=== PATIENT | female | born 1970 | race American Indian/Alaskan Native ===

== ENCOUNTER 2016-11-16 23:20 | Emergency (ER) | payer MEDICARE ==
[2016-11-17] MEDS ORDERED: TORADOL IM ONE (07:45)
--- NOTE | 2016-11-17 07:53 | Emergency Department Report ---
HPI - General Chief Complaint: Pain General Time Seen by Provider: 11/17/16 07:41 - HPI HPI: 46-year-old female presents to ED complaining of generalized body aching that and on for a couple of years. Patient states she has generalized body aching that started last night. Patient denies any fall trauma or injury recently. Patient states she takes atenolol for high blood pressure. Patient denies allergies to any medication. patient denies fever/chiils/nausea/vomiting/chest pain/abdominal pain/shortness of breath or any other problems ED Past Medical Hx - Past Medical History Previous Medical History?: Yes Hx Hypertension: Yes Hx Arthritis: Yes Hx Asthma: Yes - Surgical History Past Surgical History?: Yes Additional Surgical History: "TUMORS REMOVED IN STOMACH" - Social History Smoking Status: Current Every Day Smoker Substance Use Type: None - Medications Home Medications: Home Medications Medication Instructions Recorded Confirmed Last Taken Type ALBUTEROL Inhaler [ProAir HFA 2 puff IH QID PRN #1 inha 12/03/15 Unknown Rx Inhaler] predniSONE [Deltasone] 50 mg PO QDAY #5 tab 02/22/16 Unknown Rx Cyclobenzaprine HCl [Flexeril 5 MG 5 mg PO TID PRN #10 tab 09/30/16 Unknown Rx TAB] Atenolol [Tenormin] 50 mg PO DAILY #30 tablet 11/17/16 Unknown Rx Cyclobenzaprine [Flexeril 10 MG 10 mg PO TID PRN #12 tablet 11/17/16 Unknown Rx TAB] Ibuprofen [Motrin 800 MG tab] 800 mg PO Q8HR PRN #20 tablet 11/17/16 Unknown Rx ED Review of Systems ROS: Stated complaint: BODYACHES Other details as noted in HPI Constitutional: denies: chills, fever Eyes: denies: eye pain, eye discharge, vision change ENT: denies: ear pain, throat pain, dental pain, hearing loss Respiratory: denies: cough, shortness of breath, wheezing Cardiovascular: denies: chest pain, palpitations Endocrine: no symptoms reported Gastrointestinal: denies: abdominal pain, nausea, vomiting, diarrhea, constipation Genitourinary: denies: urgency, dysuria, frequency, hematuria, discharge Musculoskeletal: denies: back pain, joint swelling, arthralgia Skin: denies: rash, lesions Neurological: denies: headache, weakness, numbness, paresthesias, confusion, abnormal gait Psychiatric: denies: anxiety, depression, suicidal thoughts Hematological/Lymphatic: denies: easy bleeding, easy bruising, swollen glands Physical Exam - Physical Exam Vital Signs: Vital Signs 11/16/16 11/17/16 23:53 07:10 Temperature 97.5 F L Pulse Rate 81 68 Respiratory 12 17 Rate Blood Pressure 158/112 Blood Pressure 175/97 [Left] O2 Sat by Pulse 100 98 Oximetry Physical Exam: GENERAL: Alert and oriented x3, no apparent distress, Normal Gait, atraumatic. HEAD: Head is normocephalic and a-traumatic. EYES: Extra ocular muscles are intact. Pupils are equal, round, and reactive to light and accommodation. NECK: Supple. Non edematous, No carotid bruits. No lymphadenopathy or thyromegaly. LUNGS: Symetrical with respiration, No wheezing, no rales or crackles, CTAB. HEART: S1, S2 present, regular rate and rhythm without murmur, no rubs, no gallops. ABDOMEN: No organomegaly was noted,Positive bowel sounds, soft, and non- distended. . Nontender to palpation on all Quadrants, NO CVA tenderness. EXTREMITIES/MUSCULOSKELETAL: No cyanosis, clubbing, rash, lesions or edema. Full ROM bilaterally. UE/LE Pulses 2+ bilaterally. LE and UE 5+ strength bilaterally NEUROLOGIC: No focal Deficit, Cranial nerves II through XII are grossly intact. No loss of sensation, PSYCHIATRIC: Mood is congruent with affect, denies suicidal or homicidal ideations. SKIN: Warm and dry, No lesions, No ulceration or induration present. ED Course Vital Signs 11/16/16 11/17/16 23:53 07:10 Temperature 97.5 F L Pulse Rate 81 68 Respiratory 12 17 Rate Blood Pressure 158/112 Blood Pressure 175/97 [Left] O2 Sat by Pulse 100 98 Oximetry ED Medical Decision Making - Medical Decision Making 46-year-old female presents with myalgia. ED course: Patient received 60 mg Toradol and 50 mg of atenolol. Discussed with patient to rest for a day or 2. Discussed the patient took medication as prescribed for pain and continue to take blood pressure meds daily. I discussed to follow up with primary care physician. Vital signs are stable, moderately elevated blood pressure due to not taking her dose pressure because she was in the ER therefore blood pressure medication administered in the ED prior to discharge. Patient is in no acute or respiratory distress. Patient is resting comfortably in the bed. Critical care attestation.: If time is entered above; I have spent that time in minutes in the direct care of this critically ill patient, excluding procedure time. ED Disposition Clinical Impression: Myalgia Disposition: DISCHARGED TO HOME OR SELFCARE Is pt being admited?: No Does the pt Need Aspirin: No Condition: Stable Instructions: Musculoskeletal Pain (ED), Trigger Point Pain (ED) Prescriptions: Atenolol [Tenormin] 50 mg PO DAILY #30 tablet Cyclobenzaprine [Flexeril 10 MG TAB] 10 mg PO TID PRN #12 tablet PRN Reason: Muscle Spasm Ibuprofen [Motrin 800 MG tab] 800 mg PO Q8HR PRN #20 tablet PRN Reason: Pain Referrals: PRIMARY CAREMD [Primary Care Provider] - 3-5 Days KAMALJIT BERNARD MD [Referring] - 3-5 Days [facility] [Outside] - 3-5 Days [facility] [Outside] - 3-5 Days [facility] [Outside] - 3-5 Days Forms: Work/School Release Form(ED) Time of Disposition: 08:00
[2016-11-17] MEDS ORDERED: TENORMIN PO ONE (08:01)
[2016-11-17 08:29] VITALS: BP 159/78
== END 2016-11-17 08:39 | disposition home or self-care (01) ==
LOC: ED 23:20
DX: M79.1 Myalgia (principal); I10 Essential (primary) hypertension; J45.909 Unspecified asthma, uncomplicated; F17.200 Nicotine dependence, unspecified, uncomplicated
CPT/HCPCS: 96372; 99282; J1885

== ENCOUNTER 2016-11-26 10:00 | Emergency (ER) | payer MEDICARE ==
[2016-11-26 11:40] LABS: Basophils % (Auto) 0.8 % (0.0-1.8); Eosinophils % (Auto) 3.2 % (0.0-4.3); Hematocrit 35.4 % (30.3-42.9); Hemoglobin 11.4 gm/dl (10.1-14.3); Mean Corpuscular HGB Conc 32 % (30-34); Mean Corpuscular Hemoglobin 28 pg (28-32); Mean Corpuscular Volume 86 fl (79-97); Platelet Count 295 K/mm3 (140-440); Red Blood Count 4.11 M/mm3 (3.65-5.03); Red Cell Distribution Width 15.3 % (13.2-15.2); White Blood Count 5.1 K/mm3 (4.5-11.0)
[2016-11-26 11:54] LABS: Anion Gap 17 mmol/L; BUN/Creatinine Ratio 17.14; Blood Urea Nitrogen 12 mg/dL (7-17); Calcium 8.9 mg/dL (8.4-10.2); Carbon Dioxide 23 mmol/L (22-30); Chloride 102.2 mmol/L (98-107); Glucose 160 mg/dL (65-100); Potassium 3.4 mmol/L (3.6-5.0); Sodium 139 mmol/L (137-145)
[2016-11-26 12:53] LABS: Bilirubin,Urine NEG (Negative); Blood,Urine NEG (Negative); Ketones,Urine NEG (Negative); Leukocyte Esterase,Urine NEG (Negative); Nitrite,Urine NEG (Negative); Protein,Urine <15 mg/dL mg/dL (Negative); Urobilinogen,Urine < 2.0 mg/dL (<2.0); WBC,Urine < 1.0 /HPF (0.0-6.0)
--- NOTE | 2016-11-26 14:37 | XRay Report ---
ROUTINE CHEST, TWO VIEWS: HISTORY: Shortness of breath. The trachea, heart, mediastinal contour, lung doyle and bony thorax are unremarkable. IMPRESSION: Unremarkable chest x-ray.
--- NOTE | 2016-11-26 21:14 | Emergency Department Report ---
ED Shortness of Breath HPI - General Chief Complaint: Dyspnea/Respdistress Stated Complaint: TON Time Seen by Provider: 11/26/16 21:05 Source: patient Mode of arrival: Ambulatory Limitations: No Limitations - History of Present Illness Initial Comments: 46yo female with a past medical history hypertension, asthma, and arthritis presents to the hospital complaining of shortness of breath since last night. Patient was sleeping upon my initial evaluation but was easily arousable. Once aroused patient seems annoyed with questioning and not forthcoming with why she is here today. After answering multiple questions it appears that patient has been short of breath last night. She continuously says she is not quite back to the apartment where she was residing. She thinks this is exacerbating her asthma. Question about her complaint of cough I cough all the time. Question about high blood pressure she admits to not taking any of her meds 1 month. Then patient is agitated stating I'm asking her to many questions. - Related Data Previous Rx's Medication Instructions Recorded Last Taken Type ALBUTEROL Inhaler [ProAir HFA 2 puff IH QID PRN #1 inha 12/03/15 Unknown Rx Inhaler] predniSONE [Deltasone] 50 mg PO QDAY #5 tab 02/22/16 Unknown Rx Cyclobenzaprine HCl [Flexeril 5 MG 5 mg PO TID PRN #10 tab 09/30/16 Unknown Rx TAB] Atenolol [Tenormin] 50 mg PO DAILY #30 tablet 11/17/16 Unknown Rx Cyclobenzaprine [Flexeril 10 MG 10 mg PO TID PRN #12 tablet 11/17/16 Unknown Rx TAB] Ibuprofen [Motrin 800 MG tab] 800 mg PO Q8HR PRN #20 tablet 11/17/16 Unknown Rx Allergies Allergy/AdvReac Type Severity Reaction Status Date / Time No Known Allergies Allergy Verified 09/30/16 12:28 ED Review of Systems ROS: Stated complaint: TON Other details as noted in HPI Comment: Unobtainable due to pts medical conditions (limited due to lack of patient cooperation) ED Past Medical Hx - Past Medical History Hx Hypertension: Yes Hx Arthritis: Yes Hx Asthma: Yes - Surgical History Additional Surgical History: "TUMORS REMOVED IN STOMACH" - Social History Smoking Status: Current Every Day Smoker Substance Use Type: None - Medications Home Medications: Home Medications Medication Instructions Recorded Confirmed Last Taken Type ALBUTEROL Inhaler [ProAir HFA 2 puff IH QID PRN #1 inha 12/03/15 Unknown Rx Inhaler] predniSONE [Deltasone] 50 mg PO QDAY #5 tab 02/22/16 Unknown Rx Cyclobenzaprine HCl [Flexeril 5 MG 5 mg PO TID PRN #10 tab 09/30/16 Unknown Rx TAB] Atenolol [Tenormin] 50 mg PO DAILY #30 tablet 11/17/16 Unknown Rx Cyclobenzaprine [Flexeril 10 MG 10 mg PO TID PRN #12 tablet 11/17/16 Unknown Rx TAB] Ibuprofen [Motrin 800 MG tab] 800 mg PO Q8HR PRN #20 tablet 11/17/16 Unknown Rx ED Physical Exam - General Limitations: No Limitations - Other Other exam information: General: No limitations, patient is alert in no acute distress Head exam: Atraumatic, normocephalic Eyes exam: Normal appearance ENT: Moist mucous membrane Neck exam: Normal inspection, full range of motion, no meningismus nontender Respiratory exam: Clear to auscultation bilateral, no wheezes, rales, crackles Cardiovascular: Normal rate and rhythm, normal heart sounds Abdomen: Soft, nondistended, and nontender, with normal bowel sounds, no rebound, or guarding Extremity: Full range of motion normal inspection no deformity Back: Normal Inspection, full range of motion, no tenderness Neurologic: Alert, oriented x3, cranial nerves intact, no motor or sensory deficit Psychiatric: normal affect, normal mood Skin: Warm, dry, intact ED Course Vital Signs 11/26/16 11/26/16 10:55 21:23 Temperature 97.4 F L Pulse Rate 70 70 Respiratory 20 18 Rate Blood Pressure 180/104 Blood Pressure 189/108 [Left] O2 Sat by Pulse 100 99 Oximetry ED Medical Decision Making - Lab Data Result diagrams: 11/26/16 11:16 11/26/16 11:16 Lab Results 11/26/16 11/26/16 11/26/16 Range/Units 11:07 11:16 11:16 WBC 5.1 (4.5-11.0) K/mm3 RBC 4.11 (3.65-5.03) M/mm3 Hgb 11.4 (10.1-14.3) gm/dl Hct 35.4 (30.3-42.9) % MCV 86 (79-97) fl MCH 28 (28-32) pg MCHC 32 (30-34) % RDW 15.3 H (13.2-15.2) % Plt Count 295 (140-440) K/mm3 Lymph % (Auto) 40.2 H (13.4-35.0) % [place] % (Auto) 4.0 (0.0-7.3) % Eos % (Auto) 3.2 (0.0-4.3) % Baso % (Auto) 0.8 (0.0-1.8) % Lymph # 2.0 (1.2-5.4) K/mm3 [place] # 0.2 (0.0-0.8) K/mm3 Eos # 0.2 (0.0-0.4) K/mm3 Baso # 0.0 (0.0-0.1) K/mm3 Seg Neutrophils % 51.8 (40.0-70.0) % Seg Neutrophils # 2.6 (1.8-7.7) K/mm3 Sodium 139 (137-145) mmol/L Potassium 3.4 L (3.6-5.0) mmol/L Chloride 102.2 (98-107) mmol/L Carbon Dioxide 23 (22-30) mmol/L Anion Gap 17 mmol/L BUN 12 (7-17) mg/dL Creatinine 0.7 (0.7-1.2) mg/dL Estimated GFR > 60 ml/min BUN/Creatinine Ratio 17.14 % Glucose 160 H (65-100) mg/dL Calcium 8.9 (8.4-10.2) mg/dL Troponin T < 0.010 (0.00-0.029) ng/mL Urine Color Yellow (Yellow) Urine Turbidity Clear (Clear) Urine pH 6.0 (5.0-7.0) Ur Specific [place] 1.018 (1.003-1.030) Urine Protein <15 mg/dl (Negative) mg/dL Urine Glucose (UA) Neg (Negative) mg/dL Urine Ketones Neg (Negative) mg/dL Urine Blood Neg (Negative) Urine Nitrite Neg (Negative) Urine Bilirubin Neg (Negative) Urine Urobilinogen < 2.0 (<2.0) mg/dL Ur Leukocyte Esterase Neg (Negative) Urine WBC (Auto) < 1.0 (0.0-6.0) /HPF Urine RBC (Auto) 2.0 (0.0-6.0) /HPF U Epithel Cells (Auto) < 1.0 (0-13.0) /HPF Urine HCG, Qual Negative (Negative) - EKG Data -: EKG Interpreted by Me (nsr 70, nonspec st abnl) - EKG Data When compared to previous EKG there are: previous EKG unavailable - Radiology Data Radiology results: report reviewed (cxr: naf) - Medical Decision Making No signs of wheezing, hypoxia, tachypnea get the ED. Patient is asymptomatic hypertension with normal renal function. She has been noncompliant with her atenolol 1 month. I attempted to ask the patient most requested that she is not forthcoming with information is agitated by my questioning. She'll be discharged home on inhaler, steroids, by mouth potassium for mild hypokalemia and her blood pressure medication. Patient walked out of the department refuses any further care. - Differential Diagnosis asthma, uncontrolled hypertension, medication noncompliance, bronchitis, pn Critical Care Time: No Critical care attestation.: If time is entered above; I have spent that time in minutes in the direct care of this critically ill patient, excluding procedure time. ED Disposition Clinical Impression: Asthma, HTN (hypertension) Disposition: ELOPED Is pt being admited?: No Does the pt Need Aspirin: No Condition: Stable Instructions: Asthma (ED), Hypertension (ED) Referrals: PRIMARY CARE, [Primary Care Provider] - 3-5 Days Time of Disposition: 21:43
[2016-11-26 21:24] VITALS: BP 189/108
== END 2016-11-26 21:37 | disposition left against medical advice (07) ==
LOC: ED 10:00
DX: J45.909 Unspecified asthma, uncomplicated (principal); I10 Essential (primary) hypertension; M19.90 Unspecified osteoarthritis, unspecified site; F17.200 Nicotine dependence, unspecified, uncomplicated
CPT/HCPCS: 36415; 71020; 80048; 81001; 81025; 84484; 85025; 93005; 93010

== ENCOUNTER 2016-11-26 22:09 | Emergency (ER) | payer MEDICARE ==
[2016-11-27 08:37] VITALS: BP 156/104
== END 2016-11-27 15:35 | disposition left against medical advice (07) ==
LOC: ED 22:09
DX: I10 Essential (primary) hypertension (principal); M79.1 Myalgia; J45.909 Unspecified asthma, uncomplicated; M19.90 Unspecified osteoarthritis, unspecified site; F17.200 Nicotine dependence, unspecified, uncomplicated; Z53.21 Procedure and treatment not carried out due to patient leaving prior to being seen by health care provider

== ENCOUNTER 2017-01-06 23:35 | Emergency (ER) | payer MEDICARE ==
[2017-01-07 00:44] LABS: Basophils % (Auto) 1.1 % (0.0-1.8); Eosinophils % (Auto) 2.6 % (0.0-4.3); Hemoglobin 11.6 gm/dl (10.1-14.3); Mean Corpuscular HGB Conc 32 % (30-34); Mean Corpuscular Hemoglobin 28 pg (28-32); Mean Corpuscular Volume 86 fl (79-97); Platelet Count 310 K/mm3 (140-440); Red Blood Count 4.17 M/mm3 (3.65-5.03); Red Cell Distribution Width 15.4 % (13.2-15.2); White Blood Count 6.3 K/mm3 (4.5-11.0)
[2017-01-07 00:59] LABS: Anion Gap 16 mmol/L; BUN/Creatinine Ratio 21.42; Blood Urea Nitrogen 15 mg/dL (7-17); Carbon Dioxide 26 mmol/L (22-30); Chloride 103.6 mmol/L (98-107); Glucose 81 mg/dL (65-100); Potassium 4.3 mmol/L (3.6-5.0); Sodium 141 mmol/L (137-145)
[2017-01-07 01:11] LABS: Urine Drugs of Abuse Note Disclamer
[2017-01-07 01:49] LABS: Bacteria,Urine 1+ /HPF (Negative); Bilirubin,Urine NEG (Negative); Blood,Urine NEG (Negative); Ketones,Urine NEG (Negative); Leukocyte Esterase,Urine NEG (Negative); Nitrite,Urine NEG (Negative); Protein,Urine <15 mg/dL mg/dL (Negative); WBC,Urine < 1.0 /HPF (0.0-6.0)
--- NOTE | 2017-01-07 12:24 | Emergency Department Report ---
ED General Adult HPI - General Chief complaint: Back Pain/Injury Stated complaint: BACK PAIN Time Seen by Provider: 01/07/17 12:14 Source: patient Mode of arrival: Ambulatory Limitations: No Limitations - History of Present Illness Initial comments: According to the triage note "patient uncooperative and cursing staff at triage. Talking to self.". At this time the patient is not talking to herself. She is not responding to any internal stimuli. She is laying in the left lateral decubitus position and trying to sleep in the room. On my encounter she persistently tries to pull sheet over her head. Upon repeated questioning she tells me that she is not homicidal suicidal or hallucinating. I asked her if she ran out of her mental health medicine duran needed me to prescribe her chronic medicines. She did not identify any medicine or answer in the affirmative. She stated that she is here for "lower back pain" which is apparently chronic and not related to any acute injury. He denies any or GI symptoms. She's had no radiating pain no numbness or weakness. She arrived fully ambulatory. It would appear that the pain is not influencing her ability to rest or lay on her side. She is certainly in no distress. -: unknown Location: back Severity scale (0 -10): 8 Quality: aching Consistency: now resolved Improves with: none Worsens with: none Associated Symptoms: denies other symptoms Treatments Prior to Arrival: none - Related Data Previous Rx's Medication Instructions Recorded Last Taken Type ALBUTEROL Inhaler [ProAir HFA 2 puff IH QID PRN #1 inha 12/03/15 Unknown Rx Inhaler] predniSONE [Deltasone] 50 mg PO QDAY #5 tab 02/22/16 Unknown Rx Cyclobenzaprine HCl [Flexeril 5 MG 5 mg PO TID PRN #10 tab 09/30/16 Unknown Rx TAB] Atenolol [Tenormin] 50 mg PO DAILY #30 tablet 11/17/16 Unknown Rx Cyclobenzaprine [Flexeril 10 MG 10 mg PO TID PRN #12 tablet 11/17/16 Unknown Rx TAB] Ibuprofen [Motrin 800 MG tab] 800 mg PO Q8HR PRN #20 tablet 11/17/16 Unknown Rx Naproxen [Naprosyn] 500 mg PO BID #10 tablet 01/07/17 Unknown Rx Allergies Allergy/AdvReac Type Severity Reaction Status Date / Time No Known Allergies Allergy Verified 09/30/16 12:28 ED Review of Systems ROS: Stated complaint: BACK PAIN Other details as noted in HPI Constitutional: denies: chills, fever Eyes: denies: eye pain, eye discharge, vision change ENT: denies: ear pain, throat pain Respiratory: denies: cough, shortness of breath, wheezing Cardiovascular: denies: chest pain, palpitations Endocrine: no symptoms reported Gastrointestinal: denies: abdominal pain, nausea, diarrhea Genitourinary: denies: urgency, dysuria, discharge Musculoskeletal: back pain. denies: joint swelling, arthralgia Skin: denies: rash, lesions Neurological: denies: headache, weakness, paresthesias Psychiatric: denies: anxiety, depression Hematological/Lymphatic: denies: easy bleeding, easy bruising ED Past Medical Hx - Past Medical History Previous Medical History?: Yes Hx Hypertension: Yes Hx Arthritis: Yes Hx Asthma: Yes - Surgical History Past Surgical History?: Yes Additional Surgical History: "TUMORS REMOVED IN STOMACH" - Social History Smoking Status: Current Every Day Smoker Substance Use Type: None - Medications Home Medications: Home Medications Medication Instructions Recorded Confirmed Last Taken Type ALBUTEROL Inhaler [ProAir HFA 2 puff IH QID PRN #1 inha 12/03/15 Unknown Rx Inhaler] predniSONE [Deltasone] 50 mg PO QDAY #5 tab 02/22/16 Unknown Rx Cyclobenzaprine HCl [Flexeril 5 MG 5 mg PO TID PRN #10 tab 09/30/16 Unknown Rx TAB] Atenolol [Tenormin] 50 mg PO DAILY #30 tablet 11/17/16 Unknown Rx Cyclobenzaprine [Flexeril 10 MG 10 mg PO TID PRN #12 tablet 11/17/16 Unknown Rx TAB] Ibuprofen [Motrin 800 MG tab] 800 mg PO Q8HR PRN #20 tablet 11/17/16 Unknown Rx Naproxen [Naprosyn] 500 mg PO BID #10 tablet 01/07/17 Unknown Rx ED Physical Exam - General Limitations: No Limitations General appearance: alert, in no apparent distress, obese - Head Head exam: Present: atraumatic, normocephalic - Eye Eye exam: Present: normal appearance. Absent: scleral icterus - ENT ENT exam: Present: mucous membranes moist - Neck Neck exam: Present: normal inspection. Absent: tenderness, meningismus - Respiratory Respiratory exam: Present: normal lung sounds bilaterally. Absent: respiratory distress - Cardiovascular Cardiovascular Exam: Present: regular rate, normal rhythm. Absent: systolic murmur, diastolic murmur, rubs, gallop - GI/Abdominal GI/Abdominal exam: Present: soft, normal bowel sounds. Absent: distended, tenderness, guarding, rebound, rigid - Extremities Exam Extremities exam: Present: normal inspection - Back Exam Back exam: Present: normal inspection. Absent: CVA tenderness (R), CVA tenderness (L), muscle spasm, paraspinal tenderness, vertebral tenderness - Neurological Exam Neurological exam: Present: alert, oriented X3, CN II-XII intact. Absent: motor sensory deficit - Psychiatric Psychiatric exam: Present: normal affect, normal mood - Skin Skin exam: Present: warm, dry, intact, normal color. Absent: rash ED Course Vital Signs 01/07/17 01/07/17 01/07/17 00:04 05:49 10:50 Temperature 97.4 F L 98.2 F Pulse Rate 91 H 74 85 Respiratory 16 99 H 16 Rate Blood Pressure 148/92 184/109 174/101 O2 Sat by Pulse 98 100 100 Oximetry - Reevaluation(s) Reevaluation #1: I have reviewed the patient's history physical and laboratory workup. I do not identify any emergency medical condition. I do not identify any indication for involuntary confinement. It would appear the patient has chronic back pain and is malingering. It would appear that she has chronic psychiatric disorder but does not need 1013 criteria. Therefore she will be discharged and referred to outpatient services. 01/07/17 12:34 ED Medical Decision Making - Lab Data Result diagrams: 01/07/17 00:29 01/07/17 00:29 Laboratory Results - last 24 hr 01/07/17 01/07/17 01/07/17 00:29 00:29 00:29 WBC 6.3 RBC 4.17 Hgb 11.6 Hct 36.0 MCV 86 MCH 28 MCHC 32 RDW 15.4 H Plt Count 310 Lymph % (Auto) 42.7 H [place] % (Auto) 7.3 Eos % (Auto) 2.6 Baso % (Auto) 1.1 Lymph # 2.7 [place] # 0.5 Eos # 0.2 Baso # 0.1 Seg Neutrophils % 46.3 Seg Neutrophils # 2.9 Sodium 141 Potassium 4.3 Chloride 103.6 Carbon Dioxide 26 Anion Gap 16 BUN 15 Creatinine 0.7 Estimated GFR > 60 BUN/Creatinine Ratio 21.42 Glucose 81 Calcium 9.0 Urine Color Urine Turbidity Urine pH Ur Specific [place] Urine Protein Urine Glucose (UA) Urine Ketones Urine Blood Urine Nitrite Ur Reducing Substances Urine Bilirubin Urine Ictotest Urine Urobilinogen Ur Leukocyte Esterase Urine WBC (Auto) Urine RBC (Auto) U Epithel Cells (Auto) Urine Bacteria (Auto) Urine HCG, Qual Urine Opiates Screen Urine Methadone Screen Ur Barbiturates Screen Ur Phencyclidine Scrn Ur Amphetamines Screen U Benzodiazepines Scrn Urine Cocaine Screen U Marijuana (THC) Screen Drugs of Abuse Note Plasma/Serum Alcohol < 0.01 01/07/17 01/07/17 00:42 00:42 WBC RBC Hgb Hct MCV MCH MCHC RDW Plt Count Lymph % (Auto) [place] % (Auto) Eos % (Auto) Baso % (Auto) Lymph # [place] # Eos # Baso # Seg Neutrophils % Seg Neutrophils # Sodium Potassium Chloride Carbon Dioxide Anion Gap BUN Creatinine Estimated GFR BUN/Creatinine Ratio Glucose Calcium Urine Color Yellow Urine Turbidity Clear Urine pH 7.0 Ur Specific [place] 1.017 Urine Protein <15 mg/dl Urine Glucose (UA) Neg Urine Ketones Neg Urine Blood Neg Urine Nitrite Neg Ur Reducing Substances Not Reportable Urine Bilirubin Neg Urine Ictotest Not Reportable Urine Urobilinogen 2.0 Ur Leukocyte Esterase Neg Urine WBC (Auto) < 1.0 Urine RBC (Auto) 3.0 U Epithel Cells (Auto) 3.0 Urine Bacteria (Auto) 1+ Urine HCG, Qual Negative Urine Opiates Screen Presumptive negative Urine Methadone Screen Presumptive negative Ur Barbiturates Screen Presumptive negative Ur Phencyclidine Scrn Presumptive negative Ur Amphetamines Screen Presumptive negative U Benzodiazepines Scrn Presumptive negative Urine Cocaine Screen Presumptive negative U Marijuana (THC) Screen Presumptive negative Drugs of Abuse Note Disclamer Plasma/Serum Alcohol Critical care attestation.: If time is entered above; I have spent that time in minutes in the direct care of this critically ill patient, excluding procedure time. ED Disposition Clinical Impression: Psychiatric disorder, Malingering Lower back pain Qualifiers: Chronicity: chronic Back pain laterality: unspecified Sciatica presence: without sciatica Qualified Code(s): M54.5 - Low back pain; G89.29 - Other chronic pain Disposition: DISCHARGED TO HOME OR SELFCARE Is pt being admited?: No Does the pt Need Aspirin: No Condition: Stable Instructions: Low Back Strain (ED), Chronic Back Pain (ED), Schizophrenia (ED) Additional Instructions: Follow-up with outpatient referrals. Rx as needed for back discomfort. Prescriptions: Naproxen [Naprosyn] 500 mg PO BID #10 tablet Referrals: PRIMARY CARE, [Primary Care Provider] - 3-5 Days [facility] [Outside] - 3-5 Days [facility] [Provider Group] - 3-5 Days Time of Disposition: 12:36
[2017-01-07 12:48] VITALS: BP 151/71
== END 2017-01-07 12:58 | disposition home or self-care (01) ==
LOC: ED 23:35 → EEVIPCON 23:35 → ED 01-07 12:58
DX: M54.5 Low back pain (principal); G89.29 Other chronic pain; F29 Unspecified psychosis not due to a substance or known physiological condition; Z76.5 Malingerer [conscious simulation]; I10 Essential (primary) hypertension; J45.909 Unspecified asthma, uncomplicated; F17.200 Nicotine dependence, unspecified, uncomplicated
CPT/HCPCS: 36415; 80048; 80307; 81001; 81025; 85025; 99283; G0480; 80320

== ENCOUNTER 2017-03-16 01:48 | Emergency (ER) | payer MEDICARE ==
[2017-03-16 06:40] LABS: Urine Drugs of Abuse Note Disclamer
[2017-03-16 06:52] LABS: Basophils % (Auto) 0.7 % (0.0-1.8); Eosinophils % (Auto) 2.8 % (0.0-4.3); Hematocrit 38.2 % (30.3-42.9); Hemoglobin 12.7 gm/dl (10.1-14.3); Mean Corpuscular HGB Conc 33 % (30-34); Mean Corpuscular Hemoglobin 28 pg (28-32); Mean Corpuscular Volume 85 fl (79-97); Platelet Count 322 K/mm3 (140-440); Red Blood Count 4.49 M/mm3 (3.65-5.03); Red Cell Distribution Width 14.7 % (13.2-15.2); White Blood Count 5.8 K/mm3 (4.5-11.0)
[2017-03-16 07:00] LABS: Bilirubin,Urine NEG (Negative); Blood,Urine NEG (Negative); Ketones,Urine TR mg/dL (Negative); Leukocyte Esterase,Urine NEG (Negative); Mucus,Urine 1+ /HPF; Nitrite,Urine NEG (Negative)
[2017-03-16 07:08] LABS: Anion Gap 14 mmol/L; Blood Urea Nitrogen 16 mg/dL (7-17); Calcium 9.1 mg/dL (8.4-10.2); Carbon Dioxide 29 mmol/L (22-30); Chloride 104.6 mmol/L (98-107); Glucose 81 mg/dL (65-100); Sodium 144 mmol/L (137-145)
--- NOTE | 2017-03-16 10:04 | ED Elopement Review ---
ED Pt Elopement review - Results review Lab results: Laboratory Tests 03/16/17 03/16/17 03/16/17 06:37 06:37 06:37 WBC 5.8 RBC 4.49 Hgb 12.7 Hct 38.2 MCV 85 MCH 28 MCHC 33 RDW 14.7 Plt Count 322 Lymph % (Auto) 48.7 H [place] % (Auto) 8.8 H Eos % (Auto) 2.8 Baso % (Auto) 0.7 Lymph # 2.8 [place] # 0.5 Eos # 0.2 Baso # 0.0 Seg Neutrophils % 39.0 L Seg Neutrophils # 2.2 Sodium 144 Potassium 4.0 Chloride 104.6 Carbon Dioxide 29 Anion Gap 14 BUN 16 Creatinine 0.8 Estimated GFR > 60 BUN/Creatinine Ratio 20.00 Glucose 81 Calcium 9.1 Urine Color Urine Turbidity Urine pH Ur Specific [place] Urine Protein Urine Glucose (UA) Urine Ketones Urine Blood Urine Nitrite Urine Bilirubin Urine Urobilinogen Ur Leukocyte Esterase Urine WBC (Auto) Urine RBC (Auto) U Epithel Cells (Auto) Amorphous Crystals Urine Mucus Urine HCG, Qual Urine Opiates Screen Urine Methadone Screen Ur Barbiturates Screen Ur Phencyclidine Scrn Ur Amphetamines Screen U Benzodiazepines Scrn Urine Cocaine Screen U Marijuana (THC) Screen Drugs of Abuse Note Plasma/Serum Alcohol < 0.01 03/16/17 03/16/17 Unknown Unknown WBC RBC Hgb Hct MCV MCH MCHC RDW Plt Count Lymph % (Auto) [place] % (Auto) Eos % (Auto) Baso % (Auto) Lymph # [place] # Eos # Baso # Seg Neutrophils % Seg Neutrophils # Sodium Potassium Chloride Carbon Dioxide Anion Gap BUN Creatinine Estimated GFR BUN/Creatinine Ratio Glucose Calcium Urine Color Yellow Urine Turbidity Clear Urine pH 6.0 Ur Specific [place] 1.031 H Urine Protein 30 mg/dl Urine Glucose (UA) Neg Urine Ketones Tr Urine Blood Neg Urine Nitrite Neg Urine Bilirubin Neg Urine Urobilinogen 4.0 Ur Leukocyte Esterase Neg Urine WBC (Auto) 1.0 Urine RBC (Auto) 2.0 U Epithel Cells (Auto) 2.0 Amorphous Crystals Few Urine Mucus 1+ Urine HCG, Qual Negative Urine Opiates Screen Presumptive negative Urine Methadone Screen Presumptive negative Ur Barbiturates Screen Presumptive negative Ur Phencyclidine Scrn Presumptive negative Ur Amphetamines Screen Presumptive negative U Benzodiazepines Scrn Presumptive negative Urine Cocaine Screen Presumptive negative U Marijuana (THC) Screen Presumptive negative Drugs of Abuse Note Disclamer Plasma/Serum Alcohol - Call Back decision Pt Call Back Decision: No action required (Labs unremarkable. Vitals stable. Patient did not make any complaints of suicidal or homicidal ideations. Seen eloping and appeared stable while ambulating by ED staff)
[2017-03-16] MEDS ORDERED: DUONEB *Not for PRN Use IH ONE (10:16)
[2017-03-16] MEDS ORDERED: DELTASONE PO ONE (10:17)
--- NOTE | 2017-03-16 10:19 | Emergency Department Report ---
HPI - General Chief Complaint: Psych Time Seen by Provider: 03/16/17 09:58 - HPI HPI: This is a 47-year-old Afro-[place] female presents to the emergency department with complaint of "the inhaler is not enough." The patient has a history of asthma and says that she's been having some shortness of breath and coughing. She believes that the heat is exacerbating her symptoms. The patient is also a tobacco smoker. The patient had briefly eloped when I first got to the hospital to start shift and pick remover her chart but she returned shortly afterwards after she went outside to smoke a cigarette. She denies having a primary care physician. The patient does have some psychiatric history that appears to be consistent with schizophrenia but she denies being on any medications. While she is seen occasionally talking to herself, she is able to hold a conversation currently and she denies any suicidal or homicidal ideations. ED Past Medical Hx - Past Medical History Previous Medical History?: Yes Hx Hypertension: Yes Hx Arthritis: Yes Hx Asthma: Yes - Surgical History Past Surgical History?: Yes Additional Surgical History: "TUMORS REMOVED IN STOMACH" - Social History Smoking Status: Current Every Day Smoker Substance Use Type: None - Medications Home Medications: Home Medications Medication Instructions Recorded Confirmed Last Taken Type Cyclobenzaprine HCl [Flexeril 5 MG 5 mg PO TID PRN #10 tab 09/30/16 Unknown Rx TAB] Atenolol [Tenormin] 50 mg PO DAILY #30 tablet 11/17/16 Unknown Rx Cyclobenzaprine [Flexeril 10 MG 10 mg PO TID PRN #12 tablet 11/17/16 Unknown Rx TAB] Ibuprofen [Motrin 800 MG tab] 800 mg PO Q8HR PRN #20 tablet 11/17/16 Unknown Rx Naproxen [Naprosyn] 500 mg PO BID #10 tablet 01/07/17 Unknown Rx ALBUTEROL Inhaler [ProAir HFA 2 puff IH QID PRN #1 inha 03/16/17 Unknown Rx Inhaler] predniSONE [Deltasone] 50 mg PO QDAY #5 tab 03/16/17 Unknown Rx ED Review of Systems ROS: Stated complaint: UNCOMFORTABLE FROM HEAT Other details as noted in HPI Comment: All other systems reviewed and negative Constitutional: denies: chills, fever Eyes: denies: eye pain, eye discharge, vision change ENT: denies: ear pain, throat pain Respiratory: cough, shortness of breath, wheezing Cardiovascular: denies: chest pain, palpitations Gastrointestinal: denies: abdominal pain, nausea, diarrhea Genitourinary: denies: urgency, dysuria, discharge Musculoskeletal: denies: back pain, joint swelling, arthralgia Skin: denies: rash, lesions Neurological: denies: headache, weakness, paresthesias Physical Exam - Physical Exam Vital Signs: Vital Signs 03/16/17 03/16/17 03/16/17 04:04 06:19 08:19 Temperature 98.2 F 98.2 F 97.5 F L Pulse Rate 64 18 L 55 L Respiratory 18 18 18 Rate Blood Pressure 152/98 180/97 Blood Pressure 152/98 [Right] O2 Sat by Pulse 100 100 100 Oximetry Physical Exam: GENERAL: The patient is well-developed well-nourished. HEENT: Normocephalic. Atraumatic. Extraocular motions are intact. Patient has moist mucous membranes. Pupils equal reactive to light bilaterally. NECK: Supple. Trachea is midline. CHEST/LUNGS: Mild wheezing throughout the chest. No tachypnea or accessory muscle use. No cough heard during examination. There is no respiratory distress noted. HEART/CARDIOVASCULAR: Regular. There is no tachycardia. There is no gallop rub or murmur. ABDOMEN: Abdomen is soft, nontender. Patient has normal bowel sounds. There is no abdominal distention. SKIN: Skin is warm and dry. NEURO: The patient is awake, alert, and oriented. The patient is cooperative. The patient has no focal neurologic deficits. The patient has normal speech and gait. MUSCULOSKELETAL: There is no tenderness or deformity. There is no limitation range of motion. There is no evidence of acute injury. ED Course Vital Signs 03/16/17 03/16/17 03/16/17 04:04 06:19 08:19 Temperature 98.2 F 98.2 F 97.5 F L Pulse Rate 64 18 L 55 L Respiratory 18 18 18 Rate Blood Pressure 152/98 180/97 Blood Pressure 152/98 [Right] O2 Sat by Pulse 100 100 100 Oximetry ED Medical Decision Making - Lab Data Result diagrams: 03/16/17 06:37 03/16/17 06:37 - Radiology Data Radiology results: image reviewed interpreted by me: Chest x-ray did not show any acute process. No effusions. No pneumothorax. No signs of pneumonia seen. - Medical Decision Making 47-year-old female presents with some shortness of breath and bronchospasm-like symptoms with a history of asthma. Labs are unremarkable and do not show any etiology of her symptoms. Chest x-ray does not show any obvious pneumonia, pleural effusions or any acute process. She had some mild wheezing throughout the chest until she had a DuoNeb and then it resolved. She was given a dose of steroids here. From a medical standpoint she appears safe for discharge home and will go home with an inhaler and a 5 day course of steroids. While the patient does appear to have some signs of schizophrenia and occasionally is responding to external stimuli, she is otherwise able to answer questions appropriately and denies any suicidal or homicidal ideations at this time. She does not appear to fit the criteria to be made a 1013. She has been encouraged to follow-up with her primary care physician and her psychiatrist. - Differential Diagnosis asthma, bronchitis, pneumonia, schizophrenia Critical Care Time: No Critical care attestation.: If time is entered above; I have spent that time in minutes in the direct care of this critically ill patient, excluding procedure time. ED Disposition Clinical Impression: Bronchospasm, Tobacco abuse Asthma Qualifiers: Asthma severity: unspecified severity Asthma complication type: with acute exacerbation Qualified Code(s): J45.901 - Unspecified asthma with (acute) exacerbation Disposition: - TO HOME OR SELFCARE Is pt being admited?: No Condition: Stable Instructions: Asthma (ED), Bronchospasm (ED) Additional Instructions: Please follow-up with a primary care physician in the next few days. Return to the emergency department with any worsening of your symptoms or any acute distress. Please try and quit smoking as it will help with your breathing as well as with your elevated blood pressure. Try and stay away from foods that are high in salt and caffeinated products. Keep a blood pressure log. Prescriptions: ALBUTEROL Inhaler [ProAir HFA Inhaler] 2 puff IH QID PRN #1 inha PRN Reason: Shortness Of Breath predniSONE [Deltasone] 50 mg PO QDAY #5 tab Referrals: CHIRAG SAUCEDO MD [Staff Physician] - 3-5 Days [facility] [Outside] - 3-5 Days Time of Disposition: 10:56
--- NOTE | 2017-03-16 10:34 | XRay Report ---
CHEST TWO VIEWS: 03/16/17 01:48:00 CLINICAL: Cough. COMPARISON: 11/26/16 FINDINGS: Cardiomegaly and mild central vascular congestion. The lungs are normally expanded and clear.The bones and soft tissues are unremarkable. IMPRESSION: Cardiomegaly and pulmonary venous hypertension.No pulmonary edema.
[2017-03-16 11:05] VITALS: BP 138/99
== END 2017-03-16 11:16 | disposition home or self-care (01) ==
LOC: ED 01:48
DX: J45.901 Unspecified asthma with (acute) exacerbation (principal); J98.01 Acute bronchospasm; F17.200 Nicotine dependence, unspecified, uncomplicated; I10 Essential (primary) hypertension; M19.90 Unspecified osteoarthritis, unspecified site
CPT/HCPCS: 36415; 71020; 80048; 80307; 81001; 81025; 85025; 94640; 99284; G0480; J7512; 80320

== ENCOUNTER 2017-03-30 22:17 | Emergency (ER) | payer MEDICARE ==
[2017-03-31 03:26] VITALS: BP 142/88
--- NOTE | 2017-03-31 04:54 | Emergency Department Report ---
HPI - General Chief Complaint: Extremity Problem,Nontraumatic Time Seen by Provider: 03/31/17 04:46 - HPI HPI: Patient is a 47-year-old female who presents to ED complaining of arthritis pain in her foot and toes 1 day. Patient states she did a lot of walking recently and is causing her toes to her. She denies any injury, foreign objects of the foot, trauma to the foot. She denies loss of sensation in her foot. Patient states she is able to all without any problems but hasn't some arthralgia from arthritis. She denies fevers/chills/nausea/vomiting or any other problems ED Past Medical Hx - Past Medical History Previous Medical History?: Yes Hx Hypertension: Yes Hx Arthritis: Yes Hx Asthma: Yes - Surgical History Past Surgical History?: Yes Additional Surgical History: "TUMORS REMOVED IN STOMACH" - Social History Smoking Status: Current Some Day Smoker Substance Use Type: None - Medications Home Medications: Home Medications Medication Instructions Recorded Confirmed Last Taken Type Cyclobenzaprine HCl [Flexeril 5 MG 5 mg PO TID PRN #10 tab 09/30/16 Unknown Rx TAB] Atenolol [Tenormin] 50 mg PO DAILY #30 tablet 11/17/16 Unknown Rx Ibuprofen [Motrin 800 MG tab] 800 mg PO Q8HR PRN #20 tablet 11/17/16 Unknown Rx ALBUTEROL Inhaler [ProAir HFA 2 puff IH QID PRN #1 inha 03/16/17 Unknown Rx Inhaler] predniSONE [Deltasone] 50 mg PO QDAY #5 tab 03/16/17 Unknown Rx Cyclobenzaprine [Flexeril 10 MG 10 mg PO TID PRN #12 tablet 03/31/17 Unknown Rx TAB] Naproxen [Naprosyn TAB] 500 mg PO BID #20 tablet 03/31/17 Unknown Rx ED Review of Systems ROS: Stated complaint: BILATERAL FEET PAIN Other details as noted in HPI Constitutional: denies: chills, fever Eyes: denies: eye pain, eye discharge, vision change ENT: denies: ear pain, throat pain Respiratory: denies: cough, shortness of breath, wheezing Cardiovascular: denies: chest pain, palpitations Endocrine: no symptoms reported Gastrointestinal: denies: abdominal pain, nausea, diarrhea Genitourinary: denies: urgency, dysuria, discharge Musculoskeletal: arthralgia. denies: back pain, joint swelling Skin: denies: rash, lesions Neurological: denies: headache, weakness, paresthesias Psychiatric: denies: anxiety, depression Hematological/Lymphatic: denies: easy bleeding, easy bruising Physical Exam - Physical Exam Vital Signs: Vital Signs 03/30/17 03/31/17 22:25 03:26 Temperature 98.5 F 98.6 F Pulse Rate 82 85 Respiratory 18 16 Rate Blood Pressure 156/93 Blood Pressure 142/88 [Right] O2 Sat by Pulse 95 98 Oximetry Physical Exam: GENERAL: Alert and oriented x3, no apparent distress, Normal Gait, atraumatic. LUNGS: Symetrical with respiration, No wheezing, no rales or crackles, CTAB. HEART: S1, S2 present, regular rate and rhythm without murmur, no rubs, no gallops. Non tender to palpation EXTREMITIES/MUSCULOSKELETAL: No cyanosis, clubbing, rash, lesions or edema. Full ROM bilaterally. UE/LE Pulses 2+ bilaterally. LE and UE 5+ strength bilaterally, straight leg raise negative bilaterally. Toe joints are intact. Patient able to wiggle and move toes with active and passive motion. Full range of motion. Normal sensation in the toes. Nontender to palpation. NEUROLOGIC: The patient is cooperative with no focal neurologic deficits. Cranial nerves II through XII are grossly intact. Normal speech. Normal sensation in bilateral upper and lower extremities, No loss of sensation, SKIN: Warm and dry, No lesions, No ulceration or induration present. ED Course Vital Signs 03/30/17 03/31/17 22:25 03:26 Temperature 98.5 F 98.6 F Pulse Rate 82 85 Respiratory 18 16 Rate Blood Pressure 156/93 Blood Pressure 142/88 [Right] O2 Sat by Pulse 95 98 Oximetry ED Medical Decision Making - Medical Decision Making 47-year-old female presents with arthritis and joint pain ED course: Discussed the patient to soak feet in Epsom salts daily. Discussed patient to take medication as prescribed. Discussed not walk as much as for the next couple of days. Discussed to follow up with primary care physician. Vital signs are stable patient is in no acute distress. Critical care attestation.: If time is entered above; I have spent that time in minutes in the direct care of this critically ill patient, excluding procedure time. ED Disposition Clinical Impression: Arthritis Arthralgia Qualifiers: Joint pain location: foot Laterality: bilateral Qualified Code(s): M79.671 - Pain in right foot Disposition: - TO HOME OR SELFCARE Is pt being admited?: No Does the pt Need Aspirin: No Condition: Stable Instructions: Arthralgia (ED) Prescriptions: Cyclobenzaprine [Flexeril 10 MG TAB] 10 mg PO TID PRN #12 tablet PRN Reason: Muscle Spasm Naproxen [Naprosyn TAB] 500 mg PO BID #20 tablet Referrals: PRIMARY CARE, [Primary Care Provider] - 3-5 Days [facility] [Outside] - 3-5 Days [facility] [Outside] - 3-5 Days [facility] [Outside] - 3-5 Days Forms: Work/School Release Form(ED) Time of Disposition: 04:59
== END 2017-03-31 05:38 | disposition home or self-care (01) ==
LOC: ED 22:17
DX: M19.071 Primary osteoarthritis, right ankle and foot (principal); I10 Essential (primary) hypertension; J45.909 Unspecified asthma, uncomplicated; F17.200 Nicotine dependence, unspecified, uncomplicated
CPT/HCPCS: 99282

== ENCOUNTER 2017-04-03 00:10 | Emergency (ER) | payer MEDICARE ==
--- NOTE | 2017-04-03 06:17 | Emergency Department Report ---
- General Chief Complaint: Sore Throat Stated Complaint: COMMON COLD Time Seen by Provider: 04/03/17 06:07 Source: patient Mode of arrival: Ambulatory Limitations: No Limitations - History of Present Illness Initial Comments: 47-year-old female past medical history asthma, smoker presents with complaint of 2 days of cough and sinus congestion and sore throat. Patient is awake alert and oriented 3 not in acute distress. Denies nausea or vomiting. Denies sick contacts. Denies any shortness of breath. Awake alert and oriented 3 sitting comfortably in the examination bed. No audible wheezing or stridor. States that she came in for the dry cough and the sore throat. MD Complaint: cough, sore throat Onset/Timin -: days(s) Severity: moderate Quality: aching Improves With: nothing Worsens With: nothing Associated Symptoms: cough - Related Data Previous Rx's Medication Instructions Recorded Last Taken Type Cyclobenzaprine HCl [Flexeril 5 MG 5 mg PO TID PRN #10 tab 09/30/16 Unknown Rx TAB] Atenolol [Tenormin] 50 mg PO DAILY #30 tablet 11/17/16 Unknown Rx Ibuprofen [Motrin 800 MG tab] 800 mg PO Q8HR PRN #20 tablet 11/17/16 Unknown Rx ALBUTEROL Inhaler [ProAir HFA 2 puff IH QID PRN #1 inha 03/16/17 Unknown Rx Inhaler] predniSONE [Deltasone] 50 mg PO QDAY #5 tab 03/16/17 Unknown Rx Cyclobenzaprine [Flexeril 10 MG 10 mg PO TID PRN #12 tablet 03/31/17 Unknown Rx TAB] Naproxen [Naprosyn TAB] 500 mg PO BID #20 tablet 03/31/17 Unknown Rx ALBUTEROL Inhaler [ProAir HFA 2 puff IH QID PRN #1 inhalation 04/03/17 Unknown Rx Inhaler] Naproxen [Naprosyn TAB] 500 mg PO BID PRN #20 tablet 04/03/17 Unknown Rx Phenylephrine/Dm/Acetaminop/GG 10 ml PO Q4H PRN #1 liquid 04/03/17 Unknown Rx [Mucinex Nydy-Ijf-Ietojyrfju Lq] Prednisone [predniSONE 10 mg 10 mg PO .TAPER #1 tab.ds.pk 04/03/17 Unknown Rx (6-Day Pack, 21 Tabs)] Allergies Allergy/AdvReac Type Severity Reaction Status Date / Time No Known Allergies Allergy Verified 09/30/16 12:28 ED Review of Systems ROS: Stated complaint: COMMON COLD Other details as noted in HPI Constitutional: denies: chills, fever Eyes: denies: eye pain, eye discharge, vision change ENT: denies: ear pain, throat pain Respiratory: denies: cough, shortness of breath, wheezing Cardiovascular: denies: chest pain, palpitations Endocrine: no symptoms reported Gastrointestinal: denies: abdominal pain, nausea, diarrhea Genitourinary: denies: urgency, dysuria, discharge Musculoskeletal: denies: back pain, joint swelling, arthralgia Skin: denies: rash, lesions Neurological: denies: headache, weakness, paresthesias Psychiatric: denies: anxiety, depression Hematological/Lymphatic: denies: easy bleeding, easy bruising ED Past Medical Hx - Past Medical History Previous Medical History?: Yes Hx Hypertension: Yes Hx Arthritis: Yes Hx Asthma: Yes - Surgical History Past Surgical History?: Yes Additional Surgical History: "TUMORS REMOVED IN STOMACH" - Social History Smoking Status: Current Every Day Smoker Substance Use Type: None - Medications Home Medications: Home Medications Medication Instructions Recorded Confirmed Last Taken Type Cyclobenzaprine HCl [Flexeril 5 MG 5 mg PO TID PRN #10 tab 09/30/16 Unknown Rx TAB] Atenolol [Tenormin] 50 mg PO DAILY #30 tablet 11/17/16 Unknown Rx Ibuprofen [Motrin 800 MG tab] 800 mg PO Q8HR PRN #20 tablet 11/17/16 Unknown Rx ALBUTEROL Inhaler [ProAir HFA 2 puff IH QID PRN #1 inha 03/16/17 Unknown Rx Inhaler] predniSONE [Deltasone] 50 mg PO QDAY #5 tab 03/16/17 Unknown Rx Cyclobenzaprine [Flexeril 10 MG 10 mg PO TID PRN #12 tablet 03/31/17 Unknown Rx TAB] Naproxen [Naprosyn TAB] 500 mg PO BID #20 tablet 03/31/17 Unknown Rx ALBUTEROL Inhaler [ProAir HFA 2 puff IH QID PRN #1 inhalation 04/03/17 Unknown Rx Inhaler] Naproxen [Naprosyn TAB] 500 mg PO BID PRN #20 tablet 04/03/17 Unknown Rx Phenylephrine/Dm/Acetaminop/GG 10 ml PO Q4H PRN #1 liquid 04/03/17 Unknown Rx [Mucinex Vjuu-Wnf-Lzxlpnfugl Lq] Prednisone [predniSONE 10 mg 10 mg PO .TAPER #1 tab.ds.pk 04/03/17 Unknown Rx (6-Day Pack, 21 Tabs)] ED Physical Exam - General Limitations: No Limitations General appearance: alert, in no apparent distress - Head Head exam: Present: atraumatic, normocephalic - Eye Eye exam: Present: normal appearance, PERRL, EOMI - ENT ENT exam: Present: mucous membranes moist - Neck Neck exam: Present: normal inspection, full ROM - Respiratory Respiratory exam: Present: normal lung sounds bilaterally. Absent: respiratory distress - Cardiovascular Cardiovascular Exam: Present: regular rate, normal rhythm. Absent: systolic murmur, diastolic murmur, rubs, gallop - GI/Abdominal GI/Abdominal exam: Present: soft, normal bowel sounds - Extremities Exam Extremities exam: Present: normal inspection, full ROM - Back Exam Back exam: Present: normal inspection - Neurological Exam Neurological exam: Present: alert, oriented X3, CN II-XII intact, normal gait - Psychiatric Psychiatric exam: Present: normal affect, normal mood - Skin Skin exam: Present: warm, dry, intact, normal color. Absent: rash ED Course Vital Signs 04/03/17 00:44 Temperature 98.3 F Pulse Rate 81 Respiratory 18 Rate Blood Pressure 163/102 O2 Sat by Pulse 98 Oximetry ED Medical Decision Making - Medical Decision Making A/P: Upper respiratory tract infection 1-albuterol, prednisone, naproxen 2-Bromfed when necessary, Tessalon Perles when necessary 3-follow-up with primary care 4-strep test negative, chest x-ray unremarkable Critical care attestation.: If time is entered above; I have spent that time in minutes in the direct care of this critically ill patient, excluding procedure time. ED Disposition Clinical Impression: Upper respiratory infection Qualifiers: URI type: unspecified viral URI Qualified Code(s): J06.9 - Acute upper respiratory infection, unspecified; B97.89 - Other viral agents as the cause of diseases classified elsewhere Disposition: DC-01 TO HOME OR SELFCARE Is pt being admited?: No Does the pt Need Aspirin: No Condition: Stable Instructions: Upper Respiratory Infection (ED), Cold Symptoms (ED) Prescriptions: ALBUTEROL Inhaler [ProAir HFA Inhaler] 2 puff IH QID PRN #1 inhalation PRN Reason: Shortness Of Breath Naproxen [Naprosyn TAB] 500 mg PO BID PRN #20 tablet PRN Reason: Cough Phenylephrine/Dm/Acetaminop/GG [Mucinex Xwww-Jkt-Voopmjkyqk Lq] 10 ml PO Q4H PRN #1 liquid PRN Reason: Cough Prednisone [predniSONE 10 mg (6-Day Pack, 21 Tabs)] 10 mg PO .TAPER #1 tab.ds.pk Referrals: [facility] [Provider Group] - 3-5 Days [facility] [Outside] - 3-5 Days Forms: Work/School Release Form(ED) Time of Disposition: 06:20
[2017-04-03] MEDS ORDERED: DUONEB *Not for PRN Use IH ONE (06:18)
[2017-04-03 07:06] VITALS: BP 146/92
--- NOTE | 2017-04-03 09:21 | XRay Report ---
ROUTINE CHEST, TWO VIEWS: HISTORY: Cough. Heart size and pulmonary vascularity are borderline which are unchanged since 03/16/17. The lungs are clear. No evidence for pneumonia, pleural effusion or pneumothorax. IMPRESSION: No acute cardiopulmonary process.
== END 2017-04-03 07:25 | disposition home or self-care (01) ==
LOC: ED 00:10
DX: J06.9 Acute upper respiratory infection, unspecified (principal); B97.89 Other viral agents as the cause of diseases classified elsewhere; J45.909 Unspecified asthma, uncomplicated; F17.200 Nicotine dependence, unspecified, uncomplicated
CPT/HCPCS: 71020; 87116; 87430; 94640

== ENCOUNTER 2017-08-26 03:46 | Emergency (ER) | payer MEDICARE ==
--- NOTE | 2017-08-26 06:58 | Emergency Department Report ---
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 Depression/anxiety presents with complaint of one month of persistent body aches. Patient states she may have had slight cough over the last week. Denies nausea vomiting fevers chills dysuria hematuria or increased urinary frequency or foul-smelling urine. Denies nausea or vomiting chest pain palpitations shortness of breath. States she has had mild nonproductive cough. Patient is sleepy but arousable and able to provide a history after waking up. Patient is somewhat irritable and in an irate mood. Patient is ambulatory without assistance. Denies alcohol or drug use. Patient states that she has not seen a primary care doctor for this issue. Has been ongoing for slightly over one month. Patient denies any specific area of pain says that it is diffuse. Denies sore throat earache tender anterior adenopathy denies any lower extremity swelling or calf pain denies any pleuritic chest pain denies any rash. Denies any recent travel. Patient states that she is a smoker. - Related Data Previous Rx's Medication Instructions Recorded Last Taken Type Cyclobenzaprine HCl [Flexeril 5 MG 5 mg PO TID PRN #10 tab 09/30/16 Unknown Rx TAB] Atenolol [Tenormin] 50 mg PO DAILY #30 tablet 11/17/16 Unknown Rx Ibuprofen [Motrin 800 MG tab] 800 mg PO Q8HR PRN #20 tablet 11/17/16 Unknown Rx ALBUTEROL Inhaler [ProAir HFA 2 puff IH QID PRN #1 inha 03/16/17 Unknown Rx Inhaler] predniSONE [Deltasone] 50 mg PO QDAY #5 tab 03/16/17 Unknown Rx Cyclobenzaprine [Flexeril 10 MG 10 mg PO TID PRN #12 tablet 03/31/17 Unknown Rx TAB] Naproxen [Naprosyn TAB] 500 mg PO BID #20 tablet 03/31/17 Unknown Rx ALBUTEROL Inhaler [ProAir HFA 2 puff IH QID PRN #1 inhalation 04/03/17 Unknown Rx Inhaler] Naproxen [Naprosyn TAB] 500 mg PO BID PRN #20 tablet 04/03/17 Unknown Rx Phenylephrine/Dm/Acetaminop/GG 10 ml PO Q4H PRN #1 liquid 04/03/17 Unknown Rx [Mucinex Gfya-Irg-Dzxyzslwsa Lq] Prednisone [predniSONE 10 mg 10 mg PO .TAPER #1 tab.ds.pk 04/03/17 Unknown Rx (6-Day Pack, 21 Tabs)] Ibuprofen [Motrin] 800 mg PO Q8HR PRN #30 tablet 08/26/17 Unknown Rx Allergies Allergy/AdvReac Type Severity Reaction Status Date / Time No Known Allergies Allergy Verified 09/30/16 12:28 ED Review of Systems ROS: Stated complaint: BODYACHES X1MTH Other details as noted in HPI ED Past Medical Hx - Past Medical History Previous Medical History?: Yes Hx Hypertension: Yes Hx Arthritis: Yes Hx Asthma: Yes - Surgical History Past Surgical History?: Yes Additional Surgical History: "TUMORS REMOVED IN STOMACH" - Social History Smoking Status: Current Every Day Smoker - Medications Home Medications: Home Medications Medication Instructions Recorded Confirmed Last Taken Type Cyclobenzaprine HCl [Flexeril 5 MG 5 mg PO TID PRN #10 tab 09/30/16 Unknown Rx TAB] Atenolol [Tenormin] 50 mg PO DAILY #30 tablet 11/17/16 Unknown Rx Ibuprofen [Motrin 800 MG tab] 800 mg PO Q8HR PRN #20 tablet 11/17/16 Unknown Rx ALBUTEROL Inhaler [ProAir HFA 2 puff IH QID PRN #1 inha 03/16/17 Unknown Rx Inhaler] predniSONE [Deltasone] 50 mg PO QDAY #5 tab 03/16/17 Unknown Rx Cyclobenzaprine [Flexeril 10 MG 10 mg PO TID PRN #12 tablet 03/31/17 Unknown Rx TAB] Naproxen [Naprosyn TAB] 500 mg PO BID #20 tablet 03/31/17 Unknown Rx ALBUTEROL Inhaler [ProAir HFA 2 puff IH QID PRN #1 inhalation 04/03/17 Unknown Rx Inhaler] Naproxen [Naprosyn TAB] 500 mg PO BID PRN #20 tablet 04/03/17 Unknown Rx Phenylephrine/Dm/Acetaminop/GG 10 ml PO Q4H PRN #1 liquid 04/03/17 Unknown Rx [Mucinex Bqzq-Uib-Mvrlcojxzl Lq] Prednisone [predniSONE 10 mg 10 mg PO .TAPER #1 tab.ds.pk 04/03/17 Unknown Rx (6-Day Pack, 21 Tabs)] Ibuprofen [Motrin] 800 mg PO Q8HR PRN #30 tablet 08/26/17 Unknown Rx ED Physical Exam - General Limitations: No Limitations General appearance: alert, in no apparent distress - Head Head exam: Present: atraumatic, normocephalic - Eye Eye exam: Present: normal appearance, PERRL, EOMI - ENT ENT exam: Present: mucous membranes moist - Neck Neck exam: Present: normal inspection, full ROM (neck flexion and extension intact on exam) - Respiratory Respiratory exam: Present: normal lung sounds bilaterally (lungs clear to auscultation bilaterally). Absent: respiratory distress - Cardiovascular Cardiovascular Exam: Present: regular rate, normal rhythm. Absent: systolic murmur, diastolic murmur, rubs, gallop - GI/Abdominal GI/Abdominal exam: Present: soft (abdomen obese but nontender on deep palpation 4 quadrants no tenderness at McBurney's point negative iliopsoas and negative Casiano sign), normal bowel sounds - Extremities Exam Extremities exam: Present: normal inspection - Back Exam Back exam: Present: normal inspection - Neurological Exam Neurological exam: Present: alert, oriented X3, CN II-XII intact, normal gait - Expanded Neurological Exam Expanded Patient oriented to: Present: person, place, time Cranial nerves: EOM's Intact: Normal, Facial Sensation: Normal Cerebellar function: Finger to Nose: Normal, Heel to Malhotra: Normal, Romberg: Normal Sensory exam: Upper Extremity Light Touch: Normal, Lower Extremity Light Touch: Normal Motor strength exam: RUE: 5, LUE: 5, RLE: 5, LLE: 5 Best Eye Response (Zaida): (4) open spontaneously Best Motor Response (Zaida): (6) obeys commands Best Verbal Response (Zaida): (5) oriented Zaida Total: 15 - Psychiatric Psychiatric exam: Present: normal affect, normal mood - Skin Skin exam: Present: warm, dry, intact, normal color. Absent: rash ED Course Vital Signs 08/26/17 08/26/17 04:01 10:49 Temperature 97.9 F 98.7 F Pulse Rate 72 80 Respiratory 18 18 Rate Blood Pressure 170/70 Blood Pressure 155/85 [Left] O2 Sat by Pulse 95 100 Oximetry ED Medical Decision Making - Lab Data Result diagrams: 08/26/17 07:40 08/26/17 07:40 - Medical Decision Making A/P: Musculoskeletal pain, body aches, hypertension 1-this patient was slightly sleepy when I first interviewed her I woke her up and obtained a clinical history and physical. Cranial nerves 2, 3, 4, 5, 6, 7 , 8,10, 11, 12 intact on clinical exam, patient is fully lucid awake alert and oriented 3 conversant. Denies any upper or lower extremity paresthesias and has 5/5 strength in bilateral upper and lower extremities on clinical exam. 2-influenza swab strep swab urinalysis BMP drug screen CBC LFTs lactic acid unremarkable. Chest x-ray unremarkable. Creatinine kinase minimally elevated, 245, unremarkable. No overt signs of clinical systemic disease 3-Motrin when necessary, I advised the patient to remain well-hydrated 4-follow-up with primary care doctor 5- patient did not endorse any blurry vision headache chest pain palpitations dyspnea or shortness of breath on clinical history 6-vital signs reasonable for discharge Critical care attestation.: If time is entered above; I have spent that time in minutes in the direct care of this critically ill patient, excluding procedure time. ED Disposition Clinical Impression: Musculoskeletal pain, Asymptomatic hypertension Disposition: TO HOME OR SELFCARE Is pt being admited?: No Does the pt Need Aspirin: No Condition: Stable Instructions: Musculoskeletal Pain (ED), Hypertension (ED) Prescriptions: Ibuprofen [Motrin] 800 mg PO Q8HR PRN #30 tablet PRN Reason: Pain Referrals: [facility]– [place] [Outside] - 3-5 Days [facility] [Outside] - 3-5 Days GRIS LOPEZ MD [Staff Physician] - 3-5 Days Forms: Work/School Release Form(ED) Time of Disposition: 10:58
[2017-08-26] MEDS ORDERED: MOTRIN PO ONE (07:36)
[2017-08-26 07:55] LABS: Bacteria,Urine 1+ /HPF (Negative); Bilirubin,Urine NEG (Negative); Blood,Urine NEG (Negative); Color,Urine Yellow (Yellow); Mucus,Urine FEW /HPF; Nitrite,Urine NEG (Negative); Protein,Urine <15 mg/dL mg/dL (Negative); WBC,Urine < 1.0 /HPF (0.0-6.0)
[2017-08-26 07:59] LABS: Basophils # (Auto) 0.1 K/mm3 (0.0-0.1); Basophils % (Auto) 1.2 % (0.0-1.8); Eosinophils # (Auto) 0.1 K/mm3 (0.0-0.4); Eosinophils % (Auto) 2.7 % (0.0-4.3); Hematocrit 34.7 % (30.3-42.9); Lymphocytes % (Auto) 40.2 % (13.4-35.0); Mean Corpuscular HGB Conc 35 % (30-34); Mean Corpuscular Hemoglobin 29 pg (28-32); Mean Corpuscular Volume 85 fl (79-97); Monocytes # (Auto) 0.3 K/mm3 (0.0-0.8); Monocytes % (Auto) 5.4 % (0.0-7.3); Platelet Count 302 K/mm3 (140-440); Red Blood Count 4.08 M/mm3 (3.65-5.03); Red Cell Distribution Width 14.6 % (13.2-15.2)
[2017-08-26 08:00] LABS: Amphetamine Screen,Urine PRESUMPTIVE NEGATIVE; Benzodiazepines Screen,Urine PRESUMPTIVE NEGATIVE; Cannabinoid Screen,Urine PRESUMPTIVE NEGATIVE; Cocaine Screen,Urine PRESUMPTIVE NEGATIVE; Methadone Screen,Urine PRESUMPTIVE NEGATIVE; Opiate Screen,Urine PRESUMPTIVE NEGATIVE
[2017-08-26 08:04] LABS: HCG Qualitative,Urine Negative (Negative)
[2017-08-26 08:21] LABS: BUN/Creatinine Ratio 20; Blood Urea Nitrogen 10 mg/dL (7-17); Calcium 9.1 mg/dL (8.4-10.2); Hemolysis Index 3
[2017-08-26 08:24] LABS: Alanine Aminotransferase 13 units/L (7-56); Albumin 3.8 g/dL (3.9-5)
[2017-08-26 09:13] LABS: Bilirubin,Direct < 0.2 mg/dL (0-0.2)
--- NOTE | 2017-08-26 09:53 | XRay Report ---
ROUTINE CHEST, TWO VIEWS: HISTORY: Cough, body aches. The trachea, heart, mediastinal contour, lung doyle and bony thorax are unremarkable. IMPRESSION: Unremarkable chest x-ray.
[2017-08-26 10:50] VITALS: BP 155/85
== END 2017-08-26 11:29 | disposition home or self-care (01) ==
LOC: ED 03:46
DX: I10 Essential (primary) hypertension (principal); M19.90 Unspecified osteoarthritis, unspecified site; F17.200 Nicotine dependence, unspecified, uncomplicated
CPT/HCPCS: 36415; 71046; 80048; 80074; 80307; 81001; 81025; 82140; 82550; 85025; 87076; 87086; 87116; 87186; 87400; 87430; 87491; 99284; G0480; 80320

== ENCOUNTER 2017-09-25 23:48 | Emergency (ER) | payer MEDICARE ==
[2017-09-26 00:35] VITALS: BP 163/94
[2017-09-26] MEDS ORDERED: DUONEB *Not for PRN Use IH ONE ×2 (05:11→06:37)
[2017-09-26] MEDS ORDERED: PROVENTIL IH ONE (05:11)
[2017-09-26] MEDS ORDERED: DELTASONE PO ONE (05:11)
--- NOTE | 2017-09-26 06:15 | XRay Report ---
FINAL REPORT PROCEDURE: XR CHEST ROUTINE 2V TECHNIQUE: PA and lateral chest radiographs were obtained. CPT 78815 HISTORY: worsening cough, shrotness of breath COMPARISON: No prior studies are available for comparison. FINDINGS: Heart: The heart is borderline enlarged.. Mediastinum/Vessels: Normal. Lungs/Pleural space: Lungs are clear. There are no infiltrates, effusions or pneumothoraces.. Bony thorax: No acute osseous abnormality. Other: IMPRESSION: The heart is borderline enlarged.. Lungs are clear. There are no infiltrates, effusions or pneumothoraces.. .
--- NOTE | 2017-09-26 06:36 | Emergency Department Report ---
ED Asthma HPI - General Chief Complaint: Dyspnea/Respdistress Stated Complaint: ASTHMA Time Seen by Provider: 09/26/17 05:10 Source: patient Mode of arrival: Ambulatory Limitations: No Limitations - History of Present Illness Initial Comments: 47-year-old female past medical history asthma, hypertension, arthritis presents with complaint of one day of wheezing. Patient denies chest pain. States she has had mild nonproductive cough. Denies body aches fevers or chills. Speaking in full sentences. States she has been using her albuterol inhaler with minimal relief of her wheezing. Denies any pleuritic chest pain denies any control use. Denies any history of DVT or PE. Patient speaking in full sentences no visible respiratory retractions. pt is a smoker MD Complaint: "asthma attack", wheezing -: Last night Asthma History: history of frequent attac, history of prior ED visit Severity: mild Treatments Prior to Arrival: inhaled bronchodilator - Related Data Current Asthma Therapy: inhaled bronchodilator Previous Rx's Medication Instructions Recorded Last Taken Type Cyclobenzaprine HCl [Flexeril 5 MG 5 mg PO TID PRN #10 tab 09/30/16 Unknown Rx TAB] Atenolol [Tenormin] 50 mg PO DAILY #30 tablet 11/17/16 Unknown Rx Ibuprofen [Motrin 800 MG tab] 800 mg PO Q8HR PRN #20 tablet 11/17/16 Unknown Rx ALBUTEROL Inhaler [ProAir HFA 2 puff IH QID PRN #1 inha 03/16/17 Unknown Rx Inhaler] predniSONE [Deltasone] 50 mg PO QDAY #5 tab 03/16/17 Unknown Rx Cyclobenzaprine [Flexeril 10 MG 10 mg PO TID PRN #12 tablet 03/31/17 Unknown Rx TAB] Naproxen [Naprosyn TAB] 500 mg PO BID #20 tablet 03/31/17 Unknown Rx ALBUTEROL Inhaler [ProAir HFA 2 puff IH QID PRN #1 inhalation 04/03/17 Unknown Rx Inhaler] Naproxen [Naprosyn TAB] 500 mg PO BID PRN #20 tablet 04/03/17 Unknown Rx Phenylephrine/Dm/Acetaminop/GG 10 ml PO Q4H PRN #1 liquid 04/03/17 Unknown Rx [Mucinex Ycck-Sbc-Xzlsduxpmn Lq] Prednisone [predniSONE 10 mg 10 mg PO .TAPER #1 tab.ds.pk 04/03/17 Unknown Rx (6-Day Pack, 21 Tabs)] Ibuprofen [Motrin] 800 mg PO Q8HR PRN #30 tablet 08/26/17 Unknown Rx ALBUTEROL NEB's [Proventil 0.083% 1 puff IH Q4H PRN #1 box 09/26/17 Unknown Rx NEBS] Albuterol Sulfate [Ventolin Hfa] 1 puff IH Q4H PRN #1 hfa.aer.ad 09/26/17 Unknown Rx Dextromethorphan Hb/Doxylamine 10 ml PO Q6H PRN #1 liquid 09/26/17 Unknown Rx [Safetussin Pm Liquid] Nebulizer Accessories [Sootheneb 1 each MC Q4H PRN #1 each 09/26/17 Unknown Rx [id number] Adult Mask] Nebulizer [Compact Compressor 1 each MC Q4H PRN #1 each 09/26/17 Unknown Rx Nebulizer] predniSONE [Deltasone] 40 mg PO QDAY #10 tab 09/26/17 Unknown Rx Allergies Allergy/AdvReac Type Severity Reaction Status Date / Time No Known Allergies Allergy Verified 09/30/16 12:28 ED Review of Systems ROS: Stated complaint: ASTHMA Other details as noted in HPI Constitutional: denies: chills, fever Eyes: denies: eye pain, eye discharge, vision change ENT: denies: ear pain, throat pain Respiratory: wheezing. denies: cough, shortness of breath Cardiovascular: denies: chest pain, palpitations Endocrine: no symptoms reported Gastrointestinal: denies: abdominal pain, nausea, diarrhea Genitourinary: denies: urgency, dysuria, discharge Musculoskeletal: denies: back pain, joint swelling, arthralgia Skin: denies: rash, lesions Neurological: denies: headache, weakness, paresthesias Psychiatric: denies: anxiety, depression Hematological/Lymphatic: denies: easy bleeding, easy bruising ED Past Medical Hx - Past Medical History Hx Hypertension: Yes Hx Arthritis: Yes Hx Asthma: Yes - Surgical History Additional Surgical History: "TUMORS REMOVED IN STOMACH" - Social History Smoking Status: Never Smoker Substance Use Type: None - Medications Home Medications: Home Medications Medication Instructions Recorded Confirmed Last Taken Type Cyclobenzaprine HCl [Flexeril 5 MG 5 mg PO TID PRN #10 tab 09/30/16 Unknown Rx TAB] Atenolol [Tenormin] 50 mg PO DAILY #30 tablet 11/17/16 Unknown Rx Ibuprofen [Motrin 800 MG tab] 800 mg PO Q8HR PRN #20 tablet 11/17/16 Unknown Rx ALBUTEROL Inhaler [ProAir HFA 2 puff IH QID PRN #1 inha 03/16/17 Unknown Rx Inhaler] predniSONE [Deltasone] 50 mg PO QDAY #5 tab 03/16/17 Unknown Rx Cyclobenzaprine [Flexeril 10 MG 10 mg PO TID PRN #12 tablet 03/31/17 Unknown Rx TAB] Naproxen [Naprosyn TAB] 500 mg PO BID #20 tablet 03/31/17 Unknown Rx ALBUTEROL Inhaler [ProAir HFA 2 puff IH QID PRN #1 inhalation 04/03/17 Unknown Rx Inhaler] Naproxen [Naprosyn TAB] 500 mg PO BID PRN #20 tablet 04/03/17 Unknown Rx Phenylephrine/Dm/Acetaminop/GG 10 ml PO Q4H PRN #1 liquid 04/03/17 Unknown Rx [Mucinex Umyd-Oun-Nsvgqjtovu Lq] Prednisone [predniSONE 10 mg 10 mg PO .TAPER #1 tab.ds.pk 04/03/17 Unknown Rx (6-Day Pack, 21 Tabs)] Ibuprofen [Motrin] 800 mg PO Q8HR PRN #30 tablet 08/26/17 Unknown Rx ALBUTEROL NEB's [Proventil 0.083% 1 puff IH Q4H PRN #1 box 09/26/17 Unknown Rx NEBS] Albuterol Sulfate [Ventolin Hfa] 1 puff IH Q4H PRN #1 hfa.aer.ad 09/26/17 Unknown Rx Dextromethorphan Hb/Doxylamine 10 ml PO Q6H PRN #1 liquid 09/26/17 Unknown Rx [Safetussin Pm Liquid] Nebulizer Accessories [Sootheneb 1 each MC Q4H PRN #1 each 09/26/17 Unknown Rx [id number] Adult Mask] Nebulizer [Compact Compressor 1 each MC Q4H PRN #1 each 09/26/17 Unknown Rx Nebulizer] predniSONE [Deltasone] 40 mg PO QDAY #10 tab 09/26/17 Unknown Rx ED Physical Exam - General Limitations: No Limitations General appearance: alert, in no apparent distress - Head Head exam: Present: atraumatic, normocephalic - Eye Eye exam: Present: normal appearance, PERRL, EOMI - ENT ENT exam: Present: mucous membranes moist - Neck Neck exam: Present: normal inspection - Respiratory Respiratory exam: Present: normal lung sounds bilaterally, wheezes (some wheezes left lung field on auscultation). Absent: respiratory distress - Cardiovascular Cardiovascular Exam: Present: regular rate, normal rhythm. Absent: systolic murmur, diastolic murmur, rubs, gallop - GI/Abdominal GI/Abdominal exam: Present: soft, normal bowel sounds - Extremities Exam Extremities exam: Present: normal inspection - Back Exam Back exam: Present: normal inspection - Neurological Exam Neurological exam: Present: alert, oriented X3 - Psychiatric Psychiatric exam: Present: normal affect, normal mood - Skin Skin exam: Present: warm, dry, intact, normal color. Absent: rash ED Course Vital Signs 09/26/17 00:30 Temperature 97.7 F Pulse Rate 89 Respiratory 20 Rate Blood Pressure 163/94 [Left] O2 Sat by Pulse 97 Oximetry ED Medical Decision Making - Medical Decision Making A/P: Asthma exacerbation, reactive airway disease 1-refill on albuterol inhaler 2-short course prednisone 3-normal vital signs, patient does not have any audible wheezing or stridor or retractions before discharge. 4- vital signs stable before discharge 5- patient to follow up with primary care doctor Critical care attestation.: If time is entered above; I have spent that time in minutes in the direct care of this critically ill patient, excluding procedure time. ED Disposition Clinical Impression: Asthma Qualifiers: Asthma severity: mild Asthma persistence: intermittent Asthma complication type : with acute exacerbation Qualified Code(s): J45.21 - Mild intermittent asthma with (acute) exacerbation Reactive airway disease Qualifiers: Asthma severity: mild Asthma persistence: intermittent Asthma complication type : with acute exacerbation Qualified Code(s): J45.21 - Mild intermittent asthma with (acute) exacerbation Disposition: DC-01 TO HOME OR SELFCARE Is pt being admited?: No Does the pt Need Aspirin: No Condition: Stable Instructions: Asthma (ED), Reactive Airways Disease (ED) Prescriptions: ALBUTEROL NEB's [Proventil 0.083% NEBS] 1 puff IH Q4H PRN #1 box PRN Reason: Wheezing Albuterol Sulfate [Ventolin Hfa] 1 puff IH Q4H PRN #1 hfa.aer.ad PRN Reason: Wheezing Dextromethorphan Hb/Doxylamine [Safetussin Pm Liquid] 10 ml PO Q6H PRN #1 liquid PRN Reason: Cough Nebulizer [Compact Compressor Nebulizer] 1 each MC Q4H PRN #1 each PRN Reason: Wheezing Nebulizer Accessories [Sootheneb [id number] Adult Mask] 1 each MC Q4H PRN #1 each PRN Reason: Wheezing predniSONE [Deltasone] 40 mg PO QDAY #10 tab Referrals: [facility] [Provider Group] - 3-5 Days [facility] [Outside] - 3-5 Days Forms: Work/School Release Form(ED) Time of Disposition: 06:52
== END 2017-09-26 07:22 | disposition home or self-care (01) ==
LOC: ED 23:48
DX: J45.909 Unspecified asthma, uncomplicated (principal); I10 Essential (primary) hypertension; M19.90 Unspecified osteoarthritis, unspecified site
CPT/HCPCS: 71046; 94640; 99283; J7512

== ENCOUNTER 2018-03-02 00:11 | Emergency (ER) | payer MEDICARE ==
[2018-03-02] MEDS ORDERED: DELTASONE PO ONE (07:42)
[2018-03-02] MEDS ORDERED: TYLENOL PO ONE (07:42)
[2018-03-02] MEDS ORDERED: DUONEB *Not for PRN Use IH ONE (07:42)
[2018-03-02 07:54] VITALS: BP 151/83
--- NOTE | 2018-03-02 08:43 | Emergency Department Report ---
ED Back Pain/Injury HPI - General Chief Complaint: Back Pain/Injury Stated Complaint: BACK PAIN Time Seen by Provider: 03/02/18 07:32 Source: patient Limitations: No Limitations - History of Present Illness Initial Comments: 48-year-old female past medical history arthritis, back pain, asthma, smoking presents with complaint of mild asthma exacerbation and acute on chronic lower back pain. Patient is awake alert and oriented 3. Denies fevers chills nausea vomiting chest pain pleuritic chest pain dysuria or hematuria or increased urinary frequency. Patient primarily states that she is out of her asthma medicine and states that her lower back is aching. And I asked her to characterize pain she describes it as aching and she states that it is consistent with her previous history of back pain. Patient denies any other complaints at this time. MD Complaint: back pain -: year(s) Severity: mild Severity scale (0 -10): 5 Quality: aching Consistency: intermittent Improves With: none Worsens With: none Associated Symptoms: denies other symptoms - Related Data Previous Rx's Medication Instructions Recorded Last Taken Type Cyclobenzaprine HCl [Flexeril 5 MG 5 mg PO TID PRN #10 tab 09/30/16 Unknown Rx TAB] Atenolol [Tenormin] 50 mg PO DAILY #30 tablet 11/17/16 Unknown Rx Ibuprofen [Motrin 800 MG tab] 800 mg PO Q8HR PRN #20 tablet 11/17/16 Unknown Rx ALBUTEROL Inhaler [ProAir HFA 2 puff IH QID PRN #1 inha 03/16/17 Unknown Rx Inhaler] predniSONE [Deltasone] 50 mg PO QDAY #5 tab 03/16/17 Unknown Rx Cyclobenzaprine [Flexeril 10 MG 10 mg PO TID PRN #12 tablet 03/31/17 Unknown Rx TAB] Naproxen [Naprosyn TAB] 500 mg PO BID #20 tablet 03/31/17 Unknown Rx ALBUTEROL Inhaler [ProAir HFA 2 puff IH QID PRN #1 inhalation 04/03/17 Unknown Rx Inhaler] Naproxen [Naprosyn TAB] 500 mg PO BID PRN #20 tablet 04/03/17 Unknown Rx Phenylephrine/Dm/Acetaminop/GG 10 ml PO Q4H PRN #1 liquid 04/03/17 Unknown Rx [Mucinex Brhg-Fow-Dvfbibysiz Lq] Prednisone [predniSONE 10 mg 10 mg PO .TAPER #1 tab.ds.pk 04/03/17 Unknown Rx (6-Day Pack, 21 Tabs)] Ibuprofen [Motrin] 800 mg PO Q8HR PRN #30 tablet 08/26/17 Unknown Rx ALBUTEROL NEB's [Proventil 0.083% 1 puff IH Q4H PRN #1 box 09/26/17 Unknown Rx NEBS] Albuterol Sulfate [Ventolin Hfa] 1 puff IH Q4H PRN #1 hfa.aer.ad 09/26/17 Unknown Rx Dextromethorphan Hb/Doxylamine 10 ml PO Q6H PRN #1 liquid 09/26/17 Unknown Rx [Safetussin Pm Liquid] Nebulizer Accessories [Sootheneb 1 each MC Q4H PRN #1 each 09/26/17 Unknown Rx [id number] Adult Mask] Nebulizer [Compact Compressor 1 each MC Q4H PRN #1 each 09/26/17 Unknown Rx Nebulizer] predniSONE [Deltasone] 40 mg PO QDAY #10 tab 09/26/17 Unknown Rx Acetaminophen [Acetaminophen TAB] 500 mg PO Q6HR PRN #20 tablet 03/02/18 Unknown Rx Albuterol Sulfate [Ventolin Hfa] 1 puff IH Q4H PRN #1 hfa.aer.ad 03/02/18 Unknown Rx Prednisone [predniSONE 10 mg 10 mg PO .TAPER #1 tab.ds.pk 03/02/18 Unknown Rx (6-Day Pack, 21 Tabs)] Allergies Allergy/AdvReac Type Severity Reaction Status Date / Time No Known Allergies Allergy Verified 03/02/18 00:56 ED Review of Systems ROS: Stated complaint: BACK PAIN Other details as noted in HPI Constitutional: denies: chills, fever Eyes: denies: eye pain, eye discharge, vision change ENT: denies: ear pain, throat pain Respiratory: denies: cough, shortness of breath, wheezing Cardiovascular: denies: chest pain, palpitations Endocrine: no symptoms reported Gastrointestinal: denies: abdominal pain, nausea, diarrhea Genitourinary: denies: urgency, dysuria, discharge Musculoskeletal: back pain. denies: joint swelling, arthralgia Skin: denies: rash, lesions Neurological: denies: headache, weakness, paresthesias Psychiatric: denies: anxiety, depression Hematological/Lymphatic: denies: easy bleeding, easy bruising ED Past Medical Hx - Past Medical History Hx Hypertension: Yes Hx Arthritis: Yes Hx Asthma: Yes (bronchitis) Additional medical history: gout - Surgical History Additional Surgical History: "TUMORS REMOVED IN STOMACH" - Social History Smoking Status: Current Every Day Smoker Substance Use Type: Alcohol - Medications Home Medications: Home Medications Medication Instructions Recorded Confirmed Last Taken Type Cyclobenzaprine HCl [Flexeril 5 MG 5 mg PO TID PRN #10 tab 09/30/16 Unknown Rx TAB] Atenolol [Tenormin] 50 mg PO DAILY #30 tablet 11/17/16 Unknown Rx Ibuprofen [Motrin 800 MG tab] 800 mg PO Q8HR PRN #20 tablet 11/17/16 Unknown Rx ALBUTEROL Inhaler [ProAir HFA 2 puff IH QID PRN #1 inha 03/16/17 Unknown Rx Inhaler] predniSONE [Deltasone] 50 mg PO QDAY #5 tab 03/16/17 Unknown Rx Cyclobenzaprine [Flexeril 10 MG 10 mg PO TID PRN #12 tablet 03/31/17 Unknown Rx TAB] Naproxen [Naprosyn TAB] 500 mg PO BID #20 tablet 03/31/17 Unknown Rx ALBUTEROL Inhaler [ProAir HFA 2 puff IH QID PRN #1 inhalation 04/03/17 Unknown Rx Inhaler] Naproxen [Naprosyn TAB] 500 mg PO BID PRN #20 tablet 04/03/17 Unknown Rx Phenylephrine/Dm/Acetaminop/GG 10 ml PO Q4H PRN #1 liquid 04/03/17 Unknown Rx [Mucinex Jrdm-Tky-Vnahkiavaz Lq] Prednisone [predniSONE 10 mg 10 mg PO .TAPER #1 tab.ds.pk 04/03/17 Unknown Rx (6-Day Pack, 21 Tabs)] Ibuprofen [Motrin] 800 mg PO Q8HR PRN #30 tablet 08/26/17 Unknown Rx ALBUTEROL NEB's [Proventil 0.083% 1 puff IH Q4H PRN #1 box 09/26/17 Unknown Rx NEBS] Albuterol Sulfate [Ventolin Hfa] 1 puff IH Q4H PRN #1 hfa.aer.ad 09/26/17 Unknown Rx Dextromethorphan Hb/Doxylamine 10 ml PO Q6H PRN #1 liquid 09/26/17 Unknown Rx [Safetussin Pm Liquid] Nebulizer Accessories [Sootheneb 1 each MC Q4H PRN #1 each 09/26/17 Unknown Rx [id number] Adult Mask] Nebulizer [Compact Compressor 1 each MC Q4H PRN #1 each 09/26/17 Unknown Rx Nebulizer] predniSONE [Deltasone] 40 mg PO QDAY #10 tab 09/26/17 Unknown Rx Acetaminophen [Acetaminophen TAB] 500 mg PO Q6HR PRN #20 tablet 03/02/18 Unknown Rx Albuterol Sulfate [Ventolin Hfa] 1 puff IH Q4H PRN #1 hfa.aer.ad 03/02/18 Unknown Rx Prednisone [predniSONE 10 mg 10 mg PO .TAPER #1 tab.ds.pk 03/02/18 Unknown Rx (6-Day Pack, 21 Tabs)] ED Physical Exam - General Limitations: No Limitations General appearance: alert, in no apparent distress - Head Head exam: Present: atraumatic, normocephalic - Eye Eye exam: Present: normal appearance, PERRL, EOMI Pupils: Present: normal accommodation - ENT ENT exam: Present: mucous membranes moist - Neck Neck exam: Present: normal inspection - Respiratory Respiratory exam: Present: wheezes (slight wheezing lower lung doyle). Absent : respiratory distress - Cardiovascular Cardiovascular Exam: Present: regular rate, normal rhythm. Absent: systolic murmur, diastolic murmur, rubs, gallop - GI/Abdominal GI/Abdominal exam: Present: soft, normal bowel sounds - Extremities Exam Extremities exam: Present: normal inspection - Back Exam Back exam: Present: normal inspection, full ROM (there is no midline tenderness in the cervical thoracic or lumbar spine on exam) - Neurological Exam Neurological exam: Present: alert, oriented X3, CN II-XII intact, normal gait - Expanded Neurological Exam Expanded Patient oriented to: Present: person, place, time Sensory exam: Upper Extremity Light Touch: Normal, Lower Extremity Light Touch: Normal Motor strength exam: RUE: 5, LUE: 5, RLE: 5, LLE: 5 Best Eye Response ([place]): (4) open spontaneously Best Motor Response ([place]): (6) obeys commands Best Verbal Response ([place]): (5) oriented [place] Total: 15 - Psychiatric Psychiatric exam: Present: normal affect, normal mood - Skin Skin exam: Present: warm, dry, intact, normal color. Absent: rash ED Course Vital Signs 03/02/18 03/02/18 00:56 07:53 Temperature 97.8 F 97.5 F L Pulse Rate 71 61 Respiratory 18 18 Rate Blood Pressure 143/88 Blood Pressure 151/83 [Left] O2 Sat by Pulse 95 100 Oximetry ED Medical Decision Making - Medical Decision Making A/P: Asthma exacerbation, chronic lower back pain 1-albuterol, prednisone course 2-Tylenol when necessary 3-I advised patient to follow up with primary care and pain management for chronic back pain 4- patient has no clinical signs of cauda equina. PERC rule negative Critical care attestation.: If time is entered above; I have spent that time in minutes in the direct care of this critically ill patient, excluding procedure time. ED Disposition Clinical Impression: Chronic back pain Qualifiers: Back pain location: low back pain Back pain laterality: unspecified Sciatica presence: without sciatica Qualified Code(s): M54.5 - Low back pain; G89.29 - Other chronic pain Asthma Qualifiers: Asthma severity: mild Asthma persistence: unspecified Asthma complication type : unspecified Qualified Code(s): J45.998 - Other asthma Disposition: TO HOME OR SELFCARE Is pt being admited?: No Does the pt Need Aspirin: No Condition: Stable Instructions: Asthma (ED), Chronic Back Pain (ED) Prescriptions: Acetaminophen [Acetaminophen TAB] 500 mg PO Q6HR PRN #20 tablet PRN Reason: Pain , Severe (7-10) Albuterol Sulfate [Ventolin Hfa] 1 puff IH Q4H PRN #1 hfa.aer.ad PRN Reason: Wheezing Prednisone [predniSONE 10 mg (6-Day Pack, 21 Tabs)] 10 mg PO .TAPER #1 tab.ds.pk Referrals: [facility] [Provider Group] - 3-5 Days CYN GARCIA MD [Referring] - 3-5 Days Time of Disposition: 08:57
== END 2018-03-02 09:17 | disposition home or self-care (01) ==
LOC: ED 00:11
DX: J45.998 Other asthma (principal); G89.29 Other chronic pain; M54.5 Low back pain; I10 Essential (primary) hypertension; M19.90 Unspecified osteoarthritis, unspecified site; F17.200 Nicotine dependence, unspecified, uncomplicated
CPT/HCPCS: 94640; 99283; J7512

== ENCOUNTER 2019-04-23 07:44 | Emergency (ER) | payer MEDICARE ==
[2019-04-23] MEDS ORDERED: CATAPRES PO ONE (08:53)
--- NOTE | 2019-04-23 08:58 | Emergency Department Report ---
ED Neck Pain/Injury HPI - General Chief Complaint: Neck Pain/Injury Stated Complaint: CHRONIC NECK PAIN Time Seen by Provider: 04/23/19 08:50 Mode of arrival: Ambulatory Limitations: No Limitations - History of Present Illness Initial Comments: Patient is 49 years old female with history of hypertension and asthma and chronic neck pain secondary to injury when she was 4 years old. Patient presented to the ER complaining of neck pain for the last few days. Patient denied any new injury. She also denied any fever or chills. Patient also denied any other complaints. Patient found to have a blood pressure of 195/113. Patient stated that she is compliant with her medication but she did not took her medication this morning. MD Complaint: neck pain - Related Data Previous Rx's Medication Instructions Recorded Last Taken Type Cyclobenzaprine HCl [Flexeril 5 MG 5 mg PO TID PRN #10 tab 09/30/16 Unknown Rx TAB] Atenolol [Tenormin] 50 mg PO DAILY #30 tablet 11/17/16 Unknown Rx Ibuprofen [Motrin 800 MG tab] 800 mg PO Q8HR PRN #20 tablet 11/17/16 Unknown Rx ALBUTEROL Inhaler (OR & NICU) 2 puff IH QID PRN #1 inha 03/16/17 Unknown Rx [ProAir HFA Inhaler] predniSONE [Deltasone] 50 mg PO QDAY #5 tab 03/16/17 Unknown Rx Cyclobenzaprine [Flexeril 10 MG 10 mg PO TID PRN #12 tablet 03/31/17 Unknown Rx TAB] Naproxen [Naprosyn TAB] 500 mg PO BID #20 tablet 03/31/17 Unknown Rx ALBUTEROL Inhaler (OR & NICU) 2 puff IH QID PRN #1 inhalation 04/03/17 Unknown Rx [ProAir HFA Inhaler] Naproxen [Naprosyn TAB] 500 mg PO BID PRN #20 tablet 04/03/17 Unknown Rx Phenylephrine/Dm/Acetaminop/GG 10 ml PO Q4H PRN #1 liquid 04/03/17 Unknown Rx [Mucinex Vmmb-Mlu-Omvdfcciyl Lq] Prednisone [predniSONE 10 mg 10 mg PO .TAPER #1 tab.ds.pk 04/03/17 Unknown Rx (6-Day Pack, 21 Tabs)] Ibuprofen [Motrin] 800 mg PO Q8HR PRN #30 tablet 08/26/17 Unknown Rx ALBUTEROL NEB's [Proventil 0.083% 1 puff IH Q4H PRN #1 box 09/26/17 Unknown Rx NEBS] Albuterol Sulfate [Ventolin Hfa] 1 puff IH Q4H PRN #1 hfa.aer.ad 09/26/17 Unknown Rx Dextromethorphan Hb/Doxylamine 10 ml PO Q6H PRN #1 liquid 09/26/17 Unknown Rx [Safetussin Pm Liquid] Nebulizer Accessories [Sootheneb 1 each MC Q4H PRN #1 each 09/26/17 Unknown Rx [id number] Adult Mask] Nebulizer [Compact Compressor 1 each MC Q4H PRN #1 each 09/26/17 Unknown Rx Nebulizer] predniSONE [Deltasone] 40 mg PO QDAY #10 tab 09/26/17 Unknown Rx Acetaminophen [Acetaminophen TAB] 500 mg PO Q6HR PRN #20 tablet 03/02/18 Unknown Rx Albuterol Sulfate [Ventolin Hfa] 1 puff IH Q4H PRN #1 hfa.aer.ad 03/02/18 Unknown Rx Prednisone [predniSONE 10 mg 10 mg PO .TAPER #1 tab.ds.pk 03/02/18 Unknown Rx (6-Day Pack, 21 Tabs)] Allergies Allergy/AdvReac Type Severity Reaction Status Date / Time No Known Allergies Allergy Verified 03/24/19 14:13 ED Review of Systems ROS: Stated complaint: CHRONIC NECK PAIN Other details as noted in HPI Comment: All other systems reviewed and negative Respiratory: denies: cough, shortness of breath, SOB with exertion Cardiovascular: denies: chest pain Gastrointestinal: denies: abdominal pain, nausea, vomiting Musculoskeletal: denies: back pain Neurological: denies: headache, weakness, numbness, paresthesias, confusion, abnormal gait Psychiatric: denies: depression, auditory hallucinations, visual hallucinations, homicidal thoughts, suicidal thoughts ED Past Medical Hx - Past Medical History Previous Medical History?: Yes Hx Hypertension: Yes Hx Arthritis: Yes Hx Asthma: Yes (bronchitis) Additional medical history: gout - Surgical History Past Surgical History?: Yes Additional Surgical History: "TUMORS REMOVED IN STOMACH" - Social History Smoking Status: Never Smoker Substance Use Type: None - Medications Home Medications: Home Medications Medication Instructions Recorded Confirmed Last Taken Type Cyclobenzaprine HCl [Flexeril 5 MG 5 mg PO TID PRN #10 tab 09/30/16 Unknown Rx TAB] Atenolol [Tenormin] 50 mg PO DAILY #30 tablet 11/17/16 Unknown Rx Ibuprofen [Motrin 800 MG tab] 800 mg PO Q8HR PRN #20 tablet 11/17/16 Unknown Rx ALBUTEROL Inhaler (OR & NICU) 2 puff IH QID PRN #1 inha 03/16/17 Unknown Rx [ProAir HFA Inhaler] predniSONE [Deltasone] 50 mg PO QDAY #5 tab 03/16/17 Unknown Rx Cyclobenzaprine [Flexeril 10 MG 10 mg PO TID PRN #12 tablet 03/31/17 Unknown Rx TAB] Naproxen [Naprosyn TAB] 500 mg PO BID #20 tablet 03/31/17 Unknown Rx ALBUTEROL Inhaler (OR & NICU) 2 puff IH QID PRN #1 inhalation 04/03/17 Unknown Rx [ProAir HFA Inhaler] Naproxen [Naprosyn TAB] 500 mg PO BID PRN #20 tablet 04/03/17 Unknown Rx Phenylephrine/Dm/Acetaminop/GG 10 ml PO Q4H PRN #1 liquid 04/03/17 Unknown Rx [Mucinex Omep-Pqc-Xsxaigxtbb Lq] Prednisone [predniSONE 10 mg 10 mg PO .TAPER #1 tab.ds.pk 04/03/17 Unknown Rx (6-Day Pack, 21 Tabs)] Ibuprofen [Motrin] 800 mg PO Q8HR PRN #30 tablet 08/26/17 Unknown Rx ALBUTEROL NEB's [Proventil 0.083% 1 puff IH Q4H PRN #1 box 09/26/17 Unknown Rx NEBS] Albuterol Sulfate [Ventolin Hfa] 1 puff IH Q4H PRN #1 hfa.aer.ad 09/26/17 Unknown Rx Dextromethorphan Hb/Doxylamine 10 ml PO Q6H PRN #1 liquid 09/26/17 Unknown Rx [Safetussin Pm Liquid] Nebulizer Accessories [Sootheneb 1 each MC Q4H PRN #1 each 09/26/17 Unknown Rx [id number] Adult Mask] Nebulizer [Compact Compressor 1 each MC Q4H PRN #1 each 09/26/17 Unknown Rx Nebulizer] predniSONE [Deltasone] 40 mg PO QDAY #10 tab 09/26/17 Unknown Rx Acetaminophen [Acetaminophen TAB] 500 mg PO Q6HR PRN #20 tablet 03/02/18 Unknown Rx Albuterol Sulfate [Ventolin Hfa] 1 puff IH Q4H PRN #1 hfa.aer.ad 03/02/18 Unknown Rx Prednisone [predniSONE 10 mg 10 mg PO .TAPER #1 tab.ds.pk 03/02/18 Unknown Rx (6-Day Pack, 21 Tabs)] ED Physical Exam - General Limitations: No Limitations General appearance: alert, in no apparent distress - Head Head exam: Present: atraumatic, normocephalic, normal inspection - Eye Eye exam: Present: normal appearance, PERRL - ENT ENT exam: Present: normal exam, normal orophraynx, mucous membranes moist - Neck Neck exam: Present: normal inspection, full ROM. Absent: tenderness, meningismus, lymphadenopathy, thyromegaly - Respiratory Respiratory exam: Present: normal lung sounds bilaterally - Cardiovascular Cardiovascular Exam: Present: regular rate, normal rhythm, normal heart sounds - GI/Abdominal GI/Abdominal exam: Present: soft, normal bowel sounds. Absent: distended, tenderness, guarding, rebound, rigid, organomegaly, mass, bruit, pulsatile mass, hernia - Extremities Exam Extremities exam: Present: normal inspection, full ROM, normal capillary refill - Back Exam Back exam: Present: normal inspection, full ROM. Absent: CVA tenderness (R), CVA tenderness (L) - Neurological Exam Neurological exam: Present: alert, oriented X3, CN II-XII intact, normal gait, reflexes normal - Psychiatric Psychiatric exam: Present: normal mood. Absent: manic, homicidal ideation, suicidal ideation - Skin Skin exam: Present: warm, intact, normal color ED Course Vital Signs 04/23/19 04/23/19 04/23/19 07:53 09:06 10:22 Temperature 97.3 F L Pulse Rate 82 91 H 84 Respiratory 16 Rate Blood Pressure 195/113 196/113 Blood Pressure 160/106 [Left] O2 Sat by Pulse 98 Oximetry 04/23/19 12:19 Temperature Pulse Rate 81 Respiratory 16 Rate Blood Pressure Blood Pressure 150/91 [Left] O2 Sat by Pulse 100 Oximetry ED Medical Decision Making - Medical Decision Making Patient is 49 years old female with history of hypertension and asthma and chronic neck pain secondary to injury when she was 4 years old. Patient presented to the ER complaining of neck pain for the last few days. Patient denied any new injury. She also denied any fever or chills. Patient also denied any other complaints. Patient found to have a blood pressure of 195/113. Patient stated that she is compliant with her medication but she did not took her medication this morning. Patient remained stable. Patient received clonidine 0.2 mg by mouth. Patient blood pressure now is 151/90. Patient advised to follow-up with primary care physician in the next 2-3 days and to return to the ER if symptoms are not improved. Critical care attestation.: If time is entered above; I have spent that time in minutes in the direct care of this critically ill patient, excluding procedure time. ED Disposition Clinical Impression: Neck pain, Malignant hypertension Disposition: DC-01 TO HOME OR SELFCARE Is pt being admited?: No Condition: Stable Instructions: Cervical Sprain (ED), Hypertension (ED) Referrals: [facility] [Provider Group] - 3-5 Days
[2019-04-23 12:20] VITALS: BP 150/91
== END 2019-04-23 12:33 | disposition home or self-care (01) ==
LOC: ED 07:44
DX: M54.2 Cervicalgia (principal); I10 Essential (primary) hypertension; G89.29 Other chronic pain; J45.909 Unspecified asthma, uncomplicated; M10.9 Gout, unspecified; Z79.899 Other long term (current) drug therapy; Z79.1 Long term (current) use of non-steroidal anti-inflammatories (NSAID)
CPT/HCPCS: 99282

== ENCOUNTER 2019-05-18 22:13 | Emergency (ER) | payer MEDICARE ==
--- NOTE | 2019-05-18 22:44 | Event Note ---
ED Screening Note ED Screening Note: pt states that she needs medical clearance for a psychiatric facility no SI, HI, hallucinations PMHx depression, HTN, arthritis, schizophrenia states she is on her blood pressure medication states she is not on psychiatric meds has not taken in months +smoker non drinker no drug use This initial assessment/diagnostic orders/clinical plan/treatment(s) is/are subject to change based on patients health status, clinical progression and re- assessment by fellow clinical providers in the ED. Further treatment and workup at subsequent clinical providers discretion. Patient/guardian urged not to elope from the ED as their condition may be serious if not clinically assessed and managed. Initial orders include: medical clearance
[2019-05-18 22:52] VITALS: BP 117/45
[2019-05-18 23:12] LABS: Basophils # (Auto) 0.1 K/mm3 (0.0-0.1); Basophils % (Auto) 2.1 % (0.0-1.8); Eosinophils # (Auto) 0.2 K/mm3 (0.0-0.4); Eosinophils % (Auto) 2.6 % (0.0-4.3); Hematocrit 34.5 % (30.3-42.9); Hemoglobin 11.6 gm/dl (10.1-14.3); Lymphocytes # (Auto) 2.5 K/mm3 (1.2-5.4); Lymphocytes % (Auto) 38.7 % (13.4-35.0); Mean Corpuscular HGB Conc 34 % (30-34); Mean Corpuscular Volume 85 fl (79-97); Monocytes # (Auto) 0.4 K/mm3 (0.0-0.8); Platelet Count 331 K/mm3 (140-440); Red Blood Count 4.05 M/mm3 (3.65-5.03); Red Cell Distribution Width 15.3 % (13.2-15.2)
[2019-05-18 23:35] LABS: Alanine Aminotransferase 13 units/L (7-56); Albumin 4.2 g/dL (3.9-5); BUN/Creatinine Ratio 14; Blood Urea Nitrogen 11 mg/dL (7-17); Hemolysis Index 3
[2019-05-19 01:44] LABS: Bacteria,Urine 1+ /HPF (Negative); Bilirubin,Urine NEG (Negative); Blood,Urine NEG (Negative); Color,Urine Yellow (Yellow); Mucus,Urine 3+ /HPF; Protein,Urine <15 mg/dL mg/dL (Negative)
[2019-05-19 02:05] LABS: Amphetamine Screen,Urine PRESUMPTIVE NEGATIVE; Benzodiazepines Screen,Urine PRESUMPTIVE NEGATIVE; Cannabinoid Screen,Urine PRESUMPTIVE NEGATIVE; Cocaine Screen,Urine PRESUMPTIVE NEGATIVE; Methadone Screen,Urine PRESUMPTIVE NEGATIVE; Opiate Screen,Urine PRESUMPTIVE NEGATIVE
--- NOTE | 2019-05-19 05:06 | Emergency Department Report ---
ED General Adult HPI - General Chief complaint: Medical Clearance Stated complaint: HIGH BP/ARTHRITIS Time Seen by Provider: 05/18/19 22:41 Source: patient Mode of arrival: Ambulatory Limitations: No Limitations - History of Present Illness Initial comments: Patient is a 49-year-old [place] female who states that she is here for medical clearance so that she can go to the [place]. Patient states she has no complaints is not homicidal suicidal. She does not have her blood pressure medicines and states she would like a refill. Patient has a history of schizophrenia and states she just needs clearance. - Related Data Previous Rx's Medication Instructions Recorded Last Taken Type Cyclobenzaprine HCl [Flexeril 5 MG 5 mg PO TID PRN #10 tab 09/30/16 Unknown Rx TAB] Atenolol [Tenormin] 50 mg PO DAILY #30 tablet 11/17/16 Unknown Rx Ibuprofen [Motrin 800 MG tab] 800 mg PO Q8HR PRN #20 tablet 11/17/16 Unknown Rx ALBUTEROL Inhaler (OR & NICU) 2 puff IH QID PRN #1 inha 03/16/17 Unknown Rx [ProAir HFA Inhaler] predniSONE [Deltasone] 50 mg PO QDAY #5 tab 03/16/17 Unknown Rx Cyclobenzaprine [Flexeril 10 MG 10 mg PO TID PRN #12 tablet 03/31/17 Unknown Rx TAB] Naproxen [Naprosyn TAB] 500 mg PO BID #20 tablet 03/31/17 Unknown Rx Naproxen [Naprosyn TAB] 500 mg PO BID PRN #20 tablet 04/03/17 Unknown Rx Phenylephrine/Dm/Acetaminop/GG 10 ml PO Q4H PRN #1 liquid 04/03/17 Unknown Rx [Mucinex Yiyr-Iyt-Xsxaultwgn Lq] Prednisone [predniSONE 10 mg 10 mg PO .TAPER #1 tab.ds.pk 04/03/17 Unknown Rx (6-Day Pack, 21 Tabs)] Ibuprofen [Motrin] 800 mg PO Q8HR PRN #30 tablet 08/26/17 Unknown Rx ALBUTEROL NEB's [Proventil 0.083% 1 puff IH Q4H PRN #1 box 09/26/17 Unknown Rx NEBS] Albuterol Sulfate [Ventolin Hfa] 1 puff IH Q4H PRN #1 hfa.aer.ad 09/26/17 Unknown Rx Dextromethorphan Hb/Doxylamine 10 ml PO Q6H PRN #1 liquid 09/26/17 Unknown Rx [Safetussin Pm Liquid] Nebulizer Accessories [Sootheneb 1 each MC Q4H PRN #1 each 09/26/17 Unknown Rx [id number] Adult Mask] Nebulizer [Compact Compressor 1 each MC Q4H PRN #1 each 09/26/17 Unknown Rx Nebulizer] predniSONE [Deltasone] 40 mg PO QDAY #10 tab 09/26/17 Unknown Rx Acetaminophen [Acetaminophen TAB] 500 mg PO Q6HR PRN #20 tablet 03/02/18 Unknown Rx Albuterol Sulfate [Ventolin Hfa] 1 puff IH Q4H PRN #1 hfa.aer.ad 03/02/18 Unknown Rx Prednisone [predniSONE 10 mg 10 mg PO .TAPER #1 tab.ds.pk 03/02/18 Unknown Rx (6-Day Pack, 21 Tabs)] ALBUTEROL Inhaler (OR & NICU) 2 puff IH QID PRN #1 inhalation 05/19/19 Unknown Rx [ProAir HFA Inhaler] amLODIPine [Norvasc] 5 mg PO DAILY #30 tab 05/19/19 Unknown Rx hydroCHLOROthiazide [HCTZ] 25 mg PO QDAY #30 tablet 05/19/19 Unknown Rx Allergies Allergy/AdvReac Type Severity Reaction Status Date / Time No Known Allergies Allergy Verified 03/24/19 14:13 ED Review of Systems ROS: Stated complaint: HIGH BP/ARTHRITIS Other details as noted in HPI Comment: All other systems reviewed and negative ED Past Medical Hx - Past Medical History Previous Medical History?: Yes Hx Hypertension: Yes Hx Arthritis: Yes Hx Psychiatric Treatment: Yes (Schizophrenia) Hx Asthma: Yes (bronchitis) Additional medical history: gout - Surgical History Past Surgical History?: Yes Additional Surgical History: "TUMORS REMOVED IN STOMACH" - Social History Smoking Status: Current Every Day Smoker Substance Use Type: None - Medications Home Medications: Home Medications Medication Instructions Recorded Confirmed Last Taken Type Cyclobenzaprine HCl [Flexeril 5 MG 5 mg PO TID PRN #10 tab 09/30/16 Unknown Rx TAB] Atenolol [Tenormin] 50 mg PO DAILY #30 tablet 11/17/16 Unknown Rx Ibuprofen [Motrin 800 MG tab] 800 mg PO Q8HR PRN #20 tablet 11/17/16 Unknown Rx ALBUTEROL Inhaler (OR & NICU) 2 puff IH QID PRN #1 inha 03/16/17 Unknown Rx [ProAir HFA Inhaler] predniSONE [Deltasone] 50 mg PO QDAY #5 tab 03/16/17 Unknown Rx Cyclobenzaprine [Flexeril 10 MG 10 mg PO TID PRN #12 tablet 03/31/17 Unknown Rx TAB] Naproxen [Naprosyn TAB] 500 mg PO BID #20 tablet 03/31/17 Unknown Rx Naproxen [Naprosyn TAB] 500 mg PO BID PRN #20 tablet 04/03/17 Unknown Rx Phenylephrine/Dm/Acetaminop/GG 10 ml PO Q4H PRN #1 liquid 04/03/17 Unknown Rx [Mucinex Fwdk-Pvf-Zdqsqymwfk Lq] Prednisone [predniSONE 10 mg 10 mg PO .TAPER #1 tab.ds.pk 04/03/17 Unknown Rx (6-Day Pack, 21 Tabs)] Ibuprofen [Motrin] 800 mg PO Q8HR PRN #30 tablet 08/26/17 Unknown Rx ALBUTEROL NEB's [Proventil 0.083% 1 puff IH Q4H PRN #1 box 09/26/17 Unknown Rx NEBS] Albuterol Sulfate [Ventolin Hfa] 1 puff IH Q4H PRN #1 hfa.aer.ad 09/26/17 Unkn own Rx Dextromethorphan Hb/Doxylamine 10 ml PO Q6H PRN #1 liquid 09/26/17 Unknown Rx [Safetussin Pm Liquid] Nebulizer Accessories [Sootheneb 1 each MC Q4H PRN #1 each 09/26/17 Unknown Rx [id number] Adult Mask] Nebulizer [Compact Compressor 1 each MC Q4H PRN #1 each 09/26/17 Unknown Rx Nebulizer] predniSONE [Deltasone] 40 mg PO QDAY #10 tab 09/26/17 Unknown Rx Acetaminophen [Acetaminophen TAB] 500 mg PO Q6HR PRN #20 tablet 03/02/18 Unknown Rx Albuterol Sulfate [Ventolin Hfa] 1 puff IH Q4H PRN #1 hfa.aer.ad 03/02/18 Unknown Rx Prednisone [predniSONE 10 mg 10 mg PO .TAPER #1 tab.ds.pk 03/02/18 Unknown Rx (6-Day Pack, 21 Tabs)] ALBUTEROL Inhaler (OR & NICU) 2 puff IH QID PRN #1 inhalation 05/19/19 Unknown Rx [ProAir HFA Inhaler] amLODIPine [Norvasc] 5 mg PO DAILY #30 tab 05/19/19 Unknown Rx hydroCHLOROthiazide [HCTZ] 25 mg PO QDAY #30 tablet 05/19/19 Unknown Rx ED Physical Exam - General Limitations: No Limitations General appearance: alert, in no apparent distress - Head Head exam: Present: atraumatic, normocephalic - Eye Eye exam: Present: normal appearance - ENT ENT exam: Present: mucous membranes moist - Neck Neck exam: Present: normal inspection - Respiratory Respiratory exam: Present: normal lung sounds bilaterally. Absent: respiratory distress, wheezes, rales, rhonchi - Cardiovascular Cardiovascular Exam: Present: regular rate, normal rhythm. Absent: systolic murmur, diastolic murmur, rubs, gallop - GI/Abdominal GI/Abdominal exam: Present: soft, normal bowel sounds - Extremities Exam Extremities exam: Present: normal inspection - Back Exam Back exam: Present: normal inspection - Neurological Exam Neurological exam: Present: alert, oriented X3 - Psychiatric Psychiatric exam: Present: normal affect, normal mood - Skin Skin exam: Present: warm, dry, intact, normal color. Absent: rash ED Course Vital Signs 05/18/19 22:49 Temperature 98.3 F Pulse Rate 93 H Respiratory 20 Rate Blood Pressure 117/45 O2 Sat by Pulse 100 Oximetry ED Medical Decision Making - Lab Data Result diagrams: 05/18/19 22:54 05/18/19 22:54 Lab Results 05/18/19 05/18/19 05/18/19 Range/Units 22:54 22:54 22:54 WBC 6.6 (4.5-11.0) K/mm3 RBC 4.05 (3.65-5.03) M/mm3 Hgb 11.6 (10.1-14.3) gm/dl Hct 34.5 (30.3-42.9) % MCV 85 (79-97) fl MCH 29 (28-32) pg MCHC 34 (30-34) % RDW 15.3 H (13.2-15.2) % Plt Count 331 (140-440) K/mm3 Lymph % (Auto) 38.7 H (13.4-35.0) % [place] % (Auto) 6.0 (0.0-7.3) % Eos % (Auto) 2.6 (0.0-4.3) % Baso % (Auto) 2.1 H (0.0-1.8) % Lymph # 2.5 (1.2-5.4) K/mm3 Atkinson # 0.4 (0.0-0.8) K/mm3 Eos # 0.2 (0.0-0.4) K/mm3 Baso # 0.1 (0.0-0.1) K/mm3 Seg Neutrophils % 50.6 (40.0-70.0) % Seg Neutrophils # 3.3 (1.8-7.7) K/mm3 Sodium 141 (137-145) mmol/L Potassium 3.6 (3.6-5.0) mmol/L Chloride 102.1 (98-107) mmol/L Carbon Dioxide 23 (22-30) mmol/L Anion Gap 20 mmol/L BUN 11 (7-17) mg/dL Creatinine 0.8 (0.7-1.2) mg/dL Estimated GFR > 60 ml/min BUN/Creatinine Ratio 14 % Glucose 92 (65-100) mg/dL Calcium 9.0 (8.4-10.2) mg/dL Total Bilirubin 0.20 (0.1-1.2) mg/dL AST 19 (5-40) units/L ALT 13 (7-56) units/L Alkaline Phosphatase 130 H (35-129) units/L Total Protein 7.9 (6.3-8.2) g/dL Albumin 4.2 (3.9-5) g/dL Albumin/Globulin Ratio 1.1 % Urine Color (Yellow) Urine Turbidity (Clear) Urine pH (5.0-7.0) Ur Specific [place] (1.003-1.030) Urine Protein (Negative) mg/dL Urine Glucose (UA) (Negative) mg/dL Urine Ketones (Negative) mg/dL Urine Blood (Negative) Urine Nitrite (Negative) Urine Bilirubin (Negative) Urine Urobilinogen (<2.0) mg/dL Ur Leukocyte Esterase (Negative) Urine WBC (Auto) (0.0-6.0) /HPF Urine RBC (Auto) (0.0-6.0) /HPF U Epithel Cells (Auto) (0-13.0) /HPF Urine Bacteria (Auto) (Negative) /HPF Urine Mucus /HPF Salicylates < 0.3 L (2.8-20.0) mg/dL Urine Opiates Screen Urine Methadone Screen Acetaminophen (10.0-30.0) ug/mL Ur Barbiturates Screen Ur Phencyclidine Scrn Ur Amphetamines Screen U Benzodiazepines Scrn Urine Cocaine Screen U Marijuana (THC) Screen Drugs of Abuse Note Plasma/Serum Alcohol (0-0.07) % 05/18/19 05/18/19 05/19/19 Range/Units 22:54 22:54 01:15 WBC (4.5-11.0) K/mm3 RBC (3.65-5.03) M/mm3 Hgb (10.1-14.3) gm/dl Hct (30.3-42.9) % MCV (79-97) fl MCH (28-32) pg MCHC (30-34) % RDW (13.2-15.2) % Plt Count (140-440) K/mm3 Lymph % (Auto) (13.4-35.0) % Atkinson % (Auto) (0.0-7.3) % Eos % (Auto) (0.0-4.3) % Baso % (Auto) (0.0-1.8) % Lymph # (1.2-5.4) K/mm3 Atkinson # (0.0-0.8) K/mm3 Eos # (0.0-0.4) K/mm3 Baso # (0.0-0.1) K/mm3 Seg Neutrophils % (40.0-70.0) % Seg Neutrophils # (1.8-7.7) K/mm3 Sodium (137-145) mmol/L Potassium (3.6-5.0) mmol/L Chloride (98-107) mmol/L Carbon Dioxide (22-30) mmol/L Anion Gap mmol/L BUN (7-17) mg/dL Creatinine (0.7-1.2) mg/dL Estimated GFR ml/min BUN/Creatinine Ratio % Glucose (65-100) mg/dL Calcium (8.4-10.2) mg/dL Total Bilirubin (0.1-1.2) mg/dL AST (5-40) units/L ALT (7-56) units/L Alkaline Phosphatase (35-129) units/L Total Protein (6.3-8.2) g/dL Albumin (3.9-5) g/dL Albumin/Globulin Ratio % Urine Color Yellow (Yellow) Urine Turbidity Slightly-cloudy (Clear) Urine pH 5.0 (5.0-7.0) Ur Specific [place] 1.030 (1.003-1.030) Urine Protein <15 mg/dl (Negative) mg/dL Urine Glucose (UA) Neg (Negative) mg/dL Urine Ketones Neg (Negative) mg/dL Urine Blood Neg (Negative) Urine Nitrite Neg (Negative) Urine Bilirubin Neg (Negative) Urine Urobilinogen 2.0 (<2.0) mg/dL Ur Leukocyte Esterase Neg (Negative) Urine WBC (Auto) 1.0 (0.0-6.0) /HPF Urine RBC (Auto) 2.0 (0.0-6.0) /HPF U Epithel Cells (Auto) 8.0 (0-13.0) /HPF Urine Bacteria (Auto) 1+ (Negative) /HPF Urine Mucus 3+ /HPF Salicylates (2.8-20.0) mg/dL Urine Opiates Screen Urine Methadone Screen Acetaminophen < 5.0 L (10.0-30.0) ug/mL Ur Barbiturates Screen Ur Phencyclidine Scrn Ur Amphetamines Screen U Benzodiazepines Scrn Urine Cocaine Screen U Marijuana (THC) Screen Drugs of Abuse Note Plasma/Serum Alcohol < 0.01 (0-0.07) % 05/19/19 Range/Units 01:15 WBC (4.5-11.0) K/mm3 RBC (3.65-5.03) M/mm3 Hgb (10.1-14.3) gm/dl Hct (30.3-42.9) % MCV (79-97) fl MCH (28-32) pg MCHC (30-34) % RDW (13.2-15.2) % Plt Count (140-440) K/mm3 Lymph % (Auto) (13.4-35.0) % [place] % (Auto) (0.0-7.3) % Eos % (Auto) (0.0-4.3) % Baso % (Auto) (0.0-1.8) % Lymph # (1.2-5.4) K/mm3 Atkinson # (0.0-0.8) K/mm3 Eos # (0.0-0.4) K/mm3 Baso # (0.0-0.1) K/mm3 Seg Neutrophils % (40.0-70.0) % Seg Neutrophils # (1.8-7.7) K/mm3 Sodium (137-145) mmol/L Potassium (3.6-5.0) mmol/L Chloride (98-107) mmol/L Carbon Dioxide (22-30) mmol/L Anion Gap mmol/L BUN (7-17) mg/dL Creatinine (0.7-1.2) mg/dL Estimated GFR ml/min BUN/Creatinine Ratio % Glucose (65-100) mg/dL Calcium (8.4-10.2) mg/dL Total Bilirubin (0.1-1.2) mg/dL AST (5-40) units/L ALT (7-56) units/L Alkaline Phosphatase (35-129) units/L Total Protein (6.3-8.2) g/dL Albumin (3.9-5) g/dL Albumin/Globulin Ratio % Urine Color (Yellow) Urine Turbidity (Clear) Urine pH (5.0-7.0) Ur Specific [place] (1.003-1.030) Urine Protein (Negative) mg/dL Urine Glucose (UA) (Negative) mg/dL Urine Ketones (Negative) mg/dL Urine Blood (Negative) Urine Nitrite (Negative) Urine Bilirubin (Negative) Urine Urobilinogen (<2.0) mg/dL Ur Leukocyte Esterase (Negative) Urine WBC (Auto) (0.0-6.0) /HPF Urine RBC (Auto) (0.0-6.0) /HPF U Epithel Cells (Auto) (0-13.0) /HPF Urine Bacteria (Auto) (Negative) /HPF Urine Mucus /HPF Salicylates (2.8-20.0) mg/dL Urine Opiates Screen Presumptive negative Urine Methadone Screen Presumptive negative Acetaminophen (10.0-30.0) ug/mL Ur Barbiturates Screen Presumptive negative Ur Phencyclidine Scrn Presumptive negative Ur Amphetamines Screen Presumptive negative U Benzodiazepines Scrn Presumptive negative Urine Cocaine Screen Presumptive negative U Marijuana (THC) Screen Presumptive negative Drugs of Abuse Note Disclamer Plasma/Serum Alcohol (0-0.07) % - Medical Decision Making Patient's been medically cleared at this time. She was given a prescription for Norvasc hydrochlorothiazide and albuterol inhaler. Critical care attestation.: If time is entered above; I have spent that time in minutes in the direct care of this critically ill patient, excluding procedure time. ED Disposition Clinical Impression: Medical clearance for psychiatric admission Disposition: DC- TO HOME OR SELFCARE Is pt being admited?: No Does the pt Need Aspirin: No Condition: Stable Instructions: Medical Clearance for Psychiatric Care (ED) Prescriptions: hydroCHLOROthiazide [HCTZ] 25 mg PO QDAY #30 tablet amLODIPine [Norvasc] 5 mg PO DAILY #30 tab ALBUTEROL Inhaler (OR & NICU) [ProAir HFA Inhaler] 2 puff IH QID PRN #1 inhalation PRN Reason: Shortness Of Breath Referrals: MARGERT DIOR MD [Primary Care Provider] - 3-5 Days Time of Disposition: 05:06
== END 2019-05-19 05:14 | disposition home or self-care (01) ==
LOC: ED 22:13
DX: I10 Essential (primary) hypertension (principal); Z76.0 Encounter for issue of repeat prescription; M19.90 Unspecified osteoarthritis, unspecified site; F20.9 Schizophrenia, unspecified; M10.9 Gout, unspecified; F17.200 Nicotine dependence, unspecified, uncomplicated
CPT/HCPCS: 36415; 80053; 80307; 80320; 81001; 85025; G0480

== ENCOUNTER 2020-04-05 21:38 | Emergency (ER) | payer MEDICARE ==
[2020-04-05 23:58] VITALS: BP 168/94
--- NOTE | 2020-04-06 02:10 | Emergency Department Report ---
Chief Complaint: Neck Pain/Injury Stated Complaint: NECK PAIN Time Seen by Provider: 04/06/20 02:00 - HPI History of Present Illness: 50-year-old -[place] female presents to the emergency room for 1 month history of neck pain. Patient denies any injury no fever no chills no nausea no vomiting. Patient states she has taken nothing for pain. Patient reports that she was seen at [facility] as well as [facility]. Patient has a past medical history of arthritis asthma hypertension schizophrenia. Known drug allergies currently takes no meds. Patient does smoke cigarettes. - Exam Vital Signs: Vital Signs 04/05/20 23:51 Temperature 97.1 F L Pulse Rate 67 Respiratory 18 Rate Blood Pressure 168/94 O2 Sat by Pulse 95 Oximetry Physical Exam: Gen: alert oriented NAD nontoxic in appearance Neck: Full range of motion no trapezius tenderness no cervical tenderness Cardic: regular rate and rhythm no murmurs appreciated Resp: Clear to auscultation bilateral no wheezing no rales or rhonchi. Abdomen: Soft nontender nondistended normal bowel sounds. Ambulatory without difficulties MSE screening note: Focused history and physical exam performed. Due to findings the following was ordered: 50-year-old -[place] female presents to the emergency room for 1 month history of neck pain. Patient denies any injury no fever no chills no nausea no vomiting. Patient states she has taken nothing for pain. Patient reports that she was seen at [facility] as well as [facility]. Patient has a past medical history of arthritis asthma hypertension schizophrenia. Known drug allergies currently takes no meds. Patient does smoke cigarettes. Recommend patient to take [id number] ibuprofen or Tylenol. Patient should follow-up with her primary care provider. ED Disposition for MSE Disposition: Z- MED SCREENING EXAM-LEFT Is pt being admited?: No Does the pt Need Aspirin: No Condition: Stable Instructions: Cervical Sprain (ED) Additional Instructions: Take [id number] Tylenol or ibuprofen or pain management. Follow-up with your primary care provider. Referrals: PRIMARY MD MORIAH [Primary Care Provider] - 3-5 Days [facility] [Provider Group] - 3-5 Days
== END 2020-04-06 02:17 | disposition left against medical advice (07) ==
LOC: ED 21:38
DX: M54.2 Cervicalgia (principal); Z53.21 Procedure and treatment not carried out due to patient leaving prior to being seen by health care provider

== ENCOUNTER 2020-04-08 20:07 | Emergency (ER) | payer MEDICARE ==
--- NOTE | 2020-04-08 20:52 | Emergency Department Report ---
ED General Adult HPI - General Chief complaint: Pain General Stated complaint: HIGH BP Time Seen by Provider: 04/08/20 20:35 Source: patient Mode of arrival: Ambulatory Limitations: No Limitations - History of Present Illness Initial comments: Patient is a 50-year-old -Mosoth[place] female with a history of hypertension, osteoarthritis, and schizophrenia who presents for generalized bodyache, she denies fever, chills, n/v, no dizziness, no lightheadedness, pt denies fall injury or trauma, She denies exacerbating or relieving factors. These symptoms reported for 2 days. This is recurring pain chronic in nature per patient. Onset/Timin -: days(s) Location: back, upper extremity, lower extremity Radiation: non-radiation Severity scale (0 -10): 4 Quality: aching Consistency: constant Improves with: none Worsens with: movement Associated Symptoms: denies: cough, fever/chills, headaches, nausea/vomiting, shortness of breath, weakness Treatments Prior to Arrival: none - Related Data Previous Rx's Medication Instructions Recorded Last Taken Type Cyclobenzaprine HCl [Flexeril 5 MG 5 mg PO TID PRN #10 tab 09/30/16 Unknown Rx TAB] Ibuprofen [Motrin 800 MG tab] 800 mg PO Q8HR PRN #20 tablet 11/17/16 Unknown Rx atenoloL [Tenormin] 50 mg PO DAILY #30 tablet 11/17/16 Unknown Rx Albuterol Mdi (or & Nicu Only) 2 puff IH QID PRN #1 inha 03/16/17 Unknown Rx [ProAir HFA Inhaler] predniSONE [Deltasone] 50 mg PO QDAY #5 tab 03/16/17 Unknown Rx Cyclobenzaprine [Flexeril 10 MG 10 mg PO TID PRN #12 tablet 03/31/17 Unknown Rx TAB] Naproxen [Naprosyn TAB] 500 mg PO BID #20 tablet 03/31/17 Unknown Rx Naproxen [Naprosyn TAB] 500 mg PO BID PRN #20 tablet 04/03/17 Unknown Rx Phenylephrine/Dm/Acetaminop/GG 10 ml PO Q4H PRN #1 liquid 04/03/17 Unknown Rx [Mucinex Flbn-Cqg-Otczmrrtis Lq] Prednisone [predniSONE 10 mg 10 mg PO .TAPER #1 tab.ds.pk 04/03/17 Unknown Rx (6-Day Pack, 21 Tabs)] Ibuprofen [Motrin] 800 mg PO Q8HR PRN #30 tablet 08/26/17 Unknown Rx ALBUTEROL NEB's [Proventil 0.083% 1 puff IH Q4H PRN #1 box 09/26/17 Unknown Rx NEBS] Albuterol Sulfate [Ventolin Hfa] 1 puff IH Q4H PRN #1 hfa.aer.ad 09/26/17 Unknown Rx Dextromethorphan Hb/Doxylamine 10 ml PO Q6H PRN #1 liquid 09/26/17 Unknown Rx [Safetussin Pm Liquid] Nebulizer Accessories [Sootheneb 1 each MC Q4H PRN #1 each 09/26/17 Unknown Rx [id number] Adult Mask] Nebulizer [Compact Compressor 1 each MC Q4H PRN #1 each 09/26/17 Unknown Rx Nebulizer] predniSONE [Deltasone] 40 mg PO QDAY #10 tab 09/26/17 Unknown Rx Acetaminophen [Acetaminophen TAB] 500 mg PO Q6HR PRN #20 tablet 03/02/18 Unknown Rx Albuterol Sulfate [Ventolin Hfa] 1 puff IH Q4H PRN #1 hfa.aer.ad 03/02/18 Unknown Rx Prednisone [predniSONE 10 mg 10 mg PO .TAPER #1 tab.ds.pk 03/02/18 Unknown Rx (6-Day Pack, 21 Tabs)] Albuterol Mdi (or & Nicu Only) 2 puff IH QID PRN #1 inhalation 05/19/19 Unknown Rx [ProAir HFA Inhaler] amLODIPine 5 mg PO DAILY #30 tab 05/19/19 Unknown Rx hydroCHLOROthiazide [HCTZ] 25 mg PO QDAY #30 tablet 05/19/19 Unknown Rx Capsaicin 0.075% [Zostrix Hp 1 applicatio TP TID PRN #1 tube 04/08/20 Unknown Rx 0.075%] Allergies Allergy/AdvReac Type Severity Reaction Status Date / Time No Known Allergies Allergy Verified 03/24/19 14:13 ED Review of Systems ROS: Stated complaint: HIGH BP Other details as noted in HPI Constitutional: no symptoms reported Eyes: denies: eye pain, eye discharge, vision change ENT: denies: ear pain, throat pain Respiratory: denies: cough, shortness of breath, wheezing Cardiovascular: denies: chest pain, palpitations Endocrine: no symptoms reported Gastrointestinal: denies: abdominal pain, nausea, diarrhea Genitourinary: denies: urgency, dysuria, discharge Musculoskeletal: back pain, arthralgia. denies: joint swelling, myalgia Skin: denies: rash, lesions Neurological: denies: headache, weakness, paresthesias Psychiatric: denies: anxiety, depression Hematological/Lymphatic: denies: easy bleeding, easy bruising ED Past Medical Hx - Past Medical History Hx Hypertension: Yes Hx Arthritis: Yes Hx Psychiatric Treatment: Yes (Schizophrenia) Hx Asthma: Yes (bronchitis) Additional medical history: gout - Surgical History Additional Surgical History: "TUMORS REMOVED IN STOMACH" - Social History Smoking Status: Current Every Day Smoker Substance Use Type: None - Medications Home Medications: Home Medications Medication Instructions Recorded Confirmed Last Taken Type Cyclobenzaprine HCl [Flexeril 5 MG 5 mg PO TID PRN #10 tab 09/30/16 Unknown Rx TAB] Ibuprofen [Motrin 800 MG tab] 800 mg PO Q8HR PRN #20 tablet 11/17/16 Unknown Rx atenoloL [Tenormin] 50 mg PO DAILY #30 tablet 11/17/16 Unknown Rx Albuterol Mdi (or & Nicu Only) 2 puff IH QID PRN #1 inha 03/16/17 Unknown Rx [ProAir HFA Inhaler] predniSONE [Deltasone] 50 mg PO QDAY #5 tab 03/16/17 Unknown Rx Cyclobenzaprine [Flexeril 10 MG 10 mg PO TID PRN #12 tablet 03/31/17 Unknown Rx TAB] Naproxen [Naprosyn TAB] 500 mg PO BID #20 tablet 03/31/17 Unknown Rx Naproxen [Naprosyn TAB] 500 mg PO BID PRN #20 tablet 04/03/17 Unknown Rx Phenylephrine/Dm/Acetaminop/GG 10 ml PO Q4H PRN #1 liquid 04/03/17 Unknown Rx [Mucinex Bttc-Jrr-Xeeagfntzp Lq] Prednisone [predniSONE 10 mg 10 mg PO .TAPER #1 tab.ds.pk 04/03/17 Unknown Rx (6-Day Pack, 21 Tabs)] Ibuprofen [Motrin] 800 mg PO Q8HR PRN #30 tablet 08/26/17 Unknown Rx ALBUTEROL NEB's [Proventil 0.083% 1 puff IH Q4H PRN #1 box 09/26/17 Unknown Rx NEBS] Albuterol Sulfate [Ventolin Hfa] 1 puff IH Q4H PRN #1 hfa.aer.ad 09/26/17 Unknown Rx Dextromethorphan Hb/Doxylamine 10 ml PO Q6H PRN #1 liquid 09/26/17 Unknown Rx [Safetussin Pm Liquid] Nebulizer Accessories [Sootheneb 1 each MC Q4H PRN #1 each 09/26/17 Unknown Rx [id number] Adult Mask] Nebulizer [Compact Compressor 1 each MC Q4H PRN #1 each 09/26/17 Unknown Rx Nebulizer] predniSONE [Deltasone] 40 mg PO QDAY #10 tab 09/26/17 Unknown Rx Acetaminophen [Acetaminophen TAB] 500 mg PO Q6HR PRN #20 tablet 03/02/18 Unknown Rx Albuterol Sulfate [Ventolin Hfa] 1 puff IH Q4H PRN #1 hfa.aer.ad 03/02/18 Unknown Rx Prednisone [predniSONE 10 mg 10 mg PO .TAPER #1 tab.ds.pk 03/02/18 Unknown Rx (6-Day Pack, 21 Tabs)] Albuterol Mdi (or & Nicu Only) 2 puff IH QID PRN #1 inhalation 05/19/19 Unknown Rx [ProAir HFA Inhaler] amLODIPine 5 mg PO DAILY #30 tab 05/19/19 Unknown Rx hydroCHLOROthiazide [HCTZ] 25 mg PO QDAY #30 tablet 05/19/19 Unknown Rx Capsaicin 0.075% [Zostrix Hp 1 applicatio TP TID PRN #1 tube 04/08/20 Unknown Rx 0.075%] ED Physical Exam - General Limitations: No Limitations General appearance: alert, in no apparent distress - Head Head exam: Present: atraumatic, normocephalic - Eye Eye exam: Present: normal appearance, EOMI Pupils: Present: normal accommodation - ENT ENT exam: Present: mucous membranes moist - Neck Neck exam: Present: normal inspection, full ROM. Absent: tenderness - Respiratory Respiratory exam: Present: normal lung sounds bilaterally. Absent: respiratory distress, wheezes, stridor, chest wall tenderness - Cardiovascular Cardiovascular Exam: Present: regular rate, normal rhythm, normal heart sounds. Absent: systolic murmur, diastolic murmur, rubs, gallop - GI/Abdominal GI/Abdominal exam: Present: soft, normal bowel sounds. Absent: distended, tenderness - Rectal Rectal exam: Present: deferred - Extremities Exam Extremities exam: Present: normal inspection, full ROM. Absent: tenderness - Back Exam Back exam: Present: normal inspection, full ROM. Absent: tenderness, vertebral tenderness - Neurological Exam Neurological exam: Present: alert, oriented X3, CN II-XII intact, normal gait - Expanded Neurological Exam Expanded Patient oriented to: Present: person, place, time Best Eye Response ([place]): (4) open spontaneously Best Motor Response ([place]): (6) obeys commands Best Verbal Response ([place]): (5) oriented [place] Total: 15 - Psychiatric Psychiatric exam: Present: normal affect, normal mood - Skin Skin exam: Present: warm, dry, intact, normal color. Absent: rash ED Course Vital Signs 04/08/20 04/08/20 20:11 20:15 Temperature 97.4 F L 97.2 F L Pulse Rate 84 84 Respiratory 18 14 Rate Blood Pressure 182/95 O2 Sat by Pulse 100 94 Oximetry ED Medical Decision Making - Medical Decision Making Patient appears well nontoxic well-hydrated well-nourished there is no reproducible pain to exam lung sounds are clear bilaterally patient is alert oriented x3 there is no chest pain or shortness of breath no nausea vomiting no fever or chills. Plan fplh-kut-[id number] NSAIDs as needed for PRN pain follow-up with primary care doctor in 2 to 3 days. Patient verbalizes agreement and understanding with discharge plan. Patient DC'd home in stable condition at this time. Critical care attestation.: If time is entered above; I have spent that time in minutes in the direct care of this critically ill patient, excluding procedure time. ED Disposition Clinical Impression: Musculoskeletal pain Disposition: DC-01 TO HOME OR SELFCARE Is pt being admited?: No Does the pt Need Aspirin: No Condition: Stable Instructions: Arthralgia (ED) Additional Instructions: follow up with your primary care doctor in 2-3 days. return to emergency of symptoms worsen. Prescriptions: Capsaicin 0.075% [Zostrix Hp 0.075%] 1 applicatio TP TID PRN #1 tube PRN Reason: pain Referrals: PRIMARY CAREMD [Primary Care Provider] - 3-5 Days DENI RAMOS MD [Referring] - 3-5 Days Forms: Work/School Release Form(ED) Time of Disposition: 21:00
[2020-04-08] MEDS ORDERED: IBUPROFEN 800 MG TAB PO ONE (20:56)
[2020-04-08 21:04] VITALS: BP 124/91
== END 2020-04-08 21:05 | disposition home or self-care (01) ==
LOC: ED 20:07
DX: M79.18 Myalgia, other site (principal); M13.88 Other specified arthritis, other site; I10 Essential (primary) hypertension; F20.89 Other schizophrenia; J45.909 Unspecified asthma, uncomplicated; M10.9 Gout, unspecified; F17.200 Nicotine dependence, unspecified, uncomplicated; Z79.899 Other long term (current) drug therapy
CPT/HCPCS: 99282

== ENCOUNTER 2020-04-10 17:22 | Emergency (ER) | payer MEDICARE ==
[2020-04-10 18:14] VITALS: BP 211/116
--- NOTE | 2020-04-10 18:14 | Emergency Department Report ---
Blank Doc - Documentation Documentation: 50-year-old female that presents with 211//116 blood pressure with neck pain and headache. Denies any trauma or injuries. This initial assessment/diagnostic orders/clinical plan/treatment(s) is/are subject to change based on patient's health status, clinical progression and re- assessment by fellow clinical providers in the ED. Further treatment and workup at subsequent clinical providers discretion. Patient/guardians urged not to elope from the ED as their condition may be serious if not clinically assessed and managed. Initial orders include: 1- Patient sent to [facility] for further evaluation and treatment 2- labs-r/o HTN emergency 3- CT head
[2020-04-10 20:02] LABS: Basophils # (Auto) 0.1 K/mm3 (0.0-0.1); Eosinophils # (Auto) 0.1 K/mm3 (0.0-0.4); Eosinophils % (Auto) 2.5 % (0.0-4.3); Hematocrit 37.1 % (30.3-42.9); Hemoglobin 12.3 gm/dl (10.1-14.3); Lymphocytes % (Auto) 55.1 % (13.4-35.0); Mean Corpuscular HGB Conc 33 % (30-34); Mean Corpuscular Volume 85 fl (79-97); Monocytes # (Auto) 0.3 K/mm3 (0.0-0.8); Monocytes % (Auto) 5.8 % (0.0-7.3); Platelet Count 294 K/mm3 (140-440); Red Blood Count 4.36 M/mm3 (3.65-5.03); Red Cell Distribution Width 14.5 % (13.2-15.2)
[2020-04-10 20:22] LABS: Blood Urea Nitrogen 12 mg/dL (7-17); Calcium 9.7 mg/dL (8.4-10.2); Hemolysis Index 18
[2020-04-10 20:24] LABS: BUN/Creatinine Ratio 17
[2020-04-10] MEDS ORDERED: IBUPROFEN 800 MG TAB PO ONE (23:40)
--- NOTE | 2020-04-11 00:02 | Emergency Department Report ---
ED Neck Pain/Injury HPI - General Chief Complaint: Neck Pain/Injury Stated Complaint: NECK PAIN Time Seen by Provider: 04/10/20 18:10 Mode of arrival: Ambulatory Limitations: No Limitations - History of Present Illness Initial Comments: Patient is a 50-year-old -Tunisian female who presents for generalized neck pain. This is a recurring problem for this patient for the past 3 months. Patient was seen 2 days ago here for same. Patient states followed by multiple doctors including [facility]. She is currently not taking anything for neck pain. Patient denies fall injury or trauma. She has a history of schizophrenia, Asthma, Arthritis. Pt denies numbness no tingling no headache no fever or chills, no lightheadedness, no dizziness. There is no abrasion , laceration, or bleeding. MD Complaint: neck pain - Related Data Previous Rx's Medication Instructions Recorded Last Taken Type Cyclobenzaprine HCl [Flexeril 5 MG 5 mg PO TID PRN #10 tab 09/30/16 Unknown Rx TAB] Ibuprofen [Motrin 800 MG tab] 800 mg PO Q8HR PRN #20 tablet 11/17/16 Unknown Rx atenoloL [Tenormin] 50 mg PO DAILY #30 tablet 11/17/16 Unknown Rx Albuterol Mdi (or & Nicu Only) 2 puff IH QID PRN #1 inha 03/16/17 Unknown Rx [ProAir HFA Inhaler] predniSONE [Deltasone] 50 mg PO QDAY #5 tab 03/16/17 Unknown Rx Cyclobenzaprine [Flexeril 10 MG 10 mg PO TID PRN #12 tablet 03/31/17 Unknown Rx TAB] Naproxen [Naprosyn TAB] 500 mg PO BID #20 tablet 03/31/17 Unknown Rx Naproxen [Naprosyn TAB] 500 mg PO BID PRN #20 tablet 04/03/17 Unknown Rx Phenylephrine/Dm/Acetaminop/GG 10 ml PO Q4H PRN #1 liquid 04/03/17 Unknown Rx [Mucinex Aace-Ers-Spjhutgoni Lq] Prednisone [predniSONE 10 mg 10 mg PO .TAPER #1 tab.ds.pk 04/03/17 Unknown Rx (6-Day Pack, 21 Tabs)] Ibuprofen [Motrin] 800 mg PO Q8HR PRN #30 tablet 08/26/17 Unknown Rx ALBUTEROL NEB's [Proventil 0.083% 1 puff IH Q4H PRN #1 box 09/26/17 Unknown Rx NEBS] Albuterol Sulfate [Ventolin Hfa] 1 puff IH Q4H PRN #1 hfa.aer.ad 09/26/17 Unknown Rx Dextromethorphan Hb/Doxylamine 10 ml PO Q6H PRN #1 liquid 09/26/17 Unknown Rx [Safetussin Pm Liquid] Nebulizer Accessories [Sootheneb 1 each MC Q4H PRN #1 each 09/26/17 Unknown Rx [id number] Adult Mask] Nebulizer [Compact Compressor 1 each MC Q4H PRN #1 each 09/26/17 Unknown Rx Nebulizer] predniSONE [Deltasone] 40 mg PO QDAY #10 tab 09/26/17 Unknown Rx Acetaminophen [Acetaminophen TAB] 500 mg PO Q6HR PRN #20 tablet 03/02/18 Unknown Rx Albuterol Sulfate [Ventolin Hfa] 1 puff IH Q4H PRN #1 hfa.aer.ad 03/02/18 Unknown Rx Prednisone [predniSONE 10 mg 10 mg PO .TAPER #1 tab.ds.pk 03/02/18 Unknown Rx (6-Day Pack, 21 Tabs)] Albuterol Mdi (or & Nicu Only) 2 puff IH QID PRN #1 inhalation 05/19/19 Unknown Rx [ProAir HFA Inhaler] amLODIPine 5 mg PO DAILY #30 tab 05/19/19 Unknown Rx hydroCHLOROthiazide [HCTZ] 25 mg PO QDAY #30 tablet 05/19/19 Unknown Rx Capsaicin 0.075% [Zostrix Hp 1 applicatio TP TID PRN #1 tube 04/08/20 Unknown Rx 0.075%] Menthol/Camphor [[place] 1 gm PO QID PRN #1 tube 04/11/20 Unknown Rx Ointment] Naproxen [Naprosyn TAB] 500 mg PO BID PRN #30 tablet 04/11/20 Unknown Rx Allergies Allergy/AdvReac Type Severity Reaction Status Date / Time No Known Allergies Allergy Verified 03/24/19 14:13 ED Review of Systems ROS: Stated complaint: NECK PAIN Other details as noted in HPI Constitutional: denies: chills, fever Eyes: denies: eye pain, eye discharge, vision change ENT: denies: ear pain, throat pain, congestion Respiratory: denies: cough, shortness of breath, wheezing Cardiovascular: denies: chest pain, palpitations Endocrine: no symptoms reported Gastrointestinal: as per HPI Genitourinary: denies: urgency, dysuria, discharge Musculoskeletal: denies: back pain, joint swelling, arthralgia Skin: denies: rash, lesions Neurological: denies: headache, weakness, paresthesias Psychiatric: denies: anxiety, depression Hematological/Lymphatic: as per HPI ED Past Medical Hx - Past Medical History Hx Hypertension: Yes Hx Arthritis: Yes Hx Psychiatric Treatment: Yes (Schizophrenia) Hx Asthma: Yes (bronchitis) Additional medical history: gout - Surgical History Additional Surgical History: "TUMORS REMOVED IN STOMACH" - Social History Smoking Status: Never Smoker Substance Use Type: None - Medications Home Medications: Home Medications Medication Instructions Recorded Confirmed Last Taken Type Cyclobenzaprine HCl [Flexeril 5 MG 5 mg PO TID PRN #10 tab 09/30/16 Unknown Rx TAB] Ibuprofen [Motrin 800 MG tab] 800 mg PO Q8HR PRN #20 tablet 11/17/16 Unknown Rx atenoloL [Tenormin] 50 mg PO DAILY #30 tablet 11/17/16 Unknown Rx Albuterol Mdi (or & Nicu Only) 2 puff IH QID PRN #1 inha 03/16/17 Unknown Rx [ProAir HFA Inhaler] predniSONE [Deltasone] 50 mg PO QDAY #5 tab 03/16/17 Unknown Rx Cyclobenzaprine [Flexeril 10 MG 10 mg PO TID PRN #12 tablet 03/31/17 Unknown Rx TAB] Naproxen [Naprosyn TAB] 500 mg PO BID #20 tablet 03/31/17 Unknown Rx Naproxen [Naprosyn TAB] 500 mg PO BID PRN #20 tablet 04/03/17 Unknown Rx Phenylephrine/Dm/Acetaminop/GG 10 ml PO Q4H PRN #1 liquid 04/03/17 Unknown Rx [Mucinex Fbvg-Vir-Ykilukygrh Lq] Prednisone [predniSONE 10 mg 10 mg PO .TAPER #1 tab.ds.pk 04/03/17 Unknown Rx (6-Day Pack, 21 Tabs)] Ibuprofen [Motrin] 800 mg PO Q8HR PRN #30 tablet 08/26/17 Unknown Rx ALBUTEROL NEB's [Proventil 0.083% 1 puff IH Q4H PRN #1 box 09/26/17 Unknown Rx NEBS] Albuterol Sulfate [Ventolin Hfa] 1 puff IH Q4H PRN #1 hfa.aer.ad 09/26/17 Unknown Rx Dextromethorphan Hb/Doxylamine 10 ml PO Q6H PRN #1 liquid 09/26/17 Unknown Rx [Safetussin Pm Liquid] Nebulizer Accessories [Sootheneb 1 each MC Q4H PRN #1 each 09/26/17 Unknown Rx [id number] Adult Mask] Nebulizer [Compact Compressor 1 each MC Q4H PRN #1 each 09/26/17 Unknown Rx Nebulizer] predniSONE [Deltasone] 40 mg PO QDAY #10 tab 09/26/17 Unknown Rx Acetaminophen [Acetaminophen TAB] 500 mg PO Q6HR PRN #20 tablet 03/02/18 Unknown Rx Albuterol Sulfate [Ventolin Hfa] 1 puff IH Q4H PRN #1 hfa.aer.ad 03/02/18 Unknown Rx Prednisone [predniSONE 10 mg 10 mg PO .TAPER #1 tab.ds.pk 03/02/18 Unknown Rx (6-Day Pack, 21 Tabs)] Albuterol Mdi (or & Nicu Only) 2 puff IH QID PRN #1 inhalation 05/19/19 Unknown Rx [ProAir HFA Inhaler] amLODIPine 5 mg PO DAILY #30 tab 05/19/19 Unknown Rx hydroCHLOROthiazide [HCTZ] 25 mg PO QDAY #30 tablet 05/19/19 Unknown Rx Capsaicin 0.075% [Zostrix Hp 1 applicatio TP TID PRN #1 tube 04/08/20 Unknown Rx 0.075%] Menthol/Camphor [[place] 1 gm PO QID PRN #1 tube 04/11/20 Unknown Rx Ointment] Naproxen [Naprosyn TAB] 500 mg PO BID PRN #30 tablet 04/11/20 Unknown Rx ED Physical Exam - General Limitations: No Limitations General appearance: alert, in no apparent distress - Head Head exam: Present: atraumatic, normocephalic, normal inspection - Eye Eye exam: Present: normal appearance, PERRL, EOMI Pupils: Present: normal accommodation - ENT ENT exam: Present: normal exam, mucous membranes moist - Neck Neck exam: Present: normal inspection, full ROM. Absent: tenderness (rom intact and unrestricted, no swelling no crepitus , no posterior vertebral point ), meningismus, lymphadenopathy, thyromegaly - Expanded Neck Exam Expanded Neck exam: Absent: midline deformity, anterior neck swelling, thyroid mass, carotid bruit, tracheal deviation - Respiratory Respiratory exam: Present: normal lung sounds bilaterally. Absent: respiratory distress, wheezes, stridor, chest wall tenderness - Cardiovascular Cardiovascular Exam: Present: regular rate, normal rhythm, normal heart sounds. Absent: systolic murmur, diastolic murmur, rubs, gallop - GI/Abdominal GI/Abdominal exam: Present: soft, normal bowel sounds. Absent: distended, tenderness - Rectal Rectal exam: Absent: deferred - Extremities Exam Extremities exam: Present: normal inspection, full ROM. Absent: tenderness - Back Exam Back exam: Present: normal inspection, full ROM. Absent: tenderness, vertebral tenderness - Neurological Exam Neurological exam: Present: alert, oriented X3, CN II-XII intact, normal gait, reflexes normal. Absent: motor sensory deficit - Psychiatric Psychiatric exam: Present: normal affect, normal mood - Skin Skin exam: Present: warm, dry, intact, normal color. Absent: rash ED Course Vital Signs 04/10/20 18:11 Temperature 98.1 F Pulse Rate 69 Respiratory 16 Rate Blood Pressure 211/116 [Left] O2 Sat by Pulse 99 Oximetry ED Medical Decision Making - Lab Data Result diagrams: 04/10/20 19:08 04/10/20 19:08 Labs 04/10/20 04/10/20 19:08 19:08 WBC 5.5 RBC 4.36 Hgb 12.3 Hct 37.1 MCV 85 MCH 28 MCHC 33 RDW 14.5 Plt Count 294 Lymph % (Auto) 55.1 H [place] % (Auto) 5.8 Eos % (Auto) 2.5 Baso % (Auto) 1.0 Lymph # 3.0 [place] # 0.3 Eos # 0.1 Baso # 0.1 Seg Neutrophils % 35.6 L Seg Neutrophils # 1.9 Sodium 140 Potassium 3.8 Chloride 101.7 Carbon Dioxide 24 Anion Gap 18 BUN 12 Creatinine 0.7 Estimated GFR > 60 BUN/Creatinine Ratio 17 Glucose 79 Calcium 9.7 - Medical Decision Making physical exam is normal, rom intact , no swelling or deformity, no crepitus, no weakness, no headache, no swelling, plan: nsaids, analgesic balm, moist heat therapy , neck exercises. pt for dc to home in stable condition at this time. Critical care attestation.: If time is entered above; I have spent that time in minutes in the direct care of this critically ill patient, excluding procedure time. ED Disposition Clinical Impression: Neck pain, Musculoskeletal pain Disposition: DC-01 TO HOME OR SELFCARE Is pt being admited?: No Does the pt Need Aspirin: No Condition: Stable Instructions: Cervical Spine Strain (ED), Neck Exercises (GEN) Prescriptions: Naproxen [Naprosyn TAB] 500 mg PO BID PRN #30 tablet PRN Reason: pain Menthol/Camphor [[place] Ointment] 1 gm PO QID PRN #1 tube PRN Reason: pain Referrals: [facility] [place] [Provider Group] - 3-5 Days Forms: Work/School Release Form(ED) Time of Disposition: 00:09
== END 2020-04-11 00:20 | disposition home or self-care (01) ==
LOC: ED 17:22
DX: M54.2 Cervicalgia (principal); I10 Essential (primary) hypertension; M19.90 Unspecified osteoarthritis, unspecified site; F20.9 Schizophrenia, unspecified; J45.909 Unspecified asthma, uncomplicated; Z79.899 Other long term (current) drug therapy; Z79.1 Long term (current) use of non-steroidal anti-inflammatories (NSAID); Z79.2 Long term (current) use of antibiotics; Z98.890 Other specified postprocedural states
CPT/HCPCS: 36415; 80048; 85025; 99283

== ENCOUNTER 2020-08-26 14:20 | Emergency (ER) | payer MEDICARE ==
--- NOTE | 2020-08-26 17:53 | Emergency Department Report ---
Chief Complaint: Upper Respiratory Infection Stated Complaint: COUGH/SNEEZING - HPI History of Present Illness: 50-year-old -[place]ren[place] female presents to the emergency room stating she has a cough and shortness of breath and sneezing. Patient states her last Covid test was been a while. Patient refuses to answer when the last time she smokes cigarettes. Patient states her primary care provider is at [place]. States that she wants a flu vaccination. MSE screening note: Focused history and physical exam performed. Due to findings the following was ordered: 50-year-old -Gren[place] female presents to the emergency room stating she has a cough and shortness of breath and sneezing. Patient states her last Covid test was been a while. Patient refuses to answer when the last time she smokes cigarettes. Patient states her primary care provider is at [place]. States that she wants a flu vaccination. ED Disposition for MSE Clinical Impression: Viral syndrome Disposition: TO HOME OR SELFCARE Is pt being admited?: No Does the pt Need Aspirin: No Condition: Stable Additional Instructions: Your symptoms appear most consistent with a nonspecific viral syndrome. However, given this current pandemic, COVID-19 is in the differential of possibilities. Despite your previous negative COVID-19 test, I do recommend repeat outpatient Covid 19 testing. In the meantime, isolate/quarantine yourself and stay away from anyone who is elderly, immunocompromised or chronically ill. You can use ibuprofen every 6-8 hours and Tylenol every 4-8 hours, using the dosing on the back of the bottle, as needed for any fever or body aches. Return to the emergency department with any worsening of your symptoms, development of chest pain or shortness of breath, or with any acute distress. As we discussed, symptoms most likely coming from cold/virus infection. These typically do not get antibiotics. Patient can have ibuprofen every 6 hours, alternated with acetaminophen every 4 hours. Patient may not want to eat as much as normal, and this is expected. Patient should follow-up with her primary mill roller within 3-5 days. Return to the ER right away with lethargy, irritability, change in mental status, projectile vomiting, inability to tolerate liquid feeds. Tylenol ibuprofen Zyrtec's or Claritin. Nasal spray such as Flonase is all [id number]. Follow-up with your primary care provider Referrals: [facility] MD MICHAEL [Primary Care Provider] - 3-5 Days
== END 2020-08-26 18:00 | disposition left against medical advice (07) ==
LOC: ED 14:20
DX: B34.9 Viral infection, unspecified (principal)
CPT/HCPCS: 99282

== ENCOUNTER 2020-12-07 01:43 | Emergency (ER) | payer MEDICARE ==
[2020-12-07 02:15] VITALS: BP 217/101
[2020-12-07] MEDS ORDERED: ASPIRIN 325 MG TAB PO ONE (03:37)
[2020-12-07 04:42] LABS: Basophils # (Auto) 0.1 K/mm3 (0.0-0.1); Eosinophils # (Auto) 0.2 K/mm3 (0.0-0.4); Eosinophils % (Auto) 3.6 % (0.0-4.3); Hematocrit 37.7 % (30.3-42.9); Hemoglobin 12.8 gm/dl (10.1-14.3); Lymphocytes # (Auto) 2.5 K/mm3 (1.2-5.4); Lymphocytes % (Auto) 45.8 % (13.4-35.0); Mean Corpuscular HGB Conc 34 % (30-34); Mean Corpuscular Volume 87 fl (79-97); Monocytes # (Auto) 0.3 K/mm3 (0.0-0.8); Monocytes % (Auto) 6.2 % (0.0-7.3); Platelet Count 281 K/mm3 (140-440); Red Blood Count 4.33 M/mm3 (3.65-5.03); Red Cell Distribution Width 14.7 % (13.2-15.2)
[2020-12-07 04:58] LABS: Alanine Aminotransferase 15 units/L (7-56); Albumin 4.2 g/dL (3.9-5); Blood Urea Nitrogen 14 mg/dL (7-17); Calcium 9.4 mg/dL (8.4-10.2); Hemolysis Index 12
--- NOTE | 2020-12-07 04:59 | Emergency Department Report ---
ED General Adult HPI - General Chief complaint: Pain General Stated complaint: BACK PAIN;FINGER PAIN;ASTHMA Source: patient Mode of arrival: Ambulatory Limitations: No Limitations - History of Present Illness Initial comments: Patient is a 50-year-old -[place] female with a history of paranoid schizophrenia, asthma, hypertension and chronic osteoarthritis who presents to the ED with complaint of persistent diffuse body aches, joint pains for the last 12 months but which has worsened in the last 2 weeks. Patient states that she is currently homeless and was at a homeless halfway where she has been kicked out about 2 hours prior to arrival in the ED. Patient states that she would like to be evaluated by case management for placement at another housing facility. Patient denies dizziness, syncope, chest pain, shortness of breath, abdominal pain, nausea, vomiting, headache, suicidal or homicidal ideations and hallucinations. MD Complaint: Chronic osteaorthritis; diffuse joint pains; wants case management -: Gradual, year(s) (1) Location: upper extremity, lower extremity Radiation: non-radiation Severity scale (0 -10): 3 Quality: aching, sharp Consistency: constant Improves with: none Worsens with: movement Associated Symptoms: denies other symptoms. denies: confusion, chest pain, cough, diaphoresis, fever/chills, headaches, loss of appetite, malaise, nausea/vomiting, seizure, shortness of breath, syncope, weakness, other Treatments Prior to Arrival: none - Related Data Previous Rx's Medication Instructions Recorded Last Taken Type Cyclobenzaprine HCl [Flexeril 5 MG 5 mg PO TID PRN #10 tab 09/30/16 Unknown Rx TAB] Ibuprofen [Motrin 800 MG tab] 800 mg PO Q8HR PRN #20 tablet 11/17/16 Unknown Rx atenoloL [Tenormin] 50 mg PO DAILY #30 tablet 11/17/16 Unknown Rx Albuterol Mdi (or & Nicu Only) 2 puff IH QID PRN #1 inha 03/16/17 Unknown Rx [ProAir HFA Inhaler] predniSONE [Deltasone] 50 mg PO QDAY #5 tab 03/16/17 Unknown Rx Cyclobenzaprine [Flexeril 10 MG 10 mg PO TID PRN #12 tablet 03/31/17 Unknown Rx TAB] Naproxen [Naprosyn TAB] 500 mg PO BID #20 tablet 03/31/17 Unknown Rx Naproxen [Naprosyn TAB] 500 mg PO BID PRN #20 tablet 04/03/17 Unknown Rx Phenylephrine/Dm/Acetaminop/GG 10 ml PO Q4H PRN #1 liquid 04/03/17 Unknown Rx [Mucinex Icfx-Rjp-Qtpjluxxlt Lq] Prednisone [predniSONE 10 mg 10 mg PO .TAPER #1 tab.ds.pk 04/03/17 Unknown Rx (6-Day Pack, 21 Tabs)] Ibuprofen [Motrin] 800 mg PO Q8HR PRN #30 tablet 08/26/17 Unknown Rx ALBUTEROL NEB's [Proventil 0.083% 1 puff IH Q4H PRN #1 box 09/26/17 Unknown Rx NEBS] Albuterol Sulfate [Ventolin Hfa] 1 puff IH Q4H PRN #1 hfa.aer.ad 09/26/17 Unknown Rx Dextromethorphan Hb/Doxylamine 10 ml PO Q6H PRN #1 liquid 09/26/17 Unknown Rx [Safetussin Pm Liquid] Nebulizer Accessories [Sootheneb 1 each MC Q4H PRN #1 each 09/26/17 Unknown Rx [id number] Adult Mask] Nebulizer [Compact Compressor 1 each MC Q4H PRN #1 each 09/26/17 Unknown Rx Nebulizer] predniSONE [Deltasone] 40 mg PO QDAY #10 tab 09/26/17 Unknown Rx Acetaminophen [Acetaminophen TAB] 500 mg PO Q6HR PRN #20 tablet 03/02/18 Unknown Rx Albuterol Sulfate [Ventolin Hfa] 1 puff IH Q4H PRN #1 hfa.aer.ad 03/02/18 Unknown Rx Prednisone [predniSONE 10 mg 10 mg PO .TAPER #1 tab.ds.pk 03/02/18 Unknown Rx (6-Day Pack, 21 Tabs)] Albuterol Mdi (or & Nicu Only) 2 puff IH QID PRN #1 inhalation 05/19/19 Unknown Rx [ProAir HFA Inhaler] amLODIPine 5 mg PO DAILY #30 tab 05/19/19 Unknown Rx hydroCHLOROthiazide [HCTZ] 25 mg PO QDAY #30 tablet 05/19/19 Unknown Rx Capsaicin 0.075% [Zostrix Hp 1 applicatio TP TID PRN #1 tube 04/08/20 Unknown Rx 0.075%] Menthol/Camphor [[place] 1 gm PO QID PRN #1 tube 04/11/20 Unknown Rx Ointment] Naproxen [Naprosyn TAB] 500 mg PO BID PRN #30 tablet 04/11/20 Unknown Rx Allergies Allergy/AdvReac Type Severity Reaction Status Date / Time No Known Allergies Allergy Verified 03/24/19 14:13 ED Review of Systems ROS: Stated complaint: BACK PAIN;FINGER PAIN;ASTHMA Other details as noted in HPI Constitutional: denies: chills, fever Eyes: denies: eye pain, eye discharge, vision change ENT: denies: ear pain, throat pain Respiratory: denies: cough, shortness of breath, wheezing Cardiovascular: denies: chest pain, palpitations Endocrine: no symptoms reported Gastrointestinal: denies: abdominal pain, nausea, vomiting, diarrhea Genitourinary: denies: urgency, dysuria, discharge Musculoskeletal: back pain, arthralgia, myalgia. denies: joint swelling Skin: denies: rash, lesions Neurological: denies: headache, weakness, paresthesias Psychiatric: denies: anxiety, depression Hematological/Lymphatic: denies: easy bleeding, easy bruising ED Past Medical Hx - Past Medical History Previous Medical History?: Yes Hx Hypertension: Yes Hx Arthritis: Yes Hx Psychiatric Treatment: Yes (Schizophrenia) Hx Asthma: Yes (bronchitis) Additional medical history: gout - Surgical History Past Surgical History?: Yes Additional Surgical History: "TUMORS REMOVED IN STOMACH" - Social History Smoking Status: Current Every Day Smoker Substance Use Type: None - Medications Home Medications: Home Medications Medication Instructions Recorded Confirmed Last Taken Type Cyclobenzaprine HCl [Flexeril 5 MG 5 mg PO TID PRN #10 tab 09/30/16 Unknown Rx TAB] Ibuprofen [Motrin 800 MG tab] 800 mg PO Q8HR PRN #20 tablet 11/17/16 Unknown Rx atenoloL [Tenormin] 50 mg PO DAILY #30 tablet 11/17/16 Unknown Rx Albuterol Mdi (or & Nicu Only) 2 puff IH QID PRN #1 inha 03/16/17 Unknown Rx [ProAir HFA Inhaler] predniSONE [Deltasone] 50 mg PO QDAY #5 tab 03/16/17 Unknown Rx Cyclobenzaprine [Flexeril 10 MG 10 mg PO TID PRN #12 tablet 03/31/17 Unknown Rx TAB] Naproxen [Naprosyn TAB] 500 mg PO BID #20 tablet 03/31/17 Unknown Rx Naproxen [Naprosyn TAB] 500 mg PO BID PRN #20 tablet 04/03/17 Unknown Rx Phenylephrine/Dm/Acetaminop/GG 10 ml PO Q4H PRN #1 liquid 04/03/17 Unknown Rx [Mucinex Tejk-Wwr-Bkibinnoil Lq] Prednisone [predniSONE 10 mg 10 mg PO .TAPER #1 tab.ds.pk 04/03/17 Unknown Rx (6-Day Pack, 21 Tabs)] Ibuprofen [Motrin] 800 mg PO Q8HR PRN #30 tablet 08/26/17 Unknown Rx ALBUTEROL NEB's [Proventil 0.083% 1 puff IH Q4H PRN #1 box 09/26/17 Unknown Rx NEBS] Albuterol Sulfate [Ventolin Hfa] 1 puff IH Q4H PRN #1 hfa.aer.ad 09/26/17 Unknown Rx Dextromethorphan Hb/Doxylamine 10 ml PO Q6H PRN #1 liquid 09/26/17 Unknown Rx [Safetussin Pm Liquid] Nebulizer Accessories [Sootheneb 1 each MC Q4H PRN #1 each 09/26/17 Unknown Rx [id number] Adult Mask] Nebulizer [Compact Compressor 1 each MC Q4H PRN #1 each 09/26/17 Unknown Rx Nebulizer] predniSONE [Deltasone] 40 mg PO QDAY #10 tab 09/26/17 Unknown Rx Acetaminophen [Acetaminophen TAB] 500 mg PO Q6HR PRN #20 tablet 03/02/18 Unknown Rx Albuterol Sulfate [Ventolin Hfa] 1 puff IH Q4H PRN #1 hfa.aer.ad 03/02/18 Unknown Rx Prednisone [predniSONE 10 mg 10 mg PO .TAPER #1 tab.ds.pk 03/02/18 Unknown Rx (6-Day Pack, 21 Tabs)] Albuterol Mdi (or & Nicu Only) 2 puff IH QID PRN #1 inhalation 05/19/19 Unknown Rx [ProAir HFA Inhaler] amLODIPine 5 mg PO DAILY #30 tab 05/19/19 Unknown Rx hydroCHLOROthiazide [HCTZ] 25 mg PO QDAY #30 tablet 05/19/19 Unknown Rx Capsaicin 0.075% [Zostrix Hp 1 applicatio TP TID PRN #1 tube 04/08/20 Unknown Rx 0.075%] Menthol/Camphor [[place] 1 gm PO QID PRN #1 tube 04/11/20 Unknown Rx Ointment] Naproxen [Naprosyn TAB] 500 mg PO BID PRN #30 tablet 04/11/20 Unknown Rx ED Physical Exam - General Limitations: No Limitations General appearance: alert, in no apparent distress - Head Head exam: Present: atraumatic, normocephalic, normal inspection - Eye Eye exam: Present: normal appearance, PERRL, EOMI Pupils: Present: normal accommodation - ENT ENT exam: Present: normal exam, normal orophraynx, mucous membranes moist, TM's normal bilaterally, normal external ear exam - Neck Neck exam: Present: normal inspection, full ROM - Respiratory Respiratory exam: Present: normal lung sounds bilaterally. Absent: respiratory distress, wheezes, rhonchi, stridor, chest wall tenderness, accessory muscle use, decreased breath sounds, other - Cardiovascular Cardiovascular Exam: Present: regular rate, normal rhythm, normal heart sounds. Absent: systolic murmur, diastolic murmur, rubs, gallop - GI/Abdominal GI/Abdominal exam: Present: soft, normal bowel sounds. Absent: tenderness, guarding, rebound, hyperactive bowel sounds, hypoactive bowel sounds, organomegaly - Extremities Exam Extremities exam: Present: normal inspection, full ROM, normal capillary refill - Back Exam Back exam: Present: normal inspection, full ROM. Absent: tenderness, CVA tenderness (R), CVA tenderness (L), muscle spasm, paraspinal tenderness, vertebral tenderness - Neurological Exam Neurological exam: Present: alert, oriented X3, CN II-XII intact, normal gait, reflexes normal - Psychiatric Psychiatric exam: Present: normal affect, normal mood - Skin Skin exam: Present: warm, dry, intact, normal color. Absent: rash ED Course Vital Signs 12/07/20 02:08 Temperature 98.2 F Pulse Rate 62 Respiratory 16 Rate Blood Pressure 217/101 [Left] O2 Sat by Pulse 98 Oximetry ED Medical Decision Making - Lab Data Result diagrams: 12/07/20 04:15 - Medical Decision Making This is a 50-year-old -[place] female with a history of paranoid schizophrenia, asthma, hypertension and chronic osteoarthritis who presents to the ED with complaint of persistent diffuse body aches, joint pains for the last 12 months but which has worsened in the last 2 weeks. Patient states that she is currently homeless and was at a homeless halfway where she has been kicked out about 2 hours prior to arrival in the ED. Patient states that she would like to be evaluated by case management for placement at another housing facility. In the ED, patient is alert and oriented x3 and is not in any distress. Basic labs were drawn and case management consult placed. - Differential Diagnosis Chronic pain; chronic osteoarthritis; muscle spasm Critical care attestation.: If time is entered above; I have spent that time in minutes in the direct care of this critically ill patient, excluding procedure time. ED Disposition Clinical Impression: Chronic pain syndrome, Chronic osteoarthritis, Homelessness Disposition: -01 TO HOME OR SELFCARE Is pt being admited?: No Does the pt Need Aspirin: No Condition: Stable Instructions: Arthritis, Lksa-ul-Gtrn Additional Instructions: Follow-up with your primary care physician as needed. Take your regular pain medication with food. Return to the ED immediately if symptoms get worse. Referrals: ALEAH JOSHUA [Other] - 3-5 Days [facility] [Provider Group] - 3-5 Days [facility] [Outside] - 3-5 Days Time of Disposition: 04:59 Print Language: MALAY
[2020-12-07 05:13] LABS: BUN/Creatinine Ratio 23
--- NOTE | 2020-12-08 10:39 | Electrocardiograph Report ---
[facility] Test Date: 2020-12-07 Test Time: 02:35:17 Pat Name: DANO BROWN Department: Room: Gender: F [employer] Tender: GUILLAUME : 1970 Requested By: REAGAN SANTANA Order Number: [id number] Reading MD: Benjamin Alcazar Measurements Intervals [place] Rate: 57 P: 42 ME: 190 QRS: 18 QRSD: 94 T: 43 QT: 425 QTc: 414 Interpretive Statements Sinus bradycardia nonspecific st-t No previous ECG available for comparison Electronically Signed On 12-08-2020 10:39:08 EDT by Benjamin Alcazar
== END 2020-12-07 06:07 | disposition home or self-care (01) ==
LOC: ED 01:43
DX: M19.91 Primary osteoarthritis, unspecified site (principal); Z59.0 Homelessness; I10 Essential (primary) hypertension; F20.9 Schizophrenia, unspecified; J45.909 Unspecified asthma, uncomplicated; F17.200 Nicotine dependence, unspecified, uncomplicated; Z98.890 Other specified postprocedural states; Z79.1 Long term (current) use of non-steroidal anti-inflammatories (NSAID); Z79.899 Other long term (current) drug therapy
CPT/HCPCS: 36415; 80053; 84484; 85025; 93005

== ENCOUNTER 2021-05-06 00:21 | Emergency (ER) | payer MEDICARE ==
[2021-05-06 07:57] VITALS: BP 138/96
--- NOTE | 2021-05-06 07:57 | Emergency Department Report ---
ED Back Pain/Injury HPI - General Stated Complaint: BACK PAIN Time Seen by Provider: 05/06/21 07:52 Source: patient, RN notes reviewed Limitations: No Limitations - History of Present Illness Initial Comments: This is a 51-year-old female nontoxic, well nourished in appearance, no acute signs of distress presents to the ED with c/o of acute on chronic lower back pain x several years. Patient stated that the past 2 days she was moving and developed this pain. Patient denies any radiation of pain. Patient denies any trauma. Denies any bladder or bowel instability. Patient denies any urinary symptoms. Denies any fever, chills, nausea, vomiting, headache, stiff neck, chest pain or shortness of breath. Patient denies any numbness or tingling. Denies any allergies. MD Complaint: back pain -: days(s) Similar Symptoms Previously: Yes Radiation: none Severity: mild Severity scale (0 -10): 3 Quality: aching Consistency: intermittent Improves With: immobilization, sitting upright Worsens With: movement, walking Context: while lifting, turning/twisting Associated Symptoms: denies other symptoms. denies: confusion, weakness, chest pain, numbness, difficulty walking, cough, difficulty urinating, diaphoresis, incontinence, fever/chills, constipation, headaches, abdominal pain, loss of silvino etite, malaise, nausea/vomiting, rash, seizure, shortness of breath, syncope - Related Data Previous Rx's Medication Instructions Recorded Last Taken Type Cyclobenzaprine HCl [Flexeril 5 MG 5 mg PO TID PRN #10 tab 09/30/16 Unknown Rx TAB] Ibuprofen [Motrin 800 MG tab] 800 mg PO Q8HR PRN #20 tablet 11/17/16 Unknown Rx atenoloL [Tenormin] 50 mg PO DAILY #30 tablet 11/17/16 Unknown Rx Albuterol Mdi (or & Nicu Only) 2 puff IH QID PRN #1 inha 03/16/17 Unknown Rx [ProAir HFA Inhaler] predniSONE [Deltasone] 50 mg PO QDAY #5 tab 03/16/17 Unknown Rx Cyclobenzaprine [Flexeril 10 MG 10 mg PO TID PRN #12 tablet 03/31/17 Unknown Rx TAB] Naproxen [Naprosyn TAB] 500 mg PO BID #20 tablet 03/31/17 Unknown Rx Naproxen [Naprosyn TAB] 500 mg PO BID PRN #20 tablet 04/03/17 Unknown Rx Phenylephrine/Dm/Acetaminop/GG 10 ml PO Q4H PRN #1 liquid 04/03/17 Unknown Rx [Mucinex Xrqt-Zzv-Hcdjlpnnqp Lq] Prednisone [predniSONE 10 mg 10 mg PO .TAPER #1 tab.ds.pk 04/03/17 Unknown Rx (6-Day Pack, 21 Tabs)] Ibuprofen [Motrin] 800 mg PO Q8HR PRN #30 tablet 08/26/17 Unknown Rx ALBUTEROL NEB's [Proventil 0.083% 1 puff IH Q4H PRN #1 box 09/26/17 Unknown Rx NEBS] Albuterol Sulfate [Ventolin Hfa] 1 puff IH Q4H PRN #1 hfa.aer.ad 09/26/17 Unknown Rx Dextromethorphan Hb/Doxylamine 10 ml PO Q6H PRN #1 liquid 09/26/17 Unknown Rx [Safetussin Pm Liquid] Nebulizer Accessories [Sootheneb 1 each MC Q4H PRN #1 each 09/26/17 Unknown Rx [id number] Adult Mask] Nebulizer [Compact Compressor 1 each MC Q4H PRN #1 each 09/26/17 Unknown Rx Nebulizer] predniSONE [Deltasone] 40 mg PO QDAY #10 tab 09/26/17 Unknown Rx Acetaminophen [Acetaminophen TAB] 500 mg PO Q6HR PRN #20 tablet 03/02/18 Unknown Rx Albuterol Sulfate [Ventolin Hfa] 1 puff IH Q4H PRN #1 hfa.aer.ad 03/02/18 Unknown Rx Prednisone [predniSONE 10 mg 10 mg PO .TAPER #1 tab.ds.pk 03/02/18 Unknown Rx (6-Day Pack, 21 Tabs)] Albuterol Mdi (or & Nicu Only) 2 puff IH QID PRN #1 inhalation 05/19/19 Unknown Rx [ProAir HFA Inhaler] amLODIPine 5 mg PO DAILY #30 tab 05/19/19 Unknown Rx hydroCHLOROthiazide [HCTZ] 25 mg PO QDAY #30 tablet 05/19/19 Unknown Rx Capsaicin 0.075% [Zostrix Hp 1 applicatio TP TID PRN #1 tube 04/08/20 Unknown Rx 0.075%] Menthol/Camphor [[place] 1 gm PO QID PRN #1 tube 04/11/20 Unknown Rx Ointment] Naproxen [Naprosyn TAB] 500 mg PO BID PRN #30 tablet 04/11/20 Unknown Rx Cyclobenzaprine [Flexeril] 10 mg PO QHS PRN #10 tablet 05/06/21 Unknown Rx Naproxen 500 mg PO Q12H PRN #12 tablet 05/06/21 Unknown Rx Allergies Allergy/AdvReac Type Severity Reaction Status Date / Time No Known Allergies Allergy Verified 03/24/19 14:13 ED Review of Systems ROS: Stated complaint: BACK PAIN Other details as noted in HPI Comment: All other systems reviewed and negative Constitutional: denies: chills, fever Eyes: denies: eye pain, eye discharge, vision change ENT: denies: ear pain, throat pain Respiratory: denies: cough, shortness of breath, wheezing Cardiovascular: denies: chest pain, palpitations Endocrine: no symptoms reported Gastrointestinal: denies: abdominal pain, nausea, diarrhea Genitourinary: denies: urgency, dysuria, discharge Musculoskeletal: back pain. denies: joint swelling, arthralgia Skin: denies: rash, lesions Neurological: denies: headache, weakness, paresthesias Psychiatric: denies: anxiety, depression Hematological/Lymphatic: denies: easy bleeding, easy bruising ED Past Medical Hx - Past Medical History Hx Hypertension: Yes Hx Arthritis: Yes Hx Psychiatric Treatment: Yes (Schizophrenia) Hx Asthma: Yes (bronchitis) Additional medical history: gout - Surgical History Additional Surgical History: "TUMORS REMOVED IN STOMACH" - Social History Smoking Status: Current Every Day Smoker Substance Use Type: None - Medications Home Medications: Home Medications Medication Instructions Recorded Confirmed Last Taken Type Cyclobenzaprine HCl [Flexeril 5 MG 5 mg PO TID PRN #10 tab 09/30/16 Unknown Rx TAB] Ibuprofen [Motrin 800 MG tab] 800 mg PO Q8HR PRN #20 tablet 11/17/16 Unknown Rx atenoloL [Tenormin] 50 mg PO DAILY #30 tablet 11/17/16 Unknown Rx Albuterol Mdi (or & Nicu Only) 2 puff IH QID PRN #1 inha 03/16/17 Unknown Rx [ProAir HFA Inhaler] predniSONE [Deltasone] 50 mg PO QDAY #5 tab 03/16/17 Unknown Rx Cyclobenzaprine [Flexeril 10 MG 10 mg PO TID PRN #12 tablet 03/31/17 Unknown Rx TAB] Naproxen [Naprosyn TAB] 500 mg PO BID #20 tablet 03/31/17 Unknown Rx Naproxen [Naprosyn TAB] 500 mg PO BID PRN #20 tablet 04/03/17 Unknown Rx Phenylephrine/Dm/Acetaminop/GG 10 ml PO Q4H PRN #1 liquid 04/03/17 Unknown Rx [Mucinex Uido-Tqk-Muqdnrcfne Lq] Prednisone [predniSONE 10 mg 10 mg PO .TAPER #1 tab.ds.pk 04/03/17 Unknown Rx (6-Day Pack, 21 Tabs)] Ibuprofen [Motrin] 800 mg PO Q8HR PRN #30 tablet 08/26/17 Unknown Rx ALBUTEROL NEB's [Proventil 0.083% 1 puff IH Q4H PRN #1 box 09/26/17 Unknown Rx NEBS] Albuterol Sulfate [Ventolin Hfa] 1 puff IH Q4H PRN #1 hfa.aer.ad 09/26/17 Unknown Rx Dextromethorphan Hb/Doxylamine 10 ml PO Q6H PRN #1 liquid 09/26/17 Unknown Rx [Safetussin Pm Liquid] Nebulizer Accessories [Sootheneb 1 each MC Q4H PRN #1 each 09/26/17 Unknown Rx [id number] Adult Mask] Nebulizer [Compact Compressor 1 each MC Q4H PRN #1 each 09/26/17 Unknown Rx Nebulizer] predniSONE [Deltasone] 40 mg PO QDAY #10 tab 09/26/17 Unknown Rx Acetaminophen [Acetaminophen TAB] 500 mg PO Q6HR PRN #20 tablet 03/02/18 Unknown Rx Albuterol Sulfate [Ventolin Hfa] 1 puff IH Q4H PRN #1 hfa.aer.ad 03/02/18 Unknown Rx Prednisone [predniSONE 10 mg 10 mg PO .TAPER #1 tab.ds.pk 03/02/18 Unknown Rx (6-Day Pack, 21 Tabs)] Albuterol Mdi (or & Nicu Only) 2 puff IH QID PRN #1 inhalation 05/19/19 Unknown Rx [ProAir HFA Inhaler] amLODIPine 5 mg PO DAILY #30 tab 05/19/19 Unknown Rx hydroCHLOROthiazide [HCTZ] 25 mg PO QDAY #30 tablet 05/19/19 Unknown Rx Capsaicin 0.075% [Zostrix Hp 1 applicatio TP TID PRN #1 tube 04/08/20 Unknown Rx 0.075%] Menthol/Camphor [[place] 1 gm PO QID PRN #1 tube 04/11/20 Unknown Rx Ointment] Naproxen [Naprosyn TAB] 500 mg PO BID PRN #30 tablet 04/11/20 Unknown Rx Cyclobenzaprine [Flexeril] 10 mg PO QHS PRN #10 tablet 05/06/21 Unknown Rx Naproxen 500 mg PO Q12H PRN #12 tablet 05/06/21 Unknown Rx ED Physical Exam - General General appearance: alert, in no apparent distress - Head Head exam: Present: atraumatic, normocephalic - Eye Eye exam: Present: normal appearance - Neck Neck exam: Present: normal inspection, full ROM. Absent: lymphadenopathy - Respiratory Respiratory exam: Present: normal lung sounds bilaterally. Absent: respiratory distress, wheezes, rales, rhonchi, stridor, chest wall tenderness, accessory muscle use, decreased breath sounds, prolonged expiratory - Cardiovascular Cardiovascular Exam: Present: regular rate, normal rhythm, normal heart sounds. Absent: bradycardia, tachycardia, irregular rhythm, systolic murmur, diastolic murmur, rubs, gallop - GI/Abdominal GI/Abdominal exam: Present: soft, normal bowel sounds. Absent: distended, tenderness, guarding, rebound, rigid, diminished bowel sounds - Extremities Exam Extremities exam: Present: normal inspection, full ROM, normal capillary refill. Absent: tenderness - Back Exam Back exam: Present: normal inspection, full ROM, paraspinal tenderness (lumbar paraspinal). Absent: tenderness, CVA tenderness (R), CVA tenderness (L), muscle spasm, vertebral tenderness, rash noted - Expanded Back Exam Expanded Back exam: Absent: saddle anesthesia Back exam: Negative Straight Leg Raising: Left, Right - Neurological Exam Neurological exam: Present: alert, oriented X3, normal gait - Psychiatric Psychiatric exam: Present: normal affect, normal mood - Skin Skin exam: Present: warm, dry, intact, normal color. Absent: rash ED Course Vital Signs 05/06/21 07:53 Temperature 97.7 F Pulse Rate 77 Respiratory 18 Rate Blood Pressure 138/96 [Right] O2 Sat by Pulse 97 Oximetry - Reevaluation(s) Reevaluation #1: 05/06/21 07:55 Patient is speaking in full sentences with no signs of distress noted. ED Medical Decision Making - Medical Decision Making This is a 51-year-old female that presents with low back strain. Patient is stable was examined by me. There is no spinal tenderness. There is no cauda equina syndrome during examination. No bladder or bowel instability. Patient is discharged with muscle relaxant and Naproxen. Patient was instructed not to operate any machinery while taking muscle relaxant as they cause her drowsiness. Patient was referred to Follow-up with a primary care doctor in 3-5 days or if symptoms worsen and continue return to emergency room as soon as possible. At time of discharge, the patient does not seem toxic or ill in appearance. No acute signs of distress noted. Patient agrees to discharge treatment plan of care. No further questions noted by the patient. This chart is dictated with using [employer] Critical care attestation.: If time is entered above; I have spent that time in minutes in the direct care of this critically ill patient, excluding procedure time. ED Disposition Clinical Impression: Chronic back pain Disposition: 01 HOME / SELF CARE / HOMELESS Is pt being admited?: No Does the pt Need Aspirin: No Condition: Stable Instructions: Chronic Back Pain, [id number]-hp-Pevh Additional Instructions: Follow-up with your primary care doctor in 3-5 days or if symptoms worsen such as bladder or bowel stability, chest pain, short of breath, numbness or tingling sensation in extremities, headache, dizziness, visual changes, nausea vomiting, or abdominal pain, return back to emergency room as was possible. Take Naproxen and Flexeril as prescribed. Do not operate heavy machinery while taking Flexeril due to sedation Prescriptions: Cyclobenzaprine [Flexeril] 10 mg PO QHS PRN #10 tablet PRN Reason: Muscle Spasm Naproxen 500 mg PO Q12H PRN #12 tablet PRN Reason: Pain , Severe (7-10) Referrals: PRIMARY CARE, [Primary Care Provider] - 3-5 Days CARBUCCIA,GHULAM, MD [Staff Physician] - 3-5 Days Time of Disposition: 08:01
== END 2021-05-06 08:16 | disposition home or self-care (01) ==
LOC: ED 00:21
DX: M54.5 Low back pain (principal); I10 Essential (primary) hypertension; M19.90 Unspecified osteoarthritis, unspecified site; J45.909 Unspecified asthma, uncomplicated; M10.9 Gout, unspecified; Z98.890 Other specified postprocedural states; F17.200 Nicotine dependence, unspecified, uncomplicated
CPT/HCPCS: 99282

== ENCOUNTER 2021-06-08 00:24 | Emergency (ER) | payer MEDICARE ==
[2021-06-08 01:04] VITALS: BP 189/73
--- NOTE | 2021-06-08 01:17 | Emergency Department Report ---
ED General Adult HPI - General Chief complaint: Pain General Stated complaint: ASTHMA/BODY PAIN Source: patient Mode of arrival: Ambulatory Limitations: No Limitations - History of Present Illness Initial comments: Patient is a 51-year-old -[place] Citizen female with a history of hypertension, asthma, gout, osteoarthritis and schizophrenia presents to the ED for refills on her albuterol inhaler and antihypertensive medication atenolol 50 mg. Patient states that she ran out of these medications about 12 hours ago and would like to get a refill. Patient denies chest pain, shortness of breath, nausea, vomiting, dizziness, syncope, fever and chills, sore throat, abdominal pain, change in vision or seizures, urinary frequency and urgency or dysuria. MD Complaint: Medication refill; chronic osteoarthritis pain; chronic asthma/bronchitis -: Sudden, hour(s) (12) Location: chest, lower extremity Radiation: non-radiation Severity scale (0 -10): 1 Quality: dull Consistency: intermittent Improves with: none Worsens with: none Associated Symptoms: denies other symptoms, cough. denies: confusion, chest pain, diaphoresis, fever/chills, headaches, loss of appetite, malaise, nausea/vomiting, rash, seizure, shortness of breath, syncope, weakness Treatments Prior to Arrival: none - Related Data Previous Rx's Medication Instructions Recorded Last Taken Type Cyclobenzaprine HCl [Flexeril 5 MG 5 mg PO TID PRN #10 tab 09/30/16 Unknown Rx TAB] Ibuprofen [Motrin 800 MG tab] 800 mg PO Q8HR PRN #20 tablet 11/17/16 Unknown Rx atenoloL [Tenormin] 50 mg PO DAILY #30 tablet 11/17/16 Unknown Rx predniSONE [Deltasone] 50 mg PO QDAY #5 tab 03/16/17 Unknown Rx Cyclobenzaprine [Flexeril 10 MG 10 mg PO TID PRN #12 tablet 03/31/17 Unknown Rx TAB] Naproxen [Naprosyn TAB] 500 mg PO BID #20 tablet 03/31/17 Unknown Rx Naproxen [Naprosyn TAB] 500 mg PO BID PRN #20 tablet 04/03/17 Unknown Rx Phenylephrine/Dm/Acetaminop/GG 10 ml PO Q4H PRN #1 liquid 04/03/17 Unknown Rx [Mucinex Fjxx-Xzv-Fiofvuhbbv Lq] Prednisone [predniSONE 10 mg 10 mg PO .TAPER #1 tab.ds.pk 04/03/17 Unknown Rx (6-Day Pack, 21 Tabs)] Ibuprofen [Motrin] 800 mg PO Q8HR PRN #30 tablet 08/26/17 Unknown Rx ALBUTEROL NEB's [Proventil 0.083% 1 puff IH Q4H PRN #1 box 09/26/17 Unknown Rx NEBS] Albuterol Sulfate [Ventolin Hfa] 1 puff IH Q4H PRN #1 hfa.aer.ad 09/26/17 Unknown Rx Dextromethorphan Hb/Doxylamine 10 ml PO Q6H PRN #1 liquid 09/26/17 Unknown Rx [Safetussin Pm Liquid] Nebulizer Accessories [Sootheneb 1 each MC Q4H PRN #1 each 09/26/17 Unknown Rx [id number] Adult Mask] Nebulizer [Compact Compressor 1 each MC Q4H PRN #1 each 09/26/17 Unknown Rx Nebulizer] predniSONE [Deltasone] 40 mg PO QDAY #10 tab 09/26/17 Unknown Rx Acetaminophen [Acetaminophen TAB] 500 mg PO Q6HR PRN #20 tablet 03/02/18 Unknown Rx Albuterol Sulfate [Ventolin Hfa] 1 puff IH Q4H PRN #1 hfa.aer.ad 03/02/18 Unknown Rx Prednisone [predniSONE 10 mg 10 mg PO .TAPER #1 tab.ds.pk 03/02/18 Unknown Rx (6-Day Pack, 21 Tabs)] Albuterol Mdi (or & Nicu Only) 2 puff IH QID PRN #1 inhalation 05/19/19 Unknown Rx [ProAir HFA Inhaler] amLODIPine 5 mg PO DAILY #30 tab 05/19/19 Unknown Rx hydroCHLOROthiazide [HCTZ] 25 mg PO QDAY #30 tablet 05/19/19 Unknown Rx Capsaicin 0.075% [Zostrix Hp 1 applicatio TP TID PRN #1 tube 04/08/20 Unknown Rx 0.075%] Menthol/Camphor [[place] 1 gm PO QID PRN #1 tube 04/11/20 Unknown Rx Ointment] Naproxen [Naprosyn TAB] 500 mg PO BID PRN #30 tablet 04/11/20 Unknown Rx Cyclobenzaprine [Flexeril] 10 mg PO QHS PRN #10 tablet 05/06/21 Unknown Rx Naproxen 500 mg PO Q12H PRN #12 tablet 05/06/21 Unknown Rx Albuterol Sulfate [Proventil Hfa] 2 puff IH Q4HR PRN #1 hfa.aer.ad 05/31/21 Unknown Rx Albuterol Mdi (or & Nicu Only) 2 puff IH QID PRN #1 inha 06/08/21 Unknown Rx [ProAir HFA Inhaler] atenoloL [Tenormin] 50 mg PO DAILY #30 tab 06/08/21 Unknown Rx Allergies Allergy/AdvReac Type Severity Reaction Status Date / Time No Known Allergies Allergy Verified 03/24/19 14:13 ED Review of Systems ROS: Stated complaint: ASTHMA/BODY PAIN Other details as noted in HPI Constitutional: denies: chills, fever Eyes: denies: eye pain, eye discharge, vision change ENT: denies: ear pain, throat pain Respiratory: cough. denies: shortness of breath, wheezing Cardiovascular: denies: chest pain, palpitations Endocrine: no symptoms reported Gastrointestinal: denies: abdominal pain, nausea, diarrhea Genitourinary: denies: urgency, dysuria, discharge Musculoskeletal: arthralgia. denies: back pain, joint swelling Skin: denies: rash, lesions Neurological: denies: headache, weakness, paresthesias Psychiatric: denies: anxiety, depression Hematological/Lymphatic: denies: easy bleeding, easy bruising ED Past Medical Hx - Past Medical History Hx Hypertension: Yes Hx Arthritis: Yes Hx Psychiatric Treatment: Yes (Schizophrenia) Hx Asthma: Yes (bronchitis) Additional medical history: gout - Surgical History Additional Surgical History: "TUMORS REMOVED IN STOMACH" - Social History Smoking Status: Current Every Day Smoker Substance Use Type: None - Medications Home Medications: Home Medications Medication Instructions Recorded Confirmed Last Taken Type Cyclobenzaprine HCl [Flexeril 5 MG 5 mg PO TID PRN #10 tab 09/30/16 Unknown Rx TAB] Ibuprofen [Motrin 800 MG tab] 800 mg PO Q8HR PRN #20 tablet 11/17/16 Unknown Rx atenoloL [Tenormin] 50 mg PO DAILY #30 tablet 11/17/16 Unknown Rx predniSONE [Deltasone] 50 mg PO QDAY #5 tab 03/16/17 Unknown Rx Cyclobenzaprine [Flexeril 10 MG 10 mg PO TID PRN #12 tablet 03/31/17 Unknown Rx TAB] Naproxen [Naprosyn TAB] 500 mg PO BID #20 tablet 03/31/17 Unknown Rx Naproxen [Naprosyn TAB] 500 mg PO BID PRN #20 tablet 04/03/17 Unknown Rx Phenylephrine/Dm/Acetaminop/GG 10 ml PO Q4H PRN #1 liquid 04/03/17 Unknown Rx [Mucinex Aneh-Krq-Zhcoytvkuc Lq] Prednisone [predniSONE 10 mg 10 mg PO .TAPER #1 tab.ds.pk 04/03/17 Unknown Rx (6-Day Pack, 21 Tabs)] Ibuprofen [Motrin] 800 mg PO Q8HR PRN #30 tablet 08/26/17 Unknown Rx ALBUTEROL NEB's [Proventil 0.083% 1 puff IH Q4H PRN #1 box 09/26/17 Unknown Rx NEBS] Albuterol Sulfate [Ventolin Hfa] 1 puff IH Q4H PRN #1 hfa.aer.ad 09/26/17 Unknown Rx Dextromethorphan Hb/Doxylamine 10 ml PO Q6H PRN #1 liquid 09/26/17 Unknown Rx [Safetussin Pm Liquid] Nebulizer Accessories [Sootheneb 1 each MC Q4H PRN #1 each 09/26/17 Unknown Rx [id number] Adult Mask] Nebulizer [Compact Compressor 1 each MC Q4H PRN #1 each 09/26/17 Unknown Rx Nebulizer] predniSONE [Deltasone] 40 mg PO QDAY #10 tab 09/26/17 Unknown Rx Acetaminophen [Acetaminophen TAB] 500 mg PO Q6HR PRN #20 tablet 03/02/18 Unknown Rx Albuterol Sulfate [Ventolin Hfa] 1 puff IH Q4H PRN #1 hfa.aer.ad 03/02/18 Unknown Rx Prednisone [predniSONE 10 mg 10 mg PO .TAPER #1 tab.ds.pk 03/02/18 Unknown Rx (6-Day Pack, 21 Tabs)] Albuterol Mdi (or & Nicu Only) 2 puff IH QID PRN #1 inhalation 05/19/19 Unknown Rx [ProAir HFA Inhaler] amLODIPine 5 mg PO DAILY #30 tab 05/19/19 Unknown Rx hydroCHLOROthiazide [HCTZ] 25 mg PO QDAY #30 tablet 05/19/19 Unknown Rx Capsaicin 0.075% [Zostrix Hp 1 applicatio TP TID PRN #1 tube 04/08/20 Unknown Rx 0.075%] Menthol/Camphor [[place] 1 gm PO QID PRN #1 tube 04/11/20 Unknown Rx Ointment] Naproxen [Naprosyn TAB] 500 mg PO BID PRN #30 tablet 04/11/20 Unknown Rx Cyclobenzaprine [Flexeril] 10 mg PO QHS PRN #10 tablet 05/06/21 Unknown Rx Naproxen 500 mg PO Q12H PRN #12 tablet 05/06/21 Unknown Rx Albuterol Sulfate [Proventil Hfa] 2 puff IH Q4HR PRN #1 hfa.aer.ad 05/31/21 Unknown Rx Albuterol Mdi (or & Nicu Only) 2 puff IH QID PRN #1 inha 06/08/21 Unknown Rx [ProAir HFA Inhaler] atenoloL [Tenormin] 50 mg PO DAILY #30 tab 06/08/21 Unknown Rx ED Physical Exam - General Limitations: No Limitations General appearance: alert, in no apparent distress - Head Head exam: Present: atraumatic, normocephalic, normal inspection - Eye Eye exam: Present: normal appearance, PERRL, EOMI Pupils: Present: normal accommodation - ENT ENT exam: Present: normal exam, normal orophraynx, mucous membranes moist, TM's normal bilaterally, normal external ear exam - Neck Neck exam: Present: normal inspection, full ROM - Respiratory Respiratory exam: Present: normal lung sounds bilaterally. Absent: respiratory distress, wheezes, rales, rhonchi, chest wall tenderness, accessory muscle use, decreased breath sounds, other - Cardiovascular Cardiovascular Exam: Present: regular rate, normal rhythm, tachycardia, normal heart sounds. Absent: systolic murmur, diastolic murmur, rubs, gallop - GI/Abdominal GI/Abdominal exam: Present: soft, normal bowel sounds. Absent: tenderness, guarding, rebound, hyperactive bowel sounds, hypoactive bowel sounds - Extremities Exam Extremities exam: Present: normal inspection, full ROM, normal capillary refill. Absent: tenderness, joint swelling - Back Exam Back exam: Present: normal inspection, full ROM. Absent: tenderness, CVA tenderness (R), CVA tenderness (L), muscle spasm, paraspinal tenderness - Neurological Exam Neurological exam: Present: alert, oriented X3, CN II-XII intact, normal gait, reflexes normal - Psychiatric Psychiatric exam: Present: normal affect, normal mood - Skin Skin exam: Present: warm, dry, intact, normal color. Absent: rash ED Course Vital Signs 06/08/21 01:03 Temperature 98.2 F Pulse Rate 100 H Respiratory 18 Rate Blood Pressure 189/73 [Right] O2 Sat by Pulse 100 Oximetry ED Medical Decision Making - Medical Decision Making This is a 51-year-old -[place] Citizen female with a history of hypertension, asthma, gout, osteoarthritis and schizophrenia presents to the ED for refills on her albuterol inhaler and antihypertensive medication atenolol 50 mg. Patient states that she ran out of these medications about 12 hours ago and would like to get a refill. In the ED, patient is alert and oriented x3 and is not in any distress. Physical exam is unremarkable and patient will discharge home on prescription of atenolol 50 mg to be taken daily and albuterol inhaler. Patient was advised to follow-up with her primary care physician in 3 to 5 days for reevaluation or return to the ED immediately if her symptoms get worse. - Differential Diagnosis Bronchitis; asthma; URI; chronic pain; Critical care attestation.: If time is entered above; I have spent that time in minutes in the direct care of this critically ill patient, excluding procedure time. ED Disposition Clinical Impression: Chronic pain disorder, Encounter for medication refill Chronic bronchitis Qualifiers: Chronic bronchitis type: unspecified Qualified Code(s): J42 - Unspecified chronic bronchitis Disposition: HOME / SELF CARE / HOMELESS Is pt being admited?: No Does the pt Need Aspirin: No Condition: Stable Instructions: Chronic Bronchitis (ED), Chronic Bronchitis, Adult Additional Instructions: Take your regular medications, drink plenty of fluids and follow-up with your primary care physician in 5 to 7 days for reevaluation. Return to the ED immediately if symptoms get worse. Prescriptions: Albuterol Mdi (or & Nicu Only) [ProAir HFA Inhaler] 2 puff IH QID PRN #1 inha PRN Reason: Shortness Of Breath atenoloL [Tenormin] 50 mg PO DAILY #30 tab Referrals: [facility] [Provider Group] - 3-5 Days Time of Disposition: 01:17 Print Language: JAPANESE
== END 2021-06-08 01:49 | disposition home or self-care (01) ==
LOC: ED 00:24
DX: J44.9 Chronic obstructive pulmonary disease, unspecified (principal); G89.4 Chronic pain syndrome; Z76.0 Encounter for issue of repeat prescription; I10 Essential (primary) hypertension; M19.90 Unspecified osteoarthritis, unspecified site; F17.200 Nicotine dependence, unspecified, uncomplicated; F20.9 Schizophrenia, unspecified; Z79.899 Other long term (current) drug therapy
CPT/HCPCS: 99282

== ENCOUNTER 2021-08-02 21:48 | Emergency (ER) | payer MEDICARE ==
[2021-08-03] MEDS ORDERED: IBUPROFEN 600 MG TAB PO ONE (08:15)
--- NOTE | 2021-08-03 08:17 | Emergency Department Report ---
ED Extremity Problem HPI - General Chief complaint: Extremity Injury, Lower Stated complaint: FOOT/KNEE PAIN Time Seen by Provider: 08/03/21 07:56 Source: patient Mode of arrival: Ambulatory Limitations: No Limitations - History of Present Illness Initial comments: 51-year-old female with a past medical history of schizophrenia, hypertension, asthma, gout and OA with multiple ER visits, presents to the ER today with complaints of left knee pain and right plantar foot pain. Patient states that the symptoms started a few days ago. She denies any particular injury. She denies any strenuous activity. She thinks it could be related to arthritis. She has not been taking anything for the pain. She reports increased pain with weightbearing. She reports no apparent bruising, swelling, erythema or any additional symptoms. MD Complaint: extremity pain -: days(s) - Related Data Previous Rx's Medication Instructions Recorded Last Taken Type Ibuprofen [Motrin 800 MG tab] 800 mg PO Q8HR PRN #20 tablet 11/17/16 Unknown Rx atenoloL [Tenormin] 50 mg PO DAILY #30 tablet 11/17/16 Unknown Rx predniSONE [Deltasone] 50 mg PO QDAY #5 tab 03/16/17 Unknown Rx Phenylephrine/Dm/Acetaminop/GG 10 ml PO Q4H PRN #1 liquid 04/03/17 Unknown Rx [Mucinex Uwws-Jwl-Zssmwhpwht Lq] Prednisone [predniSONE 10 mg 10 mg PO .TAPER #1 tab.ds.pk 04/03/17 Unknown Rx (6-Day Pack, 21 Tabs)] Ibuprofen [Motrin] 800 mg PO Q8HR PRN #30 tablet 08/26/17 Unknown Rx ALBUTEROL NEB's [Proventil 0.083% 1 puff IH Q4H PRN #1 box 09/26/17 Unknown Rx NEBS] Albuterol Sulfate [Ventolin Hfa] 1 puff IH Q4H PRN #1 hfa.aer.ad 09/26/17 Unknown Rx Dextromethorphan Hb/Doxylamine 10 ml PO Q6H PRN #1 liquid 09/26/17 Unknown Rx [Safetussin Pm Liquid] Nebulizer Accessories [Sootheneb 1 each MC Q4H PRN #1 each 09/26/17 Unknown Rx [id number] Adult Mask] Nebulizer [Compact Compressor 1 each MC Q4H PRN #1 each 09/26/17 Unknown Rx Nebulizer] predniSONE [Deltasone] 40 mg PO QDAY #10 tab 09/26/17 Unknown Rx Albuterol Sulfate [Ventolin Hfa] 1 puff IH Q4H PRN #1 hfa.aer.ad 03/02/18 Unknown Rx Prednisone [predniSONE 10 mg 10 mg PO .TAPER #1 tab.ds.pk 03/02/18 Unknown Rx (6-Day Pack, 21 Tabs)] Albuterol Mdi (or & Nicu Only) 2 puff IH QID PRN #1 inhalation 05/19/19 Unknown Rx [ProAir HFA Inhaler] amLODIPine 5 mg PO DAILY #30 tab 05/19/19 Unknown Rx hydroCHLOROthiazide [HCTZ] 25 mg PO QDAY #30 tablet 05/19/19 Unknown Rx Capsaicin 0.075% [Zostrix Hp 1 applicatio TP TID PRN #1 tube 04/08/20 Unknown Rx 0.075%] Menthol/Camphor [[place] 1 gm PO QID PRN #1 tube 04/11/20 Unknown Rx Ointment] Albuterol Sulfate [Proventil Hfa] 2 puff IH Q4HR PRN #1 hfa.aer.ad 05/31/21 Unknown Rx Albuterol Mdi (or & Nicu Only) 2 puff IH QID PRN #1 inha 06/08/21 Unknown Rx [ProAir HFA Inhaler] atenoloL [Tenormin] 50 mg PO DAILY #30 tab 06/08/21 Unknown Rx Acetaminophen [Acetaminophen TAB] 500 mg PO Q6HR PRN #20 tablet 08/03/21 Unknown Rx Naproxen [Naprosyn TAB] 500 mg PO BID #20 tablet 08/03/21 Unknown Rx Allergies Allergy/AdvReac Type Severity Reaction Status Date / Time No Known Allergies Allergy Verified 08/02/21 23:20 ED Review of Systems ROS: Stated complaint: FOOT/KNEE PAIN Other details as noted in HPI Comment: All other systems reviewed and negative Respiratory: denies: cough, shortness of breath, wheezing Cardiovascular: denies: chest pain, palpitations Musculoskeletal: joint swelling, arthralgia Neurological: denies: headache, weakness, paresthesias Psychiatric: denies: anxiety, depression Hematological/Lymphatic: denies: easy bleeding, easy bruising ED Past Medical Hx - Past Medical History Hx Hypertension: Yes Hx Arthritis: Yes Hx Psychiatric Treatment: Yes (Schizophrenia) Hx Asthma: Yes (bronchitis) Additional medical history: gout - Surgical History Additional Surgical History: "TUMORS REMOVED IN STOMACH" - Social History Smoking Status: Current Every Day Smoker Substance Use Type: None - Medications Home Medications: Home Medications Medication Instructions Recorded Confirmed Last Taken Type Ibuprofen [Motrin 800 MG tab] 800 mg PO Q8HR PRN #20 tablet 11/17/16 Unknown Rx atenoloL [Tenormin] 50 mg PO DAILY #30 tablet 11/17/16 Unknown Rx predniSONE [Deltasone] 50 mg PO QDAY #5 tab 03/16/17 Unknown Rx Phenylephrine/Dm/Acetaminop/GG 10 ml PO Q4H PRN #1 liquid 04/03/17 Unknown Rx [Mucinex Mtdw-Pvu-Yesdwalcdy Lq] Prednisone [predniSONE 10 mg 10 mg PO .TAPER #1 tab.ds.pk 04/03/17 Unknown Rx (6-Day Pack, 21 Tabs)] Ibuprofen [Motrin] 800 mg PO Q8HR PRN #30 tablet 08/26/17 Unknown Rx ALBUTEROL NEB's [Proventil 0.083% 1 puff IH Q4H PRN #1 box 09/26/17 Unknown Rx NEBS] Albuterol Sulfate [Ventolin Hfa] 1 puff IH Q4H PRN #1 hfa.aer.ad 09/26/17 Unknown Rx Dextromethorphan Hb/Doxylamine 10 ml PO Q6H PRN #1 liquid 09/26/17 Unknown Rx [Safetussin Pm Liquid] Nebulizer Accessories [Sootheneb 1 each MC Q4H PRN #1 each 09/26/17 Unknown Rx [id number] Adult Mask] Nebulizer [Compact Compressor 1 each MC Q4H PRN #1 each 09/26/17 Unknown Rx Nebulizer] predniSONE [Deltasone] 40 mg PO QDAY #10 tab 09/26/17 Unknown Rx Albuterol Sulfate [Ventolin Hfa] 1 puff IH Q4H PRN #1 hfa.aer.ad 03/02/18 Unknown Rx Prednisone [predniSONE 10 mg 10 mg PO .TAPER #1 tab.ds.pk 03/02/18 Unknown Rx (6-Day Pack, 21 Tabs)] Albuterol Mdi (or & Nicu Only) 2 puff IH QID PRN #1 inhalation 05/19/19 Unknown Rx [ProAir HFA Inhaler] amLODIPine 5 mg PO DAILY #30 tab 05/19/19 Unknown Rx hydroCHLOROthiazide [HCTZ] 25 mg PO QDAY #30 tablet 05/19/19 Unknown Rx Capsaicin 0.075% [Zostrix Hp 1 applicatio TP TID PRN #1 tube 04/08/20 Unknown Rx 0.075%] Menthol/Camphor [[place] 1 gm PO QID PRN #1 tube 04/11/20 Unknown Rx Ointment] Albuterol Sulfate [Proventil Hfa] 2 puff IH Q4HR PRN #1 hfa.aer.ad 05/31/21 Unknown Rx Albuterol Mdi (or & Nicu Only) 2 puff IH QID PRN #1 inha 06/08/21 Unknown Rx [ProAir HFA Inhaler] atenoloL [Tenormin] 50 mg PO DAILY #30 tab 06/08/21 Unknown Rx Acetaminophen [Acetaminophen TAB] 500 mg PO Q6HR PRN #20 tablet 08/03/21 Unknown Rx Naproxen [Naprosyn TAB] 500 mg PO BID #20 tablet 08/03/21 Unknown Rx ED Physical Exam - General Limitations: No Limitations General appearance: alert, in no apparent distress, obese, other (Patient disheveled appearing, with suitcase and multiple back with her in the room; overall she is not toxic or ill-appearing.) - Head Head exam: Present: atraumatic, normocephalic, normal inspection - Eye Eye exam: Present: normal appearance, PERRL, EOMI Pupils: Present: normal accommodation - Neck Neck exam: Present: normal inspection, full ROM - Respiratory Respiratory exam: Absent: respiratory distress - Cardiovascular Cardiovascular Exam: Present: regular rate - Expanded Lower Extremity Exam Left Knee exam: Present: normal inspection, full ROM, tenderness (Mild tenderness diffusely about the knee), full knee extension. Absent: swelling, abrasion, ecchymosis, deformity, crepidus, dislocation, erythema, effusion Neuro vascular tendon exam: Present: no vascular compromise. Absent: pulse deficit, abnormal cap refill, motor deficit, sensory deficit, tendon deficit Gait: Positive: observed and normal Right Foot/Toe exam: Present: normal inspection, full ROM, tenderness (Mild tenderness to palpation mainly to the lateral aspect of the right heel. ). Absent: swelling, abrasion, laceration, ecchymosis, deformity, crepidus, dislocation, erythema, amputation, puncture wound, foreign body, calcaneal tenderness, tenderness at base of 5th metatarsal, nail avulsion, subungual hematoma Neuro vascular tendon exam: Present: no vascular compromise. Absent: pulse deficit, abnormal cap refill, motor deficit, sensory deficit, tendon deficit Gait: Positive: observed and normal - Neurological Exam Neurological exam: Present: alert, oriented X3, CN II-XII intact, normal gait - Psychiatric Psychiatric exam: Present: normal affect, normal mood - Skin Skin exam: Present: intact ED Course Vital Signs 08/02/21 08/03/21 23:16 08:27 Temperature 98.2 F 97.5 F L Pulse Rate 88 77 Respiratory 18 16 Rate Blood Pressure 201/112 [Left] Blood Pressure 189/95 [Right] O2 Sat by Pulse 99 95 Oximetry ED Medical Decision Making - Medical Decision Making Examination of left knee and right foot and ankle does not suggest septic joint, acute arterial occlusion, DVT, cellulitis, CHF or any other acute emergent conditions warranting testing or emergent intervention at this time. It also does not appear to be related to an acute gout flareup. This could just be related to her chronic arthritis. Patient blood pressure was noted to be elevated at triage, but no chest pain, shortness of breath, neuro symptoms or any other symptoms related to the blood pressure. Patient will just need to continue taking her blood pressure medications at home. She will be given medication to help with her arthritis pain. Recommend follow-up with her PCP. Patient was stable at time of discharge. Critical care attestation.: If time is entered above; I have spent that time in minutes in the direct care of this critically ill patient, excluding procedure time. ED Disposition Clinical Impression: Left knee pain, Foot pain, Arthritis Disposition: HOME / SELF CARE / HOMELESS Is pt being admited?: No Does the pt Need Aspirin: No Condition: Stable Instructions: Arthritis, Joint Pain, [id number] Additional Instructions: I recommend that you take the naproxen as prescribed. You can alternate with Tylenol to help with your pain. Follow-up with the primary care doctor listed on your discharge instructions. Return to the ER if symptoms worsens or changes in any way. Prescriptions: Acetaminophen [Acetaminophen TAB] 500 mg PO Q6HR PRN #20 tablet PRN Reason: Pain , Severe (7-10) Naproxen [Naprosyn TAB] 500 mg PO BID #20 tablet Referrals: GHULAM WALTON MD [Staff Physician] - 3-5 Days Time of Disposition: 08:15
[2021-08-03 08:32] VITALS: BP 189/95
== END 2021-08-03 08:32 | disposition home or self-care (01) ==
LOC: ED 21:48
DX: M25.562 Pain in left knee (principal); M79.671 Pain in right foot; M13.80 Other specified arthritis, unspecified site; F17.200 Nicotine dependence, unspecified, uncomplicated; I10 Essential (primary) hypertension; J45.909 Unspecified asthma, uncomplicated; F20.9 Schizophrenia, unspecified
CPT/HCPCS: 99282

== ENCOUNTER 2021-08-23 23:00 | Emergency (ER) | payer MEDICARE ==
[2021-08-24 01:20] VITALS: BP 179/81
[2021-08-24] MEDS ORDERED: DICYCLOMINE 20 MG TAB PO ONE (01:21)
[2021-08-24] MEDS ORDERED: FAMOTIDINE 20 MG/2 ML INJ IV ONE (01:21)
[2021-08-24] MEDS ORDERED: ONDANSETRON 4 MG/2 ML INJ IV ONE (01:21)
[2021-08-24] MEDS ORDERED: FAMOTIDINE 20 MG TAB PO ONE (01:33)
--- NOTE | 2021-08-24 01:47 | Emergency Department Report ---
ED Abdominal Pain HPI - General Chief Complaint: Abdominal Pain Stated Complaint: ABD PAIN PUI?: No Source: patient Mode of arrival: Ambulatory Limitations: Language Barrier - History of Present Illness Initial Comments: Patient is a 51-year-old -Serbian female with a history of hypertension, chronic osteoarthritis, chronic gout, asthma, paranoid schizophrenia who presents to the ED with complaint of acute onset persistent mild epigastric pain with nausea and vomiting for the last 24 hours. Patient states that she has had one episode of nausea and vomiting and that the pain is intermittent. Patient denies fever, chills, dizziness, syncope, chest pain or shortness of breath, dysuria, urinary frequency and urgency, diarrhea, cough, sore throat, fever and chills, hematuria, vaginal bleeding, low back pain, traumatic injury, hematemesis or hemoptysis. MD Complaint: abdominal pain (Epigastric), other (Nausea and vomiting) -: Sudden, hour(s) (24) Location: epigastric Radiation: none Migration to: no migration Severity: mild Severity scale (0 -10): 2 Quality: aching, dull Consistency: intermittent Improves With: nothing Worsens With: nothing Associated Symptoms: denies other symptoms, nausea, vomiting, anorexia. denies: diarrhea, fever, chills, constipation, dysuria, hematemesis, hematochezia, melena, hematuria, syncope, other - Related Data Previous Rx's Medication Instructions Recorded Last Taken Type Ibuprofen [Motrin 800 MG tab] 800 mg PO Q8HR PRN #20 tablet 11/17/16 Unknown Rx atenoloL [Tenormin] 50 mg PO DAILY #30 tablet 11/17/16 Unknown Rx predniSONE [Deltasone] 50 mg PO QDAY #5 tab 03/16/17 Unknown Rx Phenylephrine/Dm/Acetaminop/GG 10 ml PO Q4H PRN #1 liquid 04/03/17 Unknown Rx [Mucinex Sjlk-Fpj-Vtatukjlfw Lq] Prednisone [predniSONE 10 mg 10 mg PO .TAPER #1 tab.ds.pk 04/03/17 Unknown Rx (6-Day Pack, 21 Tabs)] Ibuprofen [Motrin] 800 mg PO Q8HR PRN #30 tablet 08/26/17 Unknown Rx ALBUTEROL NEB's [Proventil 0.083% 1 puff IH Q4H PRN #1 box 09/26/17 Unknown Rx NEBS] Albuterol Sulfate [Ventolin Hfa] 1 puff IH Q4H PRN #1 hfa.aer.ad 09/26/17 Unknown Rx Dextromethorphan Hb/Doxylamine 10 ml PO Q6H PRN #1 liquid 09/26/17 Unknown Rx [Safetussin Pm Liquid] Nebulizer Accessories [Sootheneb 1 each MC Q4H PRN #1 each 09/26/17 Unknown Rx [id number] Adult Mask] Nebulizer [Compact Compressor 1 each MC Q4H PRN #1 each 09/26/17 Unknown Rx Nebulizer] predniSONE [Deltasone] 40 mg PO QDAY #10 tab 09/26/17 Unknown Rx Albuterol Sulfate [Ventolin Hfa] 1 puff IH Q4H PRN #1 hfa.aer.ad 03/02/18 Unknown Rx Prednisone [predniSONE 10 mg 10 mg PO .TAPER #1 tab.ds.pk 03/02/18 Unknown Rx (6-Day Pack, 21 Tabs)] Albuterol Mdi (or & Nicu Only) 2 puff IH QID PRN #1 inhalation 05/19/19 Unknown Rx [ProAir HFA Inhaler] amLODIPine 5 mg PO DAILY #30 tab 05/19/19 Unknown Rx hydroCHLOROthiazide [HCTZ] 25 mg PO QDAY #30 tablet 05/19/19 Unknown Rx Capsaicin 0.075% [Zostrix Hp 1 applicatio TP TID PRN #1 tube 04/08/20 Unknown Rx 0.075%] Menthol/Camphor [[place] Gheens 1 gm PO QID PRN #1 tube 04/11/20 Unknown Rx Ointment] Albuterol Sulfate [Proventil Hfa] 2 puff IH Q4HR PRN #1 hfa.aer.ad 05/31/21 Unknown Rx Albuterol Mdi (or & Nicu Only) 2 puff IH QID PRN #1 inha 06/08/21 Unknown Rx [ProAir HFA Inhaler] atenoloL [Tenormin] 50 mg PO DAILY #30 tab 06/08/21 Unknown Rx Acetaminophen [Acetaminophen TAB] 500 mg PO Q6HR PRN #20 tablet 08/03/21 Unknown Rx Naproxen [Naprosyn TAB] 500 mg PO BID #20 tablet 08/03/21 Unknown Rx Allergies Allergy/AdvReac Type Severity Reaction Status Date / Time No Known Allergies Allergy Verified 08/24/21 01:21 ED Review of Systems ROS: Stated complaint: ABD PAIN Other details as noted in HPI Constitutional: denies: chills, fever Eyes: denies: eye pain, eye discharge, vision change ENT: denies: ear pain, throat pain Respiratory: denies: cough, shortness of breath, wheezing Cardiovascular: denies: chest pain, palpitations Endocrine: no symptoms reported Gastrointestinal: abdominal pain (Epigastric), nausea, vomiting. denies: diarrhea Genitourinary: denies: urgency, dysuria, discharge Musculoskeletal: denies: back pain, joint swelling, arthralgia Skin: denies: rash, lesions Neurological: denies: headache, weakness, paresthesias Psychiatric: denies: anxiety, depression Hematological/Lymphatic: denies: easy bleeding, easy bruising ED Past Medical Hx - Past Medical History Hx Hypertension: Yes Hx Arthritis: Yes Hx Psychiatric Treatment: Yes (Schizophrenia) Hx Asthma: Yes (bronchitis) Additional medical history: gout - Surgical History Past Surgical History?: No Additional Surgical History: "TUMORS REMOVED IN STOMACH" - Social History Smoking Status: Current Every Day Smoker Substance Use Type: None - Medications Home Medications: Home Medications Medication Instructions Recorded Confirmed Last Taken Type Ibuprofen [Motrin 800 MG tab] 800 mg PO Q8HR PRN #20 tablet 11/17/16 Unknown Rx atenoloL [Tenormin] 50 mg PO DAILY #30 tablet 11/17/16 Unknown Rx predniSONE [Deltasone] 50 mg PO QDAY #5 tab 03/16/17 Unknown Rx Phenylephrine/Dm/Acetaminop/GG 10 ml PO Q4H PRN #1 liquid 04/03/17 Unknown Rx [Mucinex Hijq-Jlb-Xptaceuypd Lq] Prednisone [predniSONE 10 mg 10 mg PO .TAPER #1 tab.ds.pk 04/03/17 Unknown Rx (6-Day Pack, 21 Tabs)] Ibuprofen [Motrin] 800 mg PO Q8HR PRN #30 tablet 08/26/17 Unknown Rx ALBUTEROL NEB's [Proventil 0.083% 1 puff IH Q4H PRN #1 box 09/26/17 Unknown Rx NEBS] Albuterol Sulfate [Ventolin Hfa] 1 puff IH Q4H PRN #1 hfa.aer.ad 09/26/17 Unknown Rx Dextromethorphan Hb/Doxylamine 10 ml PO Q6H PRN #1 liquid 09/26/17 Unknown Rx [Safetussin Pm Liquid] Nebulizer Accessories [Sootheneb 1 each MC Q4H PRN #1 each 09/26/17 Unknown Rx [id number] Adult Mask] Nebulizer [Compact Compressor 1 each MC Q4H PRN #1 each 09/26/17 Unknown Rx Nebulizer] predniSONE [Deltasone] 40 mg PO QDAY #10 tab 09/26/17 Unknown Rx Albuterol Sulfate [Ventolin Hfa] 1 puff IH Q4H PRN #1 hfa.aer.ad 03/02/18 Unknown Rx Prednisone [predniSONE 10 mg 10 mg PO .TAPER #1 tab.ds.pk 03/02/18 Unknown Rx (6-Day Pack, 21 Tabs)] Albuterol Mdi (or & Nicu Only) 2 puff IH QID PRN #1 inhalation 05/19/19 Unknown Rx [ProAir HFA Inhaler] amLODIPine 5 mg PO DAILY #30 tab 05/19/19 Unknown Rx hydroCHLOROthiazide [HCTZ] 25 mg PO QDAY #30 tablet 05/19/19 Unknown Rx Capsaicin 0.075% [Zostrix Hp 1 applicatio TP TID PRN #1 tube 04/08/20 Unknown Rx 0.075%] Menthol/Camphor [[place] Gheens 1 gm PO QID PRN #1 tube 04/11/20 Unknown Rx Ointment] Albuterol Sulfate [Proventil Hfa] 2 puff IH Q4HR PRN #1 hfa.aer.ad 05/31/21 Unknown Rx Albuterol Mdi (or & Nicu Only) 2 puff IH QID PRN #1 inha 06/08/21 Unknown Rx [ProAir HFA Inhaler] atenoloL [Tenormin] 50 mg PO DAILY #30 tab 06/08/21 Unknown Rx Acetaminophen [Acetaminophen TAB] 500 mg PO Q6HR PRN #20 tablet 08/03/21 Unknown Rx Naproxen [Naprosyn TAB] 500 mg PO BID #20 tablet 08/03/21 Unknown Rx ED Physical Exam - General Limitations: Language Barrier General appearance: alert, in no apparent distress - Head Head exam: Present: atraumatic, normocephalic, normal inspection - Eye Eye exam: Present: normal appearance, PERRL, EOMI Pupils: Present: normal accommodation - ENT ENT exam: Present: normal exam, normal orophraynx, mucous membranes moist, TM's normal bilaterally, normal external ear exam - Neck Neck exam: Present: normal inspection, full ROM - Respiratory Respiratory exam: Present: normal lung sounds bilaterally. Absent: respiratory distress, wheezes, rales, rhonchi, chest wall tenderness, accessory muscle use, decreased breath sounds, prolonged expiratory - Cardiovascular Cardiovascular Exam: Present: regular rate, normal rhythm, normal heart sounds. Absent: systolic murmur, diastolic murmur, rubs, gallop - GI/Abdominal GI/Abdominal exam: Present: soft, normal bowel sounds. Absent: tenderness, guarding, rebound, hyperactive bowel sounds, hypoactive bowel sounds, organomegaly, mass - Extremities Exam Extremities exam: Present: normal inspection, full ROM, normal capillary refill - Back Exam Back exam: Present: normal inspection, full ROM. Absent: tenderness, CVA tenderness (R), CVA tenderness (L), muscle spasm, paraspinal tenderness - Neurological Exam Neurological exam: Present: alert, oriented X3, CN II-XII intact, normal gait, reflexes normal - Psychiatric Psychiatric exam: Present: depressed, flat affect. Absent: homicidal ideation, suicidal ideation - Skin Skin exam: Present: warm, dry, intact, normal color. Absent: rash ED Course Vital Signs 08/24/21 01:19 Temperature 97.8 F Pulse Rate 60 Respiratory 17 Rate Blood Pressure 179/81 [Right] O2 Sat by Pulse 100 Oximetry ED Medical Decision Making - Medical Decision Making This is a 51-year-old -Serbian female with a history of hypertension, chronic osteoarthritis, chronic gout, asthma, paranoid schizophrenia who presents to the ED with complaint of acute onset persistent mild epigastric pain with nausea and vomiting for the last 24 hours. Patient states that she has had one episode of nausea and vomiting and that the pain is intermittent. In the ED, patient is alert and oriented x3 and is not in any distress. Patient declined any tests in the ED but asked for food. On reevaluation, patient does not appear to be in pain, walking around the ED with no difficulty. Patient is not suicidal, homicidal and is not having any active hallucinations. Patient declined any further testing in the ED and was discharged home to follow-up with her primary care physician since you are unable to initiate any test to determine the etiology of her complaints. Patient was advised to follow-up with her primary care physician as needed or return to the ED immediately if symptoms get worse. - Differential Diagnosis GERD; gastritis; constipation; UTI Critical care attestation.: If time is entered above; I have spent that time in minutes in the direct care of this critically ill patient, excluding procedure time. ED Disposition Clinical Impression: Abdominal pain Qualifiers: Abdominal location: upper abdomen, unspecified Qualified Code(s): R10.10 - Upper abdominal pain, unspecified Disposition: HOME / SELF CARE / HOMELESS Is pt being admited?: No Does the pt Need Aspirin: No Condition: Stable Instructions: Abdominal Pain (ED), Abdominal Pain, Adult, [id number] Additional Instructions: Follow-up with your primary care physician for further evaluation. Return to the ED immediately if symptoms get worse. Referrals: [facility] [Provider Group] - 3-5 Days Time of Disposition: 02:08 Print Language: GUINEAN
== END 2021-08-24 03:15 | disposition left against medical advice (07) ==
LOC: ED 23:00
DX: R10.13 Epigastric pain (principal); R11.2 Nausea with vomiting, unspecified; I10 Essential (primary) hypertension; M19.90 Unspecified osteoarthritis, unspecified site; F20.9 Schizophrenia, unspecified; F17.200 Nicotine dependence, unspecified, uncomplicated; Z79.899 Other long term (current) drug therapy
CPT/HCPCS: 99281

== ENCOUNTER 2021-08-28 21:35 | Emergency (ER) | payer MEDICARE ==
[2021-08-29 01:03] VITALS: BP 163/85
== END 2021-08-29 07:24 | disposition left against medical advice (07) ==
LOC: ED 21:35
DX: M25.579 Pain in unspecified ankle and joints of unspecified foot (principal); Z53.21 Procedure and treatment not carried out due to patient leaving prior to being seen by health care provider

== ENCOUNTER 2021-08-30 23:03 | Emergency (ER) | payer MEDICARE ==
[2021-08-30] MEDS ORDERED: ACETAMINOPHEN 500 MG TAB PO ONE (23:41)
[2021-08-30] MEDS ORDERED: IBUPROFEN 600 MG TAB PO ONE (23:41)
--- NOTE | 2021-08-30 23:45 | Emergency Department Report ---
ED Extremity Problem HPI - General Chief complaint: Extremity Injury, Lower Stated complaint: RIGHT ANKLE PAIN Source: patient Mode of arrival: Ambulatory Limitations: No Limitations - History of Present Illness Initial comments: Patient is a 51-year-old -[place]gr[place] female with a history of chronic osteoarthritis, gouty arthropathy, hypertension, asthma and bronchitis as well as paranoid schizophrenia who presents to the ED with complaint of acute onset nontraumatic low back pain and right ankle pain after walking on the street 24 hours ago. Patient states that the pain is especially worse with ambulation. Patient denies fall, traumatic injury, nausea and vomiting, fever, chills, cough, chest pain or shortness of breath or heavy lifting. MD Complaint: extremity pain (right ankle pain), other (low back pain) -: Sudden, hour(s) (24) Location: right (Ankle), lower extremity (Right ankle pain) History of Same: Yes -: Yes arthralgia (Right ankle pain and low back) Severity scale (0 -10): 4 Quality: aching, sharp Consistency: constant Improves with: nothing Worsens with: weight bearing, walking, exertion, palpation Associated Symptoms: denies other symptoms, arthralgias (Right ankle pain). denies: chest pain, shortness of breath, fever, myalgias, rash - Related Data Previous Rx's Medication Instructions Recorded Last Taken Type atenoloL [Tenormin] 50 mg PO DAILY #30 tablet 11/17/16 Unknown Rx predniSONE [Deltasone] 50 mg PO QDAY #5 tab 03/16/17 Unknown Rx Phenylephrine/Dm/Acetaminop/GG 10 ml PO Q4H PRN #1 liquid 04/03/17 Unknown Rx [Mucinex Quun-Lpr-Osfkvnebjo Lq] Prednisone [predniSONE 10 mg 10 mg PO .TAPER #1 tab.ds.pk 04/03/17 Unknown Rx (6-Day Pack, 21 Tabs)] Ibuprofen [Motrin] 800 mg PO Q8HR PRN #30 tablet 08/26/17 Unknown Rx ALBUTEROL NEB's [Proventil 0.083% 1 puff IH Q4H PRN #1 box 09/26/17 Unknown Rx NEBS] Albuterol Sulfate [Ventolin Hfa] 1 puff IH Q4H PRN #1 hfa.aer.ad 09/26/17 Unknown Rx Dextromethorphan Hb/Doxylamine 10 ml PO Q6H PRN #1 liquid 09/26/17 Unknown Rx [Safetussin Pm Liquid] Nebulizer Accessories [Sootheneb 1 each MC Q4H PRN #1 each 09/26/17 Unknown Rx [id number] Adult Mask] Nebulizer [Compact Compressor 1 each MC Q4H PRN #1 each 09/26/17 Unknown Rx Nebulizer] predniSONE [Deltasone] 40 mg PO QDAY #10 tab 09/26/17 Unknown Rx Albuterol Sulfate [Ventolin Hfa] 1 puff IH Q4H PRN #1 hfa.aer.ad 03/02/18 Unknown Rx Prednisone [predniSONE 10 mg 10 mg PO .TAPER #1 tab.ds.pk 03/02/18 Unknown Rx (6-Day Pack, 21 Tabs)] Albuterol Mdi (or & Nicu Only) 2 puff IH QID PRN #1 inhalation 05/19/19 Unknown Rx [ProAir HFA Inhaler] amLODIPine 5 mg PO DAILY #30 tab 05/19/19 Unknown Rx hydroCHLOROthiazide [HCTZ] 25 mg PO QDAY #30 tablet 05/19/19 Unknown Rx Capsaicin 0.075% [Zostrix Hp 1 applicatio TP TID PRN #1 tube 04/08/20 Unknown Rx 0.075%] Menthol/Camphor [Reform [place]se 1 gm PO QID PRN #1 tube 04/11/20 Unknown Rx Ointment] Albuterol Sulfate [Proventil Hfa] 2 puff IH Q4HR PRN #1 hfa.aer.ad 05/31/21 Unknown Rx Albuterol Mdi (or & Nicu Only) 2 puff IH QID PRN #1 inha 06/08/21 Unknown Rx [ProAir HFA Inhaler] atenoloL [Tenormin] 50 mg PO DAILY #30 tab 06/08/21 Unknown Rx Acetaminophen [Acetaminophen TAB] 500 mg PO Q6HR PRN #20 tablet 08/03/21 Unknown Rx Naproxen [Naprosyn TAB] 500 mg PO BID #20 tablet 08/03/21 Unknown Rx Ibuprofen [Motrin 800 MG tab] 800 mg PO Q8HR PRN #20 tablet 08/30/21 Unknown Rx Allergies Allergy/AdvReac Type Severity Reaction Status Date / Time No Known Allergies Allergy Verified 08/24/21 01:21 ED Review of Systems ROS: Stated complaint: RIGHT ANKLE PAIN Other details as noted in HPI Constitutional: denies: chills, fever Eyes: denies: eye pain, eye discharge, vision change ENT: denies: ear pain, throat pain Respiratory: denies: cough, shortness of breath, wheezing Cardiovascular: denies: chest pain, palpitations Endocrine: no symptoms reported Gastrointestinal: denies: abdominal pain, nausea, diarrhea Genitourinary: denies: urgency, dysuria, discharge Musculoskeletal: back pain (Low back pain), arthralgia (Right ankle pain). denies: joint swelling Skin: denies: rash, lesions Neurological: denies: headache, weakness, paresthesias Psychiatric: denies: anxiety, depression Hematological/Lymphatic: denies: easy bleeding, easy bruising ED Past Medical Hx - Past Medical History Previous Medical History?: Yes Hx Hypertension: Yes Hx Arthritis: Yes Hx Psychiatric Treatment: Yes (Schizophrenia) Hx Asthma: Yes (bronchitis) Additional medical history: gout - Surgical History Past Surgical History?: Yes Additional Surgical History: "TUMORS REMOVED IN STOMACH" - Social History Smoking Status: Current Every Day Smoker Substance Use Type: None - Medications Home Medications: Home Medications Medication Instructions Recorded Confirmed Last Taken Type atenoloL [Tenormin] 50 mg PO DAILY #30 tablet 11/17/16 Unknown Rx predniSONE [Deltasone] 50 mg PO QDAY #5 tab 03/16/17 Unknown Rx Phenylephrine/Dm/Acetaminop/GG 10 ml PO Q4H PRN #1 liquid 04/03/17 Unknown Rx [Mucinex Pskx-Xbb-Zvvnzjtlvu Lq] Prednisone [predniSONE 10 mg 10 mg PO .TAPER #1 tab.ds.pk 04/03/17 Unknown Rx (6-Day Pack, 21 Tabs)] Ibuprofen [Motrin] 800 mg PO Q8HR PRN #30 tablet 08/26/17 Unknown Rx ALBUTEROL NEB's [Proventil 0.083% 1 puff IH Q4H PRN #1 box 09/26/17 Unknown Rx NEBS] Albuterol Sulfate [Ventolin Hfa] 1 puff IH Q4H PRN #1 hfa.aer.ad 09/26/17 Unknown Rx Dextromethorphan Hb/Doxylamine 10 ml PO Q6H PRN #1 liquid 09/26/17 Unknown Rx [Safetussin Pm Liquid] Nebulizer Accessories [Sootheneb 1 each MC Q4H PRN #1 each 09/26/17 Unknown Rx [id number] Adult Mask] Nebulizer [Compact Compressor 1 each MC Q4H PRN #1 each 09/26/17 Unknown Rx Nebulizer] predniSONE [Deltasone] 40 mg PO QDAY #10 tab 09/26/17 Unknown Rx Albuterol Sulfate [Ventolin Hfa] 1 puff IH Q4H PRN #1 hfa.aer.ad 03/02/18 Unknown Rx Prednisone [predniSONE 10 mg 10 mg PO .TAPER #1 tab.ds.pk 03/02/18 Unknown Rx (6-Day Pack, 21 Tabs)] Albuterol Mdi (or & Nicu Only) 2 puff IH QID PRN #1 inhalation 05/19/19 Unknown Rx [ProAir HFA Inhaler] amLODIPine 5 mg PO DAILY #30 tab 05/19/19 Unknown Rx hydroCHLOROthiazide [HCTZ] 25 mg PO QDAY #30 tablet 05/19/19 Unknown Rx Capsaicin 0.075% [Zostrix Hp 1 applicatio TP TID PRN #1 tube 04/08/20 Unknown Rx 0.075%] Menthol/Camphor [Reform Kosse 1 gm PO QID PRN #1 tube 04/11/20 Unknown Rx Ointment] Albuterol Sulfate [Proventil Hfa] 2 puff IH Q4HR PRN #1 hfa.aer.ad 05/31/21 Unknown Rx Albuterol Mdi (or & Nicu Only) 2 puff IH QID PRN #1 inha 06/08/21 Unknown Rx [ProAir HFA Inhaler] atenoloL [Tenormin] 50 mg PO DAILY #30 tab 06/08/21 Unknown Rx Acetaminophen [Acetaminophen TAB] 500 mg PO Q6HR PRN #20 tablet 08/03/21 Unknown Rx Naproxen [Naprosyn TAB] 500 mg PO BID #20 tablet 08/03/21 Unknown Rx Ibuprofen [Motrin 800 MG tab] 800 mg PO Q8HR PRN #20 tablet 08/30/21 Unknown Rx ED Physical Exam - General Limitations: No Limitations General appearance: alert, in no apparent distress - Head Head exam: Present: atraumatic, normocephalic, normal inspection - Eye Eye exam: Present: normal appearance, PERRL, EOMI Pupils: Present: normal accommodation - ENT ENT exam: Present: normal exam, mucous membranes moist, TM's normal bilaterally, normal external ear exam - Neck Neck exam: Present: normal inspection, full ROM - Respiratory Respiratory exam: Present: normal lung sounds bilaterally. Absent: respiratory distress, wheezes, rales, rhonchi, chest wall tenderness, accessory muscle use, decreased breath sounds, prolonged expiratory, other - Cardiovascular Cardiovascular Exam: Present: regular rate, normal rhythm, normal heart sounds. Absent: systolic murmur, diastolic murmur, rubs, gallop - GI/Abdominal GI/Abdominal exam: Present: soft, normal bowel sounds. Absent: tenderness, guarding, rebound, hyperactive bowel sounds, hypoactive bowel sounds, mass, bruit - Extremities Exam Extremities exam: Present: normal inspection, full ROM, tenderness (Palpable mild right ankle tenderness), normal capillary refill - Back Exam Back exam: Present: normal inspection, full ROM, tenderness (Palpable lumbosacral paraspinal musculoskeletal tenderness), muscle spasm, paraspinal tenderness - Neurological Exam Neurological exam: Present: alert, oriented X3, CN II-XII intact, normal gait, reflexes normal - Psychiatric Psychiatric exam: Present: normal affect, normal mood - Skin Skin exam: Present: warm, dry, intact, normal color. Absent: rash ED Course Vital Signs 08/30/21 08/30/21 08/30/21 23:12 23:58 23:59 Temperature 98 F Pulse Rate 87 Respiratory 18 16 16 Rate Blood Pressure 176/96 Blood Pressure [Right] O2 Sat by Pulse 100 Oximetry 08/31/21 00:17 Temperature 97.5 F L Pulse Rate 88 Respiratory 14 Rate Blood Pressure Blood Pressure 167/85 [Right] O2 Sat by Pulse 98 Oximetry ED Medical Decision Making - Medical Decision Making This is a 51-year-old -[place] female with a history of chronic osteoarthritis, gouty arthropathy, hypertension, asthma and bronchitis as well as paranoid schizophrenia who presents to the ED with complaint of acute onset nontraumatic low back pain and right ankle pain after walking on the street 24 hours ago. Patient states that the pain is especially worse with ambulation. I n the ED, patient is alert and oriented x3 and is not in any distress. Patient was treated for pain in the ED and on reevaluation, patient's pain is well controlled medication. Patient is not fully ambulatory in the ED with no difficulty, and bilateral distal pulses were palpable. Patient was discharged home on ibuprofen prescription and advised to follow-up with her primary care physician in 7 to 10 days for reevaluation return to the ED immediately if symptoms get worse. - Differential Diagnosis Muscle strain; muscle spasm of back; ankle sprain; gout; osteoarthritis Critical care attestation.: If time is entered above; I have spent that time in minutes in the direct care of this critically ill patient, excluding procedure time. ED Disposition Clinical Impression: Spasm of muscle of lower back Muscle strain of right ankle Qualifiers: Encounter type: initial encounter Qualified Code(s): S96.911A - Strain of unspecified muscle and tendon at ankle and foot level, right foot, initial encounter Acute low back pain without sciatica Qualifiers: Back pain laterality: unspecified Qualified Code(s): M54.50 - Low back pain, unspecified Disposition: 01 HOME / SELF CARE / HOMELESS Is pt being admited?: No Does the pt Need Aspirin: No Condition: Stable Instructions: Muscle Cramps and Spasms, [id number]-[id number], Muscle Strain, [id number]-[id number] Additional Instructions: Take medication with food, drink plenty of fluids and follow-up with your primary care physician in 7 to 10 days for evaluation. Return to the ED immediately if symptoms get worse. Prescriptions: Ibuprofen [Motrin 800 MG tab] 800 mg PO Q8HR PRN #20 tablet PRN Reason: Pain Referrals: [facility] [Provider Group] - 3-5 Days Time of Disposition: 23:43 Print Language: SLOVAK
[2021-08-31 00:19] VITALS: BP 167/85
== END 2021-08-31 00:20 | disposition home or self-care (01) ==
LOC: ED 23:03
DX: M62.830 Muscle spasm of back (principal); S96.911A Strain of unspecified muscle and tendon at ankle and foot level, right foot, initial encounter; M54.50 Low back pain, unspecified; I10 Essential (primary) hypertension; J45.909 Unspecified asthma, uncomplicated; F17.200 Nicotine dependence, unspecified, uncomplicated; X58.XXXA Exposure to other specified factors, initial encounter; Y93.89 Activity, other specified; Y92.89 Other specified places as the place of occurrence of the external cause; Y99.8 Other external cause status
CPT/HCPCS: 99282

== ENCOUNTER 2021-09-18 19:44 | Emergency (ER) | payer MEDICARE ==
[2021-09-18] MEDS ORDERED: ACETAMINOPHEN 500 MG TAB PO ONE (22:18)
--- NOTE | 2021-09-18 22:21 | Emergency Department Report ---
ED Back Pain/Injury HPI - General Chief Complaint: Back Pain/Injury Stated Complaint: BACK & SIDE PAIN Time Seen by Provider: 09/18/21 21:44 Source: patient Limitations: No Limitations - History of Present Illness Initial Comments: back and side pain MD Complaint: back pain -: Gradual, year(s) Similar Symptoms Previously: Yes Place: home Radiation: none Severity: mild Severity scale (0 -10): 2 Quality: dull - Related Data Previous Rx's Medication Instructions Recorded Last Taken Type atenoloL [Tenormin] 50 mg PO DAILY #30 tablet 11/17/16 Unknown Rx predniSONE [Deltasone] 50 mg PO QDAY #5 tab 03/16/17 Unknown Rx Phenylephrine/Dm/Acetaminop/GG 10 ml PO Q4H PRN #1 liquid 04/03/17 Unknown Rx [Mucinex Iict-Yzn-Hhvtjcyute Lq] Prednisone [predniSONE 10 mg 10 mg PO .TAPER #1 tab.ds.pk 04/03/17 Unknown Rx (6-Day Pack, 21 Tabs)] Ibuprofen [Motrin] 800 mg PO Q8HR PRN #30 tablet 08/26/17 Unknown Rx ALBUTEROL NEB's [Proventil 0.083% 1 puff IH Q4H PRN #1 box 09/26/17 Unknown Rx NEBS] Albuterol Sulfate [Ventolin Hfa] 1 puff IH Q4H PRN #1 hfa.aer.ad 09/26/17 Unknown Rx Dextromethorphan Hb/Doxylamine 10 ml PO Q6H PRN #1 liquid 09/26/17 Unknown Rx [Safetussin Pm Liquid] Nebulizer Accessories [Sootheneb 1 each MC Q4H PRN #1 each 09/26/17 Unknown Rx [id number] Adult Mask] Nebulizer [Compact Compressor 1 each MC Q4H PRN #1 each 09/26/17 Unknown Rx Nebulizer] predniSONE [Deltasone] 40 mg PO QDAY #10 tab 09/26/17 Unknown Rx Albuterol Sulfate [Ventolin Hfa] 1 puff IH Q4H PRN #1 hfa.aer.ad 03/02/18 Unknown Rx Prednisone [predniSONE 10 mg 10 mg PO .TAPER #1 tab.ds.pk 03/02/18 Unknown Rx (6-Day Pack, 21 Tabs)] Albuterol Mdi (or & Nicu Only) 2 puff IH QID PRN #1 inhalation 05/19/19 Unknown Rx [ProAir HFA Inhaler] amLODIPine 5 mg PO DAILY #30 tab 05/19/19 Unknown Rx hydroCHLOROthiazide [HCTZ] 25 mg PO QDAY #30 tablet 05/19/19 Unknown Rx Capsaicin 0.075% [Zostrix Hp 1 applicatio TP TID PRN #1 tube 04/08/20 Unknown Rx 0.075%] Menthol/Camphor [[place] 1 gm PO QID PRN #1 tube 04/11/20 Unknown Rx Ointment] Albuterol Sulfate [Proventil Hfa] 2 puff IH Q4HR PRN #1 hfa.aer.ad 05/31/21 Unknown Rx Albuterol Mdi (or & Nicu Only) 2 puff IH QID PRN #1 inha 06/08/21 Unknown Rx [ProAir HFA Inhaler] atenoloL [Tenormin] 50 mg PO DAILY #30 tab 06/08/21 Unknown Rx Acetaminophen [Acetaminophen TAB] 500 mg PO Q6HR PRN #20 tablet 08/03/21 Unknown Rx Naproxen [Naprosyn TAB] 500 mg PO BID #20 tablet 08/03/21 Unknown Rx Ibuprofen [Motrin 800 MG tab] 800 mg PO Q8HR PRN #20 tablet 08/30/21 Unknown Rx Allergies Allergy/AdvReac Type Severity Reaction Status Date / Time No Known Allergies Allergy Verified 08/24/21 01:21 ED Review of Systems ROS: Stated complaint: BACK & SIDE PAIN Other details as noted in HPI Constitutional: denies: chills, fever Eyes: denies: eye pain, eye discharge, vision change ENT: denies: ear pain, throat pain Respiratory: denies: cough, shortness of breath, wheezing Cardiovascular: denies: chest pain, palpitations Endocrine: no symptoms reported Gastrointestinal: denies: abdominal pain, nausea, diarrhea Genitourinary: denies: urgency, dysuria, discharge Musculoskeletal: denies: back pain, joint swelling, arthralgia Skin: denies: rash, lesions Neurological: denies: headache, weakness, paresthesias Psychiatric: denies: anxiety, depression Hematological/Lymphatic: denies: easy bleeding, easy bruising ED Past Medical Hx - Past Medical History Previous Medical History?: Yes Hx Hypertension: Yes Hx Arthritis: Yes Hx Psychiatric Treatment: Yes (Schizophrenia) Hx Asthma: Yes (bronchitis) Additional medical history: gout - Surgical History Additional Surgical History: "TUMORS REMOVED IN STOMACH" - Social History Smoking Status: Current Every Day Smoker Substance Use Type: None - Medications Home Medications: Home Medications Medication Instructions Recorded Confirmed Last Taken Type atenoloL [Tenormin] 50 mg PO DAILY #30 tablet 11/17/16 Unknown Rx predniSONE [Deltasone] 50 mg PO QDAY #5 tab 03/16/17 Unknown Rx Phenylephrine/Dm/Acetaminop/GG 10 ml PO Q4H PRN #1 liquid 04/03/17 Unknown Rx [Mucinex Xldw-Ewp-Ryuhvyklgv Lq] Prednisone [predniSONE 10 mg 10 mg PO .TAPER #1 tab.ds.pk 04/03/17 Unknown Rx (6-Day Pack, 21 Tabs)] Ibuprofen [Motrin] 800 mg PO Q8HR PRN #30 tablet 08/26/17 Unknown Rx ALBUTEROL NEB's [Proventil 0.083% 1 puff IH Q4H PRN #1 box 09/26/17 Unknown Rx NEBS] Albuterol Sulfate [Ventolin Hfa] 1 puff IH Q4H PRN #1 hfa.aer.ad 09/26/17 Unknown Rx Dextromethorphan Hb/Doxylamine 10 ml PO Q6H PRN #1 liquid 09/26/17 Unknown Rx [Safetussin Pm Liquid] Nebulizer Accessories [Sootheneb 1 each MC Q4H PRN #1 each 09/26/17 Unknown Rx [id number] Adult Mask] Nebulizer [Compact Compressor 1 each MC Q4H PRN #1 each 09/26/17 Unknown Rx Nebulizer] predniSONE [Deltasone] 40 mg PO QDAY #10 tab 09/26/17 Unknown Rx Albuterol Sulfate [Ventolin Hfa] 1 puff IH Q4H PRN #1 hfa.aer.ad 03/02/18 Unknown Rx Prednisone [predniSONE 10 mg 10 mg PO .TAPER #1 tab.ds.pk 03/02/18 Unknown Rx (6-Day Pack, 21 Tabs)] Albuterol Mdi (or & Nicu Only) 2 puff IH QID PRN #1 inhalation 05/19/19 Unknown Rx [ProAir HFA Inhaler] amLODIPine 5 mg PO DAILY #30 tab 05/19/19 Unknown Rx hydroCHLOROthiazide [HCTZ] 25 mg PO QDAY #30 tablet 05/19/19 Unknown Rx Capsaicin 0.075% [Zostrix Hp 1 applicatio TP TID PRN #1 tube 04/08/20 Unknown Rx 0.075%] Menthol/Camphor [[place] 1 gm PO QID PRN #1 tube 04/11/20 Unknown Rx Ointment] Albuterol Sulfate [Proventil Hfa] 2 puff IH Q4HR PRN #1 hfa.aer.ad 05/31/21 Unknown Rx Albuterol Mdi (or & Nicu Only) 2 puff IH QID PRN #1 inha 06/08/21 Unknown Rx [ProAir HFA Inhaler] atenoloL [Tenormin] 50 mg PO DAILY #30 tab 06/08/21 Unknown Rx Acetaminophen [Acetaminophen TAB] 500 mg PO Q6HR PRN #20 tablet 08/03/21 Unknown Rx Naproxen [Naprosyn TAB] 500 mg PO BID #20 tablet 08/03/21 Unknown Rx Ibuprofen [Motrin 800 MG tab] 800 mg PO Q8HR PRN #20 tablet 08/30/21 Unknown Rx ED Physical Exam - General Limitations: No Limitations General appearance: alert, in no apparent distress - Head Head exam: Present: atraumatic, normocephalic - Eye Eye exam: Present: normal appearance - ENT ENT exam: Present: mucous membranes moist - Neck Neck exam: Present: normal inspection - Respiratory Respiratory exam: Present: normal lung sounds bilaterally. Absent: respiratory distress - Cardiovascular Cardiovascular Exam: Present: regular rate, normal rhythm. Absent: systolic murmur, diastolic murmur, rubs, gallop - GI/Abdominal GI/Abdominal exam: Present: soft, normal bowel sounds - Extremities Exam Extremities exam: Present: normal inspection - Back Exam Back exam: Present: normal inspection - Neurological Exam Neurological exam: Present: alert, oriented X3 - Psychiatric Psychiatric exam: Present: normal affect, normal mood - Skin Skin exam: Present: warm, dry, intact, normal color. Absent: rash ED Course Vital Signs 09/18/21 21:25 Temperature 98.2 F Pulse Rate 67 Respiratory 18 Rate Blood Pressure 128/76 [Left] O2 Sat by Pulse 98 Oximetry - Reevaluation(s) Reevaluation #1: 09/18/21 22:20 pt is vss , no dsitress eating and drinking realy doesn;t give more answers , wants just tylenol to go home Critical care attestation.: If time is entered above; I have spent that time in minutes in the direct care of this critically ill patient, excluding procedure time. ED Disposition Clinical Impression: Back pain Disposition: 01 HOME / SELF CARE / HOMELESS Is pt being admited?: No Does the pt Need Aspirin: No Condition: Stable Instructions: Chronic Back Pain, [id number]
[2021-09-18 23:29] VITALS: BP 132/77
== END 2021-09-18 22:54 | disposition home or self-care (01) ==
LOC: ED 19:44
DX: M54.9 Dorsalgia, unspecified (principal)
CPT/HCPCS: 99282

== ENCOUNTER 2021-09-20 04:03 | Emergency (ER) | payer MEDICARE ==
[2021-09-20] MEDS ORDERED: ACETAMINOPHEN 500 MG TAB PO ONE (04:09)
--- NOTE | 2021-09-20 04:09 | Emergency Department Report ---
ED Lower Extremity HPI - General Stated Complaint: BILATERAL KNEE PAIN Time Seen by Provider: 09/20/21 04:05 Source: patient, EMS Mode of arrival: Ambulatory Limitations: No Limitations - History of Present Illness Initial Comments: Chief complaint: "I have arthritis. My knees hurt when it is cold." HPI: This is a 51-year-old female with history of arthritis, gout, hypertension, asthma, paranoid schizophrenia who presents with bilateral knee pain. No trauma. She has recurrent knee pain due to arthritis. She denies suicidal homicidal ideation. She denies hallucination. She arrived via EMS. Complaint: other (Bilateral knee pain) -: Gradual, days(s) (Several days) Injury: Knee: Right, Left Type of Injury: other (No injury) Severity: moderate Severity scale (0 -10): 7 Improves With: rest Worsens With: weight bearing Treatments Prior to Arrival: other (EMS transportation) - Related Data Previous Rx's Medication Instructions Recorded Last Taken Type atenoloL [Tenormin] 50 mg PO DAILY #30 tablet 11/17/16 Unknown Rx predniSONE [Deltasone] 50 mg PO QDAY #5 tab 03/16/17 Unknown Rx Phenylephrine/Dm/Acetaminop/GG 10 ml PO Q4H PRN #1 liquid 04/03/17 Unknown Rx [Mucinex Lhgh-Iwq-Nufshbzqrt Lq] Prednisone [predniSONE 10 mg 10 mg PO .TAPER #1 tab.ds.pk 04/03/17 Unknown Rx (6-Day Pack, 21 Tabs)] Ibuprofen [Motrin] 800 mg PO Q8HR PRN #30 tablet 08/26/17 Unknown Rx ALBUTEROL NEB's [Proventil 0.083% 1 puff IH Q4H PRN #1 box 09/26/17 Unknown Rx NEBS] Albuterol Sulfate [Ventolin Hfa] 1 puff IH Q4H PRN #1 hfa.aer.ad 09/26/17 Unknown Rx Dextromethorphan Hb/Doxylamine 10 ml PO Q6H PRN #1 liquid 09/26/17 Unknown Rx [Safetussin Pm Liquid] Nebulizer Accessories [Sootheneb 1 each MC Q4H PRN #1 each 09/26/17 Unknown Rx [id number] Adult Mask] Nebulizer [Compact Compressor 1 each MC Q4H PRN #1 each 09/26/17 Unknown Rx Nebulizer] predniSONE [Deltasone] 40 mg PO QDAY #10 tab 09/26/17 Unknown Rx Albuterol Sulfate [Ventolin Hfa] 1 puff IH Q4H PRN #1 hfa.aer.ad 03/02/18 Unknown Rx Prednisone [predniSONE 10 mg 10 mg PO .TAPER #1 tab.ds.pk 03/02/18 Unknown Rx (6-Day Pack, 21 Tabs)] Albuterol Mdi (or & Nicu Only) 2 puff IH QID PRN #1 inhalation 05/19/19 Unknown Rx [ProAir HFA Inhaler] amLODIPine 5 mg PO DAILY #30 tab 05/19/19 Unknown Rx hydroCHLOROthiazide [HCTZ] 25 mg PO QDAY #30 tablet 05/19/19 Unknown Rx Capsaicin 0.075% [Zostrix Hp 1 applicatio TP TID PRN #1 tube 04/08/20 Unknown Rx 0.075%] Menthol/Camphor [[place] 1 gm PO QID PRN #1 tube 04/11/20 Unknown Rx Ointment] Albuterol Sulfate [Proventil Hfa] 2 puff IH Q4HR PRN #1 hfa.aer.ad 05/31/21 Unknown Rx Albuterol Mdi (or & Nicu Only) 2 puff IH QID PRN #1 inha 06/08/21 Unknown Rx [ProAir HFA Inhaler] atenoloL [Tenormin] 50 mg PO DAILY #30 tab 06/08/21 Unknown Rx Acetaminophen [Acetaminophen TAB] 500 mg PO Q6HR PRN #20 tablet 08/03/21 Unknown Rx Naproxen [Naprosyn TAB] 500 mg PO BID #20 tablet 08/03/21 Unknown Rx Ibuprofen [Motrin 800 MG tab] 800 mg PO Q8HR PRN #20 tablet 08/30/21 Unknown Rx Allergies Allergy/AdvReac Type Severity Reaction Status Date / Time No Known Allergies Allergy Verified 08/24/21 01:21 ED Review of Systems ROS: Stated complaint: BILATERAL KNEE PAIN Other details as noted in HPI Comment: All other systems reviewed and negative Constitutional: denies: chills, fever, malaise Respiratory: denies: cough, shortness of breath Cardiovascular: denies: chest pain Musculoskeletal: arthralgia Neurological: denies: numbness, paresthesias ED Past Medical Hx - Past Medical History Previous Medical History?: Yes Hx Hypertension: Yes Hx Arthritis: Yes Hx Psychiatric Treatment: Yes (Schizophrenia) Hx Asthma: Yes (bronchitis) Additional medical history: gout - Surgical History Additional Surgical History: "TUMORS REMOVED IN STOMACH" - Social History Smoking Status: Current Every Day Smoker Substance Use Type: None - Medications Home Medications: Home Medications Medication Instructions Recorded Confirmed Last Taken Type atenoloL [Tenormin] 50 mg PO DAILY #30 tablet 11/17/16 Unknown Rx predniSONE [Deltasone] 50 mg PO QDAY #5 tab 03/16/17 Unknown Rx Phenylephrine/Dm/Acetaminop/GG 10 ml PO Q4H PRN #1 liquid 04/03/17 Unknown Rx [Mucinex Ieus-Rrq-Mryectjtwj Lq] Prednisone [predniSONE 10 mg 10 mg PO .TAPER #1 tab.ds.pk 04/03/17 Unknown Rx (6-Day Pack, 21 Tabs)] Ibuprofen [Motrin] 800 mg PO Q8HR PRN #30 tablet 08/26/17 Unknown Rx ALBUTEROL NEB's [Proventil 0.083% 1 puff IH Q4H PRN #1 box 09/26/17 Unknown Rx NEBS] Albuterol Sulfate [Ventolin Hfa] 1 puff IH Q4H PRN #1 hfa.aer.ad 09/26/17 Unknown Rx Dextromethorphan Hb/Doxylamine 10 ml PO Q6H PRN #1 liquid 09/26/17 Unknown Rx [Safetussin Pm Liquid] Nebulizer Accessories [Sootheneb 1 each MC Q4H PRN #1 each 09/26/17 Unknown Rx [id number] Adult Mask] Nebulizer [Compact Compressor 1 each MC Q4H PRN #1 each 09/26/17 Unknown Rx Nebulizer] predniSONE [Deltasone] 40 mg PO QDAY #10 tab 09/26/17 Unknown Rx Albuterol Sulfate [Ventolin Hfa] 1 puff IH Q4H PRN #1 hfa.aer.ad 03/02/18 Unknown Rx Prednisone [predniSONE 10 mg 10 mg PO .TAPER #1 tab.ds.pk 03/02/18 Unknown Rx (6-Day Pack, 21 Tabs)] Albuterol Mdi (or & Nicu Only) 2 puff IH QID PRN #1 inhalation 05/19/19 Unknown Rx [ProAir HFA Inhaler] amLODIPine 5 mg PO DAILY #30 tab 05/19/19 Unknown Rx hydroCHLOROthiazide [HCTZ] 25 mg PO QDAY #30 tablet 05/19/19 Unknown Rx Capsaicin 0.075% [Zostrix Hp 1 applicatio TP TID PRN #1 tube 04/08/20 Unknown Rx 0.075%] Menthol/Camphor [[place] 1 gm PO QID PRN #1 tube 04/11/20 Unknown Rx Ointment] Albuterol Sulfate [Proventil Hfa] 2 puff IH Q4HR PRN #1 hfa.aer.ad 05/31/21 Unknown Rx Albuterol Mdi (or & Nicu Only) 2 puff IH QID PRN #1 inha 06/08/21 Unknown Rx [ProAir HFA Inhaler] atenoloL [Tenormin] 50 mg PO DAILY #30 tab 06/08/21 Unknown Rx Acetaminophen [Acetaminophen TAB] 500 mg PO Q6HR PRN #20 tablet 08/03/21 Unknown Rx Naproxen [Naprosyn TAB] 500 mg PO BID #20 tablet 08/03/21 Unknown Rx Ibuprofen [Motrin 800 MG tab] 800 mg PO Q8HR PRN #20 tablet 08/30/21 Unknown Rx ED Physical Exam - General General appearance: alert, in no apparent distress - Head Head exam: Present: atraumatic, normocephalic - Eye Eye exam: Present: normal appearance - ENT ENT exam: Present: mucous membranes moist - Neck Neck exam: Present: normal inspection, full ROM - Respiratory Respiratory exam: Present: normal lung sounds bilaterally. Absent: respiratory distress, wheezes, rales, rhonchi - Cardiovascular Cardiovascular Exam: Present: regular rate, normal rhythm, normal heart sounds. Absent: systolic murmur, diastolic murmur, rubs, gallop - GI/Abdominal GI/Abdominal exam: Present: soft, normal bowel sounds. Absent: distended, guarding - Expanded Lower Extremity Exam Left Knee exam: Present: normal inspection, full ROM. Absent: tenderness, swelling Right Knee exam: Present: normal inspection, full ROM. Absent: tenderness, swelling - Neurological Exam Neurological exam: Present: alert, oriented X3, normal gait - Psychiatric Psychiatric exam: Present: normal affect, normal mood - Skin Skin exam: Present: warm, dry, intact, normal color. Absent: rash ED Lower Extremity MDM - Medical Decision Making Bilateral knee pain, osteoarthritis: Patient received Tylenol in emergency department. Referred to orthopedic surgeon. Referred to internal medicine physician. Critical care attestation.: If time is entered above; I have spent that time in minutes in the direct care of this critically ill patient, excluding procedure time. ED Disposition Clinical Impression: Osteoarthritis of both knees Disposition: 01 HOME / SELF CARE / HOMELESS Is pt being admited?: No Does the pt Need Aspirin: No Condition: Stable Instructions: Osteoarthritis Referrals: JENNIFER HI MD [Staff Physician] - 3-5 Days GHULAM WALTON MD [Staff Physician] - 3-5 Days
[2021-09-20 04:10] VITALS: BP 183/100
== END 2021-09-20 04:43 | disposition home or self-care (01) ==
LOC: ED 04:03
DX: M17.0 Bilateral primary osteoarthritis of knee (principal); I10 Essential (primary) hypertension; J45.909 Unspecified asthma, uncomplicated; F20.9 Schizophrenia, unspecified; F17.200 Nicotine dependence, unspecified, uncomplicated; Z79.899 Other long term (current) drug therapy; Z98.890 Other specified postprocedural states
CPT/HCPCS: 99283

== ENCOUNTER 2021-09-21 00:15 | Emergency (ER) | payer MEDICARE | END 2021-09-21 08:04 | disposition left against medical advice (07) | LOC: ED 00:15 | DX: M25.569 Pain in unspecified knee (principal); J00 Acute nasopharyngitis [common cold]; Z53.21 Procedure and treatment not carried out due to patient leaving prior to being seen by health care provider ==

== ENCOUNTER 2021-09-26 20:50 | Emergency (ER) | payer MEDICARE ==
[2021-09-26] MEDS ORDERED: KETOROLAC 10 MG TAB PO ONE (22:53)
[2021-09-26 22:55] VITALS: BP 149/75
--- NOTE | 2021-09-26 23:21 | XRay Report ---
RIGHT FOOT 3 VIEW(S) INDICATION / CLINICAL INFORMATION: foot pain COMPARISON: None available. FINDINGS: BONES / JOINT(S): No acute fracture or subluxation. Moderate loss of interphalangeal joint space mult iple toes most noticeably the third toe. SOFT TISSUES: No significant abnormality. ADDITIONAL FINDINGS: None. IMPRESSION: 1. No acute osseous findings. Arthritic changes as detailed. Signer Name: Dayton Birmingham II, MD Signed: 09/26/2021 11:17 PM Workstation Name: [id number]
[2021-09-26] MEDS ORDERED: predniSONE 20 MG TAB PO ONE (23:26)
--- NOTE | 2021-09-26 23:31 | Emergency Department Report ---
ED Extremity Problem HPI - General Chief complaint: Extremity Problem,Nontraumatic Stated complaint: PAIN IN FOOT AND LEG Time Seen by Provider: 09/26/21 22:52 Source: patient Mode of arrival: Ambulatory Limitations: No Limitations - History of Present Illness Initial comments: 51-year-old female presents to the emergency department for evaluation of few day history of right foot pain. She denies injury. She states that pain is an achy pain that is 9 out of 10 at its worse. MD Complaint: extremity pain, extremity swelling -: Gradual, days(s) (3-4) Location: right (Foot) History of Same: Yes -: Yes myalgia, No arthralgia, No fever, No associated dyspnea, No associated chest pain Radiation: none Severity scale (0 -10): 9 Quality: aching Consistency: constant Associated Symptoms: denies: chest pain, shortness of breath, fever - Related Data Previous Rx's Medication Instructions Recorded Last Taken Type atenoloL [Tenormin] 50 mg PO DAILY #30 tablet 11/17/16 Unknown Rx predniSONE [Deltasone] 50 mg PO QDAY #5 tab 03/16/17 Unknown Rx Phenylephrine/Dm/Acetaminop/GG 10 ml PO Q4H PRN #1 liquid 04/03/17 Unknown Rx [Mucinex Znnx-Std-Aaoshxrucx Lq] Prednisone [predniSONE 10 mg 10 mg PO .TAPER #1 tab.ds.pk 04/03/17 Unknown Rx (6-Day Pack, 21 Tabs)] Ibuprofen [Motrin] 800 mg PO Q8HR PRN #30 tablet 08/26/17 Unknown Rx ALBUTEROL NEB's [Proventil 0.083% 1 puff IH Q4H PRN #1 box 09/26/17 Unknown Rx NEBS] Albuterol Sulfate [Ventolin Hfa] 1 puff IH Q4H PRN #1 hfa.aer.ad 09/26/17 Unknown Rx Dextromethorphan Hb/Doxylamine 10 ml PO Q6H PRN #1 liquid 09/26/17 Unknown Rx [Safetussin Pm Liquid] Nebulizer Accessories [Sootheneb 1 each MC Q4H PRN #1 each 09/26/17 Unknown Rx [id number] Adult Mask] Nebulizer [Compact Compressor 1 each MC Q4H PRN #1 each 09/26/17 Unknown Rx Nebulizer] predniSONE [Deltasone] 40 mg PO QDAY #10 tab 09/26/17 Unknown Rx Albuterol Sulfate [Ventolin Hfa] 1 puff IH Q4H PRN #1 hfa.aer.ad 03/02/18 Unknown Rx Prednisone [predniSONE 10 mg 10 mg PO .TAPER #1 tab.ds.pk 03/02/18 Unknown Rx (6-Day Pack, 21 Tabs)] Albuterol Mdi (or & Nicu Only) 2 puff IH QID PRN #1 inhalation 05/19/19 Unknown Rx [ProAir HFA Inhaler] amLODIPine 5 mg PO DAILY #30 tab 05/19/19 Unknown Rx hydroCHLOROthiazide [HCTZ] 25 mg PO QDAY #30 tablet 05/19/19 Unknown Rx Capsaicin 0.075% [Zostrix Hp 1 applicatio TP TID PRN #1 tube 04/08/20 Unknown Rx 0.075%] Menthol/Camphor [[place] [employer] 1 gm PO QID PRN #1 tube 04/11/20 Unknown Rx Ointment] Albuterol Sulfate [Proventil Hfa] 2 puff IH Q4HR PRN #1 hfa.aer.ad 05/31/21 Unknown Rx Albuterol Mdi (or & Nicu Only) 2 puff IH QID PRN #1 inha 06/08/21 Unknown Rx [ProAir HFA Inhaler] atenoloL [Tenormin] 50 mg PO DAILY #30 tab 06/08/21 Unknown Rx Acetaminophen [Acetaminophen TAB] 500 mg PO Q6HR PRN #20 tablet 08/03/21 Unknown Rx Naproxen [Naprosyn TAB] 500 mg PO BID #20 tablet 08/03/21 Unknown Rx Ibuprofen [Motrin 800 MG tab] 800 mg PO Q8HR PRN #20 tablet 08/30/21 Unknown Rx methylPREDNISolone [Medrol 4MG 4 mg PO DAILY #1 pack 09/26/21 Unknown Rx DOSEPAK (21 tabs)] Allergies Allergy/AdvReac Type Severity Reaction Status Date / Time No Known Allergies Allergy Verified 08/24/21 01:21 ED Review of Systems ROS: Stated complaint: PAIN IN FOOT AND LEG Other details as noted in HPI Comment: All other systems reviewed and negative Constitutional: no symptoms reported Eyes: denies: eye pain ENT: denies: ear pain Respiratory: denies: cough, shortness of breath Cardiovascular: denies: chest pain, palpitations, dyspnea on exertion Endocrine: no symptoms reported Gastrointestinal: denies: abdominal pain, nausea, vomiting Genitourinary: denies: urgency, dysuria, frequency Musculoskeletal: denies: back pain Skin: denies: rash, lesions Neurological: denies: headache, weakness, numbness, paresthesias ED Past Medical Hx - Past Medical History Hx Hypertension: Yes Hx Arthritis: Yes Hx Psychiatric Treatment: Yes (Schizophrenia) Hx Asthma: Yes (bronchitis) Additional medical history: gout - Surgical History Additional Surgical History: "TUMORS REMOVED IN STOMACH" - Social History Smoking Status: Never Smoker - Medications Home Medications: Home Medications Medication Instructions Recorded Confirmed Last Taken Type atenoloL [Tenormin] 50 mg PO DAILY #30 tablet 11/17/16 Unknown Rx predniSONE [Deltasone] 50 mg PO QDAY #5 tab 03/16/17 Unknown Rx Phenylephrine/Dm/Acetaminop/GG 10 ml PO Q4H PRN #1 liquid 04/03/17 Unknown Rx [Mucinex Lkzk-Wrz-Umzkshivwu Lq] Prednisone [predniSONE 10 mg 10 mg PO .TAPER #1 tab.ds.pk 04/03/17 Unknown Rx (6-Day Pack, 21 Tabs)] Ibuprofen [Motrin] 800 mg PO Q8HR PRN #30 tablet 08/26/17 Unknown Rx ALBUTEROL NEB's [Proventil 0.083% 1 puff IH Q4H PRN #1 box 09/26/17 Unknown Rx NEBS] Albuterol Sulfate [Ventolin Hfa] 1 puff IH Q4H PRN #1 hfa.aer.ad 09/26/17 Unknown Rx Dextromethorphan Hb/Doxylamine 10 ml PO Q6H PRN #1 liquid 09/26/17 Unknown Rx [Safetussin Pm Liquid] Nebulizer Accessories [Sootheneb 1 each MC Q4H PRN #1 each 09/26/17 Unknown Rx [id number] Adult Mask] Nebulizer [Compact Compressor 1 each MC Q4H PRN #1 each 09/26/17 Unknown Rx Nebulizer] predniSONE [Deltasone] 40 mg PO QDAY #10 tab 09/26/17 Unknown Rx Albuterol Sulfate [Ventolin Hfa] 1 puff IH Q4H PRN #1 hfa.aer.ad 03/02/18 Unknown Rx Prednisone [predniSONE 10 mg 10 mg PO .TAPER #1 tab.ds.pk 03/02/18 Unknown Rx (6-Day Pack, 21 Tabs)] Albuterol Mdi (or & Nicu Only) 2 puff IH QID PRN #1 inhalation 05/19/19 Unknown Rx [ProAir HFA Inhaler] amLODIPine 5 mg PO DAILY #30 tab 05/19/19 Unknown Rx hydroCHLOROthiazide [HCTZ] 25 mg PO QDAY #30 tablet 05/19/19 Unknown Rx Capsaicin 0.075% [Zostrix Hp 1 applicatio TP TID PRN #1 tube 04/08/20 Unknown Rx 0.075%] Menthol/Camphor [[place] [employer] 1 gm PO QID PRN #1 tube 04/11/20 Unknown Rx Ointment] Albuterol Sulfate [Proventil Hfa] 2 puff IH Q4HR PRN #1 hfa.aer.ad 05/31/21 Unknown Rx Albuterol Mdi (or & Nicu Only) 2 puff IH QID PRN #1 inha 06/08/21 Unknown Rx [ProAir HFA Inhaler] atenoloL [Tenormin] 50 mg PO DAILY #30 tab 06/08/21 Unknown Rx Acetaminophen [Acetaminophen TAB] 500 mg PO Q6HR PRN #20 tablet 08/03/21 Unknown Rx Naproxen [Naprosyn TAB] 500 mg PO BID #20 tablet 08/03/21 Unknown Rx Ibuprofen [Motrin 800 MG tab] 800 mg PO Q8HR PRN #20 tablet 08/30/21 Unknown Rx methylPREDNISolone [Medrol 4MG 4 mg PO DAILY #1 pack 09/26/21 Unknown Rx DOSEPAK (21 tabs)] ED Physical Exam - General Limitations: No Limitations General appearance: alert, in no apparent distress - Head Head exam: Present: atraumatic, normocephalic - Eye Eye exam: Present: normal appearance. Absent: conjunctival injection - Neck Neck exam: Present: normal inspection - Respiratory Respiratory exam: Absent: respiratory distress - Cardiovascular Cardiovascular Exam: Present: regular rate - GI/Abdominal GI/Abdominal exam: Absent: distended - Expanded Lower Extremity Exam Right Foot/Toe exam: Present: tenderness (To entire foot and ankle), swelling (To ankle only). Absent: full ROM, deformity, dislocation, erythema, calcaneal tenderness, tenderness at base of 5th metatarsal Neuro vascular tendon exam: Absent: no vascular compromise, pulse deficit Gait: Positive: observed and normal - Back Exam Back exam: Present: normal inspection - Neurological Exam Neurological exam: Present: alert, oriented X3 - Psychiatric Psychiatric exam: Present: normal affect, normal mood - Skin Skin exam: Present: warm, dry, normal color ED Course Vital Signs 09/26/21 09/26/21 09/27/21 22:53 22:55 01:30 Temperature 98.4 F 98.4 F Pulse Rate 68 Respiratory 20 20 14 Rate Blood Pressure 149/75 149/75 O2 Sat by Pulse 95 Oximetry ED Medical Decision Making - Radiology Data Radiology results: report reviewed Right foot x-ray without any acute findings. Noted to have arthritis. - Medical Decision Making 51-year-old female presents to the emergency department for evaluation of few day history of right foot pain. She denies injury. She states that pain is an achy pain that is 9 out of 10 at its worse. Right foot x-ray without acute abnormalities, but noted to have arthritis. Patient was treated with one-time dose of steroids and anti-inflammatory in the ER and sent home with a prescription for Medrol Dosepak along with anti- inflammatories to use over the next few days. She was advised to follow-up with her primary care provider if no improvement or worsening symptoms. Critical care attestation.: If time is entered above; I have spent that time in minutes in the direct care of this critically ill patient, excluding procedure time. ED Disposition Clinical Impression: Right foot pain Disposition: HOME / SELF CARE / HOMELESS Is pt being admited?: No Does the pt Need Aspirin: No Condition: Stable Instructions: Arthritis, Pzin-cd-Fxmz, Foot Pain Additional Instructions: Take medications as prescribed follow-up with primary care provider. Prescriptions: methylPREDNISolone [Medrol 4MG DOSEPAK (21 tabs)] 4 mg PO DAILY #1 pack Referrals: PRIMARY CARE, [Primary Care Provider] - 3-5 Days Time of Disposition: 23:31
[2021-09-27] MEDS ORDERED: KETOROLAC 10 MG TAB PO ONE (02:00)
== END 2021-09-27 01:48 | disposition home or self-care (01) ==
LOC: ED 20:50
DX: M79.671 Pain in right foot (principal); I10 Essential (primary) hypertension; M19.90 Unspecified osteoarthritis, unspecified site; F20.9 Schizophrenia, unspecified; J45.909 Unspecified asthma, uncomplicated; Z98.890 Other specified postprocedural states
CPT/HCPCS: 99283

== ENCOUNTER 2021-09-29 00:40 | Emergency (ER) | payer MEDICARE ==
[2021-09-29 04:20] VITALS: BP 183/96
== END 2021-09-30 08:44 | disposition left against medical advice (07) ==
LOC: ED 00:40
DX: Z53.21 Procedure and treatment not carried out due to patient leaving prior to being seen by health care provider (principal)

== ENCOUNTER 2021-09-29 20:59 | Emergency (ER) | payer MEDICARE ==
[2021-09-30 04:20] VITALS: BP 175/86
== END 2021-09-30 08:59 | disposition left against medical advice (07) ==
LOC: ED 20:59
DX: M25.579 Pain in unspecified ankle and joints of unspecified foot (principal); Z53.21 Procedure and treatment not carried out due to patient leaving prior to being seen by health care provider

== ENCOUNTER 2021-09-30 22:10 | Emergency (ER) | payer MEDICARE | END 2021-10-01 05:25 | disposition left against medical advice (07) | LOC: ED 22:10 | DX: M25.571 Pain in right ankle and joints of right foot (principal); M25.572 Pain in left ankle and joints of left foot; Z53.21 Procedure and treatment not carried out due to patient leaving prior to being seen by health care provider ==

== ENCOUNTER 2021-10-01 03:52 | Emergency (ER) | payer MEDICARE | END 2021-10-01 05:05 | disposition left against medical advice (07) | LOC: ED 03:52 | DX: M25.579 Pain in unspecified ankle and joints of unspecified foot (principal); Z53.21 Procedure and treatment not carried out due to patient leaving prior to being seen by health care provider ==

== ENCOUNTER 2021-10-02 01:37 | Emergency (ER) | payer MEDICARE ==
[2021-10-02 04:19] VITALS: BP 162/83
--- NOTE | 2021-10-02 05:13 | Emergency Department Report ---
ED Lower Extremity HPI - General Chief Complaint: Extremity Injury, Lower Stated Complaint: SWOLLEN ANKLE Time Seen by Provider: 10/02/21 04:59 Source: patient Mode of arrival: Ambulatory Limitations: No Limitations - History of Present Illness Initial Comments: Patient 51-year-old female who presents for right foot pain x1 week. Patient denies fall injury or trauma. Patient denies history of gout or other arthritis. There is no fevers no chills no nausea no vomiting. Patient remains amatory to baseline per patient patient advises pain is 4/10 exacerbated by weightbearing. pt seen for same complaint 1 week ago for same, xray noted for arthralgia, tx'd wiht nsaids. pt states nonadherent with medication regimen. MD Complaint: foot injury - Related Data Previous Rx's Medication Instructions Recorded Last Taken Type atenoloL [Tenormin] 50 mg PO DAILY #30 tablet 11/17/16 Unknown Rx predniSONE [Deltasone] 50 mg PO QDAY #5 tab 03/16/17 Unknown Rx Phenylephrine/Dm/Acetaminop/GG 10 ml PO Q4H PRN #1 liquid 04/03/17 Unknown Rx [Mucinex Zkoz-Fdy-Nhnecwoxja Lq] Prednisone [predniSONE 10 mg 10 mg PO .TAPER #1 tab.ds.pk 04/03/17 Unknown Rx (6-Day Pack, 21 Tabs)] Ibuprofen [Motrin] 800 mg PO Q8HR PRN #30 tablet 08/26/17 Unknown Rx ALBUTEROL NEB's [Proventil 0.083% 1 puff IH Q4H PRN #1 box 09/26/17 Unknown Rx NEBS] Albuterol Sulfate [Ventolin Hfa] 1 puff IH Q4H PRN #1 hfa.aer.ad 09/26/17 Unknown Rx Dextromethorphan Hb/Doxylamine 10 ml PO Q6H PRN #1 liquid 09/26/17 Unknown Rx [Safetussin Pm Liquid] Nebulizer Accessories [Sootheneb 1 each MC Q4H PRN #1 each 09/26/17 Unknown Rx [id number] Adult Mask] Nebulizer [Compact Compressor 1 each MC Q4H PRN #1 each 09/26/17 Unknown Rx Nebulizer] predniSONE [Deltasone] 40 mg PO QDAY #10 tab 09/26/17 Unknown Rx Albuterol Sulfate [Ventolin Hfa] 1 puff IH Q4H PRN #1 hfa.aer.ad 03/02/18 Unknown Rx Prednisone [predniSONE 10 mg 10 mg PO .TAPER #1 tab.ds.pk 03/02/18 Unknown Rx (6-Day Pack, 21 Tabs)] Albuterol Mdi (or & Nicu Only) 2 puff IH QID PRN #1 inhalation 05/19/19 Unknown Rx [ProAir HFA Inhaler] amLODIPine 5 mg PO DAILY #30 tab 05/19/19 Unknown Rx hydroCHLOROthiazide [HCTZ] 25 mg PO QDAY #30 tablet 05/19/19 Unknown Rx Capsaicin 0.075% [Zostrix Hp 1 applicatio TP TID PRN #1 tube 04/08/20 Unknown Rx 0.075%] Menthol/Camphor [[place] 1 gm PO QID PRN #1 tube 04/11/20 Unknown Rx Ointment] Albuterol Sulfate [Proventil Hfa] 2 puff IH Q4HR PRN #1 hfa.aer.ad 05/31/21 Unknown Rx Albuterol Mdi (or & Nicu Only) 2 puff IH QID PRN #1 inha 06/08/21 Unknown Rx [ProAir HFA Inhaler] atenoloL [Tenormin] 50 mg PO DAILY #30 tab 06/08/21 Unknown Rx Acetaminophen [Acetaminophen TAB] 500 mg PO Q6HR PRN #20 tablet 08/03/21 Unknown Rx Naproxen [Naprosyn TAB] 500 mg PO BID #20 tablet 08/03/21 Unknown Rx Ibuprofen [Motrin 800 MG tab] 800 mg PO Q8HR PRN #20 tablet 08/30/21 Unknown Rx methylPREDNISolone [Medrol 4MG 4 mg PO DAILY #1 pack 09/26/21 Unknown Rx DOSEPAK (21 tabs)] Naproxen 500 mg PO BID PRN #30 10/02/21 Unknown Rx Allergies Allergy/AdvReac Type Severity Reaction Status Date / Time No Known Allergies Allergy Verified 08/24/21 01:21 ED Review of Systems ROS: Stated complaint: SWOLLEN ANKLE Other details as noted in HPI Constitutional: denies: chills, fever Eyes: denies: eye pain, eye discharge, vision change ENT: denies: ear pain, throat pain Respiratory: denies: cough, shortness of breath, wheezing Cardiovascular: denies: chest pain, palpitations Endocrine: no symptoms reported Gastrointestinal: denies: abdominal pain, nausea, diarrhea Genitourinary: denies: urgency, dysuria, discharge Musculoskeletal: arthralgia, other (Right foot pain) Skin: denies: rash, lesions Neurological: confusion. denies: headache, weakness, numbness, paresthesias Psychiatric: denies: anxiety, depression Hematological/Lymphatic: denies: easy bleeding, easy bruising ED Past Medical Hx - Past Medical History Previous Medical History?: Yes Hx Hypertension: Yes Hx Arthritis: Yes Hx Psychiatric Treatment: Yes (Schizophrenia) Hx Asthma: Yes (bronchitis) Additional medical history: gout - Surgical History Past Surgical History?: Yes Additional Surgical History: "TUMORS REMOVED IN STOMACH" - Social History Smoking Status: Never Smoker - Medications Home Medications: Home Medications Medication Instructions Recorded Confirmed Last Taken Type atenoloL [Tenormin] 50 mg PO DAILY #30 tablet 11/17/16 Unknown Rx predniSONE [Deltasone] 50 mg PO QDAY #5 tab 03/16/17 Unknown Rx Phenylephrine/Dm/Acetaminop/GG 10 ml PO Q4H PRN #1 liquid 04/03/17 Unknown Rx [Mucinex Txzx-Oiy-Fbilmflqjr Lq] Prednisone [predniSONE 10 mg 10 mg PO .TAPER #1 tab.ds.pk 04/03/17 Unknown Rx (6-Day Pack, 21 Tabs)] Ibuprofen [Motrin] 800 mg PO Q8HR PRN #30 tablet 08/26/17 Unknown Rx ALBUTEROL NEB's [Proventil 0.083% 1 puff IH Q4H PRN #1 box 09/26/17 Unknown Rx NEBS] Albuterol Sulfate [Ventolin Hfa] 1 puff IH Q4H PRN #1 hfa.aer.ad 09/26/17 Unknown Rx Dextromethorphan Hb/Doxylamine 10 ml PO Q6H PRN #1 liquid 09/26/17 Unknown Rx [Safetussin Pm Liquid] Nebulizer Accessories [Sootheneb 1 each MC Q4H PRN #1 each 09/26/17 Unknown Rx [id number] Adult Mask] Nebulizer [Compact Compressor 1 each MC Q4H PRN #1 each 09/26/17 Unknown Rx Nebulizer] predniSONE [Deltasone] 40 mg PO QDAY #10 tab 09/26/17 Unknown Rx Albuterol Sulfate [Ventolin Hfa] 1 puff IH Q4H PRN #1 hfa.aer.ad 03/02/18 Unknown Rx Prednisone [predniSONE 10 mg 10 mg PO .TAPER #1 tab.ds.pk 03/02/18 Unknown Rx (6-Day Pack, 21 Tabs)] Albuterol Mdi (or & Nicu Only) 2 puff IH QID PRN #1 inhalation 05/19/19 Unknown Rx [ProAir HFA Inhaler] amLODIPine 5 mg PO DAILY #30 tab 05/19/19 Unknown Rx hydroCHLOROthiazide [HCTZ] 25 mg PO QDAY #30 tablet 05/19/19 Unknown Rx Capsaicin 0.075% [Zostrix Hp 1 applicatio TP TID PRN #1 tube 04/08/20 Unknown Rx 0.075%] Menthol/Camphor [[place] 1 gm PO QID PRN #1 tube 04/11/20 Unknown Rx Ointment] Albuterol Sulfate [Proventil Hfa] 2 puff IH Q4HR PRN #1 hfa.aer.ad 05/31/21 Unknown Rx Albuterol Mdi (or & Nicu Only) 2 puff IH QID PRN #1 inha 06/08/21 Unknown Rx [ProAir HFA Inhaler] atenoloL [Tenormin] 50 mg PO DAILY #30 tab 06/08/21 Unknown Rx Acetaminophen [Acetaminophen TAB] 500 mg PO Q6HR PRN #20 tablet 08/03/21 Unknown Rx Naproxen [Naprosyn TAB] 500 mg PO BID #20 tablet 08/03/21 Unknown Rx Ibuprofen [Motrin 800 MG tab] 800 mg PO Q8HR PRN #20 tablet 08/30/21 Unknown Rx methylPREDNISolone [Medrol 4MG 4 mg PO DAILY #1 pack 09/26/21 Unknown Rx DOSEPAK (21 tabs)] Naproxen 500 mg PO BID PRN #30 10/02/21 Unknown Rx ED Physical Exam - General Limitations: No Limitations General appearance: alert, in no apparent distress - Head Head exam: Present: normocephalic, normal inspection - Eye Eye exam: Present: normal appearance, EOMI Pupils: Present: normal accommodation - ENT ENT exam: Present: mucous membranes moist - Neck Neck exam: Present: normal inspection, full ROM. Absent: tenderness - Respiratory Respiratory exam: Present: normal lung sounds bilaterally. Absent: respiratory distress, wheezes, stridor - Cardiovascular Cardiovascular Exam: Present: regular rate, normal rhythm, normal heart sounds. Absent: systolic murmur, diastolic murmur, rubs, gallop - GI/Abdominal GI/Abdominal exam: Present: soft, normal bowel sounds - Rectal Rectal exam: Present: deferred - Extremities Exam Extremities exam: Present: full ROM, normal capillary refill - Expanded Lower Extremity Exam Right Ankle exam: Present: full ROM. Absent: tenderness, swelling Foot/Toe exam: Present: tenderness. Absent: swelling, abrasion, laceration, ecchymosis, deformity, crepidus, dislocation, erythema, calcaneal tenderness, tenderness at base of 5th metatarsal Neuro vascular tendon exam: Absent: pulse deficit, motor deficit, sensory deficit, tendon deficit Gait: Positive: observed and normal - Back Exam Back exam: Present: normal inspection, full ROM. Absent: tenderness - Neurological Exam Neurological exam: Present: alert, oriented X3, CN II-XII intact, normal gait, reflexes normal. Absent: motor sensory deficit - Expanded Neurological Exam Expanded Patient oriented to: Present: person, place, time Speech: Present: fluid speech Motor strength exam: RLE: 5, LLE: 5 DTR: ankle (R): 1+, ankle (L): 1+ Best Eye Response ([place]): (4) open spontaneously Best Motor Response ([place]): (6) obeys commands Best Verbal Response ([place]): (5) oriented [place] Total: 15 - Psychiatric Psychiatric exam: Present: normal affect, normal mood - Skin Skin exam: Present: warm, dry, intact, normal color. Absent: rash ED Course Vital Signs 10/02/21 04:19 Temperature 98.2 F Pulse Rate 81 Respiratory 20 Rate Blood Pressure 162/83 [Right] O2 Sat by Pulse 98 Oximetry ED Lower Extremity MDM - Radiology Data Radiology results: report reviewed, image reviewed RIGHT FOOT 3 VIEW(S) INDICATION / CLINICAL INFORMATION: foot pain COMPARISON: None available. FINDINGS: BONES / JOINT(S): No acute fracture or subluxation. Moderate loss of interphalangeal joint space multiple toes most noticeably the third toe. SOFT TISSUES: No significant abnormality. ADDITIONAL FINDINGS: None. IMPRESSION: 1. No acute osseous findings. Arthritic changes as detailed. Signer Name: George Birmingham II, MD Signed: 09/26/2021 11:17 PM Workstation Name: [id number] Transcribed By: JAY Dictated By: GEORGE BIRMINGHAM II, MD Electronically Authenticated By: GEORGE BIRMINGHAM II, MD Signed Date/Time: 09/26/212316 DD/ 14 TD/TT: - Medical Decision Making Foot x-ray 1 week ago no fracture no subluxation no dislocation noted degenerative arthritic changes, plan DC home. Take NSAIDs as needed pain. Follow-up with your doctor in 2 to 3 days. Return to emergency department should symptoms worsen. Patient verbalized agreement and understanding with discharge plan. Patient DC'd home in stable condition at this time. Critical care attestation.: If time is entered above; I have spent that time in minutes in the direct care of this critically ill patient, excluding procedure time. ED Disposition Clinical Impression: Foot pain, right, Arthritis Disposition: 01 HOME / SELF CARE / HOMELESS Is pt being admited?: No Does the pt Need Aspirin: No Condition: Stable Instructions: Arthritis, Hzqe-mw-Haqo, Foot Pain Additional Instructions: Take medications as prescribed, follow-up with your doctor in 2 to 3 days. Return to emergency department should symptoms worsen. Prescriptions: Naproxen 500 mg PO BID PRN #30 PRN Reason: Pain Referrals: POLY SALINAS DPM [Staff Physician] - 3-5 Days Forms: Work/School Release Form(ED) Time of Disposition: 05:26
== END 2021-10-02 06:12 | disposition home or self-care (01) ==
LOC: ED 01:37
DX: M19.90 Unspecified osteoarthritis, unspecified site (principal); M79.671 Pain in right foot; I10 Essential (primary) hypertension; F20.9 Schizophrenia, unspecified; J45.909 Unspecified asthma, uncomplicated; Z79.899 Other long term (current) drug therapy
CPT/HCPCS: 99282

== ENCOUNTER 2021-10-02 22:01 | Emergency (ER) | payer MEDICARE | END 2021-10-03 06:46 | disposition left against medical advice (07) | LOC: ED 22:01 | DX: M79.89 Other specified soft tissue disorders (principal); Z53.21 Procedure and treatment not carried out due to patient leaving prior to being seen by health care provider ==

== ENCOUNTER 2021-10-03 07:33 | Emergency (ER) | payer MEDICARE ==
[2021-10-03 08:04] VITALS: BP 150/84
== END 2021-10-03 20:41 | disposition left against medical advice (07) ==
LOC: ED 07:33
DX: R06.02 Shortness of breath (principal); Z53.21 Procedure and treatment not carried out due to patient leaving prior to being seen by health care provider

== ENCOUNTER 2021-10-06 07:19 | Emergency (ER) | payer MEDICARE ==
[2021-10-06 07:59] VITALS: BP 188/86
--- NOTE | 2021-10-06 10:59 | Emergency Department Report ---
ED General Adult HPI - General Chief complaint: Extremity Problem,Nontraumatic Stated complaint: LEFT LEG PAIN Time Seen by Provider: 10/06/21 10:49 Source: patient Mode of arrival: Ambulatory Limitations: No Limitations - History of Present Illness Initial comments: 51-year-old -[place] female patient presents with complaints of right foot pain. Patient was seen here 10/02 and 09/26 for the same complaint. Patient is well-known to this ED and has been evaluated many times for leg and foot pain over the past few months. She denies any new injuries, fever/chills/sweats, skin changes,or numbness/tingling/weakness in her foot. No history of cancer per patient. Patient states the naproxen prescribed at last visit helped some. She states the ankle pain typically occurs when it rains and it swells somewhat. Patient reports her symptoms have been reoccurring for the past 3 to 4 months. She has not follow-up with a artist suspect or patient account specialist - Related Data Previous Rx's Medication Instructions Recorded Last Taken Type atenoloL [Tenormin] 50 mg PO DAILY #30 tablet 11/17/16 Unknown Rx predniSONE [Deltasone] 50 mg PO QDAY #5 tab 03/16/17 Unknown Rx Phenylephrine/Dm/Acetaminop/GG 10 ml PO Q4H PRN #1 liquid 04/03/17 Unknown Rx [Mucinex Klzq-Ojp-Xudfxaoxfc Lq] Prednisone [predniSONE 10 mg 10 mg PO .TAPER #1 tab.ds.pk 04/03/17 Unknown Rx (6-Day Pack, 21 Tabs)] Ibuprofen [Motrin] 800 mg PO Q8HR PRN #30 tablet 08/26/17 Unknown Rx ALBUTEROL NEB's [Proventil 0.083% 1 puff IH Q4H PRN #1 box 09/26/17 Unknown Rx NEBS] Albuterol Sulfate [Ventolin Hfa] 1 puff IH Q4H PRN #1 hfa.aer.ad 09/26/17 Unknown Rx Dextromethorphan Hb/Doxylamine 10 ml PO Q6H PRN #1 liquid 09/26/17 Unknown Rx [Safetussin Pm Liquid] Nebulizer Accessories [Sootheneb 1 each MC Q4H PRN #1 each 09/26/17 Unknown Rx [id number] Adult Mask] Nebulizer [Compact Compressor 1 each MC Q4H PRN #1 each 09/26/17 Unknown Rx Nebulizer] predniSONE [Deltasone] 40 mg PO QDAY #10 tab 09/26/17 Unknown Rx Albuterol Sulfate [Ventolin Hfa] 1 puff IH Q4H PRN #1 hfa.aer.ad 03/02/18 Unknown Rx Prednisone [predniSONE 10 mg 10 mg PO .TAPER #1 tab.ds.pk 03/02/18 Unknown Rx (6-Day Pack, 21 Tabs)] Albuterol Mdi (or & Nicu Only) 2 puff IH QID PRN #1 inhalation 05/19/19 Unknown Rx [ProAir HFA Inhaler] amLODIPine 5 mg PO DAILY #30 tab 05/19/19 Unknown Rx hydroCHLOROthiazide [HCTZ] 25 mg PO QDAY #30 tablet 05/19/19 Unknown Rx Capsaicin 0.075% [Zostrix Hp 1 applicatio TP TID PRN #1 tube 04/08/20 Unknown Rx 0.075%] Menthol/Camphor [Granby Rhodes 1 gm PO QID PRN #1 tube 04/11/20 Unknown Rx Ointment] Albuterol Sulfate [Proventil Hfa] 2 puff IH Q4HR PRN #1 hfa.aer.ad 05/31/21 Unknown Rx Albuterol Mdi (or & Nicu Only) 2 puff IH QID PRN #1 inha 06/08/21 Unknown Rx [ProAir HFA Inhaler] atenoloL [Tenormin] 50 mg PO DAILY #30 tab 06/08/21 Unknown Rx Acetaminophen [Acetaminophen TAB] 500 mg PO Q6HR PRN #20 tablet 08/03/21 Unknown Rx Naproxen [Naprosyn TAB] 500 mg PO BID #20 tablet 08/03/21 Unknown Rx Ibuprofen [Motrin 800 MG tab] 800 mg PO Q8HR PRN #20 tablet 08/30/21 Unknown Rx methylPREDNISolone [Medrol 4MG 4 mg PO DAILY #1 pack 09/26/21 Unknown Rx DOSEPAK (21 tabs)] Naproxen 500 mg PO BID PRN #30 10/02/21 Unknown Rx Meloxicam [Mobic] 15 mg PO QDAY PRN #15 tab 10/06/21 Unknown Rx Allergies Allergy/AdvReac Type Severity Reaction Status Date / Time No Known Allergies Allergy Verified 08/24/21 01:21 ED Review of Systems ROS: Stated complaint: LEFT LEG PAIN Other details as noted in HPI Constitutional: denies: chills, fever, malaise ENT: denies: throat pain Respiratory: denies: cough, shortness of breath Cardiovascular: denies: chest pain Musculoskeletal: joint swelling, arthralgia Neurological: denies: headache, numbness, paresthesias Hematological/Lymphatic: denies: swollen glands ED Past Medical Hx - Past Medical History Hx Hypertension: Yes Hx Arthritis: Yes Hx Psychiatric Treatment: Yes (Schizophrenia) Hx Asthma: Yes (bronchitis) Additional medical history: gout - Surgical History Additional Surgical History: "TUMORS REMOVED IN STOMACH" - Social History Smoking Status: Never Smoker - Medications Home Medications: Home Medications Medication Instructions Recorded Confirmed Last Taken Type atenoloL [Tenormin] 50 mg PO DAILY #30 tablet 11/17/16 Unknown Rx predniSONE [Deltasone] 50 mg PO QDAY #5 tab 03/16/17 Unknown Rx Phenylephrine/Dm/Acetaminop/GG 10 ml PO Q4H PRN #1 liquid 04/03/17 Unknown Rx [Mucinex Pxye-Jdy-Bvtmnfyrnz Lq] Prednisone [predniSONE 10 mg 10 mg PO .TAPER #1 tab.ds.pk 04/03/17 Unknown Rx (6-Day Pack, 21 Tabs)] Ibuprofen [Motrin] 800 mg PO Q8HR PRN #30 tablet 08/26/17 Unknown Rx ALBUTEROL NEB's [Proventil 0.083% 1 puff IH Q4H PRN #1 box 09/26/17 Unknown Rx NEBS] Albuterol Sulfate [Ventolin Hfa] 1 puff IH Q4H PRN #1 hfa.aer.ad 09/26/17 Unknown Rx Dextromethorphan Hb/Doxylamine 10 ml PO Q6H PRN #1 liquid 09/26/17 Unknown Rx [Safetussin Pm Liquid] Nebulizer Accessories [Sootheneb 1 each MC Q4H PRN #1 each 09/26/17 Unknown Rx [id number] Adult Mask] Nebulizer [Compact Compressor 1 each MC Q4H PRN #1 each 09/26/17 Unknown Rx Nebulizer] predniSONE [Deltasone] 40 mg PO QDAY #10 tab 09/26/17 Unknown Rx Albuterol Sulfate [Ventolin Hfa] 1 puff IH Q4H PRN #1 hfa.aer.ad 03/02/18 Unknown Rx Prednisone [predniSONE 10 mg 10 mg PO .TAPER #1 tab.ds.pk 03/02/18 Unknown Rx (6-Day Pack, 21 Tabs)] Albuterol Mdi (or & Nicu Only) 2 puff IH QID PRN #1 inhalation 05/19/19 Unknown Rx [ProAir HFA Inhaler] amLODIPine 5 mg PO DAILY #30 tab 05/19/19 Unknown Rx hydroCHLOROthiazide [HCTZ] 25 mg PO QDAY #30 tablet 05/19/19 Unknown Rx Capsaicin 0.075% [Zostrix Hp 1 applicatio TP TID PRN #1 tube 04/08/20 Unknown Rx 0.075%] Menthol/Camphor [Granby Rhodes 1 gm PO QID PRN #1 tube 04/11/20 Unknown Rx Ointment] Albuterol Sulfate [Proventil Hfa] 2 puff IH Q4HR PRN #1 hfa.aer.ad 05/31/21 Unknown Rx Albuterol Mdi (or & Nicu Only) 2 puff IH QID PRN #1 inha 06/08/21 Unknown Rx [ProAir HFA Inhaler] atenoloL [Tenormin] 50 mg PO DAILY #30 tab 06/08/21 Unknown Rx Acetaminophen [Acetaminophen TAB] 500 mg PO Q6HR PRN #20 tablet 08/03/21 Unknown Rx Naproxen [Naprosyn TAB] 500 mg PO BID #20 tablet 08/03/21 Unknown Rx Ibuprofen [Motrin 800 MG tab] 800 mg PO Q8HR PRN #20 tablet 08/30/21 Unknown Rx methylPREDNISolone [Medrol 4MG 4 mg PO DAILY #1 pack 09/26/21 Unknown Rx DOSEPAK (21 tabs)] Naproxen 500 mg PO BID PRN #30 10/02/21 Unknown Rx Meloxicam [Mobic] 15 mg PO QDAY PRN #15 tab 10/06/21 Unknown Rx ED Physical Exam - General Limitations: No Limitations General appearance: alert, in no apparent distress, obese, other (Patient presents and [facility]/psych scrubs) - Head Head exam: Present: atraumatic, normocephalic - Eye Eye exam: Present: normal appearance. Absent: scleral icterus - Respiratory Respiratory exam: Absent: respiratory distress - Cardiovascular Cardiovascular Exam: Present: regular rate - Extremities Exam Extremities exam: Present: other (Minimal swelling noted to right lateral ankle without erythema, warmth, or bruising noted; pedal pulses normal; mild tenderness to palpation noted; normal sensation and range of motion of the ankle noted) - Neurological Exam Neurological exam: Present: alert, oriented X3 - Psychiatric Psychiatric exam: Present: normal affect, normal mood - Skin Skin exam: Present: warm, dry, intact, normal color. Absent: rash ED Course Vital Signs 10/06/21 07:56 Temperature 98 F Pulse Rate 78 Respiratory 16 Rate Blood Pressure 188/86 [Left] O2 Sat by Pulse 96 Oximetry ED Medical Decision Making - Medical Decision Making 51-year-old -[place] female patient presents with complaints of right foot pain. Patient was seen here 10/02 and 09/26 for the same complaint. Patient is well-known to this ED and has been evaluated many times for leg and foot pain over the past few months. She denies any new injuries, fever/chills/sweats, skin changes,or numbness/tingling/weakness in her foot. No history of cancer per patient. Patient states the naproxen prescribed at last visit helped some. She states the ankle pain typically occurs when it rains and it swells somewhat. Patient reports her symptoms have been reoccurring for the past 3 to 4 months. She has not follow-up with a artist suspect or orthopedic spe cialist X-ray performed on 09/26/2020 is negative for any acute abnormalities. No signs of infection are noted. Heart rate and temp are normal. Recommend patient follows up with patient account specialist for further evaluation and treatment within 1 to 2 weeks. Will treat with rice method for now and NSAIDs. She is well-appearing and stable for discharge home. Discussed plan of care and signs and symptoms that should prompt immediate return to the ED with patient verbalizes understanding Critical care attestation.: If time is entered above; I have spent that time in minutes in the direct care of this critically ill patient, excluding procedure time. ED Disposition Clinical Impression: Right ankle pain Disposition: HOME / SELF CARE / HOMELESS Is pt being admited?: No Condition: Stable Instructions: Arthritis, [id number] Prescriptions: Meloxicam [Mobic] 15 mg PO QDAY PRN #15 tab PRN Reason: pain Referrals: [facility] [Provider Group] - 3-5 Days JENNIFER HI MD [Staff Physician] - 3-5 Days
[2021-10-06] MEDS ORDERED: IBUPROFEN 800 MG TAB PO STA (11:04)
== END 2021-10-06 11:25 | disposition home or self-care (01) ==
LOC: ED 07:19
DX: M79.671 Pain in right foot (principal); I10 Essential (primary) hypertension; M19.90 Unspecified osteoarthritis, unspecified site; F20.9 Schizophrenia, unspecified; J45.909 Unspecified asthma, uncomplicated
CPT/HCPCS: 99282

== ENCOUNTER 2021-10-06 21:23 | Emergency (ER) | payer MEDICARE ==
[2021-10-07 04:36] VITALS: BP 141/79
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
== END 2021-10-07 07:48 | disposition home or self-care (01) ==
LOC: ED 21:23
DX: M54.50 Low back pain, unspecified (principal); G89.29 Other chronic pain; Z59.00 Homelessness unspecified; Z76.5 Malingerer [conscious simulation]
CPT/HCPCS: 99282

== ENCOUNTER 2021-10-08 07:45 | Emergency (ER) | payer MEDICARE ==
[2021-10-08 08:19] VITALS: BP 154/88
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
== END 2021-10-08 20:41 | disposition home or self-care (01) ==
LOC: ED 07:45
DX: G89.29 Other chronic pain (principal); R51.9 Headache, unspecified; Z76.0 Encounter for issue of repeat prescription; I10 Essential (primary) hypertension; J45.909 Unspecified asthma, uncomplicated
CPT/HCPCS: 99282

== ENCOUNTER 2021-10-09 00:19 | Emergency (ER) | payer MEDICARE | END 2021-10-09 04:59 | disposition left against medical advice (07) | LOC: ED 00:19 | DX: Z00.00 Encounter for general adult medical examination without abnormal findings (principal); Z53.21 Procedure and treatment not carried out due to patient leaving prior to being seen by health care provider ==

== ENCOUNTER 2021-10-09 07:41 | Emergency (ER) | payer MEDICARE ==
[2021-10-09 07:47] VITALS: BP 197/91
--- NOTE | 2021-10-09 08:25 | Emergency Department Report ---
ED General Adult HPI - General Chief complaint: Pain General Stated complaint: body aches Time Seen by Provider: 10/09/21 08:17 Source: patient Mode of arrival: Ambulatory Limitations: No Limitations - History of Present Illness Initial comments: Patient presents secondary to pain all over. Patient tells me that she is hurting all over. She states that she is homeless and has to move around too much. She states that she cannot sit still and rest in any 1 place. She cannot stay here and rest. She states that she has tried shoulders. She states that she just needs some place to go. She is complaining of muscle pain everywhere. She states that her arms hurt. Her legs hurt. Her back hurts. She states that she is just sore from moving around too much. She has no fevers or chills. There is no cough or congestion. There is no vomiting. This has been an ongoing and chronic issue for her. Severity scale (0 -10): 0 - Related Data Previous Rx's Medication Instructions Recorded Last Taken Type ALBUTEROL NEB's [Proventil 0.083% 1 puff IH Q4H PRN #1 box 09/26/17 Unknown Rx NEBS] amLODIPine 5 mg PO DAILY #30 tab 05/19/19 Unknown Rx hydroCHLOROthiazide [HCTZ] 25 mg PO QDAY #30 tablet 05/19/19 Unknown Rx Acetaminophen [Acetaminophen TAB] 500 mg PO Q6HR PRN #20 tablet 08/03/21 Unknown Rx Albuterol Mdi (or & Nicu Only) 2 puff IH QID PRN #1 inhalation 10/08/21 Unknown Rx [ProAir HFA Inhaler] Ibuprofen [Motrin 800 MG tab] 800 mg PO Q8HR PRN #30 tablet 10/08/21 Unknown Rx Allergies Allergy/AdvReac Type Severity Reaction Status Date / Time No Known Allergies Allergy Verified 10/09/21 07:47 ED Review of Systems ROS: Stated complaint: body aches Other details as noted in HPI Comment: All other systems reviewed and negative Constitutional: denies: fever Eyes: denies: eye pain ENT: denies: epistaxis Respiratory: denies: cough Endocrine: denies: unexplained weight loss Gastrointestinal: denies: vomiting Genitourinary: denies: dysuria Musculoskeletal: as per HPI Skin: denies: rash Neurological: denies: headache Hematological/Lymphatic: denies: easy bruising ED Past Medical Hx - Past Medical History Hx Hypertension: Yes Hx Arthritis: Yes Hx Psychiatric Treatment: Yes (Schizophrenia) Hx Asthma: Yes (bronchitis) Additional medical history: gout - Surgical History Additional Surgical History: "TUMORS REMOVED IN STOMACH" - Family History Family history: hypertension - Social History Smoking Status: Never Smoker - Medications Home Medications: Home Medications Medication Instructions Recorded Confirmed Last Taken Type ALBUTEROL NEB's [Proventil 0.083% 1 puff IH Q4H PRN #1 box 09/26/17 Unknown Rx NEBS] amLODIPine 5 mg PO DAILY #30 tab 05/19/19 Unknown Rx hydroCHLOROthiazide [HCTZ] 25 mg PO QDAY #30 tablet 05/19/19 Unknown Rx Acetaminophen [Acetaminophen TAB] 500 mg PO Q6HR PRN #20 tablet 08/03/21 Unknown Rx Albuterol Mdi (or & Nicu Only) 2 puff IH QID PRN #1 inhalation 10/08/21 Unknown Rx [ProAir HFA Inhaler] Ibuprofen [Motrin 800 MG tab] 800 mg PO Q8HR PRN #30 tablet 10/08/21 Unknown Rx ED Physical Exam - General Limitations: No Limitations, Other (Pulse ox noted and normal) General appearance: alert, in no apparent distress, obese, other (Disheveled and unkempt) - Head Head exam: Present: atraumatic, normocephalic - Eye Eye exam: Present: normal appearance, PERRL, EOMI. Absent: scleral icterus - ENT ENT exam: Present: normal orophraynx, normal external ear exam - Neck Neck exam: Present: normal inspection. Absent: meningismus - Respiratory Respiratory exam: Absent: respiratory distress - Cardiovascular Cardiovascular Exam: Absent: JVD - GI/Abdominal GI/Abdominal exam: Present: other (Obese) - Extremities Exam Extremities exam: Present: normal capillary refill - Back Exam Back exam: Absent: CVA tenderness (R), CVA tenderness (L) - Neurological Exam Neurological exam: Present: alert, oriented X3, CN II-XII intact, normal gait - Psychiatric Psychiatric exam: Present: normal affect, normal mood - Skin Skin exam: Present: warm, dry ED Course Vital Signs 10/09/21 07:44 Temperature 97.7 F Pulse Rate 98 H Respiratory 16 Rate Blood Pressure 197/91 [Left] O2 Sat by Pulse 99 Oximetry - Reevaluation(s) Reevaluation #1: 10/09/21 08:24 Patient was discharged. ED Medical Decision Making - Medical Decision Making Patient presents secondary to myalgia. She states that this is because she is homeless and has to move around all the time. Patient has no other medical complaint at this time. She is not suicidal or homicidal. There is no evidence of acute delusion. She does not appear to be septic or toxic. She is not hypoxic. Patient was discharged with instructions to use [id number]-[id number] medication for her chronic and ongoing muscle pain. Critical Care Time: No Critical care attestation.: If time is entered above; I have spent that time in minutes in the direct care of this critically ill patient, excluding procedure time. ED Disposition Clinical Impression: Myalgia, Homeless Disposition: 01 HOME / SELF CARE / HOMELESS Is pt being admited?: No Condition: Stable Instructions: Musculoskeletal Pain Additional Instructions: Go to a skilled nursing. Drink water. Use Tylenol or Advil [id number] for pain. Referrals: [facility]IMARY [facility] [Referring] - 3-5 Days VAISHALI CRAIG MD [Staff Physician] - 3-5 Days
== END 2021-10-09 08:39 | disposition home or self-care (01) ==
LOC: ED 07:41
DX: M79.18 Myalgia, other site (principal); Z59.00 Homelessness unspecified; I10 Essential (primary) hypertension; F20.9 Schizophrenia, unspecified; M19.90 Unspecified osteoarthritis, unspecified site; J45.909 Unspecified asthma, uncomplicated; Z79.899 Other long term (current) drug therapy
CPT/HCPCS: 99282

== ENCOUNTER 2021-10-11 01:39 | Emergency (ER) | payer MEDICARE | END 2021-10-11 02:30 | disposition left against medical advice (07) | LOC: ED 01:39 | DX: R07.9 Chest pain, unspecified (principal); Z53.21 Procedure and treatment not carried out due to patient leaving prior to being seen by health care provider ==

== ENCOUNTER 2021-10-14 21:01 | Emergency (ER) | payer MEDICARE ==
[2021-10-15 03:41] VITALS: BP 153/100
--- NOTE | 2021-10-15 04:01 | Emergency Department Report ---
ED General Adult HPI - General Chief complaint: Chest Pain Stated complaint: leave me along Time Seen by Provider: 10/15/21 03:42 Source: patient, RN notes reviewed, old records reviewed Mode of arrival: Ambulatory Limitations: No Limitations - History of Present Illness Initial comments: During the history and physical examination I am chaperoned by nurse Joann Newby The patient is a 51-year-old female. The patient has presented to this emergency department multiple times with multiple complaints. Recently, the patient has been sitting in our waiting room, with multiple bags of belongings in no acute distress. She presented to the waiting room registration window, and endorsed a complaint of chest wall pain. The patient denies additional complaints. When asked if she was presenting because she was homeless and undomiciled, the patient stated "just leave me alone." -: This evening Location: chest Severity scale (0 -10): 8 - Related Data Previous Rx's Medication Instructions Recorded Last Taken Type ALBUTEROL NEB's [Proventil 0.083% 1 puff IH Q4H PRN #1 box 09/26/17 Unknown Rx NEBS] amLODIPine 5 mg PO DAILY #30 tab 05/19/19 Unknown Rx hydroCHLOROthiazide [HCTZ] 25 mg PO QDAY #30 tablet 05/19/19 Unknown Rx Acetaminophen [Acetaminophen TAB] 500 mg PO Q6HR PRN #20 tablet 08/03/21 Unknown Rx Albuterol Mdi (or & Nicu Only) 2 puff IH QID PRN #1 inhalation 10/08/21 Unknown Rx [ProAir HFA Inhaler] Ibuprofen [Motrin 800 MG tab] 800 mg PO Q8HR PRN #30 tablet 10/08/21 Unknown Rx Aspirin [Aspirin BABY CHEW TAB] 81 mg PO QDAY #30 tab.chew 10/15/21 Unknown Rx Allergies Allergy/AdvReac Type Severity Reaction Status Date / Time No Known Allergies Allergy Verified 10/09/21 07:47 ED Review of Systems ROS: Stated complaint: CHEST PAIN Other details as noted in HPI ED Past Medical Hx - Past Medical History Previous Medical History?: Yes Hx Hypertension: Yes Hx Arthritis: Yes Hx Psychiatric Treatment: Yes (Schizophrenia) Hx Asthma: Yes (bronchitis) Additional medical history: gout - Surgical History Past Surgical History?: Yes Additional Surgical History: "TUMORS REMOVED IN STOMACH" - Social History Smoking Status: Never Smoker - Medications Home Medications: Home Medications Medication Instructions Recorded Confirmed Last Taken Type ALBUTEROL NEB's [Proventil 0.083% 1 puff IH Q4H PRN #1 box 09/26/17 Unknown Rx NEBS] amLODIPine 5 mg PO DAILY #30 tab 05/19/19 Unknown Rx hydroCHLOROthiazide [HCTZ] 25 mg PO QDAY #30 tablet 05/19/19 Unknown Rx Acetaminophen [Acetaminophen TAB] 500 mg PO Q6HR PRN #20 tablet 08/03/21 Unknown Rx Albuterol Mdi (or & Nicu Only) 2 puff IH QID PRN #1 inhalation 10/08/21 Unknown Rx [ProAir HFA Inhaler] Ibuprofen [Motrin 800 MG tab] 800 mg PO Q8HR PRN #30 tablet 10/08/21 Unknown Rx Aspirin [Aspirin BABY CHEW TAB] 81 mg PO QDAY #30 tab.chew 10/15/21 Unknown Rx ED Physical Exam - General Limitations: No Limitations General appearance: alert, in no apparent distress - Head Head exam: Present: atraumatic, normocephalic - Eye Eye exam: Present: normal appearance, EOMI. Absent: nystagmus - ENT ENT exam: Present: normal exam, normal orophraynx, mucous membranes moist, normal external ear exam - Neck Neck exam: Present: normal inspection, full ROM. Absent: tenderness, meningismus - Respiratory Respiratory exam: Present: normal lung sounds bilaterally, chest wall tenderness. Absent: respiratory distress, wheezes, rales, rhonchi, stridor - Cardiovascular Cardiovascular Exam: Present: regular rate, normal rhythm, normal heart sounds. Absent: bradycardia, tachycardia, irregular rhythm, systolic murmur, diastolic murmur, rubs, gallop - GI/Abdominal GI/Abdominal exam: Present: soft. Absent: distended, tenderness, guarding, rebound, rigid, pulsatile mass - Extremities Exam Extremities exam: Present: normal inspection. Absent: calf tenderness - Back Exam Back exam: Present: normal inspection, full ROM. Absent: tenderness, CVA te nderness (R), CVA tenderness (L), paraspinal tenderness, vertebral tenderness - Neurological Exam Neurological exam: Present: alert, oriented X3, normal gait. Absent: motor sensory deficit - Psychiatric Psychiatric exam: Present: flat affect - Skin Skin exam: Present: warm, dry, intact, normal color. Absent: rash ED Course Vital Signs 10/15/21 03:38 Temperature 98.5 F Pulse Rate 80 Respiratory 18 Rate Blood Pressure 153/100 [Right] O2 Sat by Pulse 95 Oximetry ED Medical Decision Making - Lab Data Vital Signs 10/15/21 03:38 Temperature 98.5 F Pulse Rate 80 Respiratory 18 Rate Blood Pressure 153/100 [Right] O2 Sat by Pulse 95 Oximetry - EKG Data -: EKG Interpreted by Mi EKG shows normal: sinus rhythm Rate: normal - EKG Data 10/15/21 03:59 The EKG is interpreted at 03: 45 Sinus rhythm, 78 bpm. Normal axis, normal P wave axis, left ventricular hypertrophy, poor R wave progression. Abnormal EKG. Not a STEMI. - Medical Decision Making Differential diagnosis, including but not limited to: Malingering, secondary gain, GERD, gastritis, hiatal hernia, costochondritis, pneumonia, coronary artery disease Assessment and plan: 51-year-old female who is clinically sober, with a GCS of 15, who has presented multiple times to this department for multiple complaints, who as per verbal report from nursing team has been sitting down comfortably in a chair in the waiting room for over 6 hours, presenting to the window multiple times with various complaints. The patient at this point time does not meet criteria for 1013 hold or involuntary hold. I recommended laboratory studies, x-ray of the chest, and appropriate work-up in the emergency room. Patient is refusing these interventions, and has opted to discharge herself AGAINST MEDICAL ADVICE. Risks of leaving, including , disability, paralysis, loss of quality of life are discussed with the patient. Patient presents as awake, alert, oriented, sober, and exhibiting decision- making capacity. Conversation is witnessed by nurse Prakash Newby Of note, at the end of our conversation, the patient then asked ER staff members if she could take a shower. Suspect that the patient is presenting for the purposes of malingering and secondary gain. Critical care attestation.: If time is entered above; I have spent that time in minutes in the direct care of this critically ill patient, excluding procedure time. ED Disposition Clinical Impression: History of chest pain Disposition: LEFT AGAINST MEDICAL ADVICE Is pt being admited?: No Does the pt Need Aspirin: No Condition: Undetermined Additional Instructions: As we discussed, you have left the hospital/emergency room AGAINST MEDICAL ADVICE. By leaving, you risked , disability, paralysis, permanent loss of quality of life. The ER is open 24 hours a day, 7 days a week. It never closes. Please return to the emergency room right away if and when you change your mind. If you decide not to return to the emergency room, please follow-up with the listed physician referrals as soon as possible. Prescriptions: Aspirin [Aspirin BABY CHEW TAB] 81 mg PO QDAY #30 tab.chew Referrals: [facility] [Provider Group] - 3-5 Days [facility] [Provider Group] - 3-5 Days
== END 2021-10-15 05:05 | disposition left against medical advice (07) ==
LOC: ED 21:01
DX: R07.9 Chest pain, unspecified (principal)
CPT/HCPCS: 99282

== ENCOUNTER 2021-10-16 05:14 | Emergency (ER) | payer MEDICARE ==
[2021-10-16 05:47] VITALS: BP 224/114
--- NOTE | 2021-10-16 06:21 | Emergency Department Report ---
ED Back Pain/Injury HPI - General Chief Complaint: Back Pain/Injury Stated Complaint: BACK PAIN Time Seen by Provider: 10/16/21 06:13 Source: patient Limitations: No Limitations - History of Present Illness Initial Comments: 51-year-old black female with a past medical history of hypertension, asthma, arthritis, and schizophrenia presents to the emergency department for evaluation of asymmetry in her back. She states that she noticed last night that her right upper back is higher than her left upper back. She denies any pain but states that she knows that it is not supposed to be that way. She denies injury. Complaint: other (Asymmetry to back) -: Sudden Similar Symptoms Previously: No Place: street Severity scale (0 -10): 0 Associated Symptoms: denies other symptoms - Related Data Previous Rx's Medication Instructions Recorded Last Taken Type ALBUTEROL NEB's [Proventil 0.083% 1 puff IH Q4H PRN #1 box 09/26/17 Unknown Rx NEBS] amLODIPine 5 mg PO DAILY #30 tab 05/19/19 Unknown Rx hydroCHLOROthiazide [HCTZ] 25 mg PO QDAY #30 tablet 05/19/19 Unknown Rx Acetaminophen [Acetaminophen TAB] 500 mg PO Q6HR PRN #20 tablet 08/03/21 Unknown Rx Albuterol Mdi (or & Nicu Only) 2 puff IH QID PRN #1 inhalation 10/08/21 Unknown Rx [ProAir HFA Inhaler] Ibuprofen [Motrin 800 MG tab] 800 mg PO Q8HR PRN #30 tablet 10/08/21 Unknown Rx Aspirin [Aspirin BABY CHEW TAB] 81 mg PO QDAY #30 tab.chew 10/15/21 Unknown Rx Allergies Allergy/AdvReac Type Severity Reaction Status Date / Time No Known Allergies Allergy Verified 10/09/21 07:47 ED Review of Systems ROS: Stated complaint: BACK PAIN Other details as noted in HPI Comment: All other systems reviewed and negative Constitutional: denies: chills, diaphoresis Eyes: denies: eye pain ENT: denies: ear pain Respiratory: denies: cough, shortness of breath Cardiovascular: denies: chest pain, palpitations Endocrine: no symptoms reported Gastrointestinal: denies: abdominal pain, nausea, vomiting Genitourinary: denies: urgency, dysuria, frequency, hematuria, discharge Musculoskeletal: denies: back pain Skin: denies: rash Neurological: denies: weakness, numbness, paresthesias, abnormal gait Psychiatric: denies: anxiety Hematological/Lymphatic: denies: easy bleeding, easy bruising ED Past Medical Hx - Past Medical History Previous Medical History?: Yes Hx Hypertension: Yes Hx Arthritis: Yes Hx Psychiatric Treatment: Yes (Schizophrenia) Hx Asthma: Yes (bronchitis) Additional medical history: gout - Surgical History Past Surgical History?: Yes Additional Surgical History: "TUMORS REMOVED IN STOMACH" - Social History Smoking Status: Never Smoker - Medications Home Medications: Home Medications Medication Instructions Recorded Confirmed Last Taken Type ALBUTEROL NEB's [Proventil 0.083% 1 puff IH Q4H PRN #1 box 09/26/17 Unknown Rx NEBS] amLODIPine 5 mg PO DAILY #30 tab 05/19/19 Unknown Rx hydroCHLOROthiazide [HCTZ] 25 mg PO QDAY #30 tablet 05/19/19 Unknown Rx Acetaminophen [Acetaminophen TAB] 500 mg PO Q6HR PRN #20 tablet 08/03/21 Unknown Rx Albuterol Mdi (or & Nicu Only) 2 puff IH QID PRN #1 inhalation 10/08/21 Unknown Rx [ProAir HFA Inhaler] Ibuprofen [Motrin 800 MG tab] 800 mg PO Q8HR PRN #30 tablet 10/08/21 Unknown Rx Aspirin [Aspirin BABY CHEW TAB] 81 mg PO QDAY #30 tab.chew 10/15/21 Unknown Rx ED Physical Exam - General Limitations: No Limitations General appearance: alert, in no apparent distress - Head Head exam: Present: atraumatic, normocephalic - Eye Eye exam: Present: normal appearance. Absent: conjunctival injection - Neck Neck exam: Present: normal inspection, full ROM. Absent: tenderness, lymphadenopathy - Respiratory Respiratory exam: Present: normal lung sounds bilaterally. Absent: respiratory distress - Cardiovascular Cardiovascular Exam: Present: regular rate - GI/Abdominal GI/Abdominal exam: Present: soft. Absent: distended, tenderness - Extremities Exam Extremities exam: Present: normal inspection - Back Exam Back exam: Present: normal inspection, full ROM, other (No asymmetry noted). Absent: tenderness, CVA tenderness (R), CVA tenderness (L), paraspinal tenderness, vertebral tenderness - Neurological Exam Neurological exam: Present: alert, oriented X3 - Psychiatric Psychiatric exam: Present: normal affect, normal mood - Skin Skin exam: Present: warm, dry, intact, normal color ED Course Vital Signs 10/16/21 05:37 Temperature 97.9 F Pulse Rate 74 Respiratory 18 Rate Blood Pressure 224/114 [Right] O2 Sat by Pulse 99 Oximetry ED Medical Decision Making - Medical Decision Making 51-year-old black female with a past medical history of hypertension, asthma, arthritis, and schizophrenia presents to the emergency department for evaluation of asymmetry in her back. She states that she noticed last night that her right upper back is higher than her left upper back. She denies any pain but states that she knows that it is not supposed to be that way. She denies injury. Upon evaluation, patient found to have asymmetry to the back. She had no tenderness in any area of the back. No swelling noted. Back within normal limits upon exam. She was advised to follow-up with primary care provider or return to the emergency department if worsening symptoms. She was noted to have elevated blood pressure but states that she has not taken her blood pressure pills. She was advised to take blood pressure pills as previously prescribed. Critical care attestation.: If time is entered above; I have spent that time in minutes in the direct care of this critically ill patient, excluding procedure time. ED Disposition Clinical Impression: Back symptoms Disposition: 01 HOME / SELF CARE / HOMELESS Is pt being admited?: No Does the pt Need Aspirin: No Condition: Stable Additional Instructions: Follow-up with primary care provider. Take blood pressure medication as previously prescribed. Referrals: APYAL TRAN MD [Referring] - 3-5 Days Time of Disposition: 06:24
--- NOTE | 2021-10-16 17:31 | Electrocardiograph Report ---
[facility] Test Date: 2021-10-15 Test Time: 03:45:55 Pat Name: DANO BROWN Department: Room: Gender: F Data Steward: VINAY Randall : 1970 Requested By: KAILYN ZALDIVAR Order Number: [id number] Reading MD: Mari Nicholson Measurements Intervals [place] Rate: 78 P: 64 ID: 170 QRS: 35 QRSD: 90 T: 269 QT: 411 QTc: 468 Interpretive Statements Sinus rhythm Left ventricle hypertrophy Poor R wave progression, possible old anteroseptal WI Compared to ECG 12/07/2020 02:35:17 Sinus rate has increased Electronically Signed On 10-16-2021 17:31:04 EST by Mari Nicholson
== END 2021-10-16 06:24 | disposition home or self-care (01) ==
LOC: ED 05:14
DX: M54.6 Pain in thoracic spine (principal); I10 Essential (primary) hypertension; M19.90 Unspecified osteoarthritis, unspecified site; F20.9 Schizophrenia, unspecified; J45.909 Unspecified asthma, uncomplicated; Z79.899 Other long term (current) drug therapy
CPT/HCPCS: 93005; 93010; 99282

== ENCOUNTER 2021-10-17 00:06 | Emergency (ER) | payer MEDICARE ==
[2021-10-17 07:07] VITALS: BP 178/89
== END 2021-10-17 07:05 | disposition home or self-care (01) ==
LOC: ED 00:06
DX: L29.9 Pruritus, unspecified (principal); Z53.21 Procedure and treatment not carried out due to patient leaving prior to being seen by health care provider
CPT/HCPCS: 99282

== ENCOUNTER 2021-10-19 21:31 | Emergency (ER) | payer MEDICARE | END 2021-10-19 23:35 | disposition left against medical advice (07) | LOC: ED 21:31 | DX: R03.0 Elevated blood-pressure reading, without diagnosis of hypertension (principal); Z53.21 Procedure and treatment not carried out due to patient leaving prior to being seen by health care provider ==

== ENCOUNTER 2021-10-20 19:52 | Emergency (ER) | payer MEDICARE ==
[2021-10-20 20:05] VITALS: BP 152/105
== END 2021-10-21 03:16 | disposition left against medical advice (07) ==
LOC: ED 19:52
DX: R06.02 Shortness of breath (principal); Z53.21 Procedure and treatment not carried out due to patient leaving prior to being seen by health care provider

== ENCOUNTER 2021-10-21 07:42 | Emergency (ER) | payer MEDICARE ==
[2021-10-21 07:55] VITALS: BP 192/110
--- NOTE | 2021-10-21 09:08 | XRay Report ---
CHEST 2 VIEWS INDICATION / CLINICAL INFORMATION: chest pain. COMPARISON: 12/07/2020 FINDINGS: SUPPORT DEVICES: None. HEART / MEDIASTINUM: No significant abnormality. LUNGS / PLEURA: No significant pulmonary or pleural abnormality. No pneumothorax. ADDITIONAL FINDINGS: No significant additional findings. IMPRESSION: 1. No acute findings. Signer Name: Caleb Collins MD Signed: 10/21/2021 9:03 AM Workstation Name: [id number]
--- NOTE | 2021-10-21 09:27 | Electrocardiograph Report ---
[facility] Test Date: 2021-10-21 Test Time: 08:11:11 Pat Name: DANO BROWN Department: Room: Gender: F Cad Draftsman: MUSTAPHA : 1970 Requested By: ED DOC Order Number: [id number] Reading MD: Benjamin Alcazar Measurements Intervals [place] Rate: 60 P: 66 TN: 183 QRS: 63 QRSD: 93 T: -6 QT: 448 QTc: 448 Interpretive Statements Sinus rhythm Consider left ventricular hypertrophy nonspecific st-t Compared to ECG 10/15/2021 03:45:55 No significant changes Electronically Signed On 10-21-2021 9:26:51 EST by Benjamin Alcazar
--- NOTE | 2021-10-21 09:36 | Emergency Department Report ---
ED Chest Pain HPI - General Chief Complaint: Chest Pain Stated Complaint: CHEST PAIN Time Seen by Provider: 10/21/21 09:35 Source: patient Mode of arrival: Ambulatory Limitations: No Limitations - History of Present Illness Initial Comments: 51 yof with a pmh of HTN and COPD presents to ed for evaluation of left chest pain. She states that pain started early this am with some sob. She denies n/v, dizziness and diaphoresis. MD Complaint: chest pain -: Sudden, hour(s) Onset: during exertion Pain Location: left chest Pain Radiation: none Severity: moderate Quality: tightness Consistency: constant re: dyspnea. denies: nausea, vomting, diaphoresis, sense of impending doom Other Symptoms: denies: cough, fever, syncope, leg swelling Treatments Prior to Arrival: none - Related Data On Oral Contraceptives: No Previous Rx's Medication Instructions Recorded Last Taken Type ALBUTEROL NEB's [Proventil 0.083% 1 puff IH Q4H PRN #1 box 09/26/17 Unknown Rx NEBS] amLODIPine 5 mg PO DAILY #30 tab 05/19/19 Unknown Rx hydroCHLOROthiazide [HCTZ] 25 mg PO QDAY #30 tablet 05/19/19 Unknown Rx Acetaminophen [Acetaminophen TAB] 500 mg PO Q6HR PRN #20 tablet 08/03/21 Unknown Rx Albuterol Mdi (or & Nicu Only) 2 puff IH QID PRN #1 inhalation 10/08/21 Unknown Rx [ProAir HFA Inhaler] Ibuprofen [Motrin 800 MG tab] 800 mg PO Q8HR PRN #30 tablet 10/08/21 Unknown Rx Aspirin [Aspirin BABY CHEW TAB] 81 mg PO QDAY #30 tab.chew 10/15/21 Unknown Rx Permethrin 5% [Acticin 5% CREAM] 1 applicatio TP ONCE #1 tube 10/17/21 Unknown Rx Allergies Allergy/AdvReac Type Severity Reaction Status Date / Time No Known Allergies Allergy Verified 10/09/21 07:47 Heart Score - HEART Score History: Slightly suspicious EKG: Normal Age: 45-65 Risk factors: 1-2 risk factors Troponin: < normal limit (pt refused blood draw) HEART Score: 2 - EKG Read Time Time EKG Completed: 08:11 EKG Read Time: 08:15 - Critical Actions Critical Actions: 0-3 pts:0.9-1.7%risk of adverse cardiac event.Candidate for discharge ED Review of Systems ROS: Stated complaint: CHEST PAIN Other details as noted in HPI Comment: All other systems reviewed and negative Constitutional: denies: chills, fever Eyes: denies: eye pain ENT: denies: ear pain Respiratory: shortness of breath. denies: cough, orthopnea Cardiovascular: chest pain. denies: palpitations, dyspnea on exertion, orthopnea, edema, syncope, paroxysmal nocturnal dyspnea Endocrine: no symptoms reported Gastrointestinal: denies: abdominal pain, nausea, vomiting, diarrhea, hematemesis, melena, hematochezia Genitourinary: denies: urgency, dysuria, frequency, hematuria, discharge Musculoskeletal: denies: back pain Skin: denies: rash Neurological: denies: headache, weakness Psychiatric: denies: anxiety, depression, homicidal thoughts, suicidal thoughts Hematological/Lymphatic: denies: easy bleeding, easy bruising ED Past Medical Hx - Past Medical History Hx Hypertension: Yes Hx Arthritis: Yes Hx Psychiatric Treatment: Yes (Schizophrenia) Hx Asthma: Yes (bronchitis) Additional medical history: gout - Surgical History Additional Surgical History: "TUMORS REMOVED IN STOMACH" - Social History Smoking Status: Never Smoker - Medications Home Medications: Home Medications Medication Instructions Recorded Confirmed Last Taken Type ALBUTEROL NEB's [Proventil 0.083% 1 puff IH Q4H PRN #1 box 09/26/17 Unknown Rx NEBS] amLODIPine 5 mg PO DAILY #30 tab 05/19/19 Unknown Rx hydroCHLOROthiazide [HCTZ] 25 mg PO QDAY #30 tablet 05/19/19 Unknown Rx Acetaminophen [Acetaminophen TAB] 500 mg PO Q6HR PRN #20 tablet 08/03/21 Unknown Rx Albuterol Mdi (or & Nicu Only) 2 puff IH QID PRN #1 inhalation 10/08/21 Unknown Rx [ProAir HFA Inhaler] Ibuprofen [Motrin 800 MG tab] 800 mg PO Q8HR PRN #30 tablet 10/08/21 Unknown Rx Aspirin [Aspirin BABY CHEW TAB] 81 mg PO QDAY #30 tab.chew 10/15/21 Unknown Rx Permethrin 5% [Acticin 5% CREAM] 1 applicatio TP ONCE #1 tube 10/17/21 Unknown Rx ED Physical Exam - General Limitations: No Limitations General appearance: alert, in no apparent distress - Head Head exam: Absent: atraumatic, normocephalic - Eye Eye exam: Absent: normal appearance, conjunctival injection - Neck Neck exam: Present: normal inspection - Respiratory Respiratory exam: Present: normal lung sounds bilaterally. Absent: respiratory distress - Cardiovascular Cardiovascular Exam: Present: regular rate, normal rhythm, normal heart sounds - GI/Abdominal GI/Abdominal exam: Present: soft. Absent: distended - Extremities Exam Extremities exam: Present: normal inspection - Back Exam Back exam: Present: normal inspection. Absent: tenderness - Neurological Exam Neurological exam: Present: alert, oriented X3 - Psychiatric Psychiatric exam: Present: normal affect, normal mood - Skin Skin exam: Present: warm, dry, intact, normal color ED Course Vital Signs 10/21/21 07:52 Temperature 97.7 F Pulse Rate 70 Respiratory 16 Rate Blood Pressure 192/110 [Left] O2 Sat by Pulse 99 Oximetry - Reevaluation(s) Reevaluation #1: 10/21/21 09:36 Patient has refused all blood work. She she will be discharged AMA secondary to inability to complete work-up. ED Medical Decision Making - EKG Data EKG shows normal: sinus rhythm Rate: normal - EKG Data Interpretation: no acute changes 10/21/21 22:39 No acute ischemic changes noted. - Radiology Data Radiology results: report reviewed, image reviewed chest xray IMPRESSION: 1. No acute findings. - Medical Decision Making 51 yof with a pmh of HTN and COPD presents to ed for evaluation of left chest pain. She states that pain started early this am with some sob. She denies n/v, dizziness and diaphoresis. Cxr without acute abnormalities noted and EKG without acute ischemic changes. Patient refused to have blood drawn, so she will be d/c as ama for failure to allow completion of workup Critical care attestation.: If time is entered above; I have spent that time in minutes in the direct care of this critically ill patient, excluding procedure time. ED Disposition Clinical Impression: Left against medical advice Disposition: LEFT AGAINST MEDICAL ADVICE Is pt being admited?: No Condition: Stable Referrals: GHULAM WALTON MD [Primary Care Provider] - 3-5 Days
== END 2021-10-21 10:31 | disposition left against medical advice (07) ==
LOC: ED 07:42
DX: R07.9 Chest pain, unspecified (principal); R06.02 Shortness of breath; I10 Essential (primary) hypertension; M19.90 Unspecified osteoarthritis, unspecified site; Z98.890 Other specified postprocedural states
CPT/HCPCS: 71046; 93005; 99283

== ENCOUNTER 2021-10-21 21:35 | Emergency (ER) | payer MEDICARE ==
[2021-10-22 06:25] VITALS: BP 130/97
--- NOTE | 2021-10-22 06:50 | Emergency Department Report ---
ED General Adult HPI - General Chief complaint: Dyspnea/Respdistress Stated complaint: SOB Source: patient Mode of arrival: Ambulatory Limitations: No Limitations - History of Present Illness Initial comments: 51-year-old male presents with shortness of breath times that has resolves. Patient was seen yesterday had a chest x-ray which was normal .patient is alert and oriented .no shortness of breath at present time. Patient is alert and oriented x3. No acute distress noted. No ill appearance noted. Patient denies any chest pain ,abdominal pain or nausea or vomiting at present time. - Related Data Previous Rx's Medication Instructions Recorded Last Taken Type ALBUTEROL NEB's [Proventil 0.083% 1 puff IH Q4H PRN #1 box 09/26/17 Unknown Rx NEBS] amLODIPine 5 mg PO DAILY #30 tab 05/19/19 Unknown Rx hydroCHLOROthiazide [HCTZ] 25 mg PO QDAY #30 tablet 05/19/19 Unknown Rx Acetaminophen [Acetaminophen TAB] 500 mg PO Q6HR PRN #20 tablet 08/03/21 Unknown Rx Albuterol Mdi (or & Nicu Only) 2 puff IH QID PRN #1 inhalation 10/08/21 Unknown Rx [ProAir HFA Inhaler] Ibuprofen [Motrin 800 MG tab] 800 mg PO Q8HR PRN #30 tablet 10/08/21 Unknown Rx Aspirin [Aspirin BABY CHEW TAB] 81 mg PO QDAY #30 tab.chew 10/15/21 Unknown Rx Permethrin 5% [Acticin 5% CREAM] 1 applicatio TP ONCE #1 tube 10/17/21 Unknown Rx Allergies Allergy/AdvReac Type Severity Reaction Status Date / Time No Known Allergies Allergy Verified 10/09/21 07:47 ED Review of Systems ROS: Stated complaint: SOB Other details as noted in HPI Constitutional: denies: chills, fever Eyes: denies: eye pain, eye discharge, vision change ENT: denies: ear pain, throat pain Respiratory: denies: cough, shortness of breath, wheezing Cardiovascular: denies: chest pain, palpitations Endocrine: no symptoms reported Gastrointestinal: denies: abdominal pain, nausea, diarrhea Genitourinary: denies: urgency, dysuria, discharge Musculoskeletal: denies: back pain, joint swelling, arthralgia Skin: denies: rash, lesions Neurological: denies: headache, weakness, paresthesias Psychiatric: denies: anxiety, depression Hematological/Lymphatic: denies: easy bleeding, easy bruising ED Past Medical Hx - Past Medical History Hx Hypertension: Yes Hx Arthritis: Yes Hx Psychiatric Treatment: Yes (Schizophrenia) Hx Asthma: Yes (bronchitis) Additional medical history: gout - Surgical History Additional Surgical History: "TUMORS REMOVED IN STOMACH" - Social History Smoking Status: Never Smoker - Medications Home Medications: Home Medications Medication Instructions Recorded Confirmed Last Taken Type ALBUTEROL NEB's [Proventil 0.083% 1 puff IH Q4H PRN #1 box 09/26/17 Unknown Rx NEBS] amLODIPine 5 mg PO DAILY #30 tab 05/19/19 Unknown Rx hydroCHLOROthiazide [HCTZ] 25 mg PO QDAY #30 tablet 05/19/19 Unknown Rx Acetaminophen [Acetaminophen TAB] 500 mg PO Q6HR PRN #20 tablet 08/03/21 Unknown Rx Albuterol Mdi (or & Nicu Only) 2 puff IH QID PRN #1 inhalation 10/08/21 Unknown Rx [ProAir HFA Inhaler] Ibuprofen [Motrin 800 MG tab] 800 mg PO Q8HR PRN #30 tablet 10/08/21 Unknown Rx Aspirin [Aspirin BABY CHEW TAB] 81 mg PO QDAY #30 tab.chew 10/15/21 Unknown Rx Permethrin 5% [Acticin 5% CREAM] 1 applicatio TP ONCE #1 tube 10/17/21 Unknown Rx ED Physical Exam - General Limitations: No Limitations General appearance: alert, in no apparent distress - Head Head exam: Present: atraumatic, normocephalic - Eye Eye exam: Present: normal appearance - ENT ENT exam: Present: mucous membranes moist - Neck Neck exam: Present: normal inspection - Respiratory Respiratory exam: Present: normal lung sounds bilaterally. Absent: respiratory distress - Cardiovascular Cardiovascular Exam: Present: regular rate, normal rhythm. Absent: systolic murmur, diastolic murmur, rubs, gallop - GI/Abdominal GI/Abdominal exam: Present: soft, normal bowel sounds - Extremities Exam Extremities exam: Present: normal inspection - Back Exam Back exam: Present: normal inspection - Neurological Exam Neurological exam: Present: alert, oriented X3 - Psychiatric Psychiatric exam: Present: normal affect, normal mood - Skin Skin exam: Present: warm, dry, intact, normal color. Absent: rash ED Course Vital Signs 10/21/21 10/22/21 21:56 06:23 Temperature 98.4 F 98.2 F Pulse Rate 88 71 Respiratory 18 18 Rate Blood Pressure 184/85 130/97 O2 Sat by Pulse 94 98 Oximetry ED Medical Decision Making - Medical Decision Making 51-year-old male presents with shortness of breath times that has resolves. Patient was seen yesterday had a chest x-ray which was normal .patient is alert and oriented .no shortness of breath at present time. Patient is alert and oriented x3. No acute distress noted. No ill appearance noted. Patient denies any chest pain ,abdominal pain or nausea or vomiting at present time. Physical examination unremarkable. Vital signs stable Rechecked the patient is resting quietly quietly and comfortable and feeling better. I discussed the results of diagnostic study, my clinical impression and the plan for further treatment with the patient. Patient agrees with plan and discharge at this present time. All question addressed. I have given the patient instruction regarding a diagnosis ,expectation ,follow- up and return precaution. I explained to the patient that emergent condition may arise and to return to the ED for new worsen and any new persisting condition. I have explained the importance of following up with the primary care physician or referral physician listed below has instructed. The patient verbalized understanding of discharge instruction. Critical care attestation.: If time is entered above; I have spent that time in minutes in the direct care of this critically ill patient, excluding procedure time. ED Disposition Clinical Impression: Normal physical exam, routine Disposition: 01 HOME / SELF CARE / HOMELESS Is pt being admited?: No Does the pt Need Aspirin: No Condition: Stable Instructions: Hypertension, Adult, [id number] Additional Instructions: Take medication as previous prescribed Return ED for any worsening symptom Referrals: GHULAM WALTON MD [Primary Care Provider] - 3-5 Days
== END 2021-10-22 07:11 | disposition home or self-care (01) ==
LOC: ED 21:35
DX: R06.02 Shortness of breath (principal); Z00.00 Encounter for general adult medical examination without abnormal findings; I10 Essential (primary) hypertension; M19.90 Unspecified osteoarthritis, unspecified site; J45.909 Unspecified asthma, uncomplicated; F20.9 Schizophrenia, unspecified; Z98.890 Other specified postprocedural states
CPT/HCPCS: 99281

== ENCOUNTER 2021-10-25 23:28 | Emergency (ER) | payer MEDICARE ==
[2021-10-25 23:37] VITALS: BP 174/96
[2021-10-26] MEDS ORDERED: ASPIRIN 325 MG TAB PO ONE (00:55)
[2021-10-26 01:23] LABS: Basophils # (Auto) 0.1 K/mm3 (0.0-0.1); Basophils % (Auto) 1.4 % (0.0-1.8); Eosinophils # (Auto) 0.2 K/mm3 (0.0-0.4); Eosinophils % (Auto) 4.6 % (0.0-4.3); Hematocrit 33.5 % (30.3-42.9); Lymphocytes % (Auto) 40.5 % (13.4-35.0); Mean Corpuscular HGB Conc 33 % (30-34); Mean Corpuscular Volume 85 fl (79-97); Monocytes # (Auto) 0.4 K/mm3 (0.0-0.8); Monocytes % (Auto) 7.2 % (0.0-7.3); Platelet Count 315 K/mm3 (140-440); Red Blood Count 3.93 M/mm3 (3.65-5.03); Red Cell Distribution Width 15.7 % (13.2-15.2)
--- NOTE | 2021-10-26 01:34 | Emergency Department Report ---
ED Shortness of Breath HPI - General Chief Complaint: Dyspnea/Respdistress Stated Complaint: SOB Time Seen by Provider: 10/26/21 01:11 Source: patient Mode of arrival: Ambulatory Limitations: No Limitations - History of Present Illness Initial Comments: Pt reports SOB and CP. Pt easily irritable and not open for assessment. Pt is aaox3, NAD noted. MD Complaint: shortness of breath, "asthma attack" -: Gradual, days(s) Improves With: nothing Worsens With: nothing Known History Of: asthma Associated Symptoms: denies other symptoms Treatments Prior to Arrival: none - Related Data Home Oxygen Therapy: No Previous Rx's Medication Instructions Recorded Last Taken Type ALBUTEROL NEB's [Proventil 0.083% 1 puff IH Q4H PRN #1 box 09/26/17 Unknown Rx NEBS] amLODIPine 5 mg PO DAILY #30 tab 05/19/19 Unknown Rx hydroCHLOROthiazide [HCTZ] 25 mg PO QDAY #30 tablet 05/19/19 Unknown Rx Acetaminophen [Acetaminophen TAB] 500 mg PO Q6HR PRN #20 tablet 08/03/21 Unknown Rx Albuterol Mdi (or & Nicu Only) 2 puff IH QID PRN #1 inhalation 10/08/21 Unknown Rx [ProAir HFA Inhaler] Ibuprofen [Motrin 800 MG tab] 800 mg PO Q8HR PRN #30 tablet 10/08/21 Unknown Rx Aspirin [Aspirin BABY CHEW TAB] 81 mg PO QDAY #30 tab.chew 10/15/21 Unknown Rx Permethrin 5% [Acticin 5% CREAM] 1 applicatio TP ONCE #1 tube 10/17/21 Unknown Rx Allergies Allergy/AdvReac Type Severity Reaction Status Date / Time No Known Allergies Allergy Verified 10/09/21 07:47 ED Review of Systems ROS: Stated complaint: SOB Other details as noted in HPI Constitutional: denies: chills, fever Eyes: denies: eye pain, eye discharge, vision change ENT: denies: ear pain, throat pain Respiratory: denies: cough, shortness of breath, wheezing Cardiovascular: denies: chest pain, palpitations Endocrine: no symptoms reported Gastrointestinal: denies: abdominal pain, nausea, diarrhea Genitourinary: denies: urgency, dysuria, discharge Musculoskeletal: denies: back pain, joint swelling, arthralgia Skin: denies: rash, lesions Neurological: denies: headache, weakness, paresthesias Psychiatric: denies: anxiety, depression Hematological/Lymphatic: denies: easy bleeding, easy bruising ED Past Medical Hx - Past Medical History Previous Medical History?: Yes Hx Hypertension: Yes Hx Arthritis: Yes Hx Psychiatric Treatment: Yes (Schizophrenia) Hx Asthma: Yes (bronchitis) Additional medical history: gout - Surgical History Past Surgical History?: Yes Additional Surgical History: "TUMORS REMOVED IN STOMACH" - Social History Smoking Status: Never Smoker - Medications Home Medications: Home Medications Medication Instructions Recorded Confirmed Last Taken Type ALBUTEROL NEB's [Proventil 0.083% 1 puff IH Q4H PRN #1 box 09/26/17 Unknown Rx NEBS] amLODIPine 5 mg PO DAILY #30 tab 05/19/19 Unknown Rx hydroCHLOROthiazide [HCTZ] 25 mg PO QDAY #30 tablet 05/19/19 Unknown Rx Acetaminophen [Acetaminophen TAB] 500 mg PO Q6HR PRN #20 tablet 08/03/21 Unknown Rx Albuterol Mdi (or & Nicu Only) 2 puff IH QID PRN #1 inhalation 10/08/21 Unknown Rx [ProAir HFA Inhaler] Ibuprofen [Motrin 800 MG tab] 800 mg PO Q8HR PRN #30 tablet 10/08/21 Unknown Rx Aspirin [Aspirin BABY CHEW TAB] 81 mg PO QDAY #30 tab.chew 10/15/21 Unknown Rx Permethrin 5% [Acticin 5% CREAM] 1 applicatio TP ONCE #1 tube 10/17/21 Unknown Rx ED Physical Exam - General Limitations: No Limitations General appearance: alert, in no apparent distress - Head Head exam: Present: atraumatic, normocephalic - Eye Eye exam: Present: normal appearance - ENT ENT exam: Present: mucous membranes moist - Neck Neck exam: Present: normal inspection - Respiratory Respiratory exam: Present: normal lung sounds bilaterally. Absent: respiratory distress - Cardiovascular Cardiovascular Exam: Present: regular rate, normal rhythm. Absent: systolic murmur, diastolic murmur, rubs, gallop - GI/Abdominal GI/Abdominal exam: Present: soft, normal bowel sounds - Extremities Exam Extremities exam: Present: normal inspection - Back Exam Back exam: Present: normal inspection - Neurological Exam Neurological exam: Present: alert, oriented X3 - Psychiatric Psychiatric exam: Present: normal affect, normal mood - Skin Skin exam: Present: warm, dry, intact, normal color. Absent: rash ED Course Vital Signs 10/25/21 23:34 Temperature 98.3 F Pulse Rate 89 Respiratory 18 Rate Blood Pressure 174/96 O2 Sat by Pulse 94 Oximetry ED Medical Decision Making - Lab Data Result diagrams: 10/26/21 00:58 - Medical Decision Making vss , no distress , x ray clear , repeated visits for the same Critical care attestation.: If time is entered above; I have spent that time in minutes in the direct care of this critically ill patient, excluding procedure time. ED Disposition Clinical Impression: SOB (shortness of breath), Asthma Disposition: 01 HOME / SELF CARE / HOMELESS Is pt being admited?: No Does the pt Need Aspirin: No Condition: Stable Instructions: Shortness of Breath, Adult, [id number], Asthma (ED)
--- NOTE | 2021-10-26 01:42 | XRay Report ---
CHEST 1 VIEW 10/26/2021 1:26 AM INDICATION / CLINICAL INFORMATION: DYSPNEA, CHEST PAIN. COMPARISON: 10/21/2021 FINDINGS: SUPPORT DEVICES: None. HEART / MEDIASTINUM: Mild increasing cardiomegaly. LUNGS / PLEURA: Mild increased interstitial markings diffusely without localized infiltrate. No pneum othorax. ADDITIONAL FINDINGS: No significant additional findings. IMPRESSION: Development of mild congestive failure. Signer Name: Lazarus Bentley MD Signed: 10/26/2021 1:37 AM Workstation Name: [id number]
[2021-10-26 02:11] LABS: Alanine Aminotransferase 22 units/L (7-56); Albumin 3.6 g/dL (3.9-5); Blood Urea Nitrogen 18 mg/dL (7-17); Calcium 8.7 mg/dL (8.4-10.2); Hemolysis Index 6
[2021-10-26 02:12] LABS: BUN/Creatinine Ratio 30
== END 2021-10-26 07:23 | disposition home or self-care (01) ==
LOC: ED 23:28
DX: R06.02 Shortness of breath (principal); J45.909 Unspecified asthma, uncomplicated; I10 Essential (primary) hypertension
CPT/HCPCS: 36415; 71045; 80053; 83880; 84484; 85025; 99283

== ENCOUNTER 2021-10-26 21:14 | Emergency (ER) | payer MEDICARE ==
[2021-10-26 21:34] VITALS: BP 159/77
--- NOTE | 2021-10-26 22:42 | Emergency Department Report ---
ED Back Pain/Injury HPI - General Chief Complaint: Back Pain/Injury Stated Complaint: BACK PAIN Source: patient Limitations: No Limitations - History of Present Illness Initial Comments: 51-year-old black female with a past medical history of hypertension, asthma, arthritis, and schizophrenia presents to the emergency department for back pain for 3 days however patient is frequently seen this ed for same. Pain is described as aching low back radiating to bilateral lower extremities. There is no numbness tingling paralysis. There is been no fall injury or trauma. There is been no decrease or loss of bowel or bladder function. Patient ambulated self to ED today patient is alert oriented x3 amatory with steady gait at this time. Patient appears with no acute distress. Pain level today is described as 4/10 . MD Complaint: back pain - Related Data Previous Rx's Medication Instructions Recorded Last Taken Type ALBUTEROL NEB's [Proventil 0.083% 1 puff IH Q4H PRN #1 box 09/26/17 Unknown Rx NEBS] amLODIPine 5 mg PO DAILY #30 tab 05/19/19 Unknown Rx hydroCHLOROthiazide [HCTZ] 25 mg PO QDAY #30 tablet 05/19/19 Unknown Rx Albuterol Mdi (or & Nicu Only) 2 puff IH QID PRN #1 inhalation 10/08/21 Unknown Rx [ProAir HFA Inhaler] Ibuprofen [Motrin 800 MG tab] 800 mg PO Q8HR PRN #30 tablet 10/08/21 Unknown Rx Aspirin [Aspirin BABY CHEW TAB] 81 mg PO QDAY #30 tab.chew 10/15/21 Unknown Rx Permethrin 5% [Acticin 5% CREAM] 1 applicatio TP ONCE #1 tube 10/17/21 Unknown Rx Acetaminophen [Acetaminophen TAB] 500 mg PO Q6HR PRN #20 tablet 10/26/21 Unknown Rx Albuterol Mdi (or & Nicu Only) 2 puff IH QID PRN #8.5 gram 10/26/21 Unknown Rx [ProAir HFA Inhaler] Menthol/Camphor [[place] 1 applicatio TP QID PRN #1 tube 10/26/21 Unknown Rx Ointment] Allergies Allergy/AdvReac Type Severity Reaction Status Date / Time No Known Allergies Allergy Verified 10/26/21 21:34 ED Review of Systems ROS: Stated complaint: BACK PAIN Other details as noted in HPI Constitutional: denies: chills, fever Eyes: denies: eye pain, eye discharge, vision change ENT: denies: ear pain, throat pain Respiratory: denies: cough, shortness of breath, wheezing Cardiovascular: denies: chest pain, palpitations Endocrine: no symptoms reported Gastrointestinal: denies: abdominal pain, nausea, diarrhea Genitourinary: denies: urgency, dysuria, discharge Musculoskeletal: back pain Skin: denies: rash, lesions Neurological: denies: headache, weakness, paresthesias Psychiatric: denies: anxiety, depression, auditory hallucinations, visual hallucinations, homicidal thoughts, suicidal thoughts Hematological/Lymphatic: denies: easy bleeding, easy bruising ED Past Medical Hx - Past Medical History Hx Hypertension: Yes Hx Arthritis: Yes Hx Psychiatric Treatment: Yes (Schizophrenia) Hx Asthma: Yes (bronchitis) Additional medical history: gout - Surgical History Past Surgical History?: Yes Additional Surgical History: "TUMORS REMOVED IN STOMACH" - Social History Smoking Status: Current Some Day Smoker Substance Use Type: None - Medications Home Medications: Home Medications Medication Instructions Recorded Confirmed Last Taken Type ALBUTEROL NEB's [Proventil 0.083% 1 puff IH Q4H PRN #1 box 09/26/17 Unknown Rx NEBS] amLODIPine 5 mg PO DAILY #30 tab 05/19/19 Unknown Rx hydroCHLOROthiazide [HCTZ] 25 mg PO QDAY #30 tablet 05/19/19 Unknown Rx Albuterol Mdi (or & Nicu Only) 2 puff IH QID PRN #1 inhalation 10/08/21 Unknown Rx [ProAir HFA Inhaler] Ibuprofen [Motrin 800 MG tab] 800 mg PO Q8HR PRN #30 tablet 10/08/21 Unknown Rx Aspirin [Aspirin BABY CHEW TAB] 81 mg PO QDAY #30 tab.chew 10/15/21 Unknown Rx Permethrin 5% [Acticin 5% CREAM] 1 applicatio TP ONCE #1 tube 10/17/21 Unknown Rx Acetaminophen [Acetaminophen TAB] 500 mg PO Q6HR PRN #20 tablet 10/26/21 Unknown Rx Albuterol Mdi (or & Nicu Only) 2 puff IH QID PRN #8.5 gram 10/26/21 Unknown Rx [ProAir HFA Inhaler] Menthol/Camphor [[place] 1 applicatio TP QID PRN #1 tube 10/26/21 Unknown Rx Ointment] ED Physical Exam - General Limitations: No Limitations General appearance: alert, in no apparent distress - Head Head exam: Present: normocephalic, normal inspection - Eye Eye exam: Present: normal appearance, PERRL, EOMI Pupils: Present: normal accommodation - ENT ENT exam: Present: mucous membranes moist - Neck Neck exam: Present: normal inspection, full ROM. Absent: tenderness (No posterior vertebral point tenderness range of motion intact unrestricted to all quadrants.), meningismus, lymphadenopathy, thyromegaly - Respiratory Respiratory exam: Present: normal lung sounds bilaterally. Absent: respiratory distress, wheezes, stridor - Cardiovascular Cardiovascular Exam: Present: regular rate, normal rhythm, normal heart sounds. Absent: systolic murmur, diastolic murmur, rubs, gallop - GI/Abdominal GI/Abdominal exam: Present: soft, normal bowel sounds. Absent: distended, tenderness - Rectal Rectal exam: Present: deferred - Extremities Exam Extremities exam: Present: normal inspection, full ROM. Absent: tenderness, pedal edema, calf tenderness - Back Exam Back exam: Present: normal inspection, full ROM, muscle spasm, paraspinal tenderness. Absent: CVA tenderness (R), CVA tenderness (L), vertebral tenderness - Expanded Back Exam Expanded Back exam: Absent: saddle anesthesia Back exam: Negative Straight Leg Raising: Left, Right - Neurological Exam Neurological exam: Present: alert, oriented X3, CN II-XII intact, normal gait, reflexes normal. Absent: motor sensory deficit - Expanded Neurological Exam Expanded Patient oriented to: Present: person, place, time Speech: Present: fluid speech Motor strength exam: RUE: 5, LUE: 5, RLE: 5, LLE: 5 Best Eye Response ([place]): (4) open spontaneously Best Motor Response ([place]): (6) obeys commands Best Verbal Response ([place]): (5) oriented [place] Total: 15 - Psychiatric Psychiatric exam: Present: normal affect, normal mood - Skin Skin exam: Present: warm, dry, intact, normal color. Absent: rash ED Course Vital Signs 10/26/21 21:30 Temperature 97.9 F Pulse Rate 85 Respiratory 18 Rate Blood Pressure 159/77 [Left] O2 Sat by Pulse 100 Oximetry ED Medical Decision Making - Medical Decision Making There is acute on chronic low back pain without injury. Patient alert oriented x3 patient is amatory steady gait. There is no numbness tingling or paralysis. Is been no loss or decrease in bowel or bladder function. Plan DC to home, take [id number] NSAIDs as needed for back pain. Follow-up with your primary care doctor in 2 to 3 days. Return to emergency department should symptoms worsen. Verbalized agreement understanding discharge plan patient DC'd home in stable condition at this time Critical care attestation.: If time is entered above; I have spent that time in minutes in the direct care of this critically ill patient, excluding procedure time. ED Disposition Clinical Impression: Back pain Qualifiers: Back pain location: back pain in unspecified location Chronicity: chronic Back pain laterality: unspecified Qualified Code(s): M54.9 - Dorsalgia, unspecified; G89.29 - Other chronic pain Disposition: 01 HOME / SELF CARE / HOMELESS Is pt being admited?: No Does the pt Need Aspirin: No Condition: Stable Instructions: Chronic Back Pain, [id number] Additional Instructions: Take [id number] NSAIDs as needed for pain, moist heat therapy, back exercises as directed. Follow-up with your doctor in 2 to 3 days. Return to emergency department should symptoms worsen. Prescriptions: Acetaminophen [Acetaminophen TAB] 500 mg PO Q6HR PRN #20 tablet PRN Reason: Pain , Severe (7-10) Menthol/Camphor [[place] Ointment] 1 applicatio TP QID PRN #1 tube PRN Reason: pain Referrals: RITESH DUMONT MD [Staff Physician] - 3-5 Days Time of Disposition: 22:52
== END 2021-10-26 23:51 | disposition home or self-care (01) ==
LOC: ED 21:14
DX: M54.9 Dorsalgia, unspecified (principal); F17.200 Nicotine dependence, unspecified, uncomplicated; I10 Essential (primary) hypertension; J45.909 Unspecified asthma, uncomplicated
CPT/HCPCS: 99282

== ENCOUNTER 2021-10-28 03:09 | Emergency (ER) | payer MEDICARE ==
[2021-10-28 03:21] VITALS: BP 168/87
== END 2021-10-28 11:11 | disposition left against medical advice (07) ==
LOC: ED 03:09
DX: Z53.21 Procedure and treatment not carried out due to patient leaving prior to being seen by health care provider (principal)

== ENCOUNTER 2021-10-29 06:48 | Emergency (ER) | payer MEDICARE ==
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
[2021-10-29 08:37] VITALS: BP 113/79
== END 2021-10-29 08:29 | disposition home or self-care (01) ==
LOC: ED 06:48
DX: M21.42 Flat foot [pes planus] (acquired), left foot (principal); M21.41 Flat foot [pes planus] (acquired), right foot; B35.3 Tinea pedis; I10 Essential (primary) hypertension; M19.90 Unspecified osteoarthritis, unspecified site; F20.9 Schizophrenia, unspecified; J45.909 Unspecified asthma, uncomplicated; Z79.899 Other long term (current) drug therapy; Z98.890 Other specified postprocedural states; F17.200 Nicotine dependence, unspecified, uncomplicated
CPT/HCPCS: 99283

== ENCOUNTER 2021-11-01 08:04 | Emergency (ER) | payer MEDICARE ==
[2021-11-01 08:37] VITALS: BP 213/99
--- NOTE | 2021-11-01 11:08 | Emergency Department Report ---
ED General Adult HPI - General Chief complaint: Extremity Problem,Nontraumatic Stated complaint: THIGH Time Seen by Provider: 11/01/21 10:24 Source: patient Mode of arrival: Ambulatory Limitations: No Limitations - History of Present Illness Initial comments: This is a 51-year-old female nontoxic, well nourished in appearance, no acute signs of distress that signed in for thigh pains. When I approached patients room, patient denies any pain or complaints and stated "just need a snack" and wanted to leave. When asked about what brought her to the ED, patient denies any complaints or symptoms. Patient denies chest pain, short of breath, fever, hemoptysis, blood in stool, chills, headache, stiff neck, numbness or tingling. Patient denies any diarrhea or constipation. Denies any blood in stool. Patient denies any recent travels. Denies any allergies. Severity scale (0 -10): 0 Improves with: none Worsens with: none Associated Symptoms: denies other symptoms. denies: confusion, chest pain, cough, fever/chills, headaches, loss of appetite, malaise, nausea/vomiting, rash, seizure, shortness of breath, syncope, weakness Treatments Prior to Arrival: none - Related Data Previous Rx's Medication Instructions Recorded Last Taken Type ALBUTEROL NEB's [Proventil 0.083% 1 puff IH Q4H PRN #1 box 09/26/17 Unknown Rx NEBS] amLODIPine 5 mg PO DAILY #30 tab 05/19/19 Unknown Rx hydroCHLOROthiazide [HCTZ] 25 mg PO QDAY #30 tablet 05/19/19 Unknown Rx Albuterol Mdi (or & Nicu Only) 2 puff IH QID PRN #1 inhalation 10/08/21 Unknown Rx [ProAir HFA Inhaler] Ibuprofen [Motrin 800 MG tab] 800 mg PO Q8HR PRN #30 tablet 10/08/21 Unknown Rx Aspirin [Aspirin BABY CHEW TAB] 81 mg PO QDAY #30 tab.chew 10/15/21 Unknown Rx Permethrin 5% [Acticin 5% CREAM] 1 applicatio TP ONCE #1 tube 10/17/21 Unknown Rx Acetaminophen [Acetaminophen TAB] 500 mg PO Q6HR PRN #20 tablet 10/26/21 Unknown Rx Albuterol Mdi (or & Nicu Only) 2 puff IH QID PRN #8.5 gram 10/26/21 Unknown Rx [ProAir HFA Inhaler] Menthol/Camphor [[place] 1 applicatio TP QID PRN #1 tube 10/26/21 Unknown Rx Ointment] Clotrimazole 1% [Lotrimin 1%] 1 applic TP BID #1 tube 10/29/21 Unknown Rx Naproxen [EC-Naproxen] 500 mg PO BID #20 10/29/21 Unknown Rx Allergies Allergy/AdvReac Type Severity Reaction Status Date / Time No Known Allergies Allergy Verified 10/26/21 21:34 ED Review of Systems ROS: Stated complaint: THIGH Other details as noted in HPI Comment: All other systems reviewed and negative Constitutional: denies: chills, fever Eyes: denies: eye pain, eye discharge, vision change ENT: denies: ear pain, throat pain Respiratory: denies: cough, shortness of breath, wheezing Cardiovascular: denies: chest pain, palpitations Endocrine: no symptoms reported Gastrointestinal: denies: abdominal pain, nausea, diarrhea Genitourinary: denies: urgency, dysuria, discharge Musculoskeletal: denies: back pain, joint swelling, arthralgia Skin: denies: rash, lesions Neurological: denies: headache, weakness, paresthesias Psychiatric: denies: anxiety, depression, auditory hallucinations, visual hallucinations, homicidal thoughts, suicidal thoughts Hematological/Lymphatic: denies: easy bleeding, easy bruising ED Past Medical Hx - Past Medical History Hx Hypertension: Yes Hx Arthritis: Yes Hx Psychiatric Treatment: Yes (Schizophrenia) Hx Asthma: Yes (bronchitis) Additional medical history: gout - Surgical History Additional Surgical History: "TUMORS REMOVED IN STOMACH" - Social History Smoking Status: Current Some Day Smoker Substance Use Type: None - Medications Home Medications: Home Medications Medication Instructions Recorded Confirmed Last Taken Type ALBUTEROL NEB's [Proventil 0.083% 1 puff IH Q4H PRN #1 box 09/26/17 Unknown Rx NEBS] amLODIPine 5 mg PO DAILY #30 tab 05/19/19 Unknown Rx hydroCHLOROthiazide [HCTZ] 25 mg PO QDAY #30 tablet 05/19/19 Unknown Rx Albuterol Mdi (or & Nicu Only) 2 puff IH QID PRN #1 inhalation 10/08/21 Unknown Rx [ProAir HFA Inhaler] Ibuprofen [Motrin 800 MG tab] 800 mg PO Q8HR PRN #30 tablet 10/08/21 Unknown Rx Aspirin [Aspirin BABY CHEW TAB] 81 mg PO QDAY #30 tab.chew 10/15/21 Unknown Rx Permethrin 5% [Acticin 5% CREAM] 1 applicatio TP ONCE #1 tube 10/17/21 Unknown Rx Acetaminophen [Acetaminophen TAB] 500 mg PO Q6HR PRN #20 tablet 10/26/21 Unknown Rx Albuterol Mdi (or & Nicu Only) 2 puff IH QID PRN #8.5 gram 10/26/21 Unknown Rx [ProAir HFA Inhaler] Menthol/Camphor [[place] 1 applicatio TP QID PRN #1 tube 10/26/21 Unknown Rx Ointment] Clotrimazole 1% [Lotrimin 1%] 1 applic TP BID #1 tube 10/29/21 Unknown Rx Naproxen [EC-Naproxen] 500 mg PO BID #20 10/29/21 Unknown Rx ED Physical Exam - General Limitations: No Limitations General appearance: alert, in no apparent distress - Head Head exam: Present: atraumatic, normocephalic - Eye Eye exam: Present: normal appearance - Neck Neck exam: Present: normal inspection, full ROM. Absent: lymphadenopathy - Respiratory Respiratory exam: Present: normal lung sounds bilaterally. Absent: respiratory distress, wheezes, rales, rhonchi, stridor, chest wall tenderness, accessory muscle use, decreased breath sounds, prolonged expiratory - Cardiovascular Cardiovascular Exam: Present: regular rate, normal rhythm, normal heart sounds. Absent: bradycardia, tachycardia, irregular rhythm, systolic murmur, diastolic murmur, rubs, gallop - GI/Abdominal GI/Abdominal exam: Present: soft, normal bowel sounds. Absent: distended, tenderness, guarding, rebound, rigid - Extremities Exam Extremities exam: Present: normal inspection, full ROM, normal capillary refill. Absent: tenderness - Back Exam Back exam: Present: normal inspection, full ROM. Absent: tenderness, CVA tenderness (R), CVA tenderness (L), muscle spasm, paraspinal tenderness, vertebral tenderness, rash noted - Neurological Exam Neurological exam: Present: alert, oriented X3, normal gait - Psychiatric Psychiatric exam: Present: normal affect, normal mood. Absent: depressed, agitated, anxious, flat affect, manic, homicidal ideation, suicidal ideation - Skin Skin exam: Present: warm, dry, intact, normal color. Absent: rash ED Course Vital Signs 11/01/21 08:33 Temperature 97.6 F Pulse Rate 77 Respiratory 18 Rate Blood Pressure 213/99 [Right] O2 Sat by Pulse 99 Oximetry - Reevaluation(s) Reevaluation #1: 11/01/21 11:07 Patient is speaking in full sentences with no signs of distress noted. ED Medical Decision Making - Medical Decision Making RN notified to have the patient to recieve food. Patient was instructed to follow-up with a primary care doctor in 3-5 days or if symptoms worsen and continue return to emergency room as soon as possible. At time of discharge, the patient does not seem toxic or ill in appearance. No acute signs of distress noted. Patient agrees to discharge treatment plan of care. No further questions noted by the patient. Critical care attestation.: If time is entered above; I have spent that time in minutes in the direct care of this critically ill patient, excluding procedure time. ED Disposition Clinical Impression: Normal physical exam, routine Disposition: 01 HOME / SELF CARE / HOMELESS Is pt being admited?: No Does the pt Need Aspirin: No Condition: Stable Additional Instructions: Follow-up with a primary care doctor in 3-5 days or if symptoms worsen and continue return to emergency room as soon as possible. Referrals: GREER MAJOR MD [Primary Care Provider] - 3-5 Days GHULAM WALTON MD [Staff Physician] - 3-5 Days Time of Disposition: 11:09
== END 2021-11-01 11:25 | disposition home or self-care (01) ==
LOC: ED 08:04
DX: Z00.00 Encounter for general adult medical examination without abnormal findings (principal); I10 Essential (primary) hypertension; F17.200 Nicotine dependence, unspecified, uncomplicated; J45.909 Unspecified asthma, uncomplicated; F20.9 Schizophrenia, unspecified
CPT/HCPCS: 99282

== ENCOUNTER 2021-11-02 22:17 | Emergency (ER) | payer MEDICARE | END 2021-11-03 18:13 | disposition left against medical advice (07) | LOC: ED 22:17 | DX: M79.606 Pain in leg, unspecified (principal); Z53.21 Procedure and treatment not carried out due to patient leaving prior to being seen by health care provider ==

== ENCOUNTER → 2021-11-04 21:11 | Emergency (ER) | payer MEDICARE | END | disposition left against medical advice (07) | LOC: ED 21:11 | DX: M25.579 Pain in unspecified ankle and joints of unspecified foot (principal); Z53.21 Procedure and treatment not carried out due to patient leaving prior to being seen by health care provider ==

== ENCOUNTER → 2021-11-11 22:25 | Emergency (ER) | payer MEDICARE | END | disposition left against medical advice (07) | LOC: ED 22:25 | DX: R05.9 Cough, unspecified (principal); Z53.21 Procedure and treatment not carried out due to patient leaving prior to being seen by health care provider ==

== ENCOUNTER 2021-11-15 22:08 | Emergency (ER) | payer MEDICARE ==
[2021-11-16] MEDS ORDERED: amLODIPine 5 MG TAB PO ONE (02:50)
[2021-11-16] MEDS ORDERED: BENZONATATE 100 MG CAP PO ONE (02:50)
--- NOTE | 2021-11-16 02:52 | Emergency Department Report ---
ED General Adult HPI - General Chief complaint: Upper Respiratory Infection Stated complaint: COUGH PUI?: No Time Seen by Provider: 11/16/21 02:19 Source: patient, RN notes reviewed, old records reviewed Mode of arrival: Ambulatory Limitations: No Limitations - History of Present Illness Initial comments: The patient is a 51-year-old female, who is a frequent utilizer of this emergency room, presenting to the ER today with a complaint of sore throat, and cough. She denies physical pain. She endorses no additional complaints. She is asking for refill on her Norvasc -: Gradual, days(s) Consistency: intermittent Improves with: none Worsens with: none - Related Data Previous Rx's Medication Instructions Recorded Last Taken Type ALBUTEROL NEB's [Proventil 0.083% 1 puff IH Q4H PRN #1 box 09/26/17 Unknown Rx NEBS] amLODIPine 5 mg PO DAILY #30 tab 05/19/19 Unknown Rx hydroCHLOROthiazide [HCTZ] 25 mg PO QDAY #30 tablet 05/19/19 Unknown Rx Albuterol Mdi (or & Nicu Only) 2 puff IH QID PRN #1 inhalation 10/08/21 Unknown Rx [ProAir HFA Inhaler] Ibuprofen [Motrin 800 MG tab] 800 mg PO Q8HR PRN #30 tablet 10/08/21 Unknown Rx Aspirin [Aspirin BABY CHEW TAB] 81 mg PO QDAY #30 tab.chew 10/15/21 Unknown Rx Permethrin 5% [Acticin 5% CREAM] 1 applicatio TP ONCE #1 tube 10/17/21 Unknown Rx Acetaminophen [Acetaminophen TAB] 500 mg PO Q6HR PRN #20 tablet 10/26/21 Unknown Rx Albuterol Mdi (or & Nicu Only) 2 puff IH QID PRN #8.5 gram 10/26/21 Unknown Rx [ProAir HFA Inhaler] Menthol/Camphor [[place] 1 applicatio TP QID PRN #1 tube 10/26/21 Unknown Rx Ointment] Clotrimazole 1% [Lotrimin 1%] 1 applic TP BID #1 tube 10/29/21 Unknown Rx Naproxen [EC-Naproxen] 500 mg PO BID #20 10/29/21 Unknown Rx Albuterol Sulfate [Proair 90 mcg IH Q4HR PRN #2 aer.pow.ba 11/16/21 Unknown Rx Respiclick] Amlodipine Besylate [Norvasc] 10 mg PO QDAY #60 tab 11/16/21 Unknown Rx Benzonatate [Tessalon Perles] 100 mg PO Q8HR PRN #30 capsule 11/16/21 Unknown Rx Nicotine Polacrilex [Nicotine Gum] 4 mg BC PRN #1 pack 11/16/21 Unknown Rx Allergies Allergy/AdvReac Type Severity Reaction Status Date / Time No Known Allergies Allergy Verified 10/26/21 21:34 ED Review of Systems ROS: Stated complaint: COUGH Other details as noted in HPI Constitutional: denies: fever ENT: throat pain Respiratory: cough Cardiovascular: denies: chest pain Gastrointestinal: denies: abdominal pain Musculoskeletal: denies: back pain ED Past Medical Hx - Past Medical History Hx Hypertension: Yes Hx Arthritis: Yes Hx Psychiatric Treatment: Yes (Schizophrenia) Hx Asthma: Yes (bronchitis) Additional medical history: gout - Surgical History Additional Surgical History: "TUMORS REMOVED IN STOMACH" - Social History Smoking Status: Current Some Day Smoker Substance Use Type: None - Medications Home Medications: Home Medications Medication Instructions Recorded Confirmed Last Taken Type ALBUTEROL NEB's [Proventil 0.083% 1 puff IH Q4H PRN #1 box 09/26/17 Unknown Rx NEBS] amLODIPine 5 mg PO DAILY #30 tab 05/19/19 Unknown Rx hydroCHLOROthiazide [HCTZ] 25 mg PO QDAY #30 tablet 05/19/19 Unknown Rx Albuterol Mdi (or & Nicu Only) 2 puff IH QID PRN #1 inhalation 10/08/21 Unknown Rx [ProAir HFA Inhaler] Ibuprofen [Motrin 800 MG tab] 800 mg PO Q8HR PRN #30 tablet 10/08/21 Unknown Rx Aspirin [Aspirin BABY CHEW TAB] 81 mg PO QDAY #30 tab.chew 10/15/21 Unknown Rx Permethrin 5% [Acticin 5% CREAM] 1 applicatio TP ONCE #1 tube 10/17/21 Unknown Rx Acetaminophen [Acetaminophen TAB] 500 mg PO Q6HR PRN #20 tablet 10/26/21 Unknown Rx Albuterol Mdi (or & Nicu Only) 2 puff IH QID PRN #8.5 gram 10/26/21 Unknown Rx [ProAir HFA Inhaler] Menthol/Camphor [[place] 1 applicatio TP QID PRN #1 tube 10/26/21 Unknown Rx Ointment] Clotrimazole 1% [Lotrimin 1%] 1 applic TP BID #1 tube 10/29/21 Unknown Rx Naproxen [EC-Naproxen] 500 mg PO BID #20 10/29/21 Unknown Rx Albuterol Sulfate [Proair 90 mcg IH Q4HR PRN #2 aer.pow.ba 11/16/21 Unknown Rx Respiclick] Amlodipine Besylate [Norvasc] 10 mg PO QDAY #60 tab 11/16/21 Unknown Rx Benzonatate [Tessalon Perles] 100 mg PO Q8HR PRN #30 capsule 11/16/21 Unknown Rx Nicotine Polacrilex [Nicotine Gum] 4 mg BC PRN #1 pack 11/16/21 Unknown Rx ED Physical Exam - General Limitations: No Limitations General appearance: alert, in no apparent distress - Head Head exam: Present: atraumatic, normocephalic - Eye Eye exam: Present: normal appearance, EOMI. Absent: nystagmus - ENT ENT exam: Present: normal exam, normal orophraynx, mucous membranes moist, normal external ear exam - Neck Neck exam: Present: normal inspection, full ROM. Absent: tenderness, meningismus - Respiratory Respiratory exam: Present: normal lung sounds bilaterally. Absent: respiratory distress, wheezes, rales, rhonchi, stridor, decreased breath sounds - Cardiovascular Cardiovascular Exam: Present: regular rate, normal rhythm, normal heart sounds. Absent: bradycardia, tachycardia, irregular rhythm, systolic murmur, diastolic murmur, rubs, gallop - GI/Abdominal GI/Abdominal exam: Present: soft. Absent: distended, tenderness, guarding, rebound, rigid, pulsatile mass - Extremities Exam Extremities exam: Present: normal inspection, full ROM, other (2+ pulses noted in the bilateral upper extremities. There is no long bony tenderness. The muscular compartments are soft. The pelvis is stable). Absent: pedal edema, calf tenderness - Back Exam Back exam: Present: normal inspection. Absent: tenderness, CVA tenderness (R), CVA tenderness (L), paraspinal tenderness, vertebral tenderness - Neurological Exam Neurological exam: Present: alert, other (No facial droop. Tongue midline. Extraocular movements intact bilaterally. Facial sensation intact to light touch in V1, V2, V3 distribution bilaterally. 5 and a 5 strength in 4 extremities. Sensation intact to light touch in 4 extremities.) - Psychiatric Psychiatric exam: Present: flat affect - Skin Skin exam: Present: warm, dry, intact, normal color. Absent: rash ED Course Vital Signs 11/15/21 22:30 Temperature 98.5 F Pulse Rate 92 H Respiratory 18 Rate Blood Pressure 206/117 O2 Sat by Pulse 98 Oximetry ED Medical Decision Making - Lab Data Vital Signs 11/15/21 22:30 Temperature 98.5 F Pulse Rate 92 H Respiratory 18 Rate Blood Pressure 206/117 O2 Sat by Pulse 98 Oximetry - Medical Decision Making Differential diagnosis, including but not limited to: Bronchitis, pharyngitis, homelessness, malingering, secondary gain, encounter for medical screening examination, medication refill Assessment and plan: 51-year-old female, who is afebrile, with reassuring vital signs with exception of chronic hypertension (please reference the [employer] clinical policy on asymptomatic hypertension), presenting to the ER today with a complaint of sore throat, and cough. She is not wheezing. Her lung sounds are clear. She is in no acute respiratory distress. Pulmonary examination nonfocal. Patient can be discharged with as needed Tessalon Perles and albuterol. She is currently resting quite comfortably on a chair, and in no acute distress. Oropharynx is clear, without redness, pus or streaking. There is no lymphadenopathy. The patient does not meet criteria for 1013 hold or involuntary confinement today. I suspect that she is presenting for the purposes of secondary gain. She may be discharged at this time, with a refill on her amlodipine. Critical care attestation.: If time is entered above; I have spent that time in minutes in the direct care of this critically ill patient, excluding procedure time. ED Disposition Clinical Impression: Elevated blood pressure reading, Medication refill, Bronchitis Disposition: 01 HOME / SELF CARE / HOMELESS Is pt being admited?: No Does the pt Need Aspirin: No Condition: Good Instructions: Chronic Bronchitis (ED) Additional Instructions: Please take the albuterol and Tessalon Perles as needed for cough. Take the Norvasc as needed for hypertension/elevated blood pressure. Long-term comp lications of hypertension include stroke, heart attack, disability, paralysis, and loss of quality of life. Patient likely has bronchitis. Symptoms of bronchitis last anywhere from 3 to 6 weeks. Needs follow-up with a primary care doctor within the next month. Please return to the emergency room right away with new pain, worsened pain, migration of pain, projectile vomiting, change in mental status, confusion, inability tolerate liquid feeds, new, worsened or different symptoms not present on the initial emergency room evaluation Referrals: [facility] [Provider Group] - 3-5 Days [facility] [Outside] - 3-5 Days [facility] [Outside] - 3-5 Days
[2021-11-16 04:04] VITALS: BP 202/108
== END 2021-11-16 04:05 | disposition home or self-care (01) ==
LOC: ED 22:08
DX: J40 Bronchitis, not specified as acute or chronic (principal); Z76.0 Encounter for issue of repeat prescription; I10 Essential (primary) hypertension; M19.90 Unspecified osteoarthritis, unspecified site; F20.9 Schizophrenia, unspecified; Z79.899 Other long term (current) drug therapy; Z98.890 Other specified postprocedural states; F17.200 Nicotine dependence, unspecified, uncomplicated; Z59.00 Homelessness unspecified
CPT/HCPCS: 99282

== ENCOUNTER 2021-11-25 17:50 | Emergency (ER) | payer MEDICARE ==
[2021-11-25 20:01] VITALS: BP 190/94
== END 2021-11-25 20:00 | disposition left against medical advice (07) ==
LOC: ED 17:50
DX: M54.9 Dorsalgia, unspecified (principal); Z53.21 Procedure and treatment not carried out due to patient leaving prior to being seen by health care provider

== ENCOUNTER 2021-11-26 22:23 | Emergency (ER) | payer MEDICARE ==
[2021-11-26 22:48] VITALS: BP 175/83
[2021-11-27] MEDS ORDERED: ACETAMINOPHEN 325 MG TAB PO ONE (04:50)
--- NOTE | 2021-11-27 05:36 | Emergency Department Report ---
ED General Adult HPI - General Chief complaint: Skin/Abscess/Foreign Body Stated complaint: HOT FLASHES Time Seen by Provider: 11/27/21 04:45 Source: patient Mode of arrival: Ambulatory Limitations: No Limitations - History of Present Illness Initial comments: Is a 51-year-old female who presents for hot flashes today. Patient does confirm perimenopausal ,patient is is known by this provider and presents to ED multiple times a week with varying complaints. Patient is homeless. Upon interview today patient advises she just wants to be left alone. Patient states 1 episode of hot flashes which have resolved. There is no fever no chills no nausea no vomiting no chest pain or shortness of breath no dizziness or lightheadedness. Patient is alert oriented x3 amatory on her own power at this time. Severity scale (0 -10): 4 - Related Data Previous Rx's Medication Instructions Recorded Last Taken Type ALBUTEROL NEB's [Proventil 0.083% 1 puff IH Q4H PRN #1 box 09/26/17 Unknown Rx NEBS] amLODIPine 5 mg PO DAILY #30 tab 05/19/19 Unknown Rx hydroCHLOROthiazide [HCTZ] 25 mg PO QDAY #30 tablet 05/19/19 Unknown Rx Albuterol Mdi (or & Nicu Only) 2 puff IH QID PRN #1 inhalation 10/08/21 Unknown Rx [ProAir HFA Inhaler] Ibuprofen [Motrin 800 MG tab] 800 mg PO Q8HR PRN #30 tablet 10/08/21 Unknown Rx Aspirin [Aspirin BABY CHEW TAB] 81 mg PO QDAY #30 tab.chew 10/15/21 Unknown Rx Permethrin 5% [Acticin 5% CREAM] 1 applicatio TP ONCE #1 tube 10/17/21 Unknown Rx Acetaminophen [Acetaminophen TAB] 500 mg PO Q6HR PRN #20 tablet 10/26/21 Unknown Rx Albuterol Mdi (or & Nicu Only) 2 puff IH QID PRN #8.5 gram 10/26/21 Unknown Rx [ProAir HFA Inhaler] Menthol/Camphor [[place] 1 applicatio TP QID PRN #1 tube 10/26/21 Unknown Rx Ointment] Clotrimazole 1% [Lotrimin 1%] 1 applic TP BID #1 tube 10/29/21 Unknown Rx Naproxen [EC-Naproxen] 500 mg PO BID #20 10/29/21 Unknown Rx Albuterol Sulfate [Proair 90 mcg IH Q4HR PRN #2 aer.pow.ba 11/16/21 Unknown Rx Respiclick] Amlodipine Besylate [Norvasc] 10 mg PO QDAY #60 tab 11/16/21 Unknown Rx Benzonatate [Tessalon Perles] 100 mg PO Q8HR PRN #30 capsule 11/16/21 Unknown Rx Nicotine Polacrilex [Nicotine Gum] 4 mg BC PRN #1 pack 11/16/21 Unknown Rx Allergies Allergy/AdvReac Type Severity Reaction Status Date / Time No Known Allergies Allergy Verified 10/26/21 21:34 ED Review of Systems ROS: Stated complaint: HOT FLASHES Other details as noted in HPI Constitutional: denies: chills, fever Eyes: denies: eye pain, eye discharge, vision change ENT: denies: ear pain, throat pain, dental pain, epistaxis, congestion Respiratory: denies: cough, shortness of breath, wheezing Cardiovascular: denies: chest pain, palpitations Endocrine: no symptoms reported Gastrointestinal: denies: abdominal pain, nausea, diarrhea Genitourinary: denies: urgency, dysuria, discharge Musculoskeletal: denies: back pain, joint swelling, arthralgia Skin: denies: rash, lesions Neurological: denies: headache, weakness, paresthesias Psychiatric: denies: anxiety, depression Hematological/Lymphatic: denies: easy bleeding, easy bruising ED Past Medical Hx - Past Medical History Hx Hypertension: Yes Hx Arthritis: Yes Hx Psychiatric Treatment: Yes (Schizophrenia) Hx Asthma: Yes (bronchitis) Additional medical history: gout - Surgical History Additional Surgical History: "TUMORS REMOVED IN STOMACH" - Social History Smoking Status: Current Some Day Smoker Substance Use Type: None - Medications Home Medications: Home Medications Medication Instructions Recorded Confirmed Last Taken Type ALBUTEROL NEB's [Proventil 0.083% 1 puff IH Q4H PRN #1 box 09/26/17 Unknown Rx NEBS] amLODIPine 5 mg PO DAILY #30 tab 05/19/19 Unknown Rx hydroCHLOROthiazide [HCTZ] 25 mg PO QDAY #30 tablet 05/19/19 Unknown Rx Albuterol Mdi (or & Nicu Only) 2 puff IH QID PRN #1 inhalation 10/08/21 Unknown Rx [ProAir HFA Inhaler] Ibuprofen [Motrin 800 MG tab] 800 mg PO Q8HR PRN #30 tablet 10/08/21 Unknown Rx Aspirin [Aspirin BABY CHEW TAB] 81 mg PO QDAY #30 tab.chew 10/15/21 Unknown Rx Permethrin 5% [Acticin 5% CREAM] 1 applicatio TP ONCE #1 tube 10/17/21 Unknown Rx Acetaminophen [Acetaminophen TAB] 500 mg PO Q6HR PRN #20 tablet 10/26/21 Unknown Rx Albuterol Mdi (or & Nicu Only) 2 puff IH QID PRN #8.5 gram 10/26/21 Unknown Rx [ProAir HFA Inhaler] Menthol/Camphor [[place] 1 applicatio TP QID PRN #1 tube 10/26/21 Unknown Rx Ointment] Clotrimazole 1% [Lotrimin 1%] 1 applic TP BID #1 tube 10/29/21 Unknown Rx Naproxen [EC-Naproxen] 500 mg PO BID #20 10/29/21 Unknown Rx Albuterol Sulfate [Proair 90 mcg IH Q4HR PRN #2 aer.pow.ba 11/16/21 Unknown Rx Respiclick] Amlodipine Besylate [Norvasc] 10 mg PO QDAY #60 tab 11/16/21 Unknown Rx Benzonatate [Tessalon Perles] 100 mg PO Q8HR PRN #30 capsule 11/16/21 Unknown Rx Nicotine Polacrilex [Nicotine Gum] 4 mg BC PRN #1 pack 11/16/21 Unknown Rx ED Physical Exam - General Limitations: No Limitations General appearance: alert, in no apparent distress - Head Head exam: Present: atraumatic, normocephalic, normal inspection - Eye Eye exam: Present: normal appearance, PERRL, EOMI. Absent: conjunctival injection, nystagmus Pupils: Present: normal accommodation - ENT ENT exam: Present: mucous membranes moist - Neck Neck exam: Present: normal inspection, full ROM. Absent: tenderness, meningismus - Respiratory Respiratory exam: Present: normal lung sounds bilaterally. Absent: respiratory distress - Cardiovascular Cardiovascular Exam: Present: regular rate, normal rhythm, normal heart sounds. Absent: systolic murmur, diastolic murmur, rubs, gallop - GI/Abdominal GI/Abdominal exam: Present: soft, normal bowel sounds. Absent: distended, tenderness - Rectal Rectal exam: Present: deferred - Extremities Exam Extremities exam: Present: normal inspection, full ROM, normal capillary refill. Absent: calf tenderness - Back Exam Back exam: Present: normal inspection, full ROM. Absent: CVA tenderness (R), CVA tenderness (L) - Neurological Exam Neurological exam: Present: alert, oriented X3, CN II-XII intact, normal gait, reflexes normal. Absent: motor sensory deficit - Psychiatric Psychiatric exam: Present: normal affect, normal mood - Skin Skin exam: Present: warm, dry, intact, normal color. Absent: rash ED Course Vital Signs 11/26/21 22:47 Temperature 98.8 F Pulse Rate 92 H Respiratory 18 Rate Blood Pressure 175/83 O2 Sat by Pulse 98 Oximetry ED Medical Decision Making - EKG Data Rate: bradycardia - Medical Decision Making Physical exam is unremarkable. There is no cough no fever no malaise no nausea no vomiting. Plan DC to home. Patient will take Tylenol [id number] as needed for pain. Follow-up with primary care doctor in 2 to 3 days. Patient verbalized agreement and understanding with discharge plan. Patient DC'd home in stable condition at this time. Critical care attestation.: If time is entered above; I have spent that time in minutes in the direct care of this critically ill patient, excluding procedure time. ED Disposition Clinical Impression: Hot flashes Disposition: HOME / SELF CARE / HOMELESS Is pt being admited?: No Does the pt Need Aspirin: No Condition: Stable Instructions: Musculoskeletal Pain Additional Instructions: Take [id number] Tylenol as needed for pain. Follow-up with your doctor in 2 to 3 days. Return to emergency should symptoms worsen. Referrals: RITESH DUMONT MD [Staff Physician] - 3-5 Days Forms: Work/School Release Form(ED) Time of Disposition: 05:53
== END 2021-11-27 05:58 | disposition home or self-care (01) ==
LOC: ED 22:23
DX: N95.1 Menopausal and female climacteric states (principal); I10 Essential (primary) hypertension; M19.90 Unspecified osteoarthritis, unspecified site; F20.9 Schizophrenia, unspecified; J45.909 Unspecified asthma, uncomplicated; F17.200 Nicotine dependence, unspecified, uncomplicated; Z79.899 Other long term (current) drug therapy
CPT/HCPCS: 99282

== ENCOUNTER 2021-11-27 21:26 | Emergency (ER) | payer MEDICARE ==
[2021-11-28 04:55] VITALS: BP 182/72
== END 2021-11-28 18:23 | disposition left against medical advice (07) ==
LOC: ED 21:26
DX: M79.601 Pain in right arm (principal); Z53.21 Procedure and treatment not carried out due to patient leaving prior to being seen by health care provider

== ENCOUNTER 2021-11-29 23:13 | Emergency (ER) | payer MEDICARE ==
[2021-11-29 23:54] VITALS: BP 190/86
== END 2021-11-30 09:03 | disposition left against medical advice (07) ==
LOC: ED 23:13
DX: I10 Essential (primary) hypertension (principal); Z53.21 Procedure and treatment not carried out due to patient leaving prior to being seen by health care provider

== ENCOUNTER 2021-12-01 05:27 | Emergency (ER) | payer MEDICARE ==
[2021-12-01 06:06] VITALS: BP 172/97
== END 2021-12-01 07:00 | disposition left against medical advice (07) ==
LOC: ED 05:27
DX: R05.9 Cough, unspecified (principal); Z53.21 Procedure and treatment not carried out due to patient leaving prior to being seen by health care provider

== ENCOUNTER 2021-12-01 20:50 | Emergency (ER) | payer MEDICARE ==
--- NOTE | 2021-12-02 03:57 | Emergency Department Report ---
ED General Adult HPI - General Chief complaint: Extremity Injury, Lower Stated complaint: LEG WEAKNESS Time Seen by Provider: 12/02/21 03:38 Source: patient Mode of arrival: Ambulatory Limitations: No Limitations - History of Present Illness Initial comments: Patient a 51-year-old -[place] female who presents with generalized leg pain and weakness patient states for 2 to 3 months. However patient is seen in the ED frequently 4-5 times per week, patient states homeless, and "walking all day makes my legs hurt." Patient denies fall injury or trauma. On arrival to ED ambulatory patient continues ambulatory patient is tolerating p.o. intake there is no shortness of breath no diaphoresis no nausea no vomiting. No back pain. Body aches are exacerbated by activities. Radiation relieved by rest and offloading. Patient rates pain at 2/10 at this time. Patient denies fever or chills. Severity scale (0 -10): 8 - Related Data Previous Rx's Medication Instructions Recorded Last Taken Type ALBUTEROL NEB's [Proventil 0.083% 1 puff IH Q4H PRN #1 box 09/26/17 Unknown Rx NEBS] amLODIPine 5 mg PO DAILY #30 tab 05/19/19 Unknown Rx hydroCHLOROthiazide [HCTZ] 25 mg PO QDAY #30 tablet 05/19/19 Unknown Rx Albuterol Mdi (or & Nicu Only) 2 puff IH QID PRN #1 inhalation 10/08/21 Unknown Rx [ProAir HFA Inhaler] Ibuprofen [Motrin 800 MG tab] 800 mg PO Q8HR PRN #30 tablet 10/08/21 Unknown Rx Aspirin [Aspirin BABY CHEW TAB] 81 mg PO QDAY #30 tab.chew 10/15/21 Unknown Rx Permethrin 5% [Acticin 5% CREAM] 1 applicatio TP ONCE #1 tube 10/17/21 Unknown Rx Albuterol Mdi (or & Nicu Only) 2 puff IH QID PRN #8.5 gram 10/26/21 Unknown Rx [ProAir HFA Inhaler] Menthol/Camphor [[place] 1 applicatio TP QID PRN #1 tube 10/26/21 Unknown Rx Ointment] Clotrimazole 1% [Lotrimin 1%] 1 applic TP BID #1 tube 10/29/21 Unknown Rx Naproxen [EC-Naproxen] 500 mg PO BID #20 10/29/21 Unknown Rx Albuterol Sulfate [Proair 90 mcg IH Q4HR PRN #2 aer.pow.ba 11/16/21 Unknown Rx Respiclick] Amlodipine Besylate [Norvasc] 10 mg PO QDAY #60 tab 11/16/21 Unknown Rx Benzonatate [Tessalon Perles] 100 mg PO Q8HR PRN #30 capsule 11/16/21 Unknown Rx Nicotine Polacrilex [Nicotine Gum] 4 mg BC PRN #1 pack 11/16/21 Unknown Rx Acetaminophen [Acetaminophen TAB] 500 mg PO Q6HR PRN #20 tablet 12/02/21 Unknown Rx Allergies Allergy/AdvReac Type Severity Reaction Status Date / Time No Known Allergies Allergy Verified 10/26/21 21:34 ED Review of Systems ROS: Stated complaint: LEG WEAKNESS Other details as noted in HPI Constitutional: denies: chills, fever Eyes: denies: eye pain, eye discharge, vision change ENT: denies: ear pain, throat pain Respiratory: denies: cough, shortness of breath, wheezing Cardiovascular: denies: chest pain, palpitations Endocrine: no symptoms reported Gastrointestinal: denies: abdominal pain, nausea, diarrhea Genitourinary: denies: urgency, dysuria, discharge Musculoskeletal: other (Lower extremity pain and aching). denies: back pain, joint swelling, arthralgia Skin: denies: rash, lesions Neurological: as per HPI, headache. denies: weakness, numbness, paresthesias, confusion Psychiatric: denies: anxiety, depression Hematological/Lymphatic: denies: easy bleeding, easy bruising ED Past Medical Hx - Past Medical History Previous Medical History?: No Hx Hypertension: Yes Hx Arthritis: Yes Hx Psychiatric Treatment: Yes (Schizophrenia) Hx Asthma: Yes (bronchitis) Additional medical history: gout - Surgical History Past Surgical History?: No Additional Surgical History: "TUMORS REMOVED IN STOMACH" - Social History Smoking Status: Current Some Day Smoker Substance Use Type: None - Medications Home Medications: Home Medications Medication Instructions Recorded Confirmed Last Taken Type ALBUTEROL NEB's [Proventil 0.083% 1 puff IH Q4H PRN #1 box 09/26/17 Unknown Rx NEBS] amLODIPine 5 mg PO DAILY #30 tab 05/19/19 Unknown Rx hydroCHLOROthiazide [HCTZ] 25 mg PO QDAY #30 tablet 05/19/19 Unknown Rx Albuterol Mdi (or & Nicu Only) 2 puff IH QID PRN #1 inhalation 10/08/21 Unknown Rx [ProAir HFA Inhaler] Ibuprofen [Motrin 800 MG tab] 800 mg PO Q8HR PRN #30 tablet 10/08/21 Unknown Rx Aspirin [Aspirin BABY CHEW TAB] 81 mg PO QDAY #30 tab.chew 10/15/21 Unknown Rx Permethrin 5% [Acticin 5% CREAM] 1 applicatio TP ONCE #1 tube 10/17/21 Unknown Rx Albuterol Mdi (or & Nicu Only) 2 puff IH QID PRN #8.5 gram 10/26/21 Unknown Rx [ProAir HFA Inhaler] Menthol/Camphor [[place] 1 applicatio TP QID PRN #1 tube 10/26/21 Unknown Rx Ointment] Clotrimazole 1% [Lotrimin 1%] 1 applic TP BID #1 tube 10/29/21 Unknown Rx Naproxen [EC-Naproxen] 500 mg PO BID #20 10/29/21 Unknown Rx Albuterol Sulfate [Proair 90 mcg IH Q4HR PRN #2 aer.pow.ba 11/16/21 Unknown Rx Respiclick] Amlodipine Besylate [Norvasc] 10 mg PO QDAY #60 tab 11/16/21 Unknown Rx Benzonatate [Tessalon Perles] 100 mg PO Q8HR PRN #30 capsule 11/16/21 Unknown Rx Nicotine Polacrilex [Nicotine Gum] 4 mg BC PRN #1 pack 11/16/21 Unknown Rx Acetaminophen [Acetaminophen TAB] 500 mg PO Q6HR PRN #20 tablet 12/02/21 Unknown Rx ED Physical Exam - General Limitations: No Limitations General appearance: alert, in no apparent distress - Head Head exam: Present: atraumatic, normocephalic - Eye Eye exam: Present: normal appearance, PERRL, EOMI Pupils: Present: normal accommodation - ENT ENT exam: Present: normal exam, mucous membranes moist - Neck Neck exam: Present: normal inspection, full ROM. Absent: tenderness, lymphadenopathy, thyromegaly - Respiratory Respiratory exam: Present: normal lung sounds bilaterally, chest wall tenderness. Absent: respiratory distress, wheezes, stridor - Cardiovascular Cardiovascular Exam: Present: regular rate, normal rhythm, normal heart sounds - GI/Abdominal GI/Abdominal exam: Present: soft, normal bowel sounds. Absent: distended, tenderness - Rectal Rectal exam: Present: deferred - Extremities Exam Extremities exam: Present: normal inspection, full ROM, normal capillary refill. Absent: tenderness, pedal edema, joint swelling, calf tenderness - Back Exam Back exam: Present: normal inspection, full ROM, tenderness, CVA tenderness (R). Absent: CVA tenderness (L), paraspinal tenderness, vertebral tenderness - Neurological Exam Neurological exam: Present: alert, oriented X3, CN II-XII intact, normal gait, reflexes normal. Absent: motor sensory deficit - Expanded Neurological Exam Expanded Patient oriented to: Present: person, place, time Speech: Present: fluid speech Motor strength exam: RUE: 5, LUE: 5, RLE: 5, LLE: 5 DTR: knee (R): 1+, knee (L): 1+ Best Eye Response ([place]): (4) open spontaneously Best Motor Response ([place]): (6) obeys commands Best Verbal Response ([place]): (5) oriented Zaida Total: 15 - Psychiatric Psychiatric exam: Present: normal affect, normal mood. Absent: anxious - Skin Skin exam: Present: warm, dry, intact, normal color. Absent: rash ED Course Vital Signs 12/01/21 20:54 Temperature 98.2 F Pulse Rate 85 Respiratory 18 Rate Blood Pressure 173/85 [Left] O2 Sat by Pulse 99 Oximetry ED Medical Decision Making - EKG Data When compared to previous EKG there are: no significant change, changes noted Interpretation: unchanged when compared t - Medical Decision Making Patient with no acute distress patient appears well-hydrated well-nourished patient with no acute complaint. This is a chronic pain. Patient denies pain medicine at this time patient denies x-rays at this time patient will be DC'd to home as she is likely malingering. Patient verbalized agreement and understanding with discharge plan patient DC'd at this time. Patient is currently alert oriented x3 amatory steady gait in no acute distress. Critical care attestation.: If time is entered above; I have spent that time in minutes in the direct care of this critically ill patient, excluding procedure time. ED Disposition Clinical Impression: Body aches Disposition: 01 HOME / SELF CARE / HOMELESS Is pt being admited?: No Does the pt Need Aspirin: No Condition: Stable Instructions: Musculoskeletal Pain Additional Instructions: Follow-up with your doctor in 2 to 3 days. Return to emergency should symptoms worsen. Prescriptions: Acetaminophen [Acetaminophen TAB] 500 mg PO Q6HR PRN #20 tablet PRN Reason: Pain , Severe (7-10) Referrals: RITESH DUMONT MD [Staff Physician] - 3-5 Days Forms: Work/School Release Form(ED) Time of Disposition: 04:18
[2021-12-02] MEDS ORDERED: ACETAMINOPHEN 500 MG TAB PO ONE (04:07)
[2021-12-02 07:00] VITALS: BP 162/95
== END 2021-12-02 06:58 | disposition home or self-care (01) ==
LOC: ED 20:50
DX: M79.10 Myalgia, unspecified site (principal); F17.200 Nicotine dependence, unspecified, uncomplicated; I10 Essential (primary) hypertension; J45.909 Unspecified asthma, uncomplicated; F20.9 Schizophrenia, unspecified
CPT/HCPCS: 99282

== ENCOUNTER 2021-12-02 18:42 | Emergency (ER) | payer MEDICARE | END 2021-12-03 04:20 | disposition left against medical advice (07) | LOC: ED 18:42 | DX: M79.604 Pain in right leg (principal); Z53.21 Procedure and treatment not carried out due to patient leaving prior to being seen by health care provider ==

== ENCOUNTER 2021-12-04 22:57 | Emergency (ER) | payer MEDICARE | END 2021-12-05 01:00 | disposition left against medical advice (07) | LOC: ED 22:57 | DX: R07.89 Other chest pain (principal); Z53.21 Procedure and treatment not carried out due to patient leaving prior to being seen by health care provider ==

== ENCOUNTER 2021-12-06 20:44 | Emergency (ER) | payer MEDICARE | END 2021-12-06 23:49 | disposition left against medical advice (07) | LOC: ED 20:44 | DX: R06.02 Shortness of breath (principal); Z53.21 Procedure and treatment not carried out due to patient leaving prior to being seen by health care provider ==

== ENCOUNTER 2021-12-07 05:38 | Emergency (ER) | payer MEDICARE ==
[2021-12-07 05:52] VITALS: BP 171/80
--- NOTE | 2021-12-09 17:44 | Electrocardiograph Report ---
[facility] Test Date: 2021-12-07 Test Time: 05:54:51 Pat Name: DANO BROWN Department: Room: Gender: F Environmental Field Professional: NURSE : 1970 Requested By: ED DOC Order Number: [id number] Reading MD: Mari Nicholson Measurements Intervals [place] Rate: 69 P: 67 IA: 175 QRS: 26 QRSD: 90 T: 82 QT: 450 QTc: 482 Interpretive Statements Sinus rhythm Consider left ventricular hypertrophy Anterior Q waves, possibly due to LVH Compared to ECG 10/21/2021 08:11:11 No significant change Electronically Signed On 12-09-2021 17:43:54 EDT by Mari Nicholson
== END 2021-12-07 07:15 | disposition left against medical advice (07) ==
LOC: ED 05:38
DX: R06.02 Shortness of breath (principal); Z53.21 Procedure and treatment not carried out due to patient leaving prior to being seen by health care provider
CPT/HCPCS: 93005

== ENCOUNTER 2021-12-08 16:55 | Emergency (ER) | payer MEDICARE ==
[2021-12-08 20:53] VITALS: BP 184/103
== END 2021-12-09 17:51 | disposition left against medical advice (07) ==
LOC: ED 16:55
DX: Z53.21 Procedure and treatment not carried out due to patient leaving prior to being seen by health care provider (principal)

== ENCOUNTER 2021-12-09 19:11 | Emergency (ER) | payer MEDICARE | END 2021-12-09 21:30 | disposition left against medical advice (07) | LOC: ED 19:11 | DX: Z53.21 Procedure and treatment not carried out due to patient leaving prior to being seen by health care provider (principal) ==

== ENCOUNTER 2021-12-11 05:18 | Emergency (ER) | payer MEDICARE ==
[2021-12-11 05:27] VITALS: BP 158/92
== END 2021-12-11 08:20 | disposition left against medical advice (07) ==
LOC: ED 05:18
DX: M54.9 Dorsalgia, unspecified (principal); Z53.21 Procedure and treatment not carried out due to patient leaving prior to being seen by health care provider

== ENCOUNTER 2021-12-11 22:38 | Emergency (ER) | payer MEDICARE | END 2021-12-12 00:15 | disposition left against medical advice (07) | LOC: ED 22:38 | DX: M54.9 Dorsalgia, unspecified (principal); Z53.21 Procedure and treatment not carried out due to patient leaving prior to being seen by health care provider ==

== ENCOUNTER 2021-12-13 08:36 | Emergency (ER) | payer MEDICARE ==
[2021-12-13 08:43] VITALS: BP 107/54
--- NOTE | 2021-12-13 08:49 | Emergency Department Report ---
ED Back Pain/Injury HPI - General Chief Complaint: Medical Clearance Stated Complaint: BACK PAIN Time Seen by Provider: 12/13/21 08:44 Source: patient Limitations: No Limitations - History of Present Illness Initial Comments: This is a 51-year-old female nontoxic, well nourished in appearance, no acute signs of distress presents to the ED with c/o of acute on chronic lower back pain x several years. Patient denies taking anything OTC for pain. Medical history shows chronic back pains with multiple visits for same complaints. Patient denies any radiation of pain. Patient denies any injuries or trauma. Denies any bladder or bowel instability. Patient denies any urinary symptoms. Denies any fever, chills, nausea, vomiting, headache, stiff neck, chest pain or shortness of breath. Patient denies any numbness or tingling. Denies any allergies. MD Complaint: back pain -: year(s) Similar Symptoms Previously: Yes Radiation: none Severity scale (0 -10): 3 Quality: aching Consistency: intermittent Improves With: immobilization, sitting upright Worsens With: movement, walking Associated Symptoms: denies other symptoms. denies: confusion, weakness, chest pain, numbness, difficulty walking, cough, difficulty urinating, diaphoresis, incontinence, fever/chills, constipation, headaches, abdominal pain, loss of silvino etite, malaise, nausea/vomiting, rash, seizure, shortness of breath, syncope - Related Data Previous Rx's Medication Instructions Recorded Last Taken Type ALBUTEROL NEB's [Proventil 0.083% 1 puff IH Q4H PRN #1 box 09/26/17 Unknown Rx NEBS] amLODIPine 5 mg PO DAILY #30 tab 05/19/19 Unknown Rx hydroCHLOROthiazide [HCTZ] 25 mg PO QDAY #30 tablet 05/19/19 Unknown Rx Albuterol Mdi (or & Nicu Only) 2 puff IH QID PRN #1 inhalation 10/08/21 Unknown Rx [ProAir HFA Inhaler] Ibuprofen [Motrin 800 MG tab] 800 mg PO Q8HR PRN #30 tablet 10/08/21 Unknown Rx Aspirin [Aspirin BABY CHEW TAB] 81 mg PO QDAY #30 tab.chew 10/15/21 Unknown Rx Permethrin 5% [Acticin 5% CREAM] 1 applicatio TP ONCE #1 tube 10/17/21 Unknown Rx Albuterol Mdi (or & Nicu Only) 2 puff IH QID PRN #8.5 gram 10/26/21 Unknown Rx [ProAir HFA Inhaler] Menthol/Camphor [[place] 1 applicatio TP QID PRN #1 tube 10/26/21 Unknown Rx Ointment] Clotrimazole 1% [Lotrimin 1%] 1 applic TP BID #1 tube 10/29/21 Unknown Rx Naproxen [EC-Naproxen] 500 mg PO BID #20 10/29/21 Unknown Rx Albuterol Sulfate [Proair 90 mcg IH Q4HR PRN #2 aer.pow.ba 11/16/21 Unknown Rx Respiclick] Amlodipine Besylate [Norvasc] 10 mg PO QDAY #60 tab 11/16/21 Unknown Rx Benzonatate [Tessalon Perles] 100 mg PO Q8HR PRN #30 capsule 11/16/21 Unknown Rx Nicotine Polacrilex [Nicotine Gum] 4 mg BC PRN #1 pack 11/16/21 Unknown Rx Acetaminophen [Acetaminophen TAB] 500 mg PO Q6HR PRN #20 tablet 12/02/21 Unknown Rx Allergies Allergy/AdvReac Type Severity Reaction Status Date / Time No Known Allergies Allergy Verified 10/26/21 21:34 ED Review of Systems ROS: Stated complaint: BACK PAIN Other details as noted in HPI Comment: All other systems reviewed and negative Constitutional: denies: chills, fever Eyes: denies: eye pain, eye discharge, vision change ENT: denies: ear pain, throat pain Respiratory: denies: cough, shortness of breath, wheezing Cardiovascular: denies: chest pain, palpitations Endocrine: no symptoms reported Gastrointestinal: denies: abdominal pain, nausea, diarrhea Genitourinary: denies: urgency, dysuria, discharge Musculoskeletal: back pain. denies: joint swelling, arthralgia Skin: denies: rash, lesions Neurological: denies: headache, weakness, paresthesias Psychiatric: denies: anxiety, depression Hematological/Lymphatic: denies: easy bleeding, easy bruising ED Past Medical Hx - Past Medical History Hx Hypertension: Yes Hx Arthritis: Yes Hx Psychiatric Treatment: Yes (Schizophrenia) Hx Asthma: Yes (bronchitis) Additional medical history: gout - Surgical History Additional Surgical History: "TUMORS REMOVED IN STOMACH" - Social History Smoking Status: Current Some Day Smoker Substance Use Type: None - Medications Home Medications: Home Medications Medication Instructions Recorded Confirmed Last Taken Type ALBUTEROL NEB's [Proventil 0.083% 1 puff IH Q4H PRN #1 box 09/26/17 Unknown Rx NEBS] amLODIPine 5 mg PO DAILY #30 tab 05/19/19 Unknown Rx hydroCHLOROthiazide [HCTZ] 25 mg PO QDAY #30 tablet 05/19/19 Unknown Rx Albuterol Mdi (or & Nicu Only) 2 puff IH QID PRN #1 inhalation 10/08/21 Unknown Rx [ProAir HFA Inhaler] Ibuprofen [Motrin 800 MG tab] 800 mg PO Q8HR PRN #30 tablet 10/08/21 Unknown Rx Aspirin [Aspirin BABY CHEW TAB] 81 mg PO QDAY #30 tab.chew 10/15/21 Unknown Rx Permethrin 5% [Acticin 5% CREAM] 1 applicatio TP ONCE #1 tube 10/17/21 Unknown Rx Albuterol Mdi (or & Nicu Only) 2 puff IH QID PRN #8.5 gram 10/26/21 Unknown Rx [ProAir HFA Inhaler] Menthol/Camphor [[place] 1 applicatio TP QID PRN #1 tube 10/26/21 Unknown Rx Ointment] Clotrimazole 1% [Lotrimin 1%] 1 applic TP BID #1 tube 10/29/21 Unknown Rx Naproxen [EC-Naproxen] 500 mg PO BID #20 10/29/21 Unknown Rx Albuterol Sulfate [Proair 90 mcg IH Q4HR PRN #2 aer.pow.ba 11/16/21 Unknown Rx Respiclick] Amlodipine Besylate [Norvasc] 10 mg PO QDAY #60 tab 11/16/21 Unknown Rx Benzonatate [Tessalon Perles] 100 mg PO Q8HR PRN #30 capsule 11/16/21 Unknown Rx Nicotine Polacrilex [Nicotine Gum] 4 mg BC PRN #1 pack 11/16/21 Unknown Rx Acetaminophen [Acetaminophen TAB] 500 mg PO Q6HR PRN #20 tablet 12/02/21 Unknown Rx ED Physical Exam - General Limitations: No Limitations General appearance: alert, in no apparent distress - Head Head exam: Present: atraumatic, normocephalic - Eye Eye exam: Present: normal appearance - Neck Neck exam: Present: normal inspection, full ROM. Absent: lymphadenopathy - Respiratory Respiratory exam: Absent: respiratory distress - Cardiovascular Cardiovascular Exam: Present: regular rate - GI/Abdominal GI/Abdominal exam: Present: soft, normal bowel sounds. Absent: distended, tenderness, guarding, rebound, rigid, diminished bowel sounds - Extremities Exam Extremities exam: Present: normal inspection, full ROM, normal capillary refill. Absent: tenderness - Back Exam Back exam: Present: normal inspection, full ROM, paraspinal tenderness (lumbar paraspinal). Absent: tenderness, CVA tenderness (R), CVA tenderness (L), muscle spasm, vertebral tenderness, rash noted - Expanded Back Exam Expanded Back exam: Absent: saddle anesthesia Back exam: Negative Straight Leg Raising: Left, Right - Neurological Exam Neurological exam: Present: alert, oriented X3, normal gait - Psychiatric Psychiatric exam: Present: normal affect, normal mood - Skin Skin exam: Present: warm, dry, intact, normal color. Absent: rash ED Course Vital Signs 12/13/21 08:42 Temperature 97.1 F L Pulse Rate 74 Respiratory 16 Rate Blood Pressure 107/54 [Right] O2 Sat by Pulse 99 Oximetry - Reevaluation(s) Reevaluation #1: 12/13/21 08:47 Patient is speaking in full sentences with no signs of distress noted. ED Medical Decision Making - Medical Decision Making This is a 51-year-old female that presents with chronic lower back pains. Patient is stable was examined by me. There is no spinal tenderness. There is no cauda equina syndrome during examination. No bladder or bowel instability. Patient was instructed to take [id number] medication such as Tylenol or Motrin. Patient was referred to Follow-up with a primary care doctor in 3-5 days or if symptoms worsen and continue return to emergency room as soon as possible. At time of discharge, the patient does not seem toxic or ill in appearance. No acute signs of distress noted. Patient agrees to discharge treatment plan of care. No further questions noted by the patient. This chart is dictated with using [employer] Critical care attestation.: If time is entered above; I have spent that time in minutes in the direct care of this critically ill patient, excluding procedure time. ED Disposition Clinical Impression: Chronic back pain Qualifiers: Back pain location: low back pain Back pain laterality: unspecified Sciatica presence: without sciatica Qualified Code(s): M54.50 - Low back pain, unspecified; G89.29 - Other chronic pain Disposition: HOME / SELF CARE / HOMELESS Is pt being admited?: No Does the pt Need Aspirin: No Condition: Stable Instructions: Chronic Pain, Adult Additional Instructions: Follow-up with a primary care doctor in 3-5 days or if symptoms worsen and continue return to emergency room as soon as possible. Referrals: PRIMARY CAREMD [Referring] - 3-5 Days GHULAM WALTON MD [Staff Physician] - 3-5 Days Time of Disposition: 08:49
== END 2021-12-13 08:45 | disposition home or self-care (01) ==
LOC: ED 08:36
DX: G89.29 Other chronic pain (principal); M54.50 Low back pain, unspecified; I10 Essential (primary) hypertension; M19.90 Unspecified osteoarthritis, unspecified site; F20.9 Schizophrenia, unspecified; J45.909 Unspecified asthma, uncomplicated; F17.200 Nicotine dependence, unspecified, uncomplicated; Z79.899 Other long term (current) drug therapy
CPT/HCPCS: 99282

== ENCOUNTER 2021-12-13 20:51 | Emergency (ER) | payer MEDICARE ==
[2021-12-14 04:45] VITALS: BP 139/82
== END 2021-12-14 08:00 | disposition left against medical advice (07) ==
LOC: ED 20:51
DX: M54.9 Dorsalgia, unspecified (principal); G89.29 Other chronic pain; Z53.21 Procedure and treatment not carried out due to patient leaving prior to being seen by health care provider

== ENCOUNTER 2021-12-15 21:36 | Emergency (ER) | payer MEDICARE | END 2021-12-15 22:56 | LOC: ED 21:36 | DX: M54.9 Dorsalgia, unspecified (principal); Z53.21 Procedure and treatment not carried out due to patient leaving prior to being seen by health care provider ==

== ENCOUNTER 2021-12-16 20:33 | Emergency (ER) | payer MEDICARE ==
[2021-12-16 22:30] VITALS: BP 127/68
== END 2021-12-17 09:24 | disposition home or self-care (01) ==
LOC: ED 20:33
DX: R50.9 Fever, unspecified (principal); Z53.21 Procedure and treatment not carried out due to patient leaving prior to being seen by health care provider

== ENCOUNTER 2022-02-15 20:20 | Emergency (ER) | payer MEDICARE | END 2022-02-15 23:00 | disposition left against medical advice (07) | LOC: ED 20:20 | DX: R06.02 Shortness of breath (principal); Z53.21 Procedure and treatment not carried out due to patient leaving prior to being seen by health care provider ==

== ENCOUNTER 2022-02-19 20:16 | Emergency (ER) | payer MEDICARE | END 2022-02-20 06:45 | disposition left against medical advice (07) | LOC: ED 20:16 | DX: I10 Essential (primary) hypertension (principal); Z53.21 Procedure and treatment not carried out due to patient leaving prior to being seen by health care provider ==

== ENCOUNTER 2022-02-20 16:48 | Emergency (ER) | payer MEDICARE | END 2022-02-20 22:00 | disposition home or self-care (01) | LOC: ED 16:48 | DX: M79.606 Pain in leg, unspecified (principal); Z53.21 Procedure and treatment not carried out due to patient leaving prior to being seen by health care provider ==

== ENCOUNTER 2022-02-21 06:50 | Emergency (ER) | payer MEDICARE ==
[2022-02-21 07:19] VITALS: BP 107/74
== END 2022-02-21 16:43 | disposition left against medical advice (07) ==
LOC: ED 06:50
DX: M79.606 Pain in leg, unspecified (principal); Z53.21 Procedure and treatment not carried out due to patient leaving prior to being seen by health care provider

== ENCOUNTER 2022-02-21 20:56 | Emergency (ER) | payer MEDICARE | END 2022-02-21 22:00 | disposition left against medical advice (07) | LOC: ED 20:56 | DX: M79.606 Pain in leg, unspecified (principal); Z53.21 Procedure and treatment not carried out due to patient leaving prior to being seen by health care provider ==

== ENCOUNTER 2022-02-23 16:17 | Emergency (ER) | payer MEDICARE ==
[2022-02-23 16:38] VITALS: BP 154/74
== END 2022-02-24 04:57 | disposition left against medical advice (07) ==
LOC: ED 16:17
DX: M79.604 Pain in right leg (principal); M79.605 Pain in left leg; Z53.21 Procedure and treatment not carried out due to patient leaving prior to being seen by health care provider

== ENCOUNTER 2022-02-24 17:52 | Emergency (ER) | payer MEDICARE | END 2022-02-25 19:00 | disposition left against medical advice (07) | LOC: ED 17:52 | DX: M79.604 Pain in right leg (principal); M79.605 Pain in left leg; Z53.21 Procedure and treatment not carried out due to patient leaving prior to being seen by health care provider ==

== ENCOUNTER 2022-02-26 17:34 | Emergency (ER) | payer MEDICARE ==
--- NOTE | 2022-02-27 08:12 | Emergency Department Report ---
ED Rash HPI - HPI Chief Complaint: Skin Rash Stated Complaint: EKG/SIDE PAIN Duration: 2 Days Location: Other (bilateral breast area ) Rash Symptoms: Yes Itching, No Facial Swelling, No Tongue/Oral Swelling, No Breathing Difficulties, No Choking Sensation, No Wheezing/Dyspnea, No Peeling, No Blistering, No Fever, No Lightheaded, No Malaise, No Myalgias Severity: moderate Other History: 52-year-old female presents to the ED complaining of a rash beneath her breast x 2 days . Patient states that she due to her large breasts that she often get rash. Patient states that rash is worsened by the heat. And causes pruritus. Patient has an open skin near the rash area. Patient denies any fever chills nausea vomiting. Patient is alert and oriented x3. No acute distress noted. No ill appearance noted. ED Review of Systems ROS: Stated complaint: EKG/SIDE PAIN Other details as noted in HPI Constitutional: denies: chills, fever Eyes: denies: eye pain, eye discharge, vision change ENT: denies: ear pain, throat pain Respiratory: denies: cough, shortness of breath, wheezing Cardiovascular: denies: chest pain, palpitations Endocrine: no symptoms reported Gastrointestinal: denies: abdominal pain, nausea, diarrhea Genitourinary: denies: urgency, dysuria, discharge Musculoskeletal: denies: back pain, joint swelling, arthralgia Skin: rash. denies: lesions Neurological: denies: headache, weakness, paresthesias Psychiatric: denies: anxiety, depression Hematological/Lymphatic: denies: easy bleeding, easy bruising ED Past Medical Hx - Past Medical History Hx Hypertension: Yes Hx Arthritis: Yes Hx Psychiatric Treatment: Yes (Schizophrenia) Hx Asthma: Yes (bronchitis) Additional medical history: gout - Surgical History Additional Surgical History: "TUMORS REMOVED IN STOMACH" - Social History Smoking Status: Former Smoker - Medications Home Medications: Home Medications Medication Instructions Recorded Confirmed Last Taken Type ALBUTEROL NEB's [Proventil 0.083% 1 puff IH Q4H PRN #1 box 09/26/17 Unknown Rx NEBS] amLODIPine 5 mg PO DAILY #30 tab 05/19/19 Unknown Rx hydroCHLOROthiazide [HCTZ] 25 mg PO QDAY #30 tablet 05/19/19 Unknown Rx Albuterol Mdi (or & Nicu Only) 2 puff IH QID PRN #1 inhalation 10/08/21 Unknown Rx [ProAir HFA Inhaler] Ibuprofen [Motrin 800 MG tab] 800 mg PO Q8HR PRN #30 tablet 10/08/21 Unknown Rx Aspirin [Aspirin BABY CHEW TAB] 81 mg PO QDAY #30 tab.chew 10/15/21 Unknown Rx Permethrin 5% [Acticin 5% CREAM] 1 applicatio TP ONCE #1 tube 10/17/21 Unknown Rx Albuterol Mdi (or & Nicu Only) 2 puff IH QID PRN #8.5 gram 10/26/21 Unknown Rx [ProAir HFA Inhaler] Menthol/Camphor [[place] 1 applicatio TP QID PRN #1 tube 10/26/21 Unknown Rx Ointment] Clotrimazole 1% [Lotrimin 1%] 1 applic TP BID #1 tube 10/29/21 Unknown Rx Naproxen [EC-Naproxen] 500 mg PO BID #20 10/29/21 Unknown Rx Albuterol Sulfate [Proair 90 mcg IH Q4HR PRN #2 aer.pow.ba 11/16/21 Unknown Rx Respiclick] Amlodipine Besylate [Norvasc] 10 mg PO QDAY #60 tab 11/16/21 Unknown Rx Benzonatate [Tessalon Perles] 100 mg PO Q8HR PRN #30 capsule 11/16/21 Unknown Rx Nicotine Polacrilex [Nicotine Gum] 4 mg BC PRN #1 pack 11/16/21 Unknown Rx Acetaminophen [Acetaminophen TAB] 500 mg PO Q6HR PRN #20 tablet 12/02/21 Unknown Rx Clotrimazole/Betamethasone Dip 1 applicatio TP BID 15 Days #1 tube 02/27/22 Unknown Rx [Lotrisone Cream] Fluconazole [Diflucan TAB] 200 mg PO QDAY 7 Days #7 tablet 02/27/22 Unknown Rx Rash Exam - Exam General: Vital signs noted. No distress. Alert and acting appropriately. HEENT: No Periorbital Edema, No Conjuctival Injection, No Chemosis, No Perioral Edema, No Tongue Edema, No Uvular Edema, No Compromised Airway, No Drooling Lungs: Yes Good Air Exchange (Normal Breath Sounds), No Wheezes, No Ronchi, No Stridor, No Cough, No Labored Respirations, No Retractions, No Use of Accessory Muscles, No Other Abnormal Lung Sounds Heart: Yes Regular, No Murmur Skin: Yes Maculopapular Rash, No Urticarial Rash, No Morbilliform rash, No Bulla(e), No Excoriations, No Weeping, No Tenderness, No Erythema, No Edema, No Encrustations, No Other Other: Positive: Abdomen Normal, Neurologic Normal, Musculoskeletal Normal ED Course Vital Signs 02/26/22 02/27/22 18:12 07:49 Temperature 99.1 F 98.1 F Pulse Rate 90 63 Respiratory 18 20 Rate Blood Pressure 188/103 166/68 [Left] O2 Sat by Pulse 100 Oximetry ED Medical Decision Making - Medical Decision Making 52-year-old female presents to the ED complaining of a rash beneath her breast x 2 days . Patient states that due to her large breasts that she often get rash. Patient states that rash is worsened by the heat. And causes pruritus. Patient has an open skin near the rash area. Patient denies any fever chills nausea vomiting. Patient is alert and oriented x3. No acute distress noted. No ill appearance noted. Rechecked the patient is resting quietly quietly and comfortable and feeling better. I discussed the results of diagnostic study, my clinical impression and the plan for further treatment with the patient. Patient agrees with plan and discharge at this present time. All question addressed. I have given the patient instruction regarding a diagnosis ,expectation ,follow- up and return precaution. I explained to the patient that emergent condition may arise and to return to the ED for new worsen and any new persisting condition. I have explained the importance of following up with the primary care physician or referral physician listed below has instructed. The patient verbalized understanding of discharge instruction. Critical care attestation.: If time is entered above; I have spent that time in minutes in the direct care of this critically ill patient, excluding procedure time. ED Disposition Clinical Impression: Candidiasis of breast Disposition: 01 HOME / SELF CARE / HOMELESS Is pt being admited?: No Does the pt Need Aspirin: No Condition: Stable Instructions: Skin Yeast Infection Additional Instructions: Take medication as prescribed Return to the ED for any worsening symptom Prescriptions: Fluconazole [Diflucan TAB] 200 mg PO QDAY 7 Days #7 tablet Clotrimazole/Betamethasone Dip [Lotrisone Cream] 1 applicatio TP BID 15 Days #1 tube Referrals: [facility] [Outside] - 3-5 Days [facility] [Provider Group] - 3-5 Days Forms: Work/School Release Form(ED) Time of Disposition: 08:21
[2022-02-27 09:22] VITALS: BP 165/71
== END 2022-02-27 09:17 | disposition home or self-care (01) ==
LOC: ED 17:34
DX: B37.89 Other sites of candidiasis (principal); I10 Essential (primary) hypertension; M19.90 Unspecified osteoarthritis, unspecified site; F20.9 Schizophrenia, unspecified; J45.909 Unspecified asthma, uncomplicated; Z87.891 Personal history of nicotine dependence
CPT/HCPCS: 99282

== ENCOUNTER 2022-02-27 19:15 | Emergency (ER) | payer MEDICARE ==
[2022-02-27 19:38] VITALS: BP 155/94
--- NOTE | 2022-02-28 03:46 | Emergency Department Report ---
ED General Adult HPI - General Chief complaint: Dyspnea/Respdistress Stated complaint: cani have something to eat Source: patient, RN notes reviewed, old records reviewed Mode of arrival: Ambulatory Limitations: No Limitations - History of Present Illness Initial comments: The patient was evaluated in the emergency department for symptoms described in the history of present illness. He/she was evaluated in the context of the global COVID-19 pandemic, which necessitated consideration that the patient might be at risk for infection with the virus that causes COVID-19. Insti tutional protocols and algorithms that pertain to the evaluation of patients at risk for COVID-19 are in a state of rapid change based on information released by regulatory bodies including the CDC and federal and state organizations. These policies and algorithms were followed during the patient's care in the emergency department. Please note that these policies, procedures and recommendations changed on a rapid basis. This patient is a 52-year-old female who is a frequent utilizer and user of this emergency room, Who presents to the department today with a complaint of painless shortness of breath which has been present for months, and a request to have something to eat or drink. She makes no additional complaints. She denies physical pain. -: month(s) - Related Data Previous Rx's Medication Instructions Recorded Last Taken Type ALBUTEROL NEB's [Proventil 0.083% 1 puff IH Q4H PRN #1 box 09/26/17 Unknown Rx NEBS] hydroCHLOROthiazide [HCTZ] 25 mg PO QDAY #30 tablet 05/19/19 Unknown Rx Albuterol Mdi (or & Nicu Only) 2 puff IH QID PRN #1 inhalation 10/08/21 Unknown Rx [ProAir HFA Inhaler] Ibuprofen [Motrin 800 MG tab] 800 mg PO Q8HR PRN #30 tablet 10/08/21 Unknown Rx Aspirin [Aspirin BABY CHEW TAB] 81 mg PO QDAY #30 tab.chew 10/15/21 Unknown Rx Permethrin 5% [Acticin 5% CREAM] 1 applicatio TP ONCE #1 tube 10/17/21 Unknown Rx Menthol/Camphor [[place] 1 applicatio TP QID PRN #1 tube 10/26/21 Unknown Rx Ointment] Clotrimazole 1% [Lotrimin 1%] 1 applic TP BID #1 tube 10/29/21 Unknown Rx Naproxen [EC-Naproxen] 500 mg PO BID #20 10/29/21 Unknown Rx Albuterol Sulfate [Proair 90 mcg IH Q4HR PRN #2 aer.pow.ba 11/16/21 Unknown Rx Respiclick] Amlodipine Besylate [Norvasc] 10 mg PO QDAY #60 tab 11/16/21 Unknown Rx Benzonatate [Tessalon Perles] 100 mg PO Q8HR PRN #30 capsule 11/16/21 Unknown Rx Nicotine Polacrilex [Nicotine Gum] 4 mg BC PRN #1 pack 11/16/21 Unknown Rx Acetaminophen [Acetaminophen TAB] 500 mg PO Q6HR PRN #20 tablet 12/02/21 Unknown Rx Clotrimazole/Betamethasone Dip 1 applicatio TP BID 15 Days #1 tube 02/27/22 Unknown Rx [Lotrisone Cream] Fluconazole [Diflucan TAB] 200 mg PO QDAY 7 Days #7 tablet 02/27/22 Unknown Rx Albuterol Mdi (or & Nicu Only) 2 puff IH QID PRN #8.5 gram 02/28/22 Unknown Rx [ProAir HFA Inhaler] amLODIPine 5 mg PO DAILY #30 tab 02/28/22 Unknown Rx Allergies Allergy/AdvReac Type Severity Reaction Status Date / Time No Known Allergies Allergy Verified 02/23/22 16:38 ED Review of Systems ROS: Stated complaint: FEELING SICK Other details as noted in HPI Respiratory: shortness of breath ED Past Medical Hx - Past Medical History Previous Medical History?: Yes Hx Hypertension: Yes Hx Arthritis: Yes Hx Psychiatric Treatment: Yes (Schizophrenia) Hx Asthma: Yes (bronchitis) Additional medical history: gout - Surgical History Past Surgical History?: Yes Additional Surgical History: "TUMORS REMOVED IN STOMACH" - Social History Smoking Status: Current Some Day Smoker Substance Use Type: None - Medications Home Medications: Home Medications Medication Instructions Recorded Confirmed Last Taken Type ALBUTEROL NEB's [Proventil 0.083% 1 puff IH Q4H PRN #1 box 09/26/17 Unknown Rx NEBS] hydroCHLOROthiazide [HCTZ] 25 mg PO QDAY #30 tablet 05/19/19 Unknown Rx Albuterol Mdi (or & Nicu Only) 2 puff IH QID PRN #1 inhalation 10/08/21 Unknown Rx [ProAir HFA Inhaler] Ibuprofen [Motrin 800 MG tab] 800 mg PO Q8HR PRN #30 tablet 10/08/21 Unknown Rx Aspirin [Aspirin BABY CHEW TAB] 81 mg PO QDAY #30 tab.chew 10/15/21 Unknown Rx Permethrin 5% [Acticin 5% CREAM] 1 applicatio TP ONCE #1 tube 10/17/21 Unknown Rx Menthol/Camphor [[place] 1 applicatio TP QID PRN #1 tube 10/26/21 Unknown Rx Ointment] Clotrimazole 1% [Lotrimin 1%] 1 applic TP BID #1 tube 10/29/21 Unknown Rx Naproxen [EC-Naproxen] 500 mg PO BID #20 10/29/21 Unknown Rx Albuterol Sulfate [Proair 90 mcg IH Q4HR PRN #2 aer.pow.ba 11/16/21 Unknown Rx Respiclick] Amlodipine Besylate [Norvasc] 10 mg PO QDAY #60 tab 11/16/21 Unknown Rx Benzonatate [Tessalon Perles] 100 mg PO Q8HR PRN #30 capsule 11/16/21 Unknown Rx Nicotine Polacrilex [Nicotine Gum] 4 mg BC PRN #1 pack 11/16/21 Unknown Rx Acetaminophen [Acetaminophen TAB] 500 mg PO Q6HR PRN #20 tablet 12/02/21 Unknown Rx Clotrimazole/Betamethasone Dip 1 applicatio TP BID 15 Days #1 tube 02/27/22 Unknown Rx [Lotrisone Cream] Fluconazole [Diflucan TAB] 200 mg PO QDAY 7 Days #7 tablet 02/27/22 Unknown Rx Albuterol Mdi (or & Nicu Only) 2 puff IH QID PRN #8.5 gram 02/28/22 Unknown Rx [ProAir HFA Inhaler] amLODIPine 5 mg PO DAILY #30 tab 02/28/22 Unknown Rx ED Physical Exam - General Limitations: No Limitations General appearance: alert, in no apparent distress - Head Head exam: Present: atraumatic, normocephalic - Eye Eye exam: Present: normal appearance, EOMI. Absent: nystagmus - ENT ENT exam: Present: normal exam, normal orophraynx, mucous membranes moist, normal external ear exam - Neck Neck exam: Present: normal inspection, full ROM. Absent: tenderness, meningismus - Respiratory Respiratory exam: Present: normal lung sounds bilaterally. Absent: respiratory distress, wheezes, rales, rhonchi, stridor, decreased breath sounds - Cardiovascular Cardiovascular Exam: Present: regular rate, normal rhythm, normal heart sounds. Absent: bradycardia, tachycardia, irregular rhythm, systolic murmur, diastolic murmur, rubs, gallop - GI/Abdominal GI/Abdominal exam: Present: soft. Absent: distended, tenderness, guarding, rebound, rigid, pulsatile mass - Extremities Exam Extremities exam: Present: normal inspection, full ROM, other (2+ pulses noted in the bilateral upper and lower extremities. There is no palpable cord. negative Homans sign. Muscular compartments are soft. The pelvis is stable.). Absent: calf tenderness - Back Exam Back exam: Present: normal inspection. Absent: tenderness, CVA tenderness (R), CVA tenderness (L), paraspinal tenderness, vertebral tenderness - Neurological Exam Neurological exam: Present: alert, other (There is no facial droop. The tongue is midline. EOMI. 5 out of 5 strength in 4 extremities.) - Psychiatric Psychiatric exam: Present: normal affect, normal mood - Skin Skin exam: Present: warm, dry, intact, normal color. Absent: rash ED Course Vital Signs 02/27/22 19:36 Temperature 98.6 F Pulse Rate 67 Respiratory 18 Rate Blood Pressure 155/94 O2 Sat by Pulse 98 Oximetry ED Medical Decision Making - Lab Data Vital Signs 02/27/22 19:36 Temperature 98.6 F Pulse Rate 67 Respiratory 18 Rate Blood Pressure 155/94 O2 Sat by Pulse 98 Oximetry - Medical Decision Making Differential diagnosis, including but not limited to: Medication refill, malingering, homelessness, secondary gain, medical screening examination Assessment and plan: 52-year-old female who is typically undomiciled, who is not currently tachycardic, tachypneic or hypoxic, who is clinically sober, with a GCS of 15, who presents to the department today with a complaint of months of shortness of breath, requesting refill on albuterol and Norvasc, and a primary complaint of requesting something to eat. Suspect that the patient is presenting for the purposes of food, mcc, and secondary gain. She has had multiple visits to this department within the past few weeks and months. She was seen by one of my colleagues yesterday. He does not appear to have an emergent medical condition present at this time. Critical care attestation.: If time is entered above; I have spent that time in minutes in the direct care of this critically ill patient, excluding procedure time. ED Disposition Clinical Impression: Medication refill, Chronic shortness of breath Disposition: HOME / SELF CARE / HOMELESS Is pt being admited?: No Does the pt Need Aspirin: No Condition: Good Additional Instructions: Avoid consumption of alcohol, tobacco and smoke products. Please take the prescribed medications as needed and directed. Follow-up with your primary care doctor within the next month. Please return to the emergency room right away with new pain, worsened pain, migration of pain, projectile vomiting, change in mental status, confusion, inability tolerate liquid feeds, new, worsened or different symptoms not present on the initial emergency room evaluation Prescriptions: amLODIPine 5 mg PO DAILY #30 tab Albuterol Mdi (or & Nicu Only) [ProAir HFA Inhaler] 2 puff IH QID PRN #8.5 gram PRN Reason: Shortness Of Breath Referrals: [facility] [Provider Group] - 3-5 Days [facility] [Outside] - 3-5 Days [facility] [Outside] - 3-5 Days
== END 2022-02-28 04:30 | disposition home or self-care (01) ==
LOC: ED 19:15
DX: R06.02 Shortness of breath (principal); Z76.0 Encounter for issue of repeat prescription; I10 Essential (primary) hypertension; M19.90 Unspecified osteoarthritis, unspecified site; F20.9 Schizophrenia, unspecified; J45.909 Unspecified asthma, uncomplicated; F17.200 Nicotine dependence, unspecified, uncomplicated; Z79.899 Other long term (current) drug therapy
CPT/HCPCS: 99282

== ENCOUNTER 2022-03-04 21:17 | Emergency (ER) | payer MEDICARE ==
[2022-03-04 22:12] VITALS: BP 153/74
== END 2022-03-05 16:00 | disposition left against medical advice (07) ==
LOC: ED 21:17
DX: R52 Pain, unspecified (principal); Z53.21 Procedure and treatment not carried out due to patient leaving prior to being seen by health care provider

== ENCOUNTER → 2022-03-05 | Emergency (ER) | payer MEDICARE ==
[2022-03-06 23:42] VITALS: BP 180/94
== END | disposition left against medical advice (07) ==
LOC: ED 20:12
DX: M25.539 Pain in unspecified wrist (principal); Z53.21 Procedure and treatment not carried out due to patient leaving prior to being seen by health care provider

== ENCOUNTER 2022-03-06 21:33 | Emergency (ER) | payer MEDICARE ==
[2022-03-07] MEDS ORDERED: IBUPROFEN 600 MG TAB PO ONE (03:12)
[2022-03-07] MEDS ORDERED: ACETAMINOPHEN 500 MG TAB PO ONE (03:12)
--- NOTE | 2022-03-07 03:18 | Emergency Department Report ---
ED Back Pain/Injury HPI - General Chief Complaint: Back Pain/Injury Stated Complaint: BACK PAIN Source: patient Limitations: No Limitations - History of Present Illness Initial Comments: Patient is a 52-year-old -Faro[place] female with a history of paranoid schizophrenia, bronchitis, chronic osteoarthritis, gouty arthropathy, and hypertension who presents to the ED with complaint of acute onset persistent nontraumatic low back pain for 2 days. Patient states that the pain is constant and persistent especially with movement. Patient denies fall, traumatic injury, heavy lifting, dysuria, urinary frequency and urgency, chest pain or shortness of breath, fever, chills, numbness and tingling or weakness of lower and upper extremities bilaterally. MD Complaint: back pain -: days(s) (2) Similar Symptoms Previously: No Place: home Radiation: none Severity: moderate Quality: dull, aching Consistency: intermittent Improves With: none Worsens With: none Context: while lifting Associated Symptoms: denies other symptoms. denies: confusion, weakness, chest pain, numbness, difficulty walking, cough, difficulty urinating, diaphoresis, fever/chills, constipation, headaches, abdominal pain, loss of appetite, nausea/vomiting, rash, seizure, shortness of breath, syncope, other - Related Data Previous Rx's Medication Instructions Recorded Last Taken Type ALBUTEROL NEB's [Proventil 0.083% 1 puff IH Q4H PRN #1 box 09/26/17 Unknown Rx NEBS] hydroCHLOROthiazide [HCTZ] 25 mg PO QDAY #30 tablet 05/19/19 Unknown Rx Albuterol Mdi (or & Nicu Only) 2 puff IH QID PRN #1 inhalation 10/08/21 Unknown Rx [ProAir HFA Inhaler] Ibuprofen [Motrin 800 MG tab] 800 mg PO Q8HR PRN #30 tablet 10/08/21 Unknown Rx Aspirin [Aspirin BABY CHEW TAB] 81 mg PO QDAY #30 tab.chew 10/15/21 Unknown Rx Permethrin 5% [Acticin 5% CREAM] 1 applicatio TP ONCE #1 tube 10/17/21 Unknown Rx Menthol/Camphor [[place] 1 applicatio TP QID PRN #1 tube 10/26/21 Unknown Rx Ointment] Clotrimazole 1% [Lotrimin 1%] 1 applic TP BID #1 tube 10/29/21 Unknown Rx Naproxen [EC-Naproxen] 500 mg PO BID #20 10/29/21 Unknown Rx Albuterol Sulfate [Proair 90 mcg IH Q4HR PRN #2 aer.pow.ba 11/16/21 Unknown Rx Respiclick] Amlodipine Besylate [Norvasc] 10 mg PO QDAY #60 tab 11/16/21 Unknown Rx Benzonatate [Tessalon Perles] 100 mg PO Q8HR PRN #30 capsule 11/16/21 Unknown Rx Nicotine Polacrilex [Nicotine Gum] 4 mg BC PRN #1 pack 11/16/21 Unknown Rx Acetaminophen [Acetaminophen TAB] 500 mg PO Q6HR PRN #20 tablet 12/02/21 Unknown Rx Clotrimazole/Betamethasone Dip 1 applicatio TP BID 15 Days #1 tube 02/27/22 Unknown Rx [Lotrisone Cream] Fluconazole [Diflucan TAB] 200 mg PO QDAY 7 Days #7 tablet 02/27/22 Unknown Rx Albuterol Mdi (or & Nicu Only) 2 puff IH QID PRN #8.5 gram 02/28/22 Unknown Rx [ProAir HFA Inhaler] amLODIPine 5 mg PO DAILY #30 tab 02/28/22 Unknown Rx Allergies Allergy/AdvReac Type Severity Reaction Status Date / Time No Known Allergies Allergy Verified 02/23/22 16:38 ED Review of Systems ROS: Stated complaint: BACK PAIN Other details as noted in HPI Constitutional: denies: chills, fever Eyes: denies: eye pain, eye discharge, vision change ENT: denies: ear pain, throat pain Respiratory: denies: cough, shortness of breath, wheezing Cardiovascular: denies: chest pain, palpitations Endocrine: no symptoms reported Gastrointestinal: denies: abdominal pain, nausea, vomiting, diarrhea Genitourinary: denies: urgency, dysuria, discharge Musculoskeletal: back pain (lower). denies: joint swelling, arthralgia Skin: denies: rash, lesions Neurological: denies: headache, weakness, paresthesias Psychiatric: denies: anxiety, depression Hematological/Lymphatic: denies: easy bleeding, easy bruising ED Past Medical Hx - Past Medical History Hx Hypertension: Yes Hx Arthritis: Yes Hx Psychiatric Treatment: Yes (Schizophrenia) Hx Asthma: Yes (bronchitis) Additional medical history: gout - Surgical History Additional Surgical History: "TUMORS REMOVED IN STOMACH" - Social History Smoking Status: Current Some Day Smoker Substance Use Type: None - Medications Home Medications: Home Medications Medication Instructions Recorded Confirmed Last Taken Type ALBUTEROL NEB's [Proventil 0.083% 1 puff IH Q4H PRN #1 box 09/26/17 Unknown Rx NEBS] hydroCHLOROthiazide [HCTZ] 25 mg PO QDAY #30 tablet 05/19/19 Unknown Rx Albuterol Mdi (or & Nicu Only) 2 puff IH QID PRN #1 inhalation 10/08/21 Unknown Rx [ProAir HFA Inhaler] Ibuprofen [Motrin 800 MG tab] 800 mg PO Q8HR PRN #30 tablet 10/08/21 Unknown Rx Aspirin [Aspirin BABY CHEW TAB] 81 mg PO QDAY #30 tab.chew 10/15/21 Unknown Rx Permethrin 5% [Acticin 5% CREAM] 1 applicatio TP ONCE #1 tube 10/17/21 Unknown Rx Menthol/Camphor [[place] 1 applicatio TP QID PRN #1 tube 10/26/21 Unknown Rx Ointment] Clotrimazole 1% [Lotrimin 1%] 1 applic TP BID #1 tube 10/29/21 Unknown Rx Naproxen [EC-Naproxen] 500 mg PO BID #20 10/29/21 Unknown Rx Albuterol Sulfate [Proair 90 mcg IH Q4HR PRN #2 aer.pow.ba 11/16/21 Unknown Rx Respiclick] Amlodipine Besylate [Norvasc] 10 mg PO QDAY #60 tab 11/16/21 Unknown Rx Benzonatate [Tessalon Perles] 100 mg PO Q8HR PRN #30 capsule 11/16/21 Unknown Rx Nicotine Polacrilex [Nicotine Gum] 4 mg BC PRN #1 pack 11/16/21 Unknown Rx Acetaminophen [Acetaminophen TAB] 500 mg PO Q6HR PRN #20 tablet 12/02/21 Unknown Rx Clotrimazole/Betamethasone Dip 1 applicatio TP BID 15 Days #1 tube 02/27/22 Unknown Rx [Lotrisone Cream] Fluconazole [Diflucan TAB] 200 mg PO QDAY 7 Days #7 tablet 02/27/22 Unknown Rx Albuterol Mdi (or & Nicu Only) 2 puff IH QID PRN #8.5 gram 02/28/22 Unknown Rx [ProAir HFA Inhaler] amLODIPine 5 mg PO DAILY #30 tab 02/28/22 Unknown Rx ED Physical Exam - General Limitations: No Limitations General appearance: alert, in no apparent distress - Head Head exam: Present: atraumatic, normocephalic, normal inspection - Eye Eye exam: Present: normal appearance, PERRL, EOMI Pupils: Present: normal accommodation - ENT ENT exam: Present: normal exam, normal orophraynx, mucous membranes moist, TM's normal bilaterally, normal external ear exam - Neck Neck exam: Present: normal inspection, full ROM - Respiratory Respiratory exam: Present: normal lung sounds bilaterally. Absent: respiratory distress, wheezes, rales, rhonchi, stridor, chest wall tenderness, accessory muscle use, decreased breath sounds, prolonged expiratory - Cardiovascular Cardiovascular Exam: Present: regular rate, normal rhythm, normal heart sounds. Absent: systolic murmur, diastolic murmur, rubs, gallop - GI/Abdominal GI/Abdominal exam: Present: soft, normal bowel sounds. Absent: tenderness, guarding, rebound, hyperactive bowel sounds, hypoactive bowel sounds, organomegaly, mass - Extremities Exam Extremities exam: Present: normal inspection, full ROM, normal capillary refill. Absent: tenderness - Back Exam Back exam: Present: normal inspection, full ROM, tenderness. Absent: CVA tenderness (R), CVA tenderness (L), muscle spasm, paraspinal tenderness, vertebral tenderness - Neurological Exam Neurological exam: Present: alert, oriented X3, CN II-XII intact, normal gait, reflexes normal - Psychiatric Psychiatric exam: Present: normal affect, normal mood - Skin Skin exam: Present: warm, dry, intact, normal color. Absent: rash ED Course Vital Signs 03/06/22 23:56 Temperature 95.5 F L Pulse Rate 78 Respiratory 20 Rate Blood Pressure 180/94 [Right] O2 Sat by Pulse 100 Oximetry ED Medical Decision Making - Medical Decision Making This is a 52-year-old -Faroese female with a history of paranoid darlyn izophrenia, bronchitis, chronic osteoarthritis, gouty arthropathy, and hypertension who presents to the ED with complaint of acute onset persistent nontraumatic low back pain for 2 days. Patient states that the pain is constant and persistent especially with movement. In the ED, patient is alert and oriented x3 and is not in any distress. Patient is hemodynamically stable. Patient was treated for pain in the ED and discharged home and advised to continue taking her regular medications and to follow-up with her primary care physician in 7 to 10 days for reevaluation. - Differential Diagnosis Muscle spasm; muscle strain; malingering; homelessness Critical care attestation.: If time is entered above; I have spent that time in minutes in the direct care of this critically ill patient, excluding procedure time. ED Disposition Clinical Impression: Spasm of muscle of lower back, Strain of muscle, fascia and tendon of lower back, initial encounter, Homelessness unspecified Disposition: 01 HOME / SELF CARE / HOMELESS Is pt being admited?: No Does the pt Need Aspirin: No Condition: Stable Instructions: Muscle Cramps and Spasms, [id number], Muscle Strain, Easy-to-R ead, Lumbosacral Strain Additional Instructions: Take medication with food, drink plenty of fluids and follow up with your primary care physician in 7-10 days for reevaluation. Return to the ED immediately if symptoms get worse. Referrals: [facility] [Provider Group] - 7-10 days Time of Disposition: 03:15 Print Language: SWEDISH
[2022-03-07 03:38] VITALS: BP 169/87
== END 2022-03-07 03:38 | disposition home or self-care (01) ==
LOC: ED 21:33
DX: S39.012A Strain of muscle, fascia and tendon of lower back, initial encounter (principal); T14.8XXA Other injury of unspecified body region, initial encounter; I10 Essential (primary) hypertension; F20.9 Schizophrenia, unspecified; Z59.00 Homelessness unspecified; F17.200 Nicotine dependence, unspecified, uncomplicated; M62.830 Muscle spasm of back; X58.XXXA Exposure to other specified factors, initial encounter; Y93.89 Activity, other specified; Y92.89 Other specified places as the place of occurrence of the external cause; Y99.8 Other external cause status
CPT/HCPCS: 99282

== ENCOUNTER 2022-03-20 22:38 | Emergency (ER) | payer MEDICARE | END 2022-03-20 23:00 | disposition left against medical advice (07) | LOC: ED 22:38 | DX: Z53.21 Procedure and treatment not carried out due to patient leaving prior to being seen by health care provider (principal) ==

== ENCOUNTER 2022-03-21 21:32 | Emergency (ER) | payer MEDICARE | END 2022-03-21 21:51 | disposition left against medical advice (07) | LOC: ED 21:32 | DX: N64.4 Mastodynia (principal); Z53.21 Procedure and treatment not carried out due to patient leaving prior to being seen by health care provider ==

== ENCOUNTER 2022-03-23 23:42 | Emergency (ER) | payer MEDICARE | END 2022-03-24 14:17 | disposition left against medical advice (07) | LOC: ED 23:42 | DX: N64.4 Mastodynia (principal); Z53.21 Procedure and treatment not carried out due to patient leaving prior to being seen by health care provider ==

== ENCOUNTER 2022-03-26 13:46 | Emergency (ER) | payer MEDICARE | END 2022-03-26 21:00 | disposition left against medical advice (07) | LOC: ED 13:46 | DX: K13.79 Other lesions of oral mucosa (principal); Z53.21 Procedure and treatment not carried out due to patient leaving prior to being seen by health care provider ==

== ENCOUNTER 2022-03-27 23:14 | Emergency (ER) | payer MEDICARE | END 2022-03-28 11:24 | disposition left against medical advice (07) | LOC: ED 23:14 | DX: M79.606 Pain in leg, unspecified (principal); Z53.21 Procedure and treatment not carried out due to patient leaving prior to being seen by health care provider ==

== ENCOUNTER → 2022-04-24 21:30 | Emergency (ER) | payer MEDICARE | LOC: ED 21:30 | DX: M79.606 Pain in leg, unspecified (principal); Z53.21 Procedure and treatment not carried out due to patient leaving prior to being seen by health care provider ==

== ENCOUNTER 2022-05-01 14:32 | Emergency (ER) | payer MEDICARE ==
[2022-05-01 15:13] VITALS: BP 153/85
== END 2022-05-01 23:10 | disposition left against medical advice (07) ==
LOC: ED 14:32
DX: M79.606 Pain in leg, unspecified (principal); Z53.21 Procedure and treatment not carried out due to patient leaving prior to being seen by health care provider

== ENCOUNTER 2022-05-07 06:01 | Emergency (ER) | payer MEDICARE ==
[2022-05-07 08:14] VITALS: BP 200/85
== END 2022-05-07 08:47 | disposition left against medical advice (07) ==
LOC: ED 06:01
DX: M79.605 Pain in left leg (principal); Z53.21 Procedure and treatment not carried out due to patient leaving prior to being seen by health care provider

== ENCOUNTER 2022-05-08 01:21 | Emergency (ER) | payer MEDICARE | END 2022-05-08 07:02 | LOC: ED 01:21 | DX: M79.669 Pain in unspecified lower leg (principal); Z53.21 Procedure and treatment not carried out due to patient leaving prior to being seen by health care provider ==

== ENCOUNTER 2022-05-08 23:27 | Emergency (ER) | payer MEDICARE ==
[2022-05-09 00:02] VITALS: BP 190/90
== END 2022-05-09 16:43 | disposition left against medical advice (07) ==
LOC: ED 23:27
DX: Z00.00 Encounter for general adult medical examination without abnormal findings (principal); Z53.21 Procedure and treatment not carried out due to patient leaving prior to being seen by health care provider

== ENCOUNTER 2022-05-13 01:31 | Emergency (ER) | payer MEDICARE | END 2022-05-13 01:48 | disposition left against medical advice (07) | LOC: ED 01:31 | DX: R07.9 Chest pain, unspecified (principal); Z53.21 Procedure and treatment not carried out due to patient leaving prior to being seen by health care provider ==

== ENCOUNTER 2022-05-14 00:46 | Emergency (ER) | payer MEDICARE ==
[2022-05-14 01:39] VITALS: BP 147/73
== END 2022-05-14 09:30 | disposition left against medical advice (07) ==
LOC: ED 00:46
DX: R53.1 Weakness (principal); Z53.21 Procedure and treatment not carried out due to patient leaving prior to being seen by health care provider